=== PATIENT | female | born 1955 | race Caucasian/White ===

== ENCOUNTER 2016-04-23 08:54 | Outpatient (RCR) | payer BC ==
[~2016-04-23 08:54] MED LIST: AMOX250S5 PO; ASP81TEC PO; ATEN-155 PO; AZIT-21 PO; CLOR3.755 PO; FAMO20TA5 PO; HCT25T PO; HYDR118S PO; LIDO20SO20 PO; LSNP20T PO; RNT150T PO
--- OUTSIDE RECORDS SUMMARY | 2016-04-23 08:59 | XMS REPORT | Continuity of Care Document ---
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 If you do not see the information that you expected, contact Release of Information in the Health Information Management department at [phone] for further assistance in locating additional records.[facility] Active Allergies and Adverse Reactions Allergen Noted Date Severity Reactions Comments Albuterol 01/28/2015 Low SEE COMMENTS cause high b/p, rapid HR Amlodipine 01/28/2015 Low JOINT PAIN Swelling, burn in legs Codeine 01/28/2015 Low VOMITING Prednisone 02/20/2015 Low SEE COMMENTS All Steroids - "Rapid heart beat, high blood pressure" Current Medications Prescription Sig. Disp. Refills Start End Date Status Date zolpidem (AMBIEN) 10 mg Take 10 mg by mouth at Active tablet bedtime as needed for Sleep. atenolol (TENORMIN) 25 mg Take 12.5-25 mg by mouth Active tablet daily with lunch. hydrochlorothiazide Take 25 mg by mouth Active (HYDRODIURIL) 25 mg daily[address] tablet pantoprazole DR Take 40 mg by mouth Active (PROTONIX) 40 mg tablet daily. diazepam (VALIUM) 5 mg Take 5 mg by mouth every Active tablet 6 hours as needed for Anxiety. lisinopril (PRINIVIL; Take 20 mg by mouth twice Active ZESTRIL) 20 mg tablet daily. ranitidine(+) (ZANTAC) Take 150 mg by mouth at Active 150 mg tablet bedtime as needed for Heartburn. aspirin EC 81 mg tablet Take 81 mg by mouth Active daily. Garlic 1 mg cap Take 1 mg by mouth daily. Active oxyCODONE-acetaminophen Take 1-2 Tabs by mouth 30 Tab 0 03/14/20 Active (PERCOCET; ENDOCET; every 4 hours as needed 15 ROXICET) 5-325 mg tablet for Pain Earliest Fill Date: 03/14/15 milk of magnesia (CONC) Take 10 mL by mouth 50 mL 0 03/14/20 Active 2,400 mg/10 mL oral daily. 15 suspension senna/docusate Take 1 Tab by mouth twice 30 Tab 2 03/14/20 Active (SENOKOT-S) 8.6/50 mg daily. 15 tablet ondansetron (ZOFRAN) 4 mg Take 1 Tab by mouth every 15 Tab 0 03/14/20 Active tablet 8 hours as needed for 15 Nausea. 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 4mm L renal cyst poorly visualized, non-operative. L ast Assessment & Plan: 60 y.o. woman w/ hx of pT1a RCC s/p partial nephrectomy. No evidence of recurrence per recent CT. Continues to follow w/ an oncologist locally, but was referred back to [facility] for a L renal cyst. This was not seen in clinic today, but is referenced in the outside radiology read. At this size w/ reassuring imaging no operative management is currently indicated. - Pt to continue cancer surveillance locally. She is amendable to this plan. Bilateral renal cysts 01/28/2015 Overview: Referred by Dr. Dailey 12/19/14 CT A/P with Contrast: Complex cystic lesions in the right kidney c/w B2 or B2F 12/31/14 Labs: Hg 14, Plt 199, Cr 0.8, Ca 9.3, UCx negative 01/01/15 MRI Abdomen: Bilateral renal cysts R > L, new enhancement of a 12mm midpole exophytic right renal lesion suspicious for renal neoplasm such as oncocytoma or RCC Most Recent Encounters Date Type Specialty Providers Description 01/29/2016 Ancillary Radiology Outpatient, Radiologist Diagnosis unknown Orders (Primary Dx) 01/27/2016 Office Visit Urology Paul Parish MD Cancer of kidney parenchyma, unspecified laterality (HCC) (Primary Dx) Social History Tobacco Use Types Packs/Day Years Used Date Former Smoker Cigarettes 1 35 Quit: 02/21/2012 Smokeless Tobacco: Never Used Alcohol Use Drinks/Week oz/Week Comments Yes 4 Glasses of 2.4 wine 0 Standard drinks or equivalent Last Filed Vital Signs Vital Sign Reading Time Taken Blood Pressure 123/78 01/27/2016 9:42 AM CDT Pulse 59 01/27/2016 9:42 AM CDT Temperature 36.9 C (98.5 F) 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
[2016-04-23 09:23] LABS: BASOPHILS % (AUTO) 0 % (0-10); EOSINOPHILS # (AUTO) 0.1 10^3/uL (0.0-0.3); EOSINOPHILS % (AUTO) 2 % (0-10); LYMPHOCYTES # (AUTO) 2.4 X 10^3 (1.0-4.0); LYMPHOCYTES % (AUTO) 37 % (12-44); MEAN CORPUSCULAR HEMOGLOBIN 29 PG (25-34); MEAN CORPUSCULAR HGB CONC 33 G/DL (32-36); MEAN CORPUSCULAR VOLUME 89 FL (80-99); MEAN PLATELET VOLUME 10.5 FL (7.4-10.4); MONOCYTES # (AUTO) 0.3 X 10^3 (0.0-1.0); MONOCYTES % (AUTO) 4 % (0-12); NEUTROPHILS # (AUTO) 3.7 X 10^3 (1.8-7.8); NEUTROPHILS % (AUTO) 57 % (42-75); PLATELET COUNT 241 10^3/uL (130-400); RED BLOOD COUNT 4.84 10^6/uL (4.35-5.85); RED CELL DISTRIBUTION WIDTH 13.5 % (10.0-14.5); WHITE BLOOD COUNT 6.5 10^3/uL (4.3-11.0)
[2016-04-23 09:32] LABS: BILIRUBIN,URINE NEGATIVE (NEGATIVE); KETONES,URINE NEGATIVE (NEGATIVE); LEUKOCYTE ESTERASE ,URINE 1+ (NEGATIVE); NITRITE,URINE NEGATIVE (NEGATIVE); PH,URINE 7 (5-9); PROTEIN,URINE NEGATIVE (NEGATIVE); UROBILINOGEN,URINE NORMAL (NORMAL)
[2016-04-23 09:41] LABS: SQUAMOUS EPITHELIAL CELL,UR 0-2 /HPF; WBC,URINE 0-2 /HPF
[2016-04-23 09:56] LABS: ALANINE AMINOTRANSFERASE 29 U/L (0-55); ALBUMIN 4.2 G/DL (3.2-4.5); ANION GAP 7 MMOL/L (5-14); ASPARTATE AMINO TRANSFERASE 24 U/L (5-34); BILIRUBIN,TOTAL 0.5 MG/DL (0.1-1.0); BLOOD UREA NITROGEN 15 MG/DL (7-18); BUN/CREATININE RATIO 17; CALCIUM 9.6 MG/DL (8.5-10.1); CARBON DIOXIDE 30 MMOL/L (21-32); CHLORIDE 104 MMOL/L (98-107); CREATININE SERUM 0.87 MG/DL (0.60-1.30); GFR ESTIMATED > 60; GLUCOSE 119 MG/DL (70-105); POTASSIUM 3.8 MMOL/L (3.6-5.0); SODIUM 141 MMOL/L (135-145); TOTAL PROTEIN 6.7 G/DL (6.4-8.2)
== END 2016-07-22 | disposition home or self-care (01) ==
LOC: ONC 08:54
PROVIDERS: ATTEND Internal Medicine Hematology & Oncology
DX: C64.1 Malignant neoplasm of right kidney, except renal pelvis (principal); F41.9 Anxiety disorder, unspecified; I10 Essential (primary) hypertension; Z79.899 Other long term (current) drug therapy
CPT/HCPCS: 36415; 80053; 81000; 85025; 99213

== ENCOUNTER 2016-10-19 08:51 | Outpatient (RCR) | payer BC ==
[2016-08-06 09:52] LABS: BASOPHILS % (AUTO) 1 % (0-10); EOSINOPHILS # (AUTO) 0.1 10^3/uL (0.0-0.3); EOSINOPHILS % (AUTO) 2 % (0-10); LYMPHOCYTES # (AUTO) 2.4 X 10^3 (1.0-4.0); LYMPHOCYTES % (AUTO) 42 % (12-44); MEAN CORPUSCULAR HEMOGLOBIN 29 PG (25-34); MEAN CORPUSCULAR HGB CONC 33 G/DL (32-36); MEAN CORPUSCULAR VOLUME 88 FL (80-99); MONOCYTES # (AUTO) 0.4 X 10^3 (0.0-1.0); MONOCYTES % (AUTO) 7 % (0-12); NEUTROPHILS # (AUTO) 2.8 X 10^3 (1.8-7.8); NEUTROPHILS % (AUTO) 49 % (42-75); PLATELET COUNT 238 10^3/uL (130-400); RED CELL DISTRIBUTION WIDTH 13.6 % (10.0-14.5); WHITE BLOOD COUNT 5.8 10^3/uL (4.3-11.0)
[2016-08-06 10:04] LABS: BILIRUBIN,URINE NEGATIVE (NEGATIVE); KETONES,URINE NEGATIVE (NEGATIVE); LEUKOCYTE ESTERASE ,URINE 1+ (NEGATIVE); NITRITE,URINE NEGATIVE (NEGATIVE); PH,URINE 6 (5-9); PROTEIN,URINE NEGATIVE (NEGATIVE); UROBILINOGEN,URINE NORMAL (NORMAL)
[2016-08-06 10:18] LABS: ALBUMIN 4.1 G/DL (3.2-4.5); BILIRUBIN,TOTAL 0.3 MG/DL (0.1-1.0); CALCIUM 9.3 MG/DL (8.5-10.1); CREATININE SERUM 1.01 MG/DL (0.60-1.30)
[2016-08-06 10:18] LABS: WBC,URINE 0-2 /HPF
[2016-08-06 10:19] LABS: SQUAMOUS EPITHELIAL CELL,UR RARE /HPF
[2016-10-19 09:04] LABS: BASOPHILS % (AUTO) 1 % (0-10); EOSINOPHILS # (AUTO) 0.1 10^3/uL (0.0-0.3); EOSINOPHILS % (AUTO) 2 % (0-10); LYMPHOCYTES # (AUTO) 2.6 X 10^3 (1.0-4.0); LYMPHOCYTES % (AUTO) 41 % (12-44); MEAN CORPUSCULAR HEMOGLOBIN 30 PG (25-34); MEAN CORPUSCULAR HGB CONC 34 G/DL (32-36); MEAN CORPUSCULAR VOLUME 89 FL (80-99); MEAN PLATELET VOLUME 10.2 FL (7.4-10.4); MONOCYTES # (AUTO) 0.5 X 10^3 (0.0-1.0); MONOCYTES % (AUTO) 7 % (0-12); NEUTROPHILS % (AUTO) 49 % (42-75); PLATELET COUNT 236 10^3/uL (130-400); RED BLOOD COUNT 4.91 10^6/uL (4.35-5.85); RED CELL DISTRIBUTION WIDTH 13.4 % (10.0-14.5); WHITE BLOOD COUNT 6.2 10^3/uL (4.3-11.0)
[2016-10-19 09:50] LABS: ALANINE AMINOTRANSFERASE 37 U/L (0-55); ALBUMIN 4.2 G/DL (3.2-4.5); ANION GAP 10 MMOL/L (5-14); ASPARTATE AMINO TRANSFERASE 30 U/L (5-34); BILIRUBIN,TOTAL 0.4 MG/DL (0.1-1.0); BLOOD UREA NITROGEN 17 MG/DL (7-18); BUN/CREATININE RATIO 19; CALCIUM 9.6 MG/DL (8.5-10.1); CARBON DIOXIDE 26 MMOL/L (21-32); CHLORIDE 106 MMOL/L (98-107); CREATININE SERUM 0.91 MG/DL (0.60-1.30); GFR ESTIMATED > 60; GLUCOSE 88 MG/DL (70-105); POTASSIUM 3.9 MMOL/L (3.6-5.0); SODIUM 142 MMOL/L (135-145); TOTAL PROTEIN 7.1 G/DL (6.4-8.2)
== END 2016-11-04 | disposition home or self-care (01) ==
LOC: ONC 08:51
PROVIDERS: ATTEND Internal Medicine Hematology & Oncology
DX: C64.1 Malignant neoplasm of right kidney, except renal pelvis (principal); F41.9 Anxiety disorder, unspecified; I10 Essential (primary) hypertension; Z79.899 Other long term (current) drug therapy
CPT/HCPCS: 36415; 80053; 81000; 85025; 99213

== ENCOUNTER → 2016-10-26 | Outpatient (CLI) | payer BC ==
--- NOTE | 2016-10-26 14:44 | Diagnostic Imaging Report ---
PROCEDURE: Lung cancer screening CT chest without contrast. TECHNIQUE: Multiple contiguous axial images were obtained through the chest without the use of intravenous contrast. This is performed with a low-dose protocol. INDICATION: Currently asymptomatic patient with 40 pack years history of smoking Comparison: No similar studies are available for comparison Findings: There is a 4 mm from right upper lobe nodule at the level of the savanah, axial image 23 seen. This is the ACL to a identified on the coronal images. The larger from nodules, suspicious lesions or masses are seen. There is no significant consolidation. 5 the mediastinum demonstrate the no mass or significantly enlarged lymph nodes. The thoracic aorta is normal in caliber. The heart size is normal. No pericardial or pleural effusion is seen. The thoracic spine and the ribs appear grossly unremarkable. Impression: There is a likely benign 4 mm from right upper lobe nodule, axial image 23. Lung Rads Category 3, likely benign. Recommendations: 6 months followup low-dose CT scan. Dictated by: Dictated on workstation # [id number]
== END ==
LOC: RAD 10:05
PROVIDERS: ATTEND Internal Medicine Hematology & Oncology
DX: R91.1 Solitary pulmonary nodule (principal); Z87.891 Personal history of nicotine dependence

== ENCOUNTER → 2016-10-26 | Outpatient (CLI) | payer BC ==
[~2016-10-26] MED LIST changes: +CATHETER FLUSH 10 ML SYR IV PRN; +IOHEXOL 350 MG/ML 100 ML (OMNIPAQUE 350) VIAL IV ONE; +NS 100 ML (IVPB) BAG IV ONE
--- NOTE | 2016-10-26 12:58 | Diagnostic Imaging Report ---
PROCEDURE: CT abdomen and pelvis with and without contrast. TECHNIQUE: Precontrast acquisitions were acquired through the abdomen and pelvis. Multiple contiguous axial images were obtained through the abdomen and pelvis after the administration of intravenous contrast. INDICATION: N28.1, Z85.528, history of renal cancer. COMPARISON: 11/19/2015. FINDINGS: The lung bases appear clear. The liver, the gallbladder, the spleen, the adrenals, and the pancreas appear unremarkable. The kidneys have symmetric enhancement and contrast excretion. There is no hydronephrosis. The unenhanced phase demonstrates linear hyperdensities along the upper aspect of the right kidney probably related to prior nephrectomy or ablation procedure. No evidence of tumor recurrence. The abdominal aorta is normal in caliber. No para-aortic significantly enlarged lymph node is seen. There is surgical sutures along the distal colon. There is no bowel obstruction. No free fluid or fluid collection in the abdomen or pelvis is seen. The urinary bladder appear unremarkable. There is suggestion of prior hysterectomy. The osseous structures appear grossly unremarkable. IMPRESSION: Stable postoperative findings in the upper pole of the right kidney with no evidence of tumor recurrence or metastasis in the abdomen and pelvis. Dictated by: Dictated on workstation # [id number]
== END ==
LOC: RAD 10:10
PROVIDERS: ATTEND Internal Medicine Nephrology
DX: N28.1 Cyst of kidney, acquired (principal); Z98.890 Other specified postprocedural states; Z85.528 Personal history of other malignant neoplasm of kidney
CPT/HCPCS: 74178

== ENCOUNTER → 2017-02-16 | Outpatient (CLI) | payer BC ==
[~2017-02-16] MED LIST changes: -CATHETER FLUSH 10 ML SYR IV PRN; -IOHEXOL 350 MG/ML 100 ML (OMNIPAQUE 350) VIAL IV ONE; -NS 100 ML (IVPB) BAG IV ONE
== END ==
LOC: RAD 09:57
PROVIDERS: ATTEND Physician Assistant
DX: Z12.31 Encounter for screening mammogram for malignant neoplasm of breast (principal)
CPT/HCPCS: 77067

== ENCOUNTER → 2017-04-15 | Outpatient (CLI) | payer BC ==
[~2017-04-15] MED LIST changes: +CATHETER FLUSH 10 ML SYR IV PRN; +IOHEXOL 350 MG/ML 100 ML (OMNIPAQUE 350) VIAL IV ONE; +NS 100 ML (IVPB) BAG IV ONE
--- NOTE | 2017-04-15 11:53 | Diagnostic Imaging Report ---
PROCEDURE: CT abdomen and pelvis with and without contrast. TECHNIQUE: Precontrast acquisitions were acquired through the abdomen and pelvis. Multiple contiguous axial images were obtained through the abdomen and pelvis after the administration of intravenous contrast. INDICATION: History of renal malignancy and partial right nephrectomy, history of sigmoid resection. COMPARISON: Exam compared to 10/26/2016. FINDINGS: Postoperative scarring to the upper pole of the right kidney is a stable finding. No enhancing residual or recurrent renal mass. There is no hydronephrosis. The contralateral left kidney is unremarkable. The liver, gallbladder, spleen, adrenals, and pancreas are unremarkable. The renal veins and cava are patent. There is no periaortic or retroperitoneal lymphadenopathy. There is no ascites, abscess, hematoma, or other fluid collection. There is no pneumatosis nor free gas. No perienteric or pericolonic edema. The lung bases are nonacute. There is no suspicious osseous lesion. IMPRESSION: Stable postsurgical changes to the right kidney. No findings suggestive of neoplastic recurrence. Dictated by: Dictated on workstation # [id number]
== END ==
LOC: RAD 09:16
PROVIDERS: ATTEND Internal Medicine Hematology & Oncology
DX: Z08 Encounter for follow-up examination after completed treatment for malignant neoplasm (principal); Z87.891 Personal history of nicotine dependence; Z90.49 Acquired absence of other specified parts of digestive tract; Z90.5 Acquired absence of kidney
CPT/HCPCS: 74178

== ENCOUNTER 2017-04-21 08:33 | Outpatient (RCR) | payer BC ==
[2017-04-15 10:27] LABS: BASOPHILS % (AUTO) 1 % (0-10); EOSINOPHILS # (AUTO) 0.2 10^3/uL (0.0-0.3); EOSINOPHILS % (AUTO) 3 % (0-10); HEMATOCRIT 44 % (35-52); HEMOGLOBIN 14.5 G/DL (11.5-16.0); LYMPHOCYTES # (AUTO) 2.2 X 10^3 (1.0-4.0); LYMPHOCYTES % (AUTO) 36 % (12-44); MEAN CORPUSCULAR HEMOGLOBIN 30 PG (25-34); MEAN CORPUSCULAR HGB CONC 33 G/DL (32-36); MEAN CORPUSCULAR VOLUME 90 FL (80-99); MEAN PLATELET VOLUME 10.4 FL (7.4-10.4); MONOCYTES # (AUTO) 0.5 X 10^3 (0.0-1.0); MONOCYTES % (AUTO) 8 % (0-12); NEUTROPHILS # (AUTO) 3.1 X 10^3 (1.8-7.8); NEUTROPHILS % (AUTO) 52 % (42-75); PLATELET COUNT 225 10^3/uL (130-400); RED BLOOD COUNT 4.83 10^6/uL (4.35-5.85); RED CELL DISTRIBUTION WIDTH 13.5 % (10.0-14.5)
[2017-04-15 10:44] LABS: ALANINE AMINOTRANSFERASE 19 U/L (0-55); ALBUMIN 4.2 GM/DL (3.2-4.5); ALKALINE PHOSPHATASE 124 U/L (40-136); BILIRUBIN,TOTAL 0.5 MG/DL (0.1-1.0); BUN/CREATININE RATIO 19; CALCIUM 9.4 MG/DL (8.5-10.1); CARBON DIOXIDE 30 MMOL/L (21-32); CHLORIDE 104 MMOL/L (98-107); CREATININE SERUM 0.81 MG/DL (0.60-1.30); GFR ESTIMATED > 60; GLUCOSE 87 MG/DL (70-105); POTASSIUM 4.1 MMOL/L (3.6-5.0); SODIUM 141 MMOL/L (135-145); TOTAL PROTEIN 7.1 GM/DL (6.4-8.2)
[~2017-04-21 08:33] MED LIST changes: -CATHETER FLUSH 10 ML SYR IV PRN; -IOHEXOL 350 MG/ML 100 ML (OMNIPAQUE 350) VIAL IV ONE; -NS 100 ML (IVPB) BAG IV ONE
== END 2017-07-14 | disposition home or self-care (01) ==
LOC: ONC 08:33
PROVIDERS: ATTEND Internal Medicine Hematology & Oncology
DX: C65.1 Malignant neoplasm of right renal pelvis (principal); N28.1 Cyst of kidney, acquired; I10 Essential (primary) hypertension; F41.9 Anxiety disorder, unspecified; F32.9 Major depressive disorder, single episode, unspecified; K57.30 Diverticulosis of large intestine without perforation or abscess without bleeding; Z87.891 Personal history of nicotine dependence; Z90.49 Acquired absence of other specified parts of digestive tract; Z90.5 Acquired absence of kidney
CPT/HCPCS: 36415; 80053; 85025; 99213

== ENCOUNTER → 2017-04-26 | Outpatient (CLI) | payer BC ==
[~2017-04-26] MED LIST changes: +CATHETER FLUSH 10 ML SYR IV PRN; +IOHEXOL 350 MG/ML 100 ML (OMNIPAQUE 350) VIAL IV ONE; +NS 100 ML (IVPB) BAG IV ONE
--- NOTE | 2017-04-26 13:11 | Diagnostic Imaging Report ---
PROCEDURE: CT chest with contrast only. TECHNIQUE: Multiple contiguous axial images were obtained through the chest after administration of intravenous contrast. INDICATION: Malignant renal neoplasm. Cough. 75 mL of Omnipaque-350 is administered intravenously. FINDINGS: The lungs demonstrate no significant consolidation, mass or suspicious nodule. There is no pleural or pericardial effusion. The thoracic aorta is normal in caliber. No mediastinal mass or lymphadenopathy. No significantly enlarged hilar lymph nodes are seen. No axillary lymphadenopathy. Sections in the upper abdomen appear to demonstrate post-therapeutic changes in the upper pole of the right kidney with scarring seen. The osseous structures appear grossly unremarkable. IMPRESSION: No evidence of metastasis. Dictated by: Dictated on workstation # [id number]
== END ==
LOC: RAD 09:44
PROVIDERS: ATTEND Internal Medicine Hematology & Oncology
DX: C65.1 Malignant neoplasm of right renal pelvis (principal); R05 Cough
CPT/HCPCS: 71260

== ENCOUNTER 2017-09-15 08:30 | Outpatient (RCR) | payer BC ==
[2017-09-15 09:00] LABS: BASOPHILS # (AUTO) 0.1 10^3/uL (0.0-0.1); BASOPHILS % (AUTO) 1 % (0-10); EOSINOPHILS # (AUTO) 0.2 10^3/uL (0.0-0.3); EOSINOPHILS % (AUTO) 3 % (0-10); HEMATOCRIT 44 % (35-52); HEMOGLOBIN 14.6 G/DL (11.5-16.0); LYMPHOCYTES # (AUTO) 2.5 X 10^3 (1.0-4.0); LYMPHOCYTES % (AUTO) 42 % (12-44); MEAN CORPUSCULAR HEMOGLOBIN 30 PG (25-34); MEAN CORPUSCULAR HGB CONC 33 G/DL (32-36); MEAN CORPUSCULAR VOLUME 89 FL (80-99); MEAN PLATELET VOLUME 9.6 FL (7.4-10.4); MONOCYTES # (AUTO) 0.5 X 10^3 (0.0-1.0); MONOCYTES % (AUTO) 8 % (0-12); NEUTROPHILS # (AUTO) 2.8 X 10^3 (1.8-7.8); NEUTROPHILS % (AUTO) 46 % (42-75); PLATELET COUNT 264 10^3/uL (130-400); RED BLOOD COUNT 4.91 10^6/uL (4.35-5.85); RED CELL DISTRIBUTION WIDTH 14.1 % (10.0-14.5)
[2017-09-15 09:12] LABS: CARBON DIOXIDE 30 MMOL/L (21-32); CHLORIDE 104 MMOL/L (98-107); CREATININE SERUM 0.83 MG/DL (0.60-1.30); POTASSIUM 4.4 MMOL/L (3.6-5.0); SODIUM 141 MMOL/L (135-145)
[2017-09-15 09:13] LABS: ALANINE AMINOTRANSFERASE 30 U/L (0-55); ALKALINE PHOSPHATASE 115 U/L (40-136); BILIRUBIN,TOTAL 0.4 MG/DL (0.1-1.0); BUN/CREATININE RATIO 22; CALCIUM 9.3 MG/DL (8.5-10.1); GFR ESTIMATED > 60; GLUCOSE 88 MG/DL (70-105); TOTAL PROTEIN 6.6 GM/DL (6.4-8.2)
== END 2017-12-14 | disposition home or self-care (01) ==
LOC: ONC 08:30
PROVIDERS: ATTEND Internal Medicine Hematology & Oncology
DX: C65.1 Malignant neoplasm of right renal pelvis (principal); I10 Essential (primary) hypertension; F41.9 Anxiety disorder, unspecified; F32.9 Major depressive disorder, single episode, unspecified; Z87.891 Personal history of nicotine dependence; Z90.49 Acquired absence of other specified parts of digestive tract; Z90.5 Acquired absence of kidney
CPT/HCPCS: 80053; 99213

== ENCOUNTER → 2017-09-15 | Outpatient (CLI) | payer BC ==
[~2017-09-15] MED LIST changes: -CATHETER FLUSH 10 ML SYR IV PRN; -IOHEXOL 350 MG/ML 100 ML (OMNIPAQUE 350) VIAL IV ONE; -NS 100 ML (IVPB) BAG IV ONE
[2017-09-15 09:02] LABS: BASOPHILS % (AUTO) 1 % (0-10); EOSINOPHILS # (AUTO) 0.2 10^3/uL (0.0-0.3); EOSINOPHILS % (AUTO) 3 % (0-10); HEMATOCRIT 44 % (35-52); HEMOGLOBIN 14.8 G/DL (11.5-16.0); LYMPHOCYTES # (AUTO) 2.5 X 10^3 (1.0-4.0); LYMPHOCYTES % (AUTO) 43 % (12-44); MEAN CORPUSCULAR HEMOGLOBIN 30 PG (25-34); MEAN CORPUSCULAR HGB CONC 34 G/DL (32-36); MEAN CORPUSCULAR VOLUME 89 FL (80-99); MEAN PLATELET VOLUME 9.8 FL (7.4-10.4); MONOCYTES # (AUTO) 0.4 X 10^3 (0.0-1.0); MONOCYTES % (AUTO) 7 % (0-12); NEUTROPHILS # (AUTO) 2.7 X 10^3 (1.8-7.8); NEUTROPHILS % (AUTO) 46 % (42-75); PLATELET COUNT 269 10^3/uL (130-400); RED BLOOD COUNT 4.93 10^6/uL (4.35-5.85); RED CELL DISTRIBUTION WIDTH 13.8 % (10.0-14.5); WHITE BLOOD COUNT 5.9 10^3/uL (4.3-11.0)
[2017-09-15 09:28] LABS: ALANINE AMINOTRANSFERASE 30 U/L (0-55); ALKALINE PHOSPHATASE 115 U/L (40-136); BILIRUBIN,TOTAL 0.4 MG/DL (0.1-1.0); BUN/CREATININE RATIO 20; CALCIUM 9.3 MG/DL (8.5-10.1); CARBON DIOXIDE 30 MMOL/L (21-32); CHLORIDE 104 MMOL/L (98-107); CHOLESTEROL 225 MG/DL (< 200); CREATININE SERUM 0.83 MG/DL (0.60-1.30); GFR ESTIMATED > 60; GLUCOSE 88 MG/DL (70-105); HDL CHOLESTEROL 79 MG/DL (40-60); POTASSIUM 4.4 MMOL/L (3.6-5.0); SODIUM 141 MMOL/L (135-145); TOTAL PROTEIN 6.6 GM/DL (6.4-8.2); TRIGLYCERIDES 84 MG/DL (<150); VLDL CHOLESTEROL 17 MG/DL (5-40)
== END ==
LOC: LAB 08:41
PROVIDERS: ATTEND Physician Assistant
DX: E78.5 Hyperlipidemia, unspecified (principal); Z85.528 Personal history of other malignant neoplasm of kidney; I10 Essential (primary) hypertension; E78.2 Mixed hyperlipidemia
CPT/HCPCS: 36415; 80053; 80061; 85025

== ENCOUNTER → 2018-03-25 | Outpatient (CLI) | payer BC ==
--- NOTE | 2018-03-25 11:51 | Diagnostic Imaging Report ---
INDICATION: Routine screening. Comparison is made with prior mammograms from 02/16/2017 and 02/05/2016. 2-D and 3-D bilateral screening mammography was performed with computer-aided detection (CAD) system. FINDINGS: Scattered fibroglandular densities are identified bilaterally. There is a focal density in the upper right breast posterior depth on the MLO view. This is indeterminate. This may represent superimposed tissue, but additional views are recommended. No other suspicious abnormality is seen. The axillae are unremarkable. IMPRESSION: Right breast density. Additional views are recommended for further evaluation. ACR BI-RADS Category 0: Incomplete. (Needs additional imaging evaluation). Result letter will be mailed to the patient. Note: At least 10% of breast cancer is not imaged by mammography. Dictated by: Dictated on workstation # [id number]
== END ==
LOC: RAD 10:21
PROVIDERS: ATTEND Physician Assistant
DX: Z12.31 Encounter for screening mammogram for malignant neoplasm of breast (principal); R92.8 Other abnormal and inconclusive findings on diagnostic imaging of breast
CPT/HCPCS: 77067

== ENCOUNTER → 2018-04-20 | Outpatient (CLI) | payer BC ==
--- NOTE | 2018-04-20 13:13 | Diagnostic Imaging Report ---
EXAMINATION: Unilateral diagnostic right mammogram with CAD. INDICATION: Abnormal screening mammogram. FINDINGS: The screening mammogram performed on 03/25/2018 noted a focal density in the superior aspect of the right breast at posterior depth on the MLO view. There was no corresponding abnormality seen on the craniocaudad view. On the compression view of this area, that density is not clearly visualized. That finding cannot be identified on the true lateral view either. I suspect it is secondary to fibroglandular tissue alone. Even so, I would recommend that ultrasound be performed for further study. IMPRESSION: There is no evidence for malignancy. Ultrasound would be recommended for further evaluation. ACR BI-RADS Category 0: Incomplete. (Needs additional imaging evaluation). Result letter will be mailed to the patient. Note: At least 10% of breast cancer is not imaged by mammography. Dictated by: Dictated on workstation # [id number]
--- NOTE | 2018-04-20 13:32 | Diagnostic Imaging Report ---
EXAMINATION: Ultrasound of the right breast. INDICATION: Abnormal mammogram. FINDINGS: The screening mammogram performed on 03/25/2018 noted a focal density in the superior half of the right breast. The diagnostic mammogram performed prior to this study failed to show any evidence for malignancy. On this study, the superior half of the breast was examined. There is no discrete solid or cystic mass evident. I suspect that the area in question was related to fibroglandular tissue alone. Even so, I would recommend that a short-term (6 month) followup mammogram be obtained for continued evaluation. IMPRESSION: There is no evidence for malignancy. Recommendations as above. ACR BI-RADS Category 3: Probably benign findings. Dictated by: Dictated on workstation # [id number]
== END ==
LOC: RAD 12:34
PROVIDERS: ATTEND Physician Assistant
DX: R92.2 Inconclusive mammogram (principal)

== ENCOUNTER → 2018-04-25 | Outpatient (CLI) | payer BC | LOC: LAB 10:44 | PROVIDERS: ATTEND Physician Assistant | DX: R73.09 Other abnormal glucose (principal); R53.83 Other fatigue | CPT/HCPCS: 83036 ==

== ENCOUNTER → 2018-04-25 | Outpatient (CLI) | payer BC ==
[~2018-04-25] MED LIST changes: +BARIUM SUSPENSION 2.1% (VANILLA SILQ) 450 ML PO ONE; +IOHEXOL 350 MG/ML 100 ML (OMNIPAQUE 350) VIAL IV ONE; +NS 100 ML (IVPB) BAG IV ONE; +RECEIVED CONTRAST (Hold Metformin) IV SCH
--- NOTE | 2018-04-25 11:30 | Diagnostic Imaging Report ---
PROCEDURE: CT chest with contrast, CT abdomen and pelvis with and without contrast. TECHNIQUE: Pre and post intravenous contrast axial imaging of the abdomen and pelvis and post contrast axial imaging of the chest were performed. INDICATION: Primary neoplasm of the right renal pelvis. The study is performed for followup. COMPARISON: Comparison is made with CT chest study from 04/26/[address] abdomen and pelvis from 04/15/2017. FINDINGS: CT chest: No axillary lymphadenopathy is detected. No hilar or mediastinal lymphadenopathy is seen. There is no pericardial or pleural fluid identified. No pulmonary infiltrates, nodules, or masses are seen. IMPRESSION: Stable CT of the chest. No thoracic lymphadenopathy or evidence of pulmonary metastatic disease is identified. CT abdomen and pelvis: No discrete liver mass is identified. There is some generalized hepatic low density, consistent with hepatic steatosis. The gallbladder is unremarkable. No biliary ductal dilatation is seen. The pancreas and spleen are unremarkable. No adrenal mass is detected. Postoperative scarring in the upper pole of the right kidney is again noted and appears stable. No definite residual or recurrent mass is identified. Left kidney is stable. Aorta demonstrates atherosclerotic changes but is nonaneurysmal. No central retroperitoneal or mesenteric lymphadenopathy is identified. The small and large bowel loops are normal in caliber. There is no ascites. The bladder is unremarkable. Uterus appears to be surgically absent or atrophic. No pelvic lymphadenopathy is seen. IMPRESSION: Stable CT abdomen and pelvis when compared with exam from one year earlier. No abdominal or pelvic lymphadenopathy or evidence of metastatic disease is seen. Dictated by: Dictated on workstation # [id number]
== END ==
LOC: RAD 10:18
PROVIDERS: ATTEND Internal Medicine Hematology & Oncology
DX: C65.1 Malignant neoplasm of right renal pelvis (principal); N28.1 Cyst of kidney, acquired
CPT/HCPCS: 71260; 74178

== ENCOUNTER 2018-04-28 09:43 | Outpatient (RCR) | payer BC ==
[2018-04-25 10:24] LABS: BASOPHILS % (AUTO) 1 % (0-10); EOSINOPHILS # (AUTO) 0.1 10^3/uL (0.0-0.3); EOSINOPHILS % (AUTO) 2 % (0-10); HEMATOCRIT 44 % (35-52); HEMOGLOBIN 14.2 G/DL (11.5-16.0); LYMPHOCYTES # (AUTO) 2.2 X 10^3 (1.0-4.0); LYMPHOCYTES % (AUTO) 42 % (12-44); MEAN CORPUSCULAR HEMOGLOBIN 30 PG (25-34); MEAN CORPUSCULAR HGB CONC 33 G/DL (32-36); MEAN CORPUSCULAR VOLUME 90 FL (80-99); MEAN PLATELET VOLUME 9.9 FL (7.4-10.4); MONOCYTES # (AUTO) 0.4 X 10^3 (0.0-1.0); MONOCYTES % (AUTO) 7 % (0-12); NEUTROPHILS # (AUTO) 2.6 X 10^3 (1.8-7.8); NEUTROPHILS % (AUTO) 49 % (42-75); PLATELET COUNT 240 10^3/uL (130-400); WHITE BLOOD COUNT 5.3 10^3/uL (4.3-11.0)
[2018-04-25 10:41] LABS: ALANINE AMINOTRANSFERASE 26 U/L (0-55); ALBUMIN 4.1 GM/DL (3.2-4.5); ALKALINE PHOSPHATASE 97 U/L (40-136); BILIRUBIN,TOTAL 0.5 MG/DL (0.1-1.0); BUN/CREATININE RATIO 15; CALCIUM 9.3 MG/DL (8.5-10.1); CARBON DIOXIDE 28 MMOL/L (21-32); CHLORIDE 105 MMOL/L (98-107); CREATININE SERUM 0.84 MG/DL (0.60-1.30); GFR ESTIMATED > 60; GLUCOSE 92 MG/DL (70-105); POTASSIUM 4.2 MMOL/L (3.6-5.0); SODIUM 142 MMOL/L (135-145); TOTAL PROTEIN 6.8 GM/DL (6.4-8.2)
[~2018-04-28 09:43] MED LIST changes: -BARIUM SUSPENSION 2.1% (VANILLA SILQ) 450 ML PO ONE; -IOHEXOL 350 MG/ML 100 ML (OMNIPAQUE 350) VIAL IV ONE; -NS 100 ML (IVPB) BAG IV ONE; -RECEIVED CONTRAST (Hold Metformin) IV SCH
== END 2018-07-24 | disposition home or self-care (01) ==
LOC: ONC 09:43
PROVIDERS: ATTEND Internal Medicine Hematology & Oncology
DX: C65.1 Malignant neoplasm of right renal pelvis (principal); I10 Essential (primary) hypertension; F41.9 Anxiety disorder, unspecified; F32.9 Major depressive disorder, single episode, unspecified; Z87.891 Personal history of nicotine dependence; Z90.49 Acquired absence of other specified parts of digestive tract; Z90.5 Acquired absence of kidney
CPT/HCPCS: 36415; 80053; 85025; 99213

== ENCOUNTER → 2018-10-20 | Outpatient (CLI) | payer BC ==
--- NOTE | 2018-10-20 19:34 | Diagnostic Imaging Report ---
INDICATION: Followup mammogram. EXAMINATION: Unilateral diagnostic right mammogram. The current study was also evaluated with a Computer Aided Detection (CAD) system. FINDINGS: The screening mammogram performed on 03/25/2018 noted a focal area of density in the upper aspect of the right breast on the MLO view. The subsequent diagnostic mammogram and ultrasound exam of 04/20/2018 failed to show any sign of malignancy in this area. On this exam, the area in question seen on the initial screening mammogram is less conspicuous. I do suspect that this finding is related to fibroglandular tissue alone. There are scattered fibroglandular densities in the right breast which could obscure a lesion. Overall, there has been no significant change since the prior exam. IMPRESSION: The area of increased density in the superior aspect of the right breast seen previously is not as conspicuous on this exam. This finding is most likely due to fibroglandular tissue. I would recommend this area be reevaluated with diagnostic mammogram when the patient has her annual screening mammogram of the left breast in April of this year. ACR BI-RADS Category 3: Probably benign findings. Result letter will be mailed to the patient. Note: At least 10% of breast cancer is not imaged by mammography. Dictated by: Dictated on workstation # [id number]
== END ==
LOC: RAD 08:15
PROVIDERS: ATTEND Physician Assistant
DX: R92.8 Other abnormal and inconclusive findings on diagnostic imaging of breast (principal)

== ENCOUNTER → 2019-04-17 | Outpatient (CLI) | payer MEDICARE, OTHER ==
--- NOTE | 2019-04-17 12:57 | Diagnostic Imaging Report ---
INDICATION: Breast pain. Comparison made with prior examination 10/20/2018, 04/20/2018 and 03/25/2018. FINDINGS: There are scattered fibroglandular densities bilaterally. A few benign-type calcifications. There is no dominant mass, spiculated lesion or suspicious calcifications identified. Skin, nipples and axilla are unremarkable. IMPRESSION: Category 2 benign. ACR BI-RADS Category 2: Benign findings. Result letter will be mailed to the patient. Note: At least 10% of breast cancer is not imaged by mammography. Dictated by: Dictated on workstation # [id number]
== END ==
LOC: RAD 12:15
PROVIDERS: ATTEND Physician Assistant
DX: N64.4 Mastodynia (principal); R92.8 Other abnormal and inconclusive findings on diagnostic imaging of breast
CPT/HCPCS: 77066

== ENCOUNTER → 2019-04-21 | Outpatient (CLI) | payer BC, MEDICARE ==
[~2019-04-21] MED LIST changes: +BARIUM SUSPENSION 2.1% (VANILLA SILQ) 450 ML PO ONE; +HOLD METFORMIN - RECEIVED CONTRAST 20 ML VIAL IV SCH; +IOHEXOL 350 MG/ML 100 ML (OMNIPAQUE 350) VIAL IV ONE; +NS 100 ML (IVPB) BAG IV ONE
--- NOTE | 2019-04-21 11:39 | Diagnostic Imaging Report ---
PROCEDURE: CT chest, abdomen, and pelvis with contrast. TECHNIQUE: Multiple contiguous axial images were obtained through the chest, abdomen, and pelvis after the administration of intravenous contrast. Auto Exposure Controls were utilized during the CT exam to meet ALARA standards for radiation dose reduction. DATE: April 21, 2019. COMPARISON: CT chest, abdomen and pelvis April 25, 2018. CT chest April 26, 2017. CT abdomen and pelvis April 15, 2017. INDICATION: 63-year-old female, history of adenocarcinoma. Lung mass. FINDINGS: There is no identified pulmonary nodule or lung mass. There is no focal airspace consolidation. There is no pneumothorax. There is no pleural effusion. The central airways are patent. There are coronary artery calcifications and additional areas of atherosclerotic disease. The main pulmonary artery is normal in diameter. There is no identified central pulmonary embolus. There is no identified abnormally enlarged mediastinal, hilar, or axillary lymph node. The liver is normal in size and contour. There is no identified liver lesion. The main, right, and left portal veins are patent. The gallbladder is unremarkable. There is no intrahepatic or extrahepatic bile duct dilation. The main pancreatic duct is not abnormally dilated. Unremarkable appearance of the pancreatic parenchyma. The spleen is normal in size. The adrenal glands are unremarkable. There are areas of right renal cortical scarring. There is a 5 mm low-attenuation right renal lesion on axial image 130 which is too small to characterize. The urinary collecting systems are not distended. There is no identified renal or ureteral stone. The urinary bladder is unremarkable. The uterus is not seen and may be surgically absent. The intestinal tract is not distended. There is no evidence of acute appendicitis. There is no free intraperitoneal air. There is no drainable fluid collection. There is no free pelvic fluid. There is contrast in the distal esophagus which may relate to slow transit of swallowed contents and/or gastroesophageal reflux. There is no identified abnormally enlarged lymph node in the abdomen or pelvis which meets CT size criteria for adenopathy. There is no identified acute bony abnormality. IMPRESSION: CT chest, abdomen, and pelvis. 1. No evidence of active malignancy at the level of the chest, abdomen, or pelvis. Dictated by: Dictated on workstation # [id number]
== END ==
LOC: RAD 09:26
PROVIDERS: ATTEND Internal Medicine Hematology & Oncology
DX: Z01.89 Encounter for other specified special examinations (principal); N28.1 Cyst of kidney, acquired; R91.8 Other nonspecific abnormal finding of lung field; Z85.53 Personal history of malignant neoplasm of renal pelvis; Z85.858 Personal history of malignant neoplasm of other endocrine glands; Z87.891 Personal history of nicotine dependence
CPT/HCPCS: 71260; 74177

== ENCOUNTER 2019-04-28 09:40 | Outpatient (RCR) | payer MEDICARE, OTHER ==
[2019-04-21 09:21] LABS: BASOPHILS # (AUTO) 0.1 10^3/uL (0.0-0.1); BASOPHILS % (AUTO) 1 % (0-10); EOSINOPHILS # (AUTO) 0.1 10^3/uL (0.0-0.3); EOSINOPHILS % (AUTO) 2 % (0-10); HEMATOCRIT 42 % (35-52); LYMPHOCYTES # (AUTO) 2.4 X 10^3 (1.0-4.0); LYMPHOCYTES % (AUTO) 37 % (12-44); MEAN CORPUSCULAR HEMOGLOBIN 29 PG (25-34); MEAN CORPUSCULAR HGB CONC 33 G/DL (32-36); MEAN CORPUSCULAR VOLUME 88 FL (80-99); MONOCYTES # (AUTO) 0.4 X 10^3 (0.0-1.0); MONOCYTES % (AUTO) 6 % (0-12); NEUTROPHILS # (AUTO) 3.4 X 10^3 (1.8-7.8); NEUTROPHILS % (AUTO) 54 % (42-75); PLATELET COUNT 272 10^3/uL (130-400); RED CELL DISTRIBUTION WIDTH 13.9 % (10.0-14.5); WHITE BLOOD COUNT 6.4 10^3/uL (4.3-11.0)
[2019-04-21 09:39] LABS: ALANINE AMINOTRANSFERASE 19 U/L (0-55); ALBUMIN 4.2 GM/DL (3.2-4.5); ALKALINE PHOSPHATASE 131 U/L (40-136); BILIRUBIN,TOTAL 0.5 MG/DL (0.1-1.0); BUN/CREATININE RATIO 13; CALCIUM 9.3 MG/DL (8.5-10.1); CARBON DIOXIDE 26 MMOL/L (21-32); CHLORIDE 105 MMOL/L (98-107); CREATININE SERUM 0.92 MG/DL (0.60-1.30); GFR ESTIMATED > 60; GLUCOSE 93 MG/DL (70-105); POTASSIUM 3.7 MMOL/L (3.6-5.0); SODIUM 141 MMOL/L (135-145)
[~2019-04-28 09:40] MED LIST changes: -BARIUM SUSPENSION 2.1% (VANILLA SILQ) 450 ML PO ONE; -HOLD METFORMIN - RECEIVED CONTRAST 20 ML VIAL IV SCH; -IOHEXOL 350 MG/ML 100 ML (OMNIPAQUE 350) VIAL IV ONE; -NS 100 ML (IVPB) BAG IV ONE
[2019-04-28 11:53] LABS: BILIRUBIN,URINE NEGATIVE (NEGATIVE); CLARITY,URINE CLEAR; COLOR,URINE YELLOW; GLUCOSE, URINE (UA) NEGATIVE (NEGATIVE); KETONES,URINE NEGATIVE (NEGATIVE); LEUKOCYTE ESTERASE ,URINE NEGATIVE (NEGATIVE); NITRITE,URINE NEGATIVE (NEGATIVE); PROTEIN,URINE NEGATIVE (NEGATIVE)
[2019-04-28 11:59] LABS: BACTERIA,URINE NEGATIVE /HPF; RBC,URINE RARE /HPF; SQUAMOUS EPITHELIAL CELL,UR 0-2 /HPF; WBC,URINE RARE /HPF
== END 2019-07-20 | disposition home or self-care (01) ==
LOC: ONC 09:40
PROVIDERS: ATTEND Internal Medicine Hematology & Oncology
DX: C65.1 Malignant neoplasm of right renal pelvis (principal); I10 Essential (primary) hypertension; F41.9 Anxiety disorder, unspecified; F32.9 Major depressive disorder, single episode, unspecified; Z87.891 Personal history of nicotine dependence; Z90.49 Acquired absence of other specified parts of digestive tract; Z90.5 Acquired absence of kidney
CPT/HCPCS: 80053; 81000; 85025; 99213

== ENCOUNTER → 2020-04-09 | Outpatient (CLI) | payer MEDICARE, OTHER ==
[~2020-04-09] MED LIST changes: +CATHETER FLUSH 10 ML SYR IV PRN; +HOLD METFORMIN - RECEIVED CONTRAST 20 ML VIAL IV SCH; +IOHEXOL 350 MG/ML 100 ML (OMNIPAQUE 350) VIAL IV ONE; +NS 100 ML (IVPB) BAG IV ONE
--- NOTE | 2020-04-09 11:15 | Diagnostic Imaging Report ---
PROCEDURE: CT chest, abdomen, and pelvis with contrast. TECHNIQUE: Multiple contiguous axial images were obtained through the chest, abdomen, and pelvis after the administration of intravenous contrast. Auto Exposure Controls were utilized during the CT exam to meet ALARA standards for radiation dose reduction. INDICATION: Renal neoplasm, follow-up. COMPARISON: Correlation is made with prior CT from 04/21/2019. FINDINGS: CT CHEST: No axillary lymphadenopathy is identified. Small lymph nodes in the mediastinum are stable. No pathologically enlarged lymph nodes in the mediastinum or subhash are identified. No pericardial or pleural fluid is detected. No pulmonary infiltrates, nodules, or masses are seen. IMPRESSION: Stable CT chest since exam from 04/21/2019. CT ABDOMEN AND PELVIS: No discrete liver mass is identified. Gallbladder is unremarkable. No biliary ductal dilatation is seen. Pancreas and spleen are unremarkable. No adrenal mass is detected. Postsurgical changes in the upper pole of the right kidney are again noted. Tiny cortical low density in the lower pole of the right kidney is stable at 4 to 5 mm. Left kidney is unremarkable. Aorta is nonaneurysmal. No central retroperitoneal or mesenteric lymphadenopathy is identified. The small and large bowel loops are normal in caliber. There are postsurgical changes near the rectosigmoid junction. There is no free fluid or fluid collection. Bladder is unremarkable. Uterus appears to be surgically absent. No pelvic lymphadenopathy is detected. Bony structures are nonacute. IMPRESSION: Stable CT abdomen and pelvis since exam from 04/21/2019. There are postsurgical changes to the right kidney. No recurrent mass is identified. Subcentimeter cyst in the lower pole of the right kidney remains stable. Dictated by: Dictated on workstation # [id number]
== END ==
LOC: RAD 09:11
PROVIDERS: ATTEND Internal Medicine Hematology & Oncology
DX: Z01.89 Encounter for other specified special examinations (principal); C65.1 Malignant neoplasm of right renal pelvis; N28.1 Cyst of kidney, acquired; Z87.891 Personal history of nicotine dependence
CPT/HCPCS: 71260; 74177

== ENCOUNTER → 2020-04-09 | Outpatient (CLI) | payer MEDICARE, OTHER ==
[~2020-04-09] MED LIST changes: -CATHETER FLUSH 10 ML SYR IV PRN; -HOLD METFORMIN - RECEIVED CONTRAST 20 ML VIAL IV SCH; -IOHEXOL 350 MG/ML 100 ML (OMNIPAQUE 350) VIAL IV ONE; -NS 100 ML (IVPB) BAG IV ONE
--- NOTE | 2020-04-09 13:02 | Diagnostic Imaging Report ---
INDICATION: Routine screening. COMPARISON: 04/17/2019 and 03/25/2018. TECHNIQUE: 2D and 3D bilateral screening mammography was performed with CAD. FINDINGS: Scattered fibroglandular densities are identified bilaterally. The parenchymal pattern is stable. No mass or malignant appearing microcalcifications are seen. The axillae are unremarkable. IMPRESSION: No mammographic features suspicious for malignancy are identified. ACR BI-RADS Category 1: Negative. Result letter will be mailed to the patient. Note: At least 10% of breast cancer is not imaged by mammography. Dictated by: Dictated on workstation # [id number]
== END ==
LOC: RAD 09:12
PROVIDERS: ATTEND Physician Assistant
DX: Z12.31 Encounter for screening mammogram for malignant neoplasm of breast (principal); Z87.898 Personal history of other specified conditions
CPT/HCPCS: 77063; 77067

== ENCOUNTER 2020-04-26 09:45 | Outpatient (RCR) | payer MEDICARE, OTHER ==
[2020-04-09 09:13] LABS: BASOPHILS # (AUTO) 0.1 10^3/uL (0.0-0.1); BASOPHILS % (AUTO) 1 % (0-10); EOSINOPHILS # (AUTO) 0.2 10^3/uL (0.0-0.3); EOSINOPHILS % (AUTO) 3 % (0-10); HEMATOCRIT 44 % (35-52); HEMOGLOBIN 13.9 g/dL (11.5-16.0); LYMPHOCYTES # (AUTO) 2.7 10^3/uL (1.0-4.0); LYMPHOCYTES % (AUTO) 41 % (12-44); MEAN CORPUSCULAR HEMOGLOBIN 29 pg (25-34); MEAN CORPUSCULAR HGB CONC 32 g/dL (32-36); MEAN CORPUSCULAR VOLUME 90 fL (80-99); MEAN PLATELET VOLUME 10.3 fL (9.0-12.2); MONOCYTES # (AUTO) 0.5 10^3/uL (0.0-1.0); MONOCYTES % (AUTO) 8 % (0-12); NEUTROPHILS % (AUTO) 47 % (42-75); PLATELET COUNT 251 10^3/uL (130-400); WHITE BLOOD COUNT 6.4 10^3/uL (4.3-11.0)
[2020-04-09 09:33] LABS: ALANINE AMINOTRANSFERASE 37 U/L (0-55); ALKALINE PHOSPHATASE 122 U/L (40-136); BILIRUBIN,TOTAL 0.4 MG/DL (0.1-1.0); BUN/CREATININE RATIO 16; CARBON DIOXIDE 28 MMOL/L (21-32); CHLORIDE 106 MMOL/L (98-107); CREATININE SERUM 0.91 MG/DL (0.60-1.30); GFR ESTIMATED > 60; GLUCOSE 95 MG/DL (70-105); POTASSIUM 4.3 MMOL/L (3.6-5.0); SODIUM 141 MMOL/L (135-145); TOTAL PROTEIN 6.7 GM/DL (6.4-8.2)
[2020-05-15] MEDS ORDERED: ZOLP10TA PO (13:31)
[2020-05-15] MEDS ORDERED: DIAZ5TAB49 PO (13:31)
[2020-05-15] MEDS ORDERED: DILT240C87 PO (13:31)
[2020-05-15] MEDS ORDERED: ENAL10TA16 PO (13:31)
[2020-05-15] MEDS ORDERED: PANT40TA52 PO (13:31)
[2020-05-15] MEDS ORDERED: ASPI-999 PO (13:31)
== END 2020-07-08 | disposition home or self-care (01) ==
LOC: ONC 09:45
PROVIDERS: ATTEND Internal Medicine Hematology & Oncology
DX: C65.1 Malignant neoplasm of right renal pelvis (principal); I10 Essential (primary) hypertension; F41.9 Anxiety disorder, unspecified; F32.9 Major depressive disorder, single episode, unspecified; R31.9 Hematuria, unspecified; Z90.49 Acquired absence of other specified parts of digestive tract; Z90.5 Acquired absence of kidney; Z87.891 Personal history of nicotine dependence
CPT/HCPCS: 80053; 85025; 99213

== ENCOUNTER 2020-05-20 05:30 | Outpatient (RCR) | payer MEDICARE, OTHER ==
[~2020-05-20] VITALS: Ht 160 cm; Wt 75.0 kg
[~2020-05-20 05:30] MED LIST changes: +ASPI-999 PO; +DIAZ5TAB49 PO; +DILT240C87 PO; +ENAL10TA16 PO; +PANT40TA52 PO; +ZOLP10TA PO
== END 2020-05-20 09:49 | disposition home or self-care (01) ==
LOC: PREOP 05:30
PROVIDERS: ATTEND Surgery
DX: Z01.812 Encounter for preprocedural laboratory examination (principal); Z12.11 Encounter for screening for malignant neoplasm of colon; K21.9 Gastro-esophageal reflux disease without esophagitis; Z86.010 Personal history of colon polyps; Z20.822 Contact with and (suspected) exposure to COVID-19
CPT/HCPCS: 87635

== ENCOUNTER 2020-05-22 08:51 | Day surgery (SDC) | payer MEDICARE, OTHER ==
[2020-05-22] VITALS (10 sets, daily range): BP systolic 95–169; BP diastolic 55–75
[~2020-05-22] VITALS: Ht 160 cm; Wt 75.0 kg
[2020-05-22] MEDS ORDERED: LACTATED RINGERS 1,000 ML IV ONE (09:01)
[2020-05-22] MEDS ORDERED: LACTATED RINGERS 1,000 ML IV PRN (09:15)
[2020-05-22] MEDS ORDERED: LIDOCAINE JELLY 2% 6 ML SYRINGE MM PRN (09:15)
[2020-05-22] MEDS ORDERED: PROPOFOL INJECTION 50 ML IV ONE ×2 (10:10→10:42)
[2020-05-22] MEDS ORDERED: MIDAZOLAM 2 MG/2 ML (VERSED) VIAL ONE (10:11)
--- NOTE | 2020-05-22 10:16 | Progress Note-Pre Operative ---
Pre-Operative Progress Note H&P Reviewed The H&P was reviewed, patient examined and no changes noted. Date Seen by Provider: May 22, 2020 Time Seen by Provider: 10:00 Date H&P Reviewed: May 22, 2020 Time H&P Reviewed: 10:00 Pre-Operative Diagnosis: GERD, screening o TRESSA SCHWARZ MD May 22, 2020 10:16
--- NOTE | 2020-05-22 10:18 | Discharge Inst-Surgical ---
D/C Lap Instructions-KARISHMA Follow Up Appt in 2 weeks Activity as tolerated High Fiber Diet 25g or more per day Avoid Alcohol, Caffeine, Spicy [place] and Acid foods. Drink 64 fluid oz or more of fluids per day. Symptoms to Report: Fever over 101 degree F, Nausea/Vomiting If any problems/questions: Contact your physician or go to Emergency Room TRESSA SCHWARZ MD May 22, 2020 10:18
[2020-05-22] MEDS ORDERED: LIDOCAINE JELLY 2% 6 ML SYRINGE ONE (10:25)
[2020-05-22] MEDS ORDERED: ONDANSETRON 4 MG/2 ML (SDV) Z0FRAN IVP PRN (10:30)
[2020-05-22] MEDS ORDERED: ACETAMINOPHEN 325 MG TABLET PO PRN (10:30)
[2020-05-22] MEDS ORDERED: morphine INJ 10 MG/ML 1ML (SYR OR VIAL) IVP PRN ×2 (10:30)
[2020-05-22] MEDS ORDERED: HYDROcodone/APAP 5 MG/325 MG (LORTAB) TAB PO PRN (10:30)
[2020-05-22] MEDS ORDERED: proPOfol 200 MG/20 ML (DIPRIVAN) VIAL IV ONE (10:34)
--- NOTE | 2020-05-22 11:19 | Progress Note-Post Operative ---
Post-Operative Progess Note Surgeon (s)/Chemotherapist (s) Surgeon TRESSA SCHWARZ MD Chemotherapist: none Pre-Operative Diagnosis GERD, screening colo Post-Operative Diagnosis reflux esophagitis(stage 2), small HH(2cm), moderate gastritis. mild chronic stage 2 ext and int hemorrhoids. Procedure & Operative Findings Date of Procedure 05/22/20 Procedure Performed/Findings EGD with bx. Colonoscopy. Anesthesia Type mac Estimated Blood Loss Estimated blood loss (mL): none Specimens/Packing Specimens Removed ge jxn, antrum TRESSA SCHWARZ MD May 22, 2020 11:19
--- NOTE | 2020-05-22 17:49 | OPERATIVE REPORT ---
DATE OF SERVICE: 05/22/2020 ATTENDING PRIMARY CARE PHYSICIAN: De Amaya MD PREOPERATIVE DIAGNOSES: Gastroesophageal reflux disease, screening colonoscopy with personal history of renal cell cancer. POSTOPERATIVE DIAGNOSES: Reflux esophagitis stage II, small hiatal hernia approximately 2 cm in size, moderate gastritis and mild chronic stage II external and internal hemorrhoids. Normal colorectal anastomosis. No recurrent polyps. Remainder of the colon and rectum were normal. PROCEDURE: EGD with biopsy, colonoscopy. SURGEON: Tressa Schwarz MD ANESTHESIA: Monitored anesthesia care. ESTIMATED BLOOD LOSS: Minimal. FINDINGS: Reflux esophagitis stage II, small hiatal hernia approximately 2 cm in size, moderate gastritis and mild chronic stage II external and internal hemorrhoids. Normal colorectal anastomosis. No recurrent polyps. Remainder of the colon and rectum were normal. DISPOSITION: The patient tolerated the procedure well. INDICATIONS: The patient is a 64-year-old female who was referred over to us for an EGD and colonoscopy. She has had a history of gastroesophageal reflux disease; however, this has worsened in the past few years. She is currently on Protonix daily. She also is in need of a screening colonoscopy. She has been getting colonoscopies every 5 years. She was found to have a large sigmoid colonic polyp, which was not amenable to endoscopic resection and underwent a formal resection in 2014. She does have a personal history of renal cell cancer and is status post partial nephrectomy in 2013. DESCRIPTION OF PROCEDURE: The patient was brought to the endoscopy suite, laid in the left lateral decubitus position with head slightly elevated. After adequate IV pain and stated medications and monitored anesthesia care, the mouthpiece was applied. The endoscope was then placed into the mouth visualizing the pharynx and hypopharyngeal region. Vocal cords, epiglottis and vallecula identified and appeared to be normal. The endoscope was then intubated and esophageal opening and esophagus insufflated. The endoscope was then advanced through the first, second and third portion of esophagus at the level of the GE junction, reflux esophagitis stage II identified. There were no ulcers or strictures identified in this region. A biopsy was taken of this region with forceps with visualization of good hemostasis. The endoscope was then advanced into the stomach and endoscope retroflexed, visualizing a small hiatal hernia approximately 2 cm in size. There was a moderate severity gastritis. No formal ulcerations, polyps, or any neoplasms. A biopsy was taken of the antrum to rule out H. pylori with visualization of good hemostasis. The endoscope was then advanced to the pylorus in the first and second portion of the duodenum, which appeared normal with no duodenal ulcerations identified. The endoscope was then slowly withdrawn while taking a second look and suctioning of residual air with no additional findings. We then proceeded with colonoscopy portion of the procedure and a digital rectal examination was performed, which revealed mild chronic stage II external and internal hemorrhoids, not actively edematous nor inflamed and no bleeding. Normal sphincter tone was felt and there were no palpable masses. Endoscope was then advanced through the valves of [place] of the rectum with no polyps or any neoplasms identified. The colorectal anastomosis was identified, which appeared normal with no recurrent polyps or any neoplasms. The endoscope was then advanced through the descending colon. Descending transverse and ascending colon and the cecum, which appeared normal with no polyps or any neoplasms identified. The endoscope was then slowly withdrawn while taking a second look and suctioning of residual air with no additional findings. The patient tolerated the procedure well. We will recommend the necessary lifestyle and diet accommodation including small and more frequent meals, avoidance of eating at night as well as head elevation while lying supine. She also needs to avoid caffeinated beverages as well as spicy, greasy and acidic foods. Any form of regularly scheduled exercise and diet regimen for even a marginal amount of weight loss will also help with her reflux type of symptoms. We will also recommend a high fiber diet with at least 25 grams of fiber daily as well as significant amounts of water to promote soft stools on a daily basis. Due to her previous history of what sounds to be a larger polyp as well as a personal history of renal cell cancer. She may continue with screening colonoscopy intervals of 5 years. Job ID: [id number] DocumentID: [id number] Dictated Date: 05/22/2020 11:20:35 Otorhinolaryngologist Date: 05/22/2020 17:48:34 Dictated By: TRESSA SCHWARZ MD
== END 2020-05-22 12:00 | disposition home or self-care (01) ==
LOC: ENDO 08:51
PROVIDERS: ATTEND Surgery
DX: Z12.11 Encounter for screening for malignant neoplasm of colon (principal); K21.00 Gastro-esophageal reflux disease with esophagitis, without bleeding; K44.9 Diaphragmatic hernia without obstruction or gangrene; K64.1 Second degree hemorrhoids; K29.50 Unspecified chronic gastritis without bleeding; I20.9 Angina pectoris, unspecified; K21.9 Gastro-esophageal reflux disease without esophagitis; G62.9 Polyneuropathy, unspecified; I10 Essential (primary) hypertension; F41.9 Anxiety disorder, unspecified; G47.00 Insomnia, unspecified; Z79.82 Long term (current) use of aspirin; Z79.899 Other long term (current) drug therapy; Z88.8 Allergy status to other drugs, medicaments and biological substances; Z91.018 Allergy to other foods; Z88.4 Allergy status to anesthetic agent; Z86.010 Personal history of colon polyps; Z85.53 Personal history of malignant neoplasm of renal pelvis; Z90.710 Acquired absence of both cervix and uterus
CPT/HCPCS: 43239; G0105

== ENCOUNTER → 2020-10-21 | Outpatient (CLI) | payer MEDICARE, OTHER | LOC: LAB 12:28 | PROVIDERS: ATTEND Orthopaedic Surgery Orthopaedic Surgery of the Spine | DX: M54.41 Lumbago with sciatica, right side (principal); M54.42 Lumbago with sciatica, left side | CPT/HCPCS: 36415; 85652; 86038; 86039; 86141; 86431; 86618; 86666; 86668; 86757 ==

== ENCOUNTER 2021-01-03 18:02 | Inpatient (IN) | payer MEDICARE, OTHER ==
[~2021-01-03] VITALS: Ht 160 cm; Wt 68.8 kg
[2021-01-03] MEDS ORDERED: ADENOSINE 6 MG/2 ML (ADENOCARD) VIAL IV ONE (18:09)
[2021-01-03] MEDS ORDERED: dilTIAZem DRIP PRE-MIX 125 ML IV SCH (18:30)
[2021-01-03] MEDS ORDERED: ASPIRIN 81 MG CHEW (CHILDREN'S ASA) PO ONE (18:30)
[2021-01-03 18:31] LABS: BASOPHILS # (AUTO) 0.1 10^3/uL (0.0-0.1); BASOPHILS % (AUTO) 1 % (0-10); EOSINOPHILS # (AUTO) 0.1 10^3/uL (0.0-0.3); EOSINOPHILS % (AUTO) 0 % (0-10); HEMATOCRIT 47 % (35-52); HEMOGLOBIN 16.1 g/dL (11.5-16.0); LYMPHOCYTES # (AUTO) 3.3 10^3/uL (1.0-4.0); LYMPHOCYTES % (AUTO) 25 % (12-44); MEAN CORPUSCULAR HEMOGLOBIN 30 pg (25-34); MEAN CORPUSCULAR HGB CONC 34 g/dL (32-36); MEAN CORPUSCULAR VOLUME 87 fL (80-99); MEAN PLATELET VOLUME 10.8 fL (9.0-12.2); MONOCYTES # (AUTO) 1.2 10^3/uL (0.0-1.0); MONOCYTES % (AUTO) 9 % (0-12); NEUTROPHILS # (AUTO) 8.4 10^3/uL (1.8-7.8); NEUTROPHILS % (AUTO) 64 % (42-75); PLATELET COUNT 325 10^3/uL (130-400)
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
[2021-01-03 18:37] LABS: ALBUMIN 4.5 GM/DL (3.2-4.5); POTASSIUM 4.7 MMOL/L (3.6-5.0)
[2021-01-03 18:39] LABS: CALCIUM 9.9 MG/DL (8.5-10.1)
[2021-01-03 18:40] LABS: TOTAL PROTEIN 7.7 GM/DL (6.4-8.2)
[2021-01-03 18:42] LABS: BILIRUBIN,TOTAL 0.3 MG/DL (0.1-1.0)
[2021-01-03 18:43] LABS: CREATININE SERUM 1.63 MG/DL (0.60-1.30)
[2021-01-03 18:46] LABS: MAGNESIUM 2.4 MG/DL (1.6-2.4)
--- NOTE | 2021-01-03 19:23 | Diagnostic Imaging Report ---
INDICATION: Chest pain. TECHNIQUE: Single view chest 6:47 PM. CORRELATION STUDY: 11/19/2015 FINDINGS: The heart size, mediastinal configuration and pulmonary vascularity are within normal limits. The lungs are clear with no consolidating infiltrate. There is no significant effusion or pneumothorax. IMPRESSION: 1. Negative appearing portable chest. Dictated by: Dictated on workstation # [id number]
[2021-01-03] MEDS ORDERED: APIXABAN 5 MG (ELIQUIS) TABLET PO ONE (19:30)
[2021-01-03] MEDS ORDERED: ANTACID SUSP 30 ML UDC (MYLANTA) PO ONE (19:45)
[2021-01-03] MEDS ORDERED: LIDOCAINE 2% VISCOUS 15 ML UDC PO ONE (19:45)
[2021-01-03] MEDS ORDERED: ONDANSETRON 4 MG/2 ML (SDV) Z0FRAN IVP ONE (19:45)
[2021-01-03 20:35] VITALS: BP 137/67
[2021-01-03] MEDS ORDERED: LACTATED RINGERS 1,000 ML IV ONE (21:05)
[2021-01-03] MEDS: LACTATED RINGERS 1,000 ML IV SCH (21:30)
[2021-01-04] MEDS: ONDANSETRON 4 MG/2 ML (SDV) Z0FRAN IVP PRN ×2 (03:44→22:32)
[2021-01-04] MEDS: LACTATED RINGERS 1,000 ML IV SCH ×3 (03:45→18:06)
[2021-01-04 04:26] VITALS: BP 106/61
[2021-01-04 05:25] LABS: BASOPHILS # (AUTO) 0.1 10^3/uL (0.0-0.1); BASOPHILS % (AUTO) 1 % (0-10); EOSINOPHILS # (AUTO) 0.1 10^3/uL (0.0-0.3); EOSINOPHILS % (AUTO) 1 % (0-10); HEMATOCRIT 40 % (35-52); HEMOGLOBIN 13.2 g/dL (11.5-16.0); LYMPHOCYTES # (AUTO) 3.7 10^3/uL (1.0-4.0); LYMPHOCYTES % (AUTO) 45 % (12-44); MEAN CORPUSCULAR HEMOGLOBIN 29 pg (25-34); MEAN CORPUSCULAR HGB CONC 33 g/dL (32-36); MEAN CORPUSCULAR VOLUME 89 fL (80-99); MEAN PLATELET VOLUME 10.8 fL (9.0-12.2); MONOCYTES # (AUTO) 0.7 10^3/uL (0.0-1.0); MONOCYTES % (AUTO) 8 % (0-12); NEUTROPHILS # (AUTO) 3.8 10^3/uL (1.8-7.8); NEUTROPHILS % (AUTO) 46 % (42-75); PLATELET COUNT 219 10^3/uL (130-400); WHITE BLOOD COUNT 8.3 10^3/uL (4.3-11.0)
[2021-01-04 05:33] LABS: CHLORIDE 98 MMOL/L (98-107); SODIUM 131 MMOL/L (135-145)
[2021-01-04 05:35] LABS: CALCIUM 8.9 MG/DL (8.5-10.1); TRIGLYCERIDES 60 MG/DL (<150); VLDL CHOLESTEROL 12 MG/DL (5-40)
[2021-01-04 05:36] LABS: GLUCOSE 98 MG/DL (70-105)
[2021-01-04 05:37] LABS: CARBON DIOXIDE 26 MMOL/L (21-32)
[2021-01-04 05:39] LABS: CREATININE SERUM 1.41 MG/DL (0.60-1.30); GFR ESTIMATED 37
[2021-01-04 05:40] LABS: BUN/CREATININE RATIO 18; CHOLESTEROL 157 MG/DL (< 200)
[2021-01-04 05:42] LABS: HDL CHOLESTEROL 41 MG/DL (40-60)
[2021-01-04 08:00] VITALS: BP 129/66
[2021-01-04] MEDS ORDERED: SUCR1TAB36 PO (08:11)
[2021-01-04] MEDS ORDERED: METR500T PO (08:11)
[2021-01-04] MEDS ORDERED: MAGN200T8 PO (08:11)
[2021-01-04] MEDS ORDERED: PANT20TA2 PO (08:11)
[2021-01-04] MEDS ORDERED: SPIR1TAB3 PO (08:11)
[2021-01-04] MEDS ORDERED: APIXABAN 5 MG (ELIQUIS) TABLET PO SCH (09:00)
[2021-01-04] MEDS ORDERED: MAGNESIUM OXIDE (MAG-OX)400 MG TAB PO SCH (09:30)
--- NOTE | 2021-01-04 09:51 | History & Physical-Hospitalist ---
History of Present Illness HPI/Chief Complaint 65-year-old female with past medical history of hypertension who presented to the emergency department due to dizziness and fatigue. She reports the symptoms are longstanding but have been worse over the past week or so. She was in the emergency department in [place] last week and was diagnosed with diverticulitis. She was started on Flagyl, Carafate, Nexium. She states she was told that if she is not better in 2 days that she needed to have an EGD done. She states she was also told that she had a contracted gallbladder. She is in the middle of getting this gallbladder issue worked up but was told they could not do the test she needed at [facility]. She also complains of chest pain. She states it is in the center of her chest and rates it a 3 out of 10. She describes it as achy. It has not gotten better with treatment of her GI issues. She also complains of persistent nausea with no vomiting. She also feels very bloated. Her nausea and pain are worse with eating and so she has not been eating lately. She was found to be in new onset A. fib RVR and was admitted to cardiac stepdown on a Cardizem drip. She converted to normal sinus rhythm and the Cardizem drip was stopped overnight. She does complain of an allergy to Cardizem and that it has made her legs swell for the past. Source: patient Date Seen 01/04/21 Time Seen by a Provider: 09:30 Attending Physician Elmo Richardson MD PCP De Amaya MD Referring Physician Date of Admission Jan 03, 2021 at 19:27 Home Medications & Allergies Home Medications Reviewed patient Home Medication Reconciliation performed by pharmacy medication reconciliations psychiatric technician assistant and/or nursing. Patients Allergies have been reviewed. Allergies Allergies Coded Allergies codeine (Unverified Allergy, Unknown, N/V, 04/09/20) Uncoded Allergies STEROIDS ( Allergy, Unknown, INCREASE BP AND PULSE, 04/09/20) Past Qrjkwqr-Rakzkp-Izxlxr Hx Patient Social History Tobacco Use?: No Smoking Status: Never a Smoker Use of E-Cig and/or Vaping dev: No Use of E-Cig and/or Vaping Tyrell: Never a User Substance use?: No Alcohol Use?: Yes Alcohol Frequency: Rarely Pt feels they are or have been: No Immunizations Up To Date Second COVID19 Vaccination Brent: 06/30 Tetanus Booster (TDap): Less Than 5 Years Seasonal Allergies Seasonal Allergies: Yes Current Status Advance Directives: Yes Advance Directive Location: Unable to obtain copy Communicates: Verbally Primary Language: Persian Preferred Spoken Language: Persian Implanted or Applied Medical D: None Past Medical History Surgeries: Abdominal, Appendectomy, Hysterectomy, Nephrectomy, Orthopedic Currently Using CPAP: No Angina, Heart Attack, Hypertension, Irregular Heartbeat Spinal Cord Injury, Traumatic Brain Injury Sexually Transmitted Disease: No Kidney Did You Recieve Any Treatments: Yes What Type of Treatment Did You: Surgical Intervention Anxiety Blood Disorders: No Adverse Reaction/Blood Tranf: No Review of Systems Constitutional: No chills, No fever; malaise EENTM: no symptoms reported Respiratory: No cough, No short of breath Cardiovascular: see HPI, chest pain; No Hx of Intervention Gastrointestinal: see HPI, abdominal pain, diarrhea; No hematemesis; heartburn, loss of appetite, nausea; No vomiting Genitourinary: no symptoms reported Musculoskeletal: no symptoms reported Skin: no symptoms reported Psychiatric/Neurological: Anxiety Physical Exam Physical Exam Vital Signs Vital Signs - First Documented 01/05/21 00:00 O2 Flow Rate 2.00 Capillary Refill : Less Than 3 Seconds Height, Weight, BMI Height: '" Weight: lbs. oz. kg; 27.07 BMI Method: General Appearance: No Apparent Distress, WD/WN, Anxious, Obese HEENT: PERRL/EOMI, Moist Mucous Membranes; No Scleral Icterus (L), No Scleral Icterus (R) Neck: Normal Inspection, Supple Respiratory: Lungs Clear, No Accessory Muscle Use, No Respiratory Distress Cardiovascular: Regular Rate, Rhythm, No Murmur Gastrointestinal: Normal Bowel Sounds, Non Tender, Soft Extremity: Normal Capillary Refill, No Calf Tenderness, No Pedal Edema Neurologic/Psychiatric: Alert, Oriented x3, Normal Mood/Affect Results Results/Procedures Labs Laboratory Tests 01/03/21 18:08 01/04/21 05:03 01/05/21 02:45 Patient resulted labs reviewed. Imaging: Reviewed Imaging Report Imaging [facility] [place] NAME: FIDELIA,ELIANE M [facility] REC#: [id number] PT STATUS: ADM IN : 1955 PHYSICIAN: CANDELARIA GARCIA APRN ADMIT DATE: 01/03/21/[facility] Signed Date of Exam:01/03/21 CHEST 1 VIEW, AP/PA ONLY INDICATION: Chest pain. TECHNIQUE: Single view chest 6:47 PM. CORRELATION STUDY: 11/19/2015 FINDINGS: The heart size, mediastinal configuration and pulmonary vascularity are within normal limits. The lungs are clear with no consolidating infiltrate. There is no significant effusion or pneumothorax. IMPRESSION: 1. Negative appearing portable chest. Dictated by: Dictated on workstation # [id number] Dict: 01/03/211921 Trans: 01/03/212248 DO [id number] Interpreted by: FABIOLA DAY DO Electronically signed by: FABIOLA DAY DO 01/03/21 2249 Assessment/Plan Admission Diagnosis new onset aflutter with RVR Admission Status: Inpatient Order (span 2 midnights) Reason for Inpatient Admission: see below Assessment and Plan new onset aflutter with RVR Chest pain HTN No known history of CAD Stress test done on 12/20 Plan for cath tomorrow as already received eliquis today- hold for cath Converted to NSR overnight- off cardizem Reports allergy to cardizem but tolerated last night Also reports intolerance to coreg (made BP higher) telemetry echo ordered Abd pain Diveriticulitis Will request records from [place] last week Symptoms consistent with gallbladder issues Surgery consulted, appreciate recs Continue home meds (flagyl, ppi, carafate) MARYLOU Creatinine from last year was 0.9 Continue IVF Likely prerenal from dehydration from abd pain DVt ppx: On eliquis already Diagnosis/Problems Diagnosis/Problems (1) Essential (primary) hypertension (2) MARYLOU (acute kidney injury) (3) Diverticulitis (4) Abdominal pain (5) Anxiety (6) Dehydration (7) Atrial flutter with rapid ventricular response Status: Acute Clinical Quality Measures AMI/AHF: ASA po Prior to arrival: ELMO Ho MD Jan 04, 2021 09:51
--- NOTE | 2021-01-04 10:04 | Consultation-Cardiology ---
HPI-Cardiology Cardiology Consultation Date of Consultation 01/04/21 Date of Admission Time Seen by Provider: 09:57 Indication: Chest pain HPI 65-year-old lady with history of hypertension, anxiety, reporting episodes of palpitation. Patient came into the emergency room for increasing shortness of breath, palpitation and chest pain. She was noted to be in atrial fibrillation/flutter with rapid ventricular response, started on Cardizem drip and converted to sinus rhythm. Reporting that she had a stress test on December 20, 2020 at [place]. She has been having chest pain waxing and waning since admission. On my evaluation today she was having active chest pain described as dull in nature on the left side of her chest radiating to her neck and jaw. EKG did not show any acute ischemic changes. She has been having abdominal pain and has work-up initiated for cholecystitis. Home Medications & Allergies Allergies: Coded Allergies: codeine (Unverified Allergy, Unknown, N/V, 04/09/20) Uncoded Allergies: STEROIDS (Allergy, Unknown, INCREASE BP AND PULSE, 04/09/20) Home Medication List Reviewed: Yes [id number] Hx Patient Social History Marital Status: Employed/Student: employed Smoking Status: Never a Smoker Type Used: Cigarettes 2nd Hand Smoke Exposure: No Recent Hopitalizations: No Have you traveled recently?: No Alcohol Use?: Yes Past Medical History Discussed below Family Medical History Family Medical Hx Multiple family members with history of coronary artery disease Review of Systems-General Review of Systems Constitutional: see HPI, malaise EENTM: see HPI, no symptoms reported Respiratory: no symptoms reported, see HPI, dyspnea on exertion Cardiovascular: see HPI, chest pain; No edema, No Hx of Intervention; palpitations; No syncope, No vascular heart diseas, No other Gastrointestinal: see HPI, abdominal pain (RUQ) Genitourinary: no symptoms reported, see HPI Musculoskeletal: no symptoms reported, see HPI Skin: no symptoms reported, see HPI Psychiatric/Neurological: No Symptoms Reported, See HPI Reviewed Test Results Reviewed Test Results Lab Laboratory Tests Test 01/03/21 18:08 01/04/21 00:14 01/04/21 05:03 Range/Units White Blood Count 13.0 H 8.3 4.3-11.0 10^3/uL Red Blood Count 5.39 H 4.50 3.80-5.11 10^6/uL Hemoglobin 16.1 H 13.2 11.5-16.0 g/dL Hematocrit 47 40 35-52 % Mean Corpuscular Volume 87 89 80-99 fL Mean Corpuscular Hemoglobin 30 29 25-34 pg Mean Corpuscular Hemoglobin Concent 34 33 32-36 g/dL Red Cell Distribution Width 13.1 13.3 10.0-14.5 % Platelet Count 325 219 130-400 10^3/uL Mean Platelet Volume 10.8 10.8 9.0-12.2 fL Immature Granulocyte % (Auto) 0 0 % Neutrophils (%) (Auto) 64 46 42-75 % Lymphocytes (%) (Auto) 25 45 H 12-44 % Monocytes (%) (Auto) 9 8 0-12 % Eosinophils (%) (Auto) 0 1 0-10 % Basophils (%) (Auto) 1 1 0-10 % Neutrophils # (Auto) 8.4 H 3.8 1.8-7.8 10^3/uL Lymphocytes # (Auto) 3.3 3.7 1.0-4.0 10^3/uL Monocytes # (Auto) 1.2 H 0.7 0.0-1.0 10^3/uL Eosinophils # (Auto) 0.1 0.1 0.0-0.3 10^3/uL Basophils # (Auto) 0.1 0.1 0.0-0.1 10^3/uL Immature Granulocyte # (Auto) 0.0 0.0 0.0-0.1 10^3/uL Prothrombin Time 14.0 12.2-14.7 SEC INR Comment 1.0 0.8-1.4 Activated Partial Thromboplast Time 28 24-35 SEC D-Dimer 0.41 0.00-0.49 UG/ML Sodium Level 129 L 131 L 135-145 MMOL/L Potassium Level 4.7 4.0 3.6-5.0 MMOL/L Chloride Level 95 L 98 98-107 MMOL/L Carbon Dioxide Level 22 26 21-32 MMOL/L Anion Gap 12 7 5-14 MMOL/L Blood Urea Nitrogen 29 H 26 H 7-18 MG/DL Creatinine 1.63 H 1.41 H 0.60-1.30 MG/DL Estimat Glomerular Filtration Rate 31 37 BUN/Creatinine Ratio 18 18 Glucose Level 105 98 70-105 MG/DL Calcium Level 9.9 8.9 8.5-10.1 MG/DL Corrected Calcium 9.5 8.5-10.1 MG/DL Magnesium Level 2.4 1.6-2.4 MG/DL Total Bilirubin 0.3 0.1-1.0 MG/DL Aspartate Amino Transf (AST/SGOT) 35 H 5-34 U/L Alanine Aminotransferase (ALT/SGPT) 35 0-55 U/L Alkaline Phosphatase 116 40-136 U/L Myoglobin 66.0 10.0-92.0 NG/ML Troponin I < 0.028 < 0.028 <0.028 NG/ML B-Type Natriuretic Peptide < 10.0 <100.0 PG/ML Total Protein 7.7 6.4-8.2 GM/DL Albumin 4.5 3.2-4.5 GM/DL Glucometer 73 70-110 MG/DL Triglycerides Level 60 <150 MG/DL Cholesterol Level 157 < 200 MG/DL LDL Cholesterol Direct 102 1-129 MG/DL VLDL Cholesterol 12 5-40 MG/DL HDL Cholesterol 41 40-60 MG/DL Physical Exam Physical Exam Vital Signs Vital Signs - First Documented Capillary Refill : Less Than 3 Seconds Height, Weight, BMI Height: '" Weight: lbs. oz. kg; 27.07 BMI Method: General Appearance: No Apparent Distress, WD/WN, Other (Alert, ambulatory to room 6 without assistance. Heart rate narrow complex irregular rate of 160-180. Blood pressure 134/90.) Eyes: Bilateral Eye Normal Inspection, Bilateral Eye PERRL, Bilateral Eye EOMI HEENT: PERRL/EOMI, TMs Normal Neck: Full Range of Motion, Normal Inspection Respiratory: No Accessory Muscle Use, No Respiratory Distress Cardiovascular: Irregularly Irregular, Tachycardia Gastrointestinal: Normal Bowel Sounds, Non Tender, Soft Back: Normal Inspection, No CVA Tenderness, No Vertebral Tenderness Extremity: Normal Capillary Refill, Normal Inspection Neurologic/Psychiatric: Alert, Oriented x3 Skin: Normal Color, Warm/Dry Lymphatic: No Adenopathy A/P-Cardiology Admission Diagnosis Chest pain Abdominal pain Hypertension Paroxysmal atrial fibrillation/flutter Assessment/Plan Chest pain resembling angina, having active chest pain. Reporting that she had a stress test on December 20, 2020, she still having active chest pain resembling angina. I discussed with her the management plan recommended cardiac catheterization, procedure will be held until tomorrow due to the fact that she received Eliquis at 9 AM today. I will hold Eliquis and evaluate cath tomorrow. Abdominal pain, right upper quadrant pain, probably cholecystitis. Dr. Romero was consulted. Hypertension, difficult to control, reporting intolerance to Coreg due to poor blood pressure control, intolerance to calcium channel blockers due to pedal edema, has been on enalapril. I will switch her to metoprolol for heart rate control and blood pressure control. Paroxysmal atrial fibrillation/flutter, has been having recurrent palpitation. Currently converted to sinus rhythm and received Eliquis yesterday, currently holding Eliquis for cardiac catheterization possible PTCA and possible cholecystectomy [id number] score of 3, yearly risk of stroke without oral anticoagulation is 3.2%. 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 Acute renal insufficiency probably secondary to dehydration, receiving IV fluid and renal function improving slowly. History of hysterectomy in the remote past Strong family history of heart disease Clinical Quality Measures AMI/AHF: ASA po Prior to arrival: TI Trujillo MD Jan 04, 2021 10:03
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
[2021-01-04 12:00] VITALS: BP 119/77
[2021-01-04] MEDS: SUCRALFATE 1 GM (CARAFATE) TAB PO SCH ×3 (12:43→20:03)
[2021-01-04 16:06] VITALS: BP 112/59
[2021-01-04] MEDS: PANTOPRAZOLE 20 MG TABLET (PROTONIX) PO SCH (20:04)
[2021-01-05] VITALS (9 sets, daily range): BP systolic 110–129; BP diastolic 49–78
[2021-01-05] MEDS: LACTATED RINGERS 1,000 ML IV SCH (02:16)
[2021-01-05 03:30] LABS: HEMATOCRIT 37 % (35-52); HEMOGLOBIN 12.3 g/dL (11.5-16.0); MEAN CORPUSCULAR HEMOGLOBIN 30 pg (25-34); MEAN CORPUSCULAR HGB CONC 33 g/dL (32-36); MEAN CORPUSCULAR VOLUME 89 fL (80-99); MEAN PLATELET VOLUME 10.8 fL (9.0-12.2); PLATELET COUNT 218 10^3/uL (130-400); WHITE BLOOD COUNT 7.6 10^3/uL (4.3-11.0)
[2021-01-05 03:45] LABS: ALBUMIN 3.4 GM/DL (3.2-4.5); POTASSIUM 4.3 MMOL/L (3.6-5.0)
[2021-01-05 03:46] LABS: CALCIUM 8.5 MG/DL (8.5-10.1)
[2021-01-05 03:48] LABS: TOTAL PROTEIN 5.6 GM/DL (6.4-8.2)
[2021-01-05 03:50] LABS: BILIRUBIN,TOTAL 0.4 MG/DL (0.1-1.0)
[2021-01-05 03:51] LABS: CREATININE SERUM 1.07 MG/DL (0.60-1.30)
[2021-01-05 03:54] LABS: MAGNESIUM 1.9 MG/DL (1.6-2.4)
[2021-01-05] MEDS: PANTOPRAZOLE 20 MG TABLET (PROTONIX) PO SCH ×2 (08:22→20:13)
[2021-01-05] MEDS: MAGNESIUM OXIDE (MAG-OX)400 MG TAB PO SCH ×2 (08:22→20:15)
[2021-01-05] MEDS: SUCRALFATE 1 GM (CARAFATE) TAB PO SCH ×4 (08:22→20:13)
[2021-01-05] MEDS ORDERED: LIDOCAINE 1% INJ 20 ML 20 ML VIAL ONE (08:59)
[2021-01-05] MEDS ORDERED: HEParin (CATH LAB) 2,000 ML IV ONE (08:59)
[2021-01-05] MEDS ORDERED: NS IV 1000 ML 1,000 ML ONE (08:59)
[2021-01-05] MEDS ORDERED: MAGNESIUM OXIDE 400 MG PO SCH (09:00)
[2021-01-05] MEDS ORDERED: VERAPAMIL 5 MG/2 ML (CALAN) VIAL IV ONE (09:01)
[2021-01-05] MEDS ORDERED: fentaNYL INJ 100 MCG/2 ML AMP ONE (09:01)
[2021-01-05] MEDS ORDERED: NITRO DRIP 25000 MCG/D5W 0 ML IV ONE (09:02)
[2021-01-05] MEDS ORDERED: MIDAZOLAM 5 MG/5 ML (VERSED) VIAL ONE (09:02)
[2021-01-05] MEDS ORDERED: HEParin 1000 UNIT/ML (10ML VIAL) FOR BOLUS ONE (09:02)
--- NOTE | 2021-01-05 09:07 | Progress Note - Hospitalist ---
Subjective HPI/CC On Admission Date Seen by Provider: Jan 05, 2021 Time Seen by Provider: 09:03 65-year-old female with past medical history of hypertension who presented to the emergency department due to dizziness and fatigue. She reports the symptoms are longstanding but have been worse over the past week or so. She was in the emergency department in [place] last week and was diagnosed with diverticulitis. She was started on Flagyl, Carafate, Nexium. She states she was told that if she is not better in 2 days that she needed to have an EGD done. She states she was also told that she had a contracted gallbladder. She is in the middle of getting this gallbladder issue worked up but was told they could not do the test she needed [facility]. She also complains of chest pain. She states it is in the center of her chest and rates it a 3 out of 10. She describes it as achy. It has not gotten better with treatment of her GI issues. She also complains of persistent nausea with no vomiting. She also feels very bloated. Her nausea and pain are worse with eating and so she has not been eating lately. She was found to be in new onset A. fib RVR and was admitted to cardiac stepdown on a Cardizem drip. She converted to normal sinus rhythm and the Cardizem drip was stopped overnight. She does complain of an allergy to Cardizem and that it has made her legs swell for the past. Subjective/Events-last exam Pt reports feeling better today but not well yet. Describes it as "yucky." Was able to eat yesterday though. Told her the plan today is for cath and that will determine what happens next. Objective Exam Vital Signs Vital Signs Date Time Temp Pulse Resp B/P (MAP) Pulse Ox O2 Delivery O2 Flow Rate FiO2 01/05/21 08:26 Room Air 01/05/21 08:05 36.9 62 20 129/66 (87) 94 01/05/21 04:00 2.00 Capillary Refill : Less Than 3 Seconds General Appearance: No Apparent Distress, Anxious, Obese Respiratory: Lungs Clear, No Respiratory Distress Cardiovascular: Regular Rate, Rhythm, No Murmur Gastrointestinal: Normal Bowel Sounds, Non Tender (no objective sign of pain with palpation with hand or stethoscope until asked about pain), Soft Neurologic/Psychiatric: Alert, Oriented x3 Results/Procedures Lab Laboratory Tests 01/05/21 02:45 Patient resulted labs reviewed. Imaging: Reviewed Imaging Report Assessment/Plan Assessment and Plan Assess & Plan/Chief Complaint new onset aflutter with RVR- resolved Chest pain HTN No known history of CAD Stress test done on 12/20 Plan for cath today Converted to NSR night of admission- off cardizem Reports allergy to cardizem but tolerated last night Also reports intolerance to coreg (made BP higher) telemetry echo with preserved EF and no valvular abnormalties Abd pain Diveriticulitis Will request records from [place] last week- still waiting Symptoms consistent with gallbladder issues Surgery consulted, appreciate recs Continue home meds (flagyl, ppi, carafate) MARYLOU-resolved Creatinine from last year was 0.9, back to 1.07 today Continue IVF DVt ppx: On eliquis already Diagnosis/Problems Diagnosis/Problems (1) Essential (primary) hypertension (2) MARYLOU (acute kidney injury) (3) Diverticulitis (4) Abdominal pain (5) Anxiety (6) Dehydration (7) Atrial flutter with rapid ventricular response Status: Acute Clinical Quality Measures AMI/AHF: ASA po Prior to arrival: ELMO Ho MD Jan 05, 2021 09:07
--- NOTE | 2021-01-05 09:28 | Cardiology Progress Note ---
Subjective Date Seen by Provider: Jan 05, 2021 Time Seen by Provider: 09:26 Subjective/Events-last exam Patient was seen at bedside. Reporting chest pain on and off, still complaining of abdominal pain Review of Systems General: No Chills, No Night Sweats, No Fatigue, No Malaise, No Appetite, No Other HEENT: No Head Aches, No Visual Changes, No Eye Pain, No Ear Pain, No Dysphasia, No Sinus Congestion, No Post Nasal Drip, No Sore Throat, No Other Pulmonary: No Dyspnea, No Cough, No Pleuritic Chest Pain, No Other Cardiovascular: No: Chest Pain, Palpitations, Orthopnea, Paroxysmal Noc. Dyspnea, Edema, Lt Headedness, Other Objective-Cardiology Exam Last Set of Vital Signs Vital Signs 01/05/21 01/05/21 01/05/21 04:00 08:05 08:26 Temp 36.9 Pulse 62 Resp 20 B/P (MAP) 129/66 (87) Pulse Ox 94 O2 Delivery Room Air O2 Flow Rate 2.00 I&O Intake and Output 01/05/21 00:00 Intake Total 3800 ml Output Total 3750 ml Balance 50 ml Intake Oral 800 ml IV Total 3000 ml Output Urine Total 3750 ml General: Alert, Oriented X3, Cooperative HEENT: Atraumatic, PERRLA Neck: Supple, No JVD, No Thyromegaly Lungs: Clear to Auscultation, Normal Air Movement Heart: Regular Rate, Normal S1, Normal S2, No Murmurs Abdomen: Normal Bowel Sounds, Soft, No Hepatosplenomegaly, No Masses, Other (Right upper quadrant tenderness) Extremities: No Clubbing, No Cyanosis, No Edema, Normal Pulses, No Tenderness/Swelling Skin: No Rashes, No Breakdown, No Significant Lesion Neuro: Normal Gait, Normal Speech, Strength at 5/5 X4 Ext, Normal Tone, Sensation Intact Psych/Mental Status: Mental Status NL, Mood NL Results Lab Laboratory Tests 01/05/21 02:45 A/P-Cardiology Admission Diagnosis Chest pain Abdominal pain Hypertension Paroxysmal atrial fibrillation/flutter Assessment/Plan Chest pain resembling angina, having active chest pain. Reporting that she had a stress test on December 20, 2020, she still having active chest pain resembling angina. I will proceed with cardiac catheterization possible PTCA, Eliquis has been held for the past 24 hours Abdominal pain, right upper quadrant pain, probably cholecystitis. Dr. Romero was consulted. Hypertension, difficult to control, reporting intolerance to Coreg due to poor blood pressure control, intolerance to calcium channel blockers due to pedal edema, has been on enalapril. I will switch her to metoprolol for heart rate control and blood pressure control. Paroxysmal atrial fibrillation/flutter, has been having recurrent palpitation. Currently converted to sinus rhythm and received Eliquis yesterday, currently holding Eliquis for cardiac catheterization possible PTCA and possible cholecystectomy [id number] score of 3, yearly risk of stroke without oral anticoagulation is 3.2%. 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 Acute renal insufficiency probably secondary to dehydration, receiving IV fluid and renal function improving slowly. History of hysterectomy in the remote past Strong family history of heart disease TI CRAIG MD Jan 05, 2021 09:28
--- NOTE | 2021-01-05 09:28 | Conscious Sedation/ASA ---
Conscious Sedation Pre-Proced Time 09:28 ASA Score 3 For ASA 3 and 4: Consider anesthesia and medical clearance. Also, for patients with a history of failed moderate sedation consider anesthesia. Airway Lungs Heart ASA score ASA 1: a normal healthy patient ASA 2: a patient with a mild systemic disease (mid diabetes, controlled hypertension, obesity x ASA 3: a patient with a severe systemic disease that limits activity (angina, COPD, prior Myocardial infarction) ASA 4: a patient with an incapacitating disease that is a constant threat to life (CHF, renal failure) ASA 5: a moribund patient not expected to survive 24 hrs. (ruptured aneurysm) ASA 6: a declared brain- patient whose organs are being harvested. For emergent operations, add the letter E after the classification Mallampati Classification Grade 3 Sedation Plan Analgesia, Amnesia, Plan communicated to team members, Discussed options with patient/fam, Discussed risks with patient/fam The patient is an appropriate candidate to undergo the planned procedure, sedation, and anesthesia. The patient immediately re-assessed prior to indication. TI CRAIG MD Jan 05, 2021 09:28
--- NOTE | 2021-01-05 09:52 | Progress Note - Surgery ---
THONG CHOWDARY 01/05/21 0952: Subjective Date Seen by a Provider: Jan 05, 2021 Time Seen by a Provider: 08:02 Subjective/Events-last exam Pt was resting comfortably in bed with in the room. Pt still complains of RUQ pain and nausea unchanged, she has not had a BM since before her arival on the . No sign of blood per rectum or oral, WBC is normal (7.6) and she is afebrile. She describes the pain as constant and "yuky" and states that nothing seems to make the pain better and movement makes it worse. She states that she ate a small amount of mashed potatoes and drank some tea, but still has lack of appetite and difficultly eating secondary to nausea. 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 Review of Systems General: No Chills, No Night Sweats; Fatigue; No Malaise, No Appetite HEENT: No Head Aches, No Visual Changes, No Eye Pain, No Ear Pain, No Dysp hasia, No Sore Throat Pulmonary: No Dyspnea, No Cough, No Pleuritic Chest Pain Cardiovascular: No: Chest Pain, Palpitations, Orthopnea, Paroxysmal Noc. Dyspnea, Edema, Lt Headedness Gastrointestinal: Nausea, Abdominal Pain, Melena; No: Vomiting, Diarrhea, Constipation, Hematochezia Genitourinary: No Dysuria, No Frequency, No Incontinence, No Hematuria, No Retention Musculoskeletal: No: neck pain, shoulder pain, arm pain, leg pain, foot pain Neurological: Weakness; No: Numbness, Incoordination, Change in speech, Confusion RUQ, dark tary stool since 01/03 before arriving at ED Objective Exam Vital Signs Date Time Temp Pulse Resp B/P (MAP) Pulse Ox O2 Delivery O2 Flow Rate FiO2 01/05/21 08:26 Room Air 01/05/21 08:05 36.9 62 20 129/66 (87) 94 Room Air 01/05/21 07:00 63 01/05/21 04:51 Room Air 01/05/21 04:00 36.6 62 20 110/49 (69) 20 2.00 01/05/21 01:00 60 01/05/21 00:51 Room Air 01/05/21 00:00 36.6 62 13 119/73 (88) 94 2.00 01/04/21 20:51 Room Air 01/04/21 20:00 36.4 01/04/21 19:00 62 01/04/21 16:16 Room Air 01/04/21 16:06 36.8 56 18 112/59 (76) 98 Room Air 01/04/21 12:58 Room Air 01/04/21 12:43 62 01/04/21 12:00 36.5 58 17 119/77 (91) 98 Room Air I & O 01/05/21 07:00 Intake Total 3900 ml Output Total 4050 ml Balance -150 ml Capillary Refill : Less Than 3 Seconds General Appearance: No Apparent Distress, Anxious, Obese HEENT: PERRL/EOMI, Pharynx Normal, Moist Mucous Membranes; No Scleral Icterus (L), No Scleral Icterus (R) Neck: Full Range of Motion, Normal Inspection, Non Tender, Supple Respiratory: Lungs Clear, Normal Breath Sounds, No Accessory Muscle Use, No Respiratory Distress Cardiovascular: Regular Rate, Rhythm, No Edema, No Gallop, No Murmur, Normal Peripheral Pulses Peripheral Pulses: 2+ Radial Pulses (R), 2+ Radial Pulses (L) Gastrointestinal: normal bowel sounds, soft, no organomegaly, distended (mild and confirmed by pt), tenderness (RUQ) Extremity: Normal Capillary Refill, Normal Range of Motion, Non Tender, No Calf Tenderness, No Pedal Edema Neurologic/Psychiatric: Alert, Oriented x3, No Motor/Sensory Deficits, Normal 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, 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 Skin: Normal Color, Warm/Dry Lymphatic: No Adenopathy (axillary or cervical) Results Lab Laboratory Tests 01/04/21 16:10: Influenza Type A (RT-PCR) Not Detected, Influenza Type B (RT-PCR) Not Detected, SARS-CoV-2 RNA (RT-PCR) Not Detected 01/05/21 02:45: White Blood Count 7.6, Red Blood Count 4.14, Hemoglobin 12.3, Hematocrit 37, Mean Corpuscular Volume 89, Mean Corpuscular Hemoglobin 30, Mean Corpuscular Hemoglobin Concent 33, Red Cell Distribution Width 13.4, Platelet Count 218, Mean Platelet Volume 10.8, Sodium Level 136, Potassium Level 4.3, Chloride Level 104, Carbon Dioxide Level 24, Anion Gap 8, Blood Urea Nitrogen 14, Creatinine 1.07, Estimat Glomerular Filtration Rate 51, BUN/Creatinine Ratio 13, Glucose Level 90, Calcium Level 8.5, Corrected Calcium 9.0, Magnesium Level 1.9, Total Bilirubin 0.4, Aspartate Amino Transf (AST/SGOT) 22, Alanine Aminotransferase (ALT/SGPT) 21, Alkaline Phosphatase 76, Total Protein 5.6L, Albumin 3.4 Microbiology 01/04/21 MRSA Screen - Final, Complete MRSA not isolated Assessment/Plan Assessment/Plan Assessment/Plan RUQ pain Afib with RVR - back in sinus rhythm HTN MARYLOU Plan - still waiting on CT from [place], she may need an US of GB but may be able to just do HIDA scan. She had an US in 2014 and no stones seen, recent CT here did not demonstrate gallstones. She may also need repeat EGD to make sure there is no ulcer. Ok to eat today and see if she tolerates it. Cardiology performed a heart cath. this am. Will follow along and monitor labs and abdominal pain. Will increase anti-nausea medication to facilitate intake of nutrition. Clinical Quality Measures AMI/AHF: ASA po Prior to arrival: Mary WHEELERSHAJIOWEN B DO 01/05/21 1338: Subjective Time Seen by a Provider: 11:01 Subjective/Events-last exam Pt seen and examined, complains of some RUQ pain and nausea. She also is complaining of ROSADO from Cath. She is asking about getting her GB removed. Review of Systems General: No Chills, No Night Sweats; Fatigue HEENT: Head Aches Pulmonary: No Dyspnea, No Cough Cardiovascular: No: Chest Pain, Palpitations Gastrointestinal: Nausea, Abdominal Pain Neurological: Weakness Objective Exam General Appearance: No Apparent Distress, Anxious HEENT: PERRL/EOMI, Moist Mucous Membranes Respiratory: Lungs Clear, Normal Breath Sounds, No Accessory Muscle Use, No Respiratory Distress Cardiovascular: Regular Rate, Rhythm, No Murmur Gastrointestinal: soft, no organomegaly, distended (mild and confirmed by pt), tenderness (RUQ) Extremity: No Calf Tenderness, No Pedal Edema Assessment/Plan Assessment/Plan Assessment/Plan RUQ pain Afib with RVR - back in sinus rhythm HTN MARYLOU Plan - still waiting on CT from [place], she may need an US of GB but may be able to just do HIDA scan. She had an US in 2014 and no stones seen, recent CT here did not demonstrate gallstones. She may also need repeat EGD to make sure there is no ulcer. I tried to explain to pt that if Lux saw the same CT and recommended HIDA, then I don't think there is anyway we can take out her GB now. We have to have a reason to perform the surgery and unfortunately nausea and some RUQ pain are not enough. Ok to eat today and see if she tolerates it. Will try adding Phenergan to help with nausea. Supervisory-Addendum Brief Verification & Attestation Participated in pt care: history, MDM, physical Personally performed: exam, history, MDM, supervision of care Care discussed with: Medical Student Procedures: n/a Verification and Attestation of Medical Student E/M Service A medical student performed and documented this service. I then reviewed and verified all information documented by the medical student and made modifications to such information, when appropriate. I personally performed a physical exam, medical decision making and then discussed any differences between the notes and made revisions as necessary to create one note. Owen Minor , 01/05/21 , 13:38 THONG CHOWDARY Jan 05, 2021 09:52 OWEN MINOR DO Jan 05, 2021 13:38
--- NOTE | 2021-01-05 09:54 | Cardiac Cath Report ---
Cardiac Cath Report Physician (s)/Contract Accountant (s) Physician TI CRAIG MD Pre-Procedure Diagnosis Pre-Procedure Diagnosis: Chest pain Post-Procedure Note Procedure Start Date: Jan 05, 2021 Name of Procedure: Left heart catheterization Left ventriculogram Aortic arch angiogram Findings/Procedure Note PROCEDURE NOTE: 65-year-old lady with history of hypertension, hyperlipidemia, admitted with chest pain and abdominal pain, continue to have recurrent chest pain, she was scheduled for cardiac catheterization possible PTCA. After explaining the procedure to the patient, all pros and cons were explained, all questions were answered. The patient signed the consent and then she was placed on the cardiac catheterization laboratory. Groin was prepped SL fashion local anesthesia was used. Sheath placed in the right femoral artery. Ronnie right and left catheter were used to access the coronary system. Pigtail was used to access the left ventricular cavity. Left ventriculogram was done Aortic arch angiogram was done due to her recurrent chest pain and normal coronaries At the end of the procedure the sheath was removed. Closure device was deployed FINDINGS: Hemodynamics LV 133/14, end-diastolic pressure of 14 Aorta 134/58 mean of 60 ANATOMY: Left Main is free of obstructive disease Left Anterior Descending has mild disease nonobstructive disease Left Circumflex has mild disease nonobstructive disease Right Coronary Artery has mild disease nonobstructive disease LV Gram was done showing normal left ventricular size, normal contractility, estimated ejection fraction 60% Aorta evaluation done with aortic arch angiogram showing normal aortic arch, no dissection or aneurysm, normal origin of the brachiocephalic artery, left carotid and left subclavian arteries CONCLUSION: 1. Mild coronary artery disease nonobstructive disease 2. Normal left ventricular size and systolic function estimate ejection fraction 60% 3. Normal aortic arch and great vessels of the neck DISCUSSION AND RECOMMENDATION: Medical therapy is recommended, her pain is noncardiac, defer management rega rding her abdominal pain to general surgery Anesthesia Type: Conscious Sedation Estimated blood loss (mL): 15 ml Contrast Amount: 50 ml Total Radiation Dose: 222 mGy Post-Procedure Diagnosis Post-operative diagnosis: Chest pain Hypertension Anxiety Abdominal pain TI CRAIG MD Jan 05, 2021 09:54
[2021-01-05] MEDS ORDERED: PATIENT MAY USE OWN MEDS, ALL PO SCH (10:00)
[2021-01-05] MEDS: NS IV 1000 ML 1,000 ML IV SCH ×2 (10:35→21:26)
[2021-01-05] MEDS ORDERED: PROMETHAZINE INJ 25 MG/ML (PHENERGAN) AMP IVP PRN (11:30)
[2021-01-05] MEDS: ONDANSETRON 4 MG/2 ML (SDV) Z0FRAN IVP PRN (11:33)
[2021-01-05] MEDS ORDERED: PROMETHAZINE INJ 25 MG/ML (PHENERGAN) AMP ONE (12:05)
[2021-01-05] MEDS ORDERED: RIVAROXABAN 20 MG TABLET (XARELTO) PO SCH (17:00)
[2021-01-06] VITALS: BP 114/60
[2021-01-06 03:30] VITALS: BP 125/66
[2021-01-06 03:57] LABS: HEMATOCRIT 38 % (35-52); HEMOGLOBIN 12.2 g/dL (11.5-16.0); MEAN CORPUSCULAR HEMOGLOBIN 29 pg (25-34); MEAN CORPUSCULAR HGB CONC 32 g/dL (32-36); MEAN CORPUSCULAR VOLUME 91 fL (80-99); MEAN PLATELET VOLUME 10.8 fL (9.0-12.2); PLATELET COUNT 224 10^3/uL (130-400); WHITE BLOOD COUNT 7.7 10^3/uL (4.3-11.0)
[2021-01-06 04:16] LABS: ALBUMIN 3.3 GM/DL (3.2-4.5); POTASSIUM 4.1 MMOL/L (3.6-5.0)
[2021-01-06 04:17] LABS: CALCIUM 8.6 MG/DL (8.5-10.1)
[2021-01-06 04:18] LABS: TOTAL PROTEIN 5.6 GM/DL (6.4-8.2)
[2021-01-06 04:20] LABS: BILIRUBIN,TOTAL 0.3 MG/DL (0.1-1.0)
[2021-01-06 04:22] LABS: CREATININE SERUM 1.13 MG/DL (0.60-1.30)
[2021-01-06] MEDS: NS IV 1000 ML 1,000 ML IV SCH (06:01)
[2021-01-06 07:25] VITALS: BP 117/65
--- NOTE | 2021-01-06 07:37 | Progress Note - Surgery ---
THONG CHOWDARY 01/06/21 0736: Subjective Date Seen by a Provider: Jan 06, 2021 Time Seen by a Provider: 07:02 Subjective/Events-last exam Pt was sleeping in bed and woke when I entered the room. Pt notes some relief of RUQ pain and nausea, she still has not had a BM since before her arival on the . No sign of blood per rectum or oral, WBC is normal (7.7) and she is afebrile. She describes the pain as constant and "yuky" and states that nothing seems to make the pain better and movement makes it worse. She states that she ate several bites from her meal last night and was able to keep it down. She also drank some milk, and is doing better now with increased anti-nausea medication. CT from [place] will be reviewed today. Pt advised that HIDA scan may also be needed to confirm or R/O GB problems. Review of Systems General: No Chills, No Night Sweats, No Fatigue, No Malaise; Appetite HEENT: No Head Aches, No Visual Changes, No Eye Pain, No Ear Pain, No Dysphasia, No Post Nasal Drip, No Sore Throat Pulmonary: No Dyspnea, No Cough, No Pleuritic Chest Pain Cardiovascular: No: Chest Pain, Palpitations, Orthopnea, Paroxysmal Noc. Dyspnea, Edema, Lt Headedness Gastrointestinal: Nausea, Abdominal Pain; No: Vomiting, Diarrhea, Constipation, Melena, Hematochezia Genitourinary: No Dysuria, No Frequency, No Incontinence, No Hematuria, No Retention Musculoskeletal: No: neck pain, shoulder pain, arm pain, back pain, hand pain, leg pain, foot pain Neurological: Weakness, Numbness; No: Incoordination, Change in speech, Confusion RUQ, dark tary stool since 01/03 before arriving at ED Objective Exam Vital Signs Date Time Temp Pulse Resp B/P (MAP) Pulse Ox O2 Delivery O2 Flow Rate FiO2 01/06/21 07:25 36.7 65 20 117/65 (82) 93 Room Air 01/06/21 04:00 Room Air 01/06/21 03:30 36.6 64 15 125/66 (85) 95 Room Air 01/06/21 01:00 69 01/06/21 00:51 Room Air 01/06/21 00:00 36.8 76 14 114/60 (78) 94 Room Air 01/05/21 20:51 Room Air 01/05/21 20:50 80 13 126/62 (83) 93 Room Air 01/05/21 19:15 37.3 76 12 123/78 (93) 93 Room Air 01/05/21 19:00 81 01/05/21 16:29 Room Air 01/05/21 15:53 36.6 80 24 120/65 (83) 95 Room Air 01/05/21 12:49 65 01/05/21 12:22 36.7 75 16 128/68 (88) 97 Room Air 01/05/21 12:00 Room Air 01/05/21 11:05 36.7 60 18 119/69 (86) 93 Room Air 01/05/21 10:15 36.4 55 18 121/62 (81) 94 Room Air 01/05/21 08:26 Room Air 01/05/21 08:05 36.9 62 20 129/66 (87) 94 Room Air I & O 01/06/21 07:00 Intake Total 1750 ml Output Total 2050 ml Balance -300 ml Capillary Refill : Less Than 3 Seconds General Appearance: No Apparent Distress, WD/WN, Anxious HEENT: PERRL/EOMI, Pharynx Normal, Moist Mucous Membranes Neck: Full Range of Motion, Normal Inspection, Non Tender, Supple Respiratory: Lungs Clear, Normal Breath Sounds, No Accessory Muscle Use, No Respiratory Distress Cardiovascular: Regular Rate, Rhythm, No Edema, No Gallop, No Murmur, Normal Peripheral Pulses Peripheral Pulses: 2+ Radial Pulses (R), 2+ Radial Pulses (L) Gastrointestinal: soft, no organomegaly, distended (remains mild and confirmed by pt), tenderness (RUQ - improved from yesterday) Extremity: Normal Capillary Refill, Normal Range of Motion, Non Tender, No Calf Tenderness, No Pedal Edema Neurologic/Psychiatric: Alert, Oriented x3, No Motor/Sensory Deficits, Normal 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, 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 Skin: Normal Color, Warm/Dry Lymphatic: No Adenopathy (axillary or cervical) Results Lab Laboratory Tests 01/06/21 02:46: White Blood Count 7.7, Red Blood Count 4.15, Hemoglobin 12.2, Hematocrit 38, Mean Corpuscular Volume 91, Mean Corpuscular Hemoglobin 29, Mean Corpuscular Hemoglobin Concent 32, Red Cell Distribution Width 13.4, Platelet Count 224, Mean Platelet Volume 10.8, Sodium Level 136, Potassium Level 4.1, Chloride Level 104, Carbon Dioxide Level 25, Anion Gap 7, Blood Urea Nitrogen 14, Creatinine 1.13, Estimat Glomerular Filtration Rate 48, BUN/Creatinine Ratio 12, Glucose Level 78, Calcium Level 8.6, Corrected Calcium 9.2, Total Bilirubin 0.3, Aspa rtate Amino Transf (AST/SGOT) 21, Alanine Aminotransferase (ALT/SGPT) 20, Alkaline Phosphatase 73, Total Protein 5.6L, Albumin 3.3 Microbiology 01/04/21 MRSA Screen - Final, Complete MRSA not isolated Assessment/Plan Assessment/Plan Assessment/Plan RUQ pain Afib with RVR - back in sinus rhythm HTN MARYLOU Plan - Will view CT from [place] today, she may need an US of GB but may be able to just do HIDA scan, pt is aware that there is a national shortage of fluid used for HIDA, and that this may result in delay. Pt advised to continue anti- emetics PRN and before eating. Clinical Quality Measures AMI/AHF: ASA po Prior to arrival: No OWEN MINOR DO 01/06/21 1418: Assessment/Plan Assessment/Plan Assessment/Plan Pt needs HIDA as an outpt. Supervisory-Addendum Brief Verification & Attestation Participated in pt care: other Personally performed: other Care discussed with: Medical Student Procedures: n/a Pt had already left before I could see her. THONG CHOWDARY Jan 06, 2021 07:36 OWEN MINOR DO Jan 06, 2021 14:18
[2021-01-06] MEDS: SUCRALFATE 1 GM (CARAFATE) TAB PO SCH (08:44)
[2021-01-06] MEDS: MAGNESIUM OXIDE (MAG-OX)400 MG TAB PO SCH (08:44)
[2021-01-06] MEDS: PANTOPRAZOLE 20 MG TABLET (PROTONIX) PO SCH (08:44)
[2021-01-06] MEDS: ONDANSETRON 4 MG/2 ML (SDV) Z0FRAN IVP PRN (08:44)
--- NOTE | 2021-01-06 08:55 | Cardiology Progress Note ---
Subjective Date Seen by Provider: Jan 06, 2021 Time Seen by Provider: 08:53 Subjective/Events-last exam Patient was seen at bedside, laying down comfortably, reporting improvement in her chest pain Review of Systems General: No Chills, No Night Sweats, No Fatigue, No Malaise, No Appetite, No Other HEENT: No Head Aches, No Visual Changes, No Eye Pain, No Ear Pain, No Dysphasia, No Sinus Congestion, No Post Nasal Drip, No Sore Throat, No Other Pulmonary: No Dyspnea, No Cough, No Pleuritic Chest Pain, No Other Cardiovascular: No: Chest Pain, Palpitations, Orthopnea, Paroxysmal Noc. Dyspnea, Edema, Lt Headedness, Other Objective-Cardiology Exam Last Set of Vital Signs Vital Signs 01/05/21 01/06/21 04:00 07:25 Temp 36.7 Pulse 65 Resp 20 B/P (MAP) 117/65 (82) Pulse Ox 93 O2 Delivery Room Air O2 Flow Rate 2.00 I&O Intake and Output 01/06/21 00:00 Intake Total 2850 ml Output Total 2400 ml Balance 450 ml Intake Oral 950 ml IV Total 1900 ml Output Urine Total 2400 ml General: Alert, Oriented X3, Cooperative HEENT: Atraumatic, PERRLA Neck: Supple, No JVD, No Thyromegaly Lungs: Clear to Auscultation, Normal Air Movement Heart: Regular Rate, Normal S1, Normal S2, No Murmurs Abdomen: Normal Bowel Sounds, Soft, No Hepatosplenomegaly, No Masses, Other (Right upper quadrant tenderness) Extremities: No Clubbing, No Cyanosis, No Edema, Normal Pulses, No Tenderness/Swelling Skin: No Rashes, No Breakdown, No Significant Lesion Neuro: Normal Gait, Normal Speech, Strength at 5/5 X4 Ext, Normal Tone, Sensation Intact Psych/Mental Status: Mental Status NL, Mood NL Results Lab Laboratory Tests 01/06/21 02:46 A/P-Cardiology Admission Diagnosis Chest pain Abdominal pain Hypertension Paroxysmal atrial fibrillation/flutter Assessment/Plan Chest pain resembling angina, having active chest pain. Cardiac catheterization carried out on January 05, 2021 showing mild coronary artery disease nonobstructive disease. Patient was reassured, groin is healing well. Abdominal pain, right upper quadrant pain, probably cholecystitis. Dr. Romero was consulted. Hypertension, difficult to control, reporting intolerance to Coreg due to poor blood pressure control, intolerance to calcium channel blockers due to pedal edema, has been on enalapril. I will switch her to metoprolol for heart rate control and blood pressure control. Paroxysmal atrial fibrillation/flutter, has been having recurrent palpitation. Currently converted to sinus rhythm, continue to monitor [id number] score of 3, yearly risk of stroke without oral anticoagulation is 3.2%. 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 Acute renal insufficiency probably secondary to dehydration, receiving IV fluid and renal function improving slowly. History of hysterectomy in the remote past Strong family history of heart disease TI CRAIG MD Jan 06, 2021 08:55
[2021-01-06] MEDS ORDERED: MTP25TSR PO (09:49)
[2021-01-06] MEDS ORDERED: ONDA8TAB13 PO (09:49)
[2021-01-06] MEDS ORDERED: RIVA20TA2 PO (09:49)
--- NOTE | 2021-01-06 09:49 | Discharge Summary ---
Diagnosis/Chief Complaint Date of Admission Jan 03, 2021 at 19:27 Date of Discharge Discharge Date: Jan 06, 2021 Discharge Diagnosis Chest pain Episode of atrial fibrillation aborted with adenosine in ER Placed on oral anticoagulation Gallbladder dysfunction needs cholecystectomy after HIDA scan performed to confirm Discharge Summary Discharge Physical Examination Allergies: Coded Allergies: codeine (Unverified Allergy, Unknown, N/V, 04/09/20) Uncoded Allergies: STEROIDS (Allergy, Unknown, INCREASE BP AND PULSE, 04/09/20) Vitals & I&Os Vital Signs Date Time Temp Pulse Resp B/P (MAP) Pulse Ox O2 Delivery O2 Flow Rate FiO2 01/06/21 11:30 37.2 77 12 120/66 (84) 95 Room Air 01/05/21 04:00 2.00 General Appearance: Alert, Oriented X3, Cooperative Respiratory: Clear to Auscultation Cardiovascular: Regular Rate Neuro: Normal Gait, Normal Speech, Strength at 5/5 X4 Ext Psych/Mental Status: Mental Status NL Hospital Course Was the Problem List Reviewed?: Yes Hospital Course: Pt had an uneventful hospital course. She was admitted for chest pain new onset atrial flutter. She had Adenosine in the ER due to tachycardia and that converted her back to normal sinus rhythm. She was placed on anticoagulation of Xarelto. Dr. Romero was consulted due to suspicion for chronic cholecystitis. He will order HIDA scan and see her in follow up and she was deemed stable for DC from cardiology standpoint. Labs (last 24 hrs) Laboratory Tests 01/03/21 18:08: White Blood Count 13.0H, Red Blood Count 5.39H, Hemoglobin 16.1H, Hematocrit 47, Mean Corpuscular Volume 87, Mean Corpuscular Hemoglobin 30, Mean Corpuscular He moglobin Concent 34, Red Cell Distribution Width 13.1, Platelet Count 325, Mean Platelet Volume 10.8, Immature Granulocyte % (Auto) 0, Neutrophils (%) (Auto) 64, Lymphocytes (%) (Auto) 25, Monocytes (%) (Auto) 9, Eosinophils (%) (Auto) 0, Basophils (%) (Auto) 1, Neutrophils # (Auto) 8.4H, Lymphocytes # (Auto) 3.3, Monocytes # (Auto) 1.2H, Eosinophils # (Auto) 0.1, Basophils # (Auto) 0.1, Immature Granulocyte # (Auto) 0.0, Prothrombin Time 14.0, INR Comment 1.0, Acti vated Partial Thromboplast Time 28, D-Dimer 0.41, Sodium Level 129L, Potassium Level 4.7, Chloride Level 95L, Carbon Dioxide Level 22, Anion Gap 12, Blood Urea Nitrogen 29H, Creatinine 1.63H, Estimat Glomerular Filtration Rate 31, BUN/Creatinine Ratio 18, Glucose Level 105, Calcium Level 9.9, Corrected Calcium 9.5, Magnesium Level 2.4, Total Bilirubin 0.3, Aspartate Amino Transf (AST/SGOT) 35H, Alanine Aminotransferase (ALT/SGPT) 35, Alkaline Phosphatase 116, Myoglobin 66.0, Troponin I < 0.028, B-Type Natriuretic Peptide < 10.0, Total Protein 7.7, Albumin 4.5 01/04/21 00:14: Glucometer 73 01/04/21 05:03: White Blood Count 8.3, Red Blood Count 4.50, Hemoglobin 13.2, Hematocrit 40, Mean Corpuscular Volume 89, Mean Corpuscular Hemoglobin 29, Mean Corpuscular Hemoglobin Concent 33, Red Cell Distribution Width 13.3, Platelet Count 219, Mean Platelet Volume 10.8, Immature Granulocyte % (Auto) 0, Neutrophils (%) (Auto) 46, Lymphocytes (%) (Auto) 45H, Monocytes (%) (Auto) 8, Eosinophils (%) (Auto) 1, Basophils (%) (Auto) 1, Neutrophils # (Auto) 3.8, Lymphocytes # (Auto) 3.7, Monocytes # (Auto) 0.7, Eosinophils # (Auto) 0.1, Basophils # (Auto) 0.1, Immature Granulocyte # (Auto) 0.0, Sodium Level 131L, Potassium Level 4.0, Chloride Level 98, Carbon Dioxide Level 26, Anion Gap 7, Blood Urea Nitrogen 26H , Creatinine 1.41H, Estimat Glomerular Filtration Rate 37, BUN/Creatinine Ratio 18, Glucose Level 98, Calcium Level 8.9, Troponin I < 0.028, Triglycerides Level 60, Cholesterol Level 157, LDL Cholesterol Direct 102, VLDL Cholesterol 12, HDL Cholesterol 41 01/04/21 16:10: Influenza Type A (RT-PCR) Not Detected, Influenza Type B (RT-PCR) Not Detected, SARS-CoV-2 RNA (RT-PCR) Not Detected 01/05/21 02:45: White Blood Count 7.6, Red Blood Count 4.14, Hemoglobin 12.3, Hematocrit 37, Mean Corpuscular Volume 89, Mean Corpuscular Hemoglobin 30, Mean Corpuscular Hemoglobin Concent 33, Red Cell Distribution Width 13.4, Platelet Count 218, Mean Platelet Volume 10.8, Sodium Level 136, Potassium Level 4.3, Chloride Level 104, Carbon Dioxide Level 24, Anion Gap 8, Blood Urea Nitrogen 14, Creatinine 1.07, Estimat Glomerular Filtration Rate 51, BUN/Creatinine Ratio 13, Glucose Level 90, Calcium Level 8.5, Corrected Calcium 9.0, Magnesium Level 1.9, Total Bilirubin 0.4, Aspartate Amino Transf (AST/SGOT) 22, Alanine Aminotransferase (ALT/SGPT) 21, Alkaline Phosphatase 76, Total Protein 5.6L, Albumin 3.4 01/06/21 02:46: White Blood Count 7.7, Red Blood Count 4.15, Hemoglobin 12.2, Hematocrit 38, Mean Corpuscular Volume 91, Mean Corpuscular Hemoglobin 29, Mean Corpuscular Hemoglobin Concent 32, Red Cell Distribution Width 13.4, Platelet Count 224, Mean Platelet Volume 10.8, Sodium Level 136, Potassium Level 4.1, Chloride Level 104, Carbon Dioxide Level 25, Anion Gap 7, Blood Urea Nitrogen 14, Creatinine 1.13, Estimat Glomerular Filtration Rate 48, BUN/Creatinine Ratio 12, Glucose Level 78, Calcium Level 8.6, Corrected Calcium 9.2, Total Bilirubin 0.3, Aspartate Amino Transf (AST/SGOT) 21, Alanine Aminotransferase (ALT/SGPT) 20, Alkaline Phosphatase 73, Total Protein 5.6L, Albumin 3.3 Microbiology 01/04/21 MRSA Screen - Final, Complete MRSA not isolated Pending Labs Microbiology Date/Time Source Procedure Growth Status 01/04/21 09:50 Nasal MRSA Screen - Final MRSA not isolated Complete Laboratory Tests 01/03/21 18:08: White Blood Count 13.0, Red Blood Count 5.39, Hemoglobin 16.1, Hematocrit 47, Mean Corpuscular Volume 87, Mean Corpuscular Hemoglobin 30, Mean Corpuscular Hemoglobin Concent 34, Red Cell Distribution Width 13.1, Platelet Count 325, Mean Platelet Volume 10.8, Immature Granulocyte % (Auto) 0, Neutrophils (%) (Auto) 64, Lymphocytes (%) (Auto) 25, Monocytes (%) (Auto) 9, Eosinophils (%) (Auto) 0, Basophils (%) (Auto) 1, Neutrophils # (Auto) 8.4, Lymphocytes # (Auto) 3.3, Monocytes # (Auto) 1.2, Eosinophils # (Auto) 0.1, Basophils # (Auto) 0.1, Immature Granulocyte # (Auto) 0.0, Prothrombin Time 14.0, INR Comment 1.0, Activated Partial Thromboplast Time 28, D-Dimer 0.41, Sodium Level 129, Pota ssium Level 4.7, Chloride Level 95, Carbon Dioxide Level 22, Anion Gap 12, Blood Urea Nitrogen 29, Creatinine 1.63, Estimat Glomerular Filtration Rate 31, BUN/Creatinine Ratio 18, Glucose Level 105, Calcium Level 9.9, Corrected Calcium 9.5, Magnesium Level 2.4, Total Bilirubin 0.3, Aspartate Amino Transf (AST/SGOT) 35, Alanine Aminotransferase (ALT/SGPT) 35, Alkaline Phosphatase 116, Myoglobin 66.0, Troponin I < 0.028, B-Type Natriuretic Peptide < 10.0, Total Protein 7.7, Albumin 4.5 01/04/21 00:14: Glucometer 73 01/04/21 05:03: White Blood Count 8.3, Red Blood Count 4.50, Hemoglobin 13.2, Hematocrit 40, Mean Corpuscular Volume 89, Mean Corpuscular Hemoglobin 29, Mean Corpuscular Hemoglobin Concent 33, Red Cell Distribution Width 13.3, Platelet Count 219, Mean Platelet Volume 10.8, Immature Granulocyte % (Auto) 0, Neutrophils (%) (Auto) 46, Lymphocytes (%) (Auto) 45, Monocytes (%) (Auto) 8, Eosinophils (%) (Auto) 1, Basophils (%) (Auto) 1, Neutrophils # (Auto) 3.8, Lymphocytes # (Auto) 3.7, Monocytes # (Auto) 0.7, Eosinophils # (Auto) 0.1, Basophils # (Auto) 0.1, Immature Granulocyte # (Auto) 0.0, Sodium Level 131, Potassium Level 4.0, Chloride Level 98, Carbon Dioxide Level 26, Anion Gap 7, Blood Urea Nitrogen 26, Creatinine 1.41, Estimat Glomerular Filtration Rate 37, BUN/Creatinine Ratio 18, Glucose Level 98, Calcium Level 8.9, Troponin I < 0.028, Triglycerides Level 60, Cholesterol Level 157, LDL Cholesterol Direct 102, VLDL Cholesterol 12, HDL Cholesterol 41 01/04/21 16:10: Influenza Type A (RT-PCR) Not Detected, Influenza Type B (RT-PCR) Not Detected, SARS-CoV-2 RNA (RT-PCR) Not Detected 01/05/21 02:45: White Blood Count 7.6, Red Blood Count 4.14, Hemoglobin 12.3, Hematocrit 37, Mean Corpuscular Volume 89, Mean Corpuscular Hemoglobin 30, Mean Corpuscular Hemoglobin Concent 33, Red Cell Distribution Width 13.4, Platelet Count 218, Mean Platelet Volume 10.8, Sodium Level 136, Potassium Level 4.3, Chloride Level 104, Carbon Dioxide Level 24, Anion Gap 8, Blood Urea Nitrogen 14, Creatinine 1.07, Estimat Glomerular Filtration Rate 51, BUN/Creatinine Ratio 13, Glucose Level 90, Calcium Level 8.5, Corrected Calcium 9.0, Magnesium Level 1.9, Total Bilirubin 0.4, Aspartate Amino Transf (AST/SGOT) 22, Alanine Aminotransferase (ALT/SGPT) 21, Alkaline Phosphatase 76, Total Protein 5.6, Albumin 3.4 01/06/21 02:46: White Blood Count 7.7, Red Blood Count 4.15, Hemoglobin 12.2, Hematocrit 38, Mean Corpuscular Volume 91, Mean Corpuscular Hemoglobin 29, Mean Corpuscular Hemoglobin Concent 32, Red Cell Distribution Width 13.4, Platelet Count 224, Mean Platelet Volume 10.8, Sodium Level 136, Potassium Level 4.1, Chloride Level 104, Carbon Dioxide Level 25, Anion Gap 7, Blood Urea Nitrogen 14, Creatinine 1.13, Estimat Glomerular Filtration Rate 48, BUN/Creatinine Ratio 12, Glucose Level 78, Calcium Level 8.6, Corrected Calcium 9.2, Total Bilirubin 0.3, Aspartate Amino Transf (AST/SGOT) 21, Alanine Aminotransferase (ALT/SGPT) 20, Alkaline Phosphatase 73, Total Protein 5.6, Albumin 3.3 Discharge Home Medications: Active Scripts Active Ondansetron Odt (Ondansetron) 8 Mg Tab.rapdis 8 Mg PO Q6H PRN Metoprolol Succinate 25 Mg Tab.er.24h 25 Mg PO DAILY Xarelto Tablet (Rivaroxaban) 20 Mg Tablet 20 Mg PO DAILY@1700 Reported Carafate (Sucralfate) 1 Gm Tablet 1 Gm PO QID Mag-Oxide (Magnesium Oxide) 200 Mg Tablet 400 Mg PO DAILY Spironolactone-Hctz 25-25 Tab (Spironolact/Hydrochlorothiazid) 1 Each Tablet 1 Each PO DAILY Protonix (Pantoprazole Sodium) 20 Mg Tablet.dr 20 Mg PO BID Ambien (Zolpidem Tartrate) 10 Mg Tablet 10 Mg PO HS Diazepam 5 Mg Tablet 5 Mg PO TID PRN Enalapril Maleate 10 Mg Tablet 10 Mg PO TID Aspirin 81 Mg Tab.chew 81 Mg PO DAILY Instructions to patient/family Please see electronic discharge instructions given to patient. Clinical Quality Measures AMI/AHF: ASA po Prior to arrival: GLENDY Jensen DO Jan 06, 2021 09:49
--- NOTE | 2021-01-06 10:11 | Progress Note ---
CORY HOLLEY 01/06/21 1011: Progress Note 65yo F with PMH of HTN went to ED for dizziness and fatigue. At [facility] on 01/04, she also complained of achy chest pain and found new onset AFib RVR and was admitted to cardiac stepdown on Cardizem drip and converted overnight along with stopping the drip. Cardiology consult with Dr. Benjamin with cath only showing mild CAD. Per old records, pt stated she was diagnosed with diverticulitis and contracted gall bladder a week ago in ED on [address] and started on Flagyl. Carafate, Nexium. EGD if symptoms don't improve in 2 days. Today 01/06, pt complains of right shoulder pain with nausea and fatigue and otherwise in stable condition. Surgery with Dr. Romero was consulted. Pt to be discharged today with instructions for appointment for HIDA scan for possible cholecystectomy. NICHELLE MCCONNELL DO 01/07/21 0515: Supervisory-Addendum Brief Verification & Attestation Participated in pt care: history, MDM, physical Personally performed: exam, history, MDM, supervision of care Care discussed with: Medical Student Procedures: n/a Results interpretation: Verified all documentation Verification and Attestation of Medical Student E/M Service A medical student performed and documented this service in my presence. I reviewed and verified all information documented by the medical student and made modifications to such information, when appropriate. I personally performed the physical exam and medical decision making. Nichelle Mcconnell Jan 07, 2021,05:14 CORY HOLLEY Jan 06, 2021 10:11 NICHELLE MCCONNELL DO Jan 07, 2021 05:15
[2021-01-06 11:30] VITALS: BP 120/66
== END 2021-01-06 12:00 | disposition home or self-care (01) | DRG 287 ==
LOC: EDUNIT# 18:02 → ER 18:06 → CSD 19:27
PROVIDERS: ADMIT Family Medicine; ATTEND Internal Medicine
PROC: 4A023N7 Measurement of Cardiac Sampling and Pressure, Left Heart, Percutaneous Approach (ICD-10-PCS; principal; 2021-01-05)
PROC: B2111ZZ Fluoroscopy of Multiple Coronary Arteries using Low Osmolar Contrast (ICD-10-PCS; 2021-01-05)
PROC: B2151ZZ Fluoroscopy of Left Heart using Low Osmolar Contrast (ICD-10-PCS; 2021-01-05)
PROC: B3101ZZ Fluoroscopy of Thoracic Aorta using Low Osmolar Contrast (ICD-10-PCS; 2021-01-05)
DX: I48.92 Unspecified atrial flutter (principal); N17.9 Acute kidney failure, unspecified; K57.92 Diverticulitis of intestine, part unspecified, without perforation or abscess without bleeding; I48.0 Paroxysmal atrial fibrillation; R07.89 Other chest pain; K82.8 Other specified diseases of gallbladder; E86.0 Dehydration; I10 Essential (primary) hypertension; E78.5 Hyperlipidemia, unspecified; I25.2 Old myocardial infarction; Z85.528 Personal history of other malignant neoplasm of kidney; F41.9 Anxiety disorder, unspecified; Z87.820 Personal history of traumatic brain injury; Z82.49 Family history of ischemic heart disease and other diseases of the circulatory system; Z88.6 Allergy status to analgesic agent; Z79.82 Long term (current) use of aspirin
CPT/HCPCS: 36221; 36415; 71045; 80048; 80053; 80061; 82947; 83735; 83874; 83880; 84484; 85025; 85027; 85379; 85610; 85730; 87081; 87636; 93005; 93041; 93306; 93458; 96374; 96375

== ENCOUNTER 2021-02-07 01:51 | Observation (INO) | payer MEDICARE, OTHER ==
[~2021-02-07] VITALS: Ht 160 cm; Wt 75.9 kg
[~2021-02-07 01:51] MED LIST changes: +MAGN200T8 PO; +METR500T PO; +MTP25TSR PO; +ONDA8TAB13 PO; +PANT20TA2 PO; +RIVA20TA2 PO; +SPIR1TAB3 PO; +SUCR1TAB36 PO
[2021-02-07] MEDS ORDERED: ADENOSINE 6 MG/2 ML (ADENOCARD) VIAL IV ONE ×2 (02:13→02:15)
[2021-02-07] MEDS ORDERED: NS IV 500 ML 500 ML IV SCH (02:15)
--- NOTE | 2021-02-07 02:18 | ED Cardiac General ---
History of Present Illness General Chief Complaint: Cardiac/General Problems Stated Complaint: POSS A-FIB,CP Nursing Triage Note: C/O CHEST/NECK PAIN, SOA, NEAR SYNCOPE X90 MIN. Source: patient Exam Limitations: no limitations History of Present Illness Date Seen by Provider: Feb 07, 2021 Time Seen by Provider: 02:05 Initial Comments Chhaya is a 65-year-old who presents to the emergency department today with a chief complaint of diffuse substernal chest pain radiating up into her neck and palpitations. Patient states she got up about an hour and a half ago to go to the bathroom and had sudden onset of symptoms. She complains of feeling a little short of breath and a little nauseous. She tells me she has a history of atrial fibrillation. She takes Xarelto. She recently saw her academic affairs assistant, Dr. Carmencita Krause, last week on Wednesday. Patient states that he made some changes to her medications and subsequently added another 1 on Wednesday of this week. She tells me she did take 4 baby aspirin prior to coming to the emergency room. Nothing makes her pain any better or any worse. Patient states that she had a near syncopal event at the onset of her symptoms and fell to her knees but did not fully lose consciousness. Everything "went black" for a brief second. She denies any recent illnesses such as fevers, chills, cough or congestion. No urinary difficulties no GI symptoms. She is Covid vaccinated. She did take her Xarelto today. At presentation the patient appears fatigued and her heart rate is 180. All other review of systems reviewed and negative except as stated. Timing/Duration: 1-3 hours Severity: moderate Location: central Activities at Onset: activity Prior CP/Workup: cardiac cath NTG SL REINSPECTOR: No ASA po REINSPECTOR: Yes Associated Systoms: Chest Pain, Malaise, Nausea/Vomiting, Shortness of Air, Syncope, Weakness Allergies and Home Medications Allergies Coded Allergies: codeine (Unverified Allergy, Unknown, N/V, 04/09/20) Uncoded Allergies: STEROIDS (Allergy, Unknown, INCREASE BP AND PULSE, 04/09/20) Patient Home Medication List Home Medication List Reviewed: Yes Aspirin (Aspirin) 81 Mg Tab.chew, 81 MG PO DAILY, (Reported) Entered as Reported by: DOUG SANTILLAN on 05/15/20 1331 Diazepam (Diazepam) 5 Mg Tablet, 5 MG PO TID PRN for ANXIETY, (Reported) Entered as Reported by: DOUG SANTILLAN on 05/15/20 1331 Enalapril Maleate (Enalapril Maleate) 10 Mg Tablet, 10 MG PO TID, (Reported) Entered as Reported by: DOUG SANTILLAN on 05/15/20 1331 Magnesium Oxide (Mag-Oxide) 200 Mg Tablet, 400 MG PO DAILY, (Reported) Entered as Reported by: AMBER VAZQUEZ on 01/04/21 0811 Metoprolol Succinate (Metoprolol Succinate) 25 Mg Tab.er.24h, 25 MG PO DAILY Prescribed by: GLENDY MCCONNELL on 01/06/21 0949 Ondansetron (Ondansetron Odt) 8 Mg Tab.rapdis, 8 MG PO Q6H PRN for NAUSEA/VOMITING Prescribed by: GLENDY MCCONNELL on 01/06/21 0949 Pantoprazole Sodium (Protonix) 20 Mg Tablet.dr, 20 MG PO BID, (Reported) Entered as Reported by: AMBER VAZQUEZ on 01/04/21 0811 Rivaroxaban (Xarelto Tablet) 20 Mg Tablet, 20 MG PO DAILY@1700 Prescribed by: GLENDY MCCONNELL on 01/06/21 0949 Spironolact/Hydrochlorothiazid (Spironolactone-Hctz 25-25 Tab) 1 Each Tablet, 1 EACH PO DAILY, (Reported) Entered as Reported by: AMBER VAZQUEZ on 01/04/21 0811 Sucralfate (Carafate) 1 Gm Tablet, 1 GM PO QID, (Reported) Entered as Reported by: AMBER VAZQUEZ on 01/04/21 0811 Zolpidem Tartrate (Ambien) 10 Mg Tablet, 10 MG PO HS, (Reported) Entered as Reported by: DOUG SANTILLAN on 05/15/20 133 Review of Systems Review of Systems Constitutional: see HPI EENTM: No Symptoms Reported Respiratory: SOA at Rest Cardiovascular: Chest Pain, Palpitations Gastrointestinal: No Symptoms Reported Genitourinary: No Symptoms Reported Musculoskeletal: no symptoms reported Skin: no symptoms reported Psychiatric/Neurological: No Symptoms Reported Endocrine: No Symptoms Reported All Other Systems Reviewed Negative Unless Noted: Yes Past Yrqihly-Ewyucr-Ltjivf Hx Immunizations Up To Date First/Initial COVID19 Vaccinat: 06/30 Second COVID19 Vaccination Brent: 06/30 Seasonal Allergies Seasonal Allergies: Yes Past Medical History Surgery/Hospitalization HX: AFIB,HTN,MO, TBI, ANXIETY, APPY, HYSTERECTOMY, PARTIAL NEPHRECTOMY, ORTHOPEDIC Surgeries: Yes Abdominal, Appendectomy, Hysterectomy, Nephrectomy, Oophorectomy, Orthopedic Respiratory: No Currently Using CPAP: No Cardiac: Yes Angina, Atrial Fibrillation, Hypertension Neurological: No 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 Disorders: No Female 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 Disorders: Ovarian Cyst 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 Sexually Transmitted Disease: No Genitourinary: Yes (Rt Eitan-nephrectomy 2014 in ) Polycystic Kidney Disease Gastrointestinal: Yes Gastroesophageal Reflux, Obstructive Bowel Musculoskeletal: Yes (ACL repair (LT), carpal tunnel surg, torn bicep (LT)) Endocrine: No HEENT: Yes Tinnitis Cancer: No Kidney Did You Recieve Any Treatments: Yes What Type of Treatment Did You: Surgical Intervention Psychosocial: No Anxiety Integumentary: No Blood Disorders: No Adverse Reaction/Blood Tranf: No Family Medical History Stroke, Vascular Disease, Other Conditions/Hx Physical Exam Vital Signs Vital Signs - First Documented 02/07/21 02:01 Temp 36.0 Pulse 184 Resp 12 B/P (MAP) 144/98 (113) Pulse Ox 97 O2 Delivery Room Air Capillary Refill : Less Than 3 Seconds Height, Weight, BMI Height: '" Weight: lbs. oz. 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 Norm as Tested Skin: Normal Color, Warm/Dry Progress/Results/Core Measures Results/Orders Lab Results Laboratory Tests Test 02/07/21 02:18 Range/Units White Blood Count 10.7 4.3-11.0 10^3/uL Red Blood Count 4.79 3.80-5.11 10^6/uL Hemoglobin 13.6 11.5-16.0 g/dL Hematocrit 42 35-52 % Mean Corpuscular Volume 87 80-99 fL Mean Corpuscular Hemoglobin 28 25-34 pg Mean Corpuscular Hemoglobin Concent 33 32-36 g/dL Red Cell Distribution Width 13.0 10.0-14.5 % Platelet Count 341 130-400 10^3/uL Mean Platelet Volume 11.1 9.0-12.2 fL Immature Granulocyte % (Auto) 0 % Neutrophils (%) (Auto) 55 42-75 % Lymphocytes (%) (Auto) 35 12-44 % Monocytes (%) (Auto) 8 0-12 % Eosinophils (%) (Auto) 2 0-10 % Basophils (%) (Auto) 1 0-10 % Neutrophils # (Auto) 5.8 1.8-7.8 10^3/uL Lymphocytes # (Auto) 3.7 1.0-4.0 10^3/uL Monocytes # (Auto) 0.9 0.0-1.0 10^3/uL Eosinophils # (Auto) 0.2 0.0-0.3 10^3/uL Basophils # (Auto) 0.1 0.0-0.1 10^3/uL Immature Granulocyte # (Auto) 0.0 0.0-0.1 10^3/uL Sodium Level 138 135-145 MMOL/L Potassium Level 3.9 3.6-5.0 MMOL/L Chloride Level 98 98-107 MMOL/L Carbon Dioxide Level 24 21-32 MMOL/L Anion Gap 16 H 5-14 MMOL/L Blood Urea Nitrogen 17 7-18 MG/DL Creatinine 1.29 0.60-1.30 MG/DL Estimat Glomerular Filtration Rate 41 BUN/Creatinine Ratio 13 Glucose Level 137 H 70-105 MG/DL Calcium Level 11.0 H 8.5-10.1 MG/DL Magnesium Level 2.1 1.6-2.4 MG/DL Total Creatine Kinase 55 29-168 U/L Troponin I < 0.028 <0.028 NG/ML My Orders Orders - LUANA CAROLINA MD Ed Iv/Invasive Line Start (02/07/21 02:13) Basic Metabolic Panel (02/07/21 02:13) Creatine Kinase (02/07/21 02:13) Troponin I (02/07/21 02:13) Chest 1 View, Ap/Pa Only (02/07/21 02:13) Magnesium (02/07/21 02:13) Ekg Tracing (02/07/21 02:13) Ns Iv 500 Ml (Sodium Chloride 0.9%) (02/07/21 02:15) Adenosine Injection (Adenocard Injection (02/07/21 02:15) Adenosine Injection (Adenocard Injection (02/07/21 02:13) Diltiazem Drip Pre-Mix (Cardizem Drip Pr (02/07/21 02:30) Diltiazem Injection (Cardizem Injection) (02/07/21 02:30) Diltiazem Drip Pre-Mix (Cardizem Drip Pr (02/07/21 02:25) Diltiazem Injection (Cardizem Injection) (02/07/21 02:25) Ekg Tracing (02/07/21 02:43) Ekg Tracing (02/07/21 02:43) Cbc With Automated Diff (02/07/21 02:49) Medications Given in ED Current Medications Medications Dose Ordered Sig/Angelica Route Start Time Stop Time Status Last Admin Dose Admin Adenosine 6 mg ONCE ONCE IV 02/07/21 02:15 02/07/21 02:16 DC 02/07/21 02:23 6 MG Diltiazem HCl 20 mg ONCE ONCE IVP 02/07/21 02:30 02/07/21 02:31 DC 02/07/21 02:30 20 MG Vital Signs/I&O 02/07/21 02:01 Temp 36.0 Pulse 184 Resp 12 B/P (MAP) 144/98 (113) Pulse Ox 97 O2 Delivery Room Air Blood Pressure Mean: 113 Progress Progress Note #1: Time: 02:20 Progress Note patient had cardiac cath 12/[address] Benjamin, showed clean coronaries, EF 60% 0226 after 6mg of adenosine, she slowed briefly enough to recognize Afib wide QRS and Qtc. suggestion of RV infarction - although difficult to read on this AFIB EKG. will cardizem bolus and drip to better control rate of now 180 again 0247 Cardizem bolus started, patient converted from A. fib RVR to a extreme wide- complex tachycardia. Before the bolus was completed patient converted into a rate controlled A. fib in the 80s. Blood pressure stayed good with systolic 110- 115. Patient states that she has some relief of her chest pressure/discomfort. I was able to get medications from her , per review it looks like she was started on losartan 100 mg a day and flecainide twice daily last week. Dr. Krause added triamterene/hydrochlorothiazide on Wednesday. She states she has felt "fuzzy headed" ever since she started it. Patient states she has an "allergy" to "calcium channel blockers" they make her rash and legs ache. She tells me this as we are pushing the bolus. Per review of the medical record, she was placed on a drip 1 mo ago when here for Afib with RVR and tolerated the drip well. Will continue at this time (as the medication is currently not causing any concerning symptoms and controlling her rate) and monitor for symptoms. Progress Note #2: Time: 03:36 Progress Note patient requesting a "gi cocktail" for her abdominal "bloating" and slight nausea. Rate is the 80's on cardizem at 5mg. Still afib. labs reviewed and reassuring. WIll discuss with Dr Gonzalez and Dr Mcconnell for admission Initial ECG Impression Date: Feb 07, 2021 Initial ECG Impression Time: 02:06 Initial ECG Rate: 184 Initial ECG Rhythm: SVT Initial ECG Impression: SVT Comment widespread ischemic change EKG #1: EKG Time: 02:19 Rate: 35 Rhythm: A Fib/Flutter (Ventricular rate 35) ECG Impression: Atrial Fibrillation EKG #2: EKG Time: 02:27 Rate: 171 Rhythm: ECG Comparisson: Changed Comment wide complex Tachycardia (cardizem bolus running) EKG #3: EKG Time: 02:32 Rate: 92 Rhythm: A Fib/Flutter Intervals QRS 102 QTc 479 ECG Comparisson: Changed ECG Impression: Atrial Fibrillation Diagnostic Imaging Diagonstic Imaging: Xray Plain Films/CT/US/NM/MRI: chest Comments clear lungs; no effusions or infiltrates. bony structures appear unremarkable CP/AMI: Aspirin, ECG Critical Care Note Critical Care Start Time: 02:05 Stop Time: 02:46 Total Time (minutes) 35 minutes critical care time in the evaluation management of this 65-year-old with a longstanding history of intermittent atrial fibrillation with rapid ventricular response. Time includes initial evaluation and management of the patient with adenosine bolus, IV fluid bolus, multiple EKGs. Cardizem bolus and drip. Review of the medical record. Departure Communication (Admissions) Time/Spoke to Admitting Phy: 03:[address] mcconnell; advised her we will have to hold patient in the ER until a Cardiac Stepdown bed becomes available in the morning Time/Spoke to Consulting Phy: 03:[address] Gonzalez; continue drip at 5mg. continue xarelto. Admit to Medicine Impression Primary Impression: Atrial fibrillation with rapid ventricular response Disposition: ADMITTED INPATIENT Condition: Improved Admissions Decision to Admit Reason: Admit from ER (General) Decision to Admit/Date: Feb 07, 2021 Time/Decision to Admit Time: 03:39 Departure-Patient Inst. Referrals: CARMENCITA GRAYSON MD (PCP) Primary Care Physician MURRAY LOZADA (Family) Primary Care Physician LUANA CAROLINA MD Feb 07, 2021 02:18
[2021-02-07] MEDS ORDERED: dilTIAZem DRIP PRE-MIX 125 ML IV ONE (02:25)
[2021-02-07] MEDS ORDERED: dilTIAZem DRIP PRE-MIX 125 ML IV SCH (02:30)
[2021-02-07 02:34] LABS: CHLORIDE 98 MMOL/L (98-107); POTASSIUM 3.9 MMOL/L (3.6-5.0); SODIUM 138 MMOL/L (135-145)
[2021-02-07 02:36] LABS: GLUCOSE 137 MG/DL (70-105)
[2021-02-07 02:37] LABS: CARBON DIOXIDE 24 MMOL/L (21-32)
[2021-02-07 02:40] LABS: CREATININE SERUM 1.29 MG/DL (0.60-1.30); GFR ESTIMATED 41
[2021-02-07 02:41] LABS: BUN/CREATININE RATIO 13
[2021-02-07 02:42] LABS: MAGNESIUM 2.1 MG/DL (1.6-2.4)
[2021-02-07 02:43] LABS: CREATINE KINASE 55 U/L (29-168)
[2021-02-07 02:54] LABS: BASOPHILS # (AUTO) 0.1 10^3/uL (0.0-0.1); BASOPHILS % (AUTO) 1 % (0-10); EOSINOPHILS # (AUTO) 0.2 10^3/uL (0.0-0.3); EOSINOPHILS % (AUTO) 2 % (0-10); HEMATOCRIT 42 % (35-52); HEMOGLOBIN 13.6 g/dL (11.5-16.0); LYMPHOCYTES # (AUTO) 3.7 10^3/uL (1.0-4.0); LYMPHOCYTES % (AUTO) 35 % (12-44); MEAN CORPUSCULAR HEMOGLOBIN 28 pg (25-34); MEAN CORPUSCULAR HGB CONC 33 g/dL (32-36); MEAN CORPUSCULAR VOLUME 87 fL (80-99); MEAN PLATELET VOLUME 11.1 fL (9.0-12.2); MONOCYTES # (AUTO) 0.9 10^3/uL (0.0-1.0); MONOCYTES % (AUTO) 8 % (0-12); NEUTROPHILS # (AUTO) 5.8 10^3/uL (1.8-7.8); NEUTROPHILS % (AUTO) 55 % (42-75); PLATELET COUNT 341 10^3/uL (130-400); WHITE BLOOD COUNT 10.7 10^3/uL (4.3-11.0)
[2021-02-07] MEDS ORDERED: ANTACID SUSP 30 ML UDC (MYLANTA) PO ONE (04:00)
--- NOTE | 2021-02-07 06:08 | Diagnostic Imaging Report ---
INDICATION: Chest pain COMPARISON: 01/03/2021. FINDINGS: Frontal view of the chest demonstrates clear lungs bilaterally. The heart size is normal. There is no pneumothorax. Osseous structures are normal. IMPRESSION: No acute findings. Normal chest. Dictated by: Dictated on workstation # [id number]
[2021-02-07 08:45] VITALS: BP 117/76
[2021-02-07] MEDS ORDERED: CATHETER FLUSH 10 ML SYR IV PRN (09:00)
[2021-02-07] MEDS ORDERED: dilTIAZem120 MG (CARDIZEM CD) CAP PO SCH (09:00)
[2021-02-07] MEDS ORDERED: ASPIRIN 81 MG CHEW (CHILDREN'S ASA) PO SCH (09:00)
[2021-02-07] MEDS ORDERED: TRIA1TAB3 (09:17)
[2021-02-07] MEDS ORDERED: LOSA100T57 (09:17)
[2021-02-07] MEDS ORDERED: FLEC100T (09:17)
--- NOTE | 2021-02-07 09:51 | Consultation-Cardiology ---
HPI-Cardiology Cardiology Consultation: Date of Consultation 02/07/21 Time Seen by a Provider: 09:00 Date of Admission Attending Physician Nichelle Fitzgerald DO Admitting Physician De Amaya MD Consulting Physician LETITIA BARNETT MD, ,AA, FACP, FACC, FSCAI, CCDS HPI: Chief Complaint: CC: Palpitations HPI 65 yo woman with frequently recurrent palp, known PAF, who was admitted with similar symptoms and similar presentation as in Dec 2020. Better now, but still with chest discomfort and vague body discomfort and malaise and dyspepsia. Chronic epigastric pain. No swelling. 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 Dr Krause Review of Systems-Cardiology Review of Systems Constitutional: malaise; No weight loss, No weight gain Eyes: No vision change Ears/Nose/Throat: No ear discharge, No nasal drainage, No recent hearing loss Respiratory: As described under HPI Cardiovascular: As described under HPI Gastrointestinal: As described under HPI Genitourinary: No dysuria, No hematuria, No urine frequency changes Musculoskeletal: No back pain Skin: rash (chronic, intermittent rash that she feels is due to diltiazem); No ulcerations Psychiatric/Neurological: No seizure, No focal weakness, No syncope Hematologic: No bleeding abnormalities All Other Systems Reviewed Negative Unless Noted: Yes AIF-Maqrpk-Jukten Hx Patient Social History Smoking Status: Never a Smoker 2nd Hand Smoke Exposure: No Have you traveled recently?: No Alcohol Use?: Yes Pt feels they are or have been: No Past Medical History PMH As described under Assessment. Family Medical History Family Medical History: No fam h/o early CAD Allergies and Home Medications Allergies Coded Allergies: codeine (Unverified Allergy, Unknown, N/V, 04/09/20) Uncoded Allergies: STEROIDS (Allergy, Unknown, INCREASE BP AND PULSE, 04/09/20) Patient Home Medication List Home Medication List Reviewed: Yes Aspirin (Aspirin) 81 Mg Tab.chew, 81 MG PO DAILY, (Reported) Entered as Reported by: DOUG SANTILLAN on 05/15/20 133 Last Action: Last Taken Edited Diazepam (Diazepam) 5 Mg Tablet, 5 MG PO TID PRN for ANXIETY, (Reported) Entered as Reported by: DOUG SANTILLAN on 05/15/20 1331 Last Action: Last Taken Edited Magnesium Oxide (Mag-Oxide) 200 Mg Tablet, 400 MG PO DAILY, (Reported) Entered as Reported by: AMBER VAZQUEZ on 01/04/21810 Last Action: Last Taken Edited Ondansetron (Ondansetron Odt) 8 Mg Tab.rapdis, 8 MG PO Q6H PRN for NAUSEA/VOMITING Prescribed by: NICHELLE FITZGERALD on 01/06/21948 Last Action: Last Taken Edited Pantoprazole Sodium (Protonix) 20 Mg Tablet.dr, 20 MG PO BID, (Reported) Entered as Reported by: AMBER VAZQUEZ on 01/04/21810 Last Action: Last Taken Edited Rivaroxaban (Xarelto Tablet) 20 Mg Tablet, 20 MG PO DAILY@1700 Prescribed by: NICHELLE FITZGERALD on 01/06/21948 Last Action: Last Taken Edited Zolpidem Tartrate (Ambien) 10 Mg Tablet, 10 MG PO HS, (Reported) Entered as Reported by: DOUG SANTILLAN on 05/15/201330 Last Action: Last Taken Edited Discontinued Medications Enalapril Maleate (Enalapril Maleate) 10 Mg Tablet, 10 MG PO TID, (Reported) Discontinued Reason: No Longer Taking Entered as Reported by: DOUG SANTILLAN on 05/15/201330 Last Action: Discontinued Flecainide Acetate (Flecainide Acetate) 100 Mg Tablet, (Reported) Discontinued Reason: No Longer Taking Entered as Reported by: DEXTER JOHNSON on 02/07/21916 Last Action: Discontinued Losartan Potassium (Losartan Potassium) 100 Mg Tablet, (Reported) Discontinued Reason: No Longer Taking Entered as Reported by: DEXTER JOHNSON on 02/07/21916 Last Action: Discontinued Metoprolol Succinate (Metoprolol Succinate) 25 Mg Tab.er.24h, 25 MG PO DAILY Discontinued Reason: No Longer Taking Prescribed by: NICHELLE FITZGERALD on 01/06/21948 Last Action: Discontinued Spironolact/Hydrochlorothiazid (Spironolactone-Hctz 25-25 Tab) 1 Each Tablet, 1 EACH PO DAILY, (Reported) Discontinued Reason: No Longer Taking Entered as Reported by: AMBER VAZQUEZ on 01/04/21810 Last Action: Discontinued Sucralfate (Carafate) 1 Gm Tablet, 1 GM PO QID, (Reported) Discontinued Reason: No Longer Taking Entered as Reported by: AMBER VAZQUEZ on 01/04/21 0811 Last Action: Discontinued Triamterene/Hydrochlorothiazid (Triamterene-Hctz 37.5-25 mg Tb) 1 Each Tablet, (Reported) Discontinued Reason: No Longer Taking Entered as Reported by: DEXTER JOHNSON on 02/07/21 0917 Last Action: Discontinued Physical Exam-Cardiology Physical Exam Vital Signs/I&O 02/07/21 02/07/21 02/07/21 02/07/21 02:01 08:45 08:51 08:52 Temp 36.0 36.4 Pulse 184 62 63 Resp 12 12 B/P (MAP) 144/98 (113) 117/76 (90) Pulse Ox 97 97 O2 Delivery Room Air Room Air Room Air Capillary Refill : Less Than 3 Seconds Constitutional: AAO x 3, well-developed, well-nourished HEENT: EOMI, hearing is well preserved, xanthelasmas are seen Neck: carotid pulses are 2 + bilaterally Respiratory: No accessory muscle use; other (good, bilat air entry) Cardiovascular: regular rate-rhythm, S1 and S2 Gastrointestinal: No tender; soft; No guarding, No rebound; audible bowel sounds Extremities: No clubbing, No cyanosis, No significant edema Neurologic/Psychiatric: oriented x 3, other (moves all limbs equally) Skin: No rash on exposed areas, No ulcerations on exposed areas Data Review Labs Laboratory Tests 02/07/21 02:18: White Blood Count 10.7, Red Blood Count 4.79, Hemoglobin 13.6, Hematocrit 42, Mean Corpuscular Volume 87, Mean Corpuscular Hemoglobin 28, Mean Corpuscular Hemoglobin Concent 33, Red Cell Distribution Width 13.0, Platelet Count 341, Mean Platelet Volume 11.1, Immature Granulocyte % (Auto) 0, Neutrophils (%) (Auto) 55, Lymphocytes (%) (Auto) 35, Monocytes (%) (Auto) 8, Eosinophils (%) (Auto) 2, Basophils (%) (Auto) 1, Neutrophils # (Auto) 5.8, Lymphocytes # (Auto) 3.7, Monocytes # (Auto) 0.9, Eosinophils # (Auto) 0.2, Basophils # (Auto) 0.1, Immature Granulocyte # (Auto) 0.0, Sodium Level 138, Potassium Level 3.9, Chloride Level 98, Carbon Dioxide Level 24, Anion Gap 16H, Blood Urea Nitrogen 17, Creatinine 1.29, Estimat Glomerular Filtration Rate 41, BUN/Creatinine Ratio 13, Glucose Level 137H, Calcium Level 11.0H, Magnesium Level 2.1, Total Creatine Kinase 55, Troponin I < 0.028 Laboratory Tests 02/07/21 02:18 A/P-Cardiology Assessment/Admission Diagnosis PAF - wide-complex during A Fib, probably related to flecainide - card cath of Jan 05, 2021 (Dr Benjamin): no significant obstructive CAD, LVEF 60%, LVEDP 14 mmHg - on no rate-controlling agents at the time of this presentation H/o hypertension Discussion and Recomendations * Stop diuretics, losartan, and flecainide * Start Toprol XL 100 mg daily. Responded well to iv dilt, but refuses oral dilt * Monitor labs * Repeat echo * Increase ambulation * I answered her questions in detail Clinical Quality Measures AMI/AHF: ASA po Prior to arrival: Yes LETITIA BARNETT MD FACP FAC CCDS Feb 07, 2021 09:51
[2021-02-07] MEDS ORDERED: PANTOPRAZOLE 40 MG (PROTONIX) TAB PO ONE ×2 (10:00→16:02)
[2021-02-07] MEDS ORDERED: FAMOTIDINE 20 MG (PEPCID) TABLET PO PRN (10:00)
[2021-02-07] MEDS ORDERED: meTOprolol SUCCINATE 100 MG (TOPROL XL) TAB PO ONE (10:30)
--- NOTE | 2021-02-07 11:29 | History & Physical-Hospitalist ---
History of Present Illness HPI/Chief Complaint Chhaya Jovel is a 65-year-old female with past medical history of hypertension, paroxysmal atrial fibrillation, who presented with lightheadedness and dizziness. She reports that she was at home and nearly blacked out. She denies loss of consciousness. She also reported chest pain with radiation to her neck. She was feeling a bit short of breath and nauseous. She denies fevers and chills. She denies cough. She has had chronic abdominal pain. She is supposed to follow-up with Dr. Vega. She follows with Dr. Krause for cardiology. Source: patient Exam Limitations: no limitations Date Seen 02/07/21 Time Seen by a Provider: 09:50 Attending Physician Nichelle Fitzgerald John E MD Referring Physician Date of Admission Feb 07, 2021 at 03:48 Home Medications & Allergies Home Medications Reviewed patient Home Medication Reconciliation performed by pharmacy medication reconciliations aerospace physiological technician and/or nursing. Patients Allergies have been reviewed. Allergies Allergies Coded Allergies clonidine (Verified Allergy, Severe, Angioedema, 02/07/21) diltiazem (Verified Allergy, Intermediate, 02/07/21) Leg rash amlodipine (Verified Allergy, Unknown, 02/07/21) Redness on legs albuterol (Verified Adverse Reaction, Intermediate, 02/07/21) elevated hr, palpitations codeine (Unverified Adverse Reaction, Unknown, N/V, 02/07/21) Uncoded Allergies STEROIDS ( Adverse Reaction, Unknown, INCREASE BP AND PULSE, 02/07/21) Past Gmhbknm-Khnzyo-Jmusvr Hx Patient Social History Tobacco Use?: No Smoking Status: Never a Smoker Use of E-Cig and/or Vaping dev: No Substance use?: No Alcohol Use?: Yes Alcohol type: Beer, Wine Alcohol Frequency: Rarely Pt feels they are or have been: No Immunizations Up To Date First/Initial COVID19 Vaccinat: june Second COVID19 Vaccination Brent: July Tetanus Booster (TDap): Less Than 5 Years Seasonal Allergies Seasonal Allergies: Yes Current Status status: No status: No Advance Directives: Yes Advance Directive Location: Home Communicates: Verbally Primary Language: Latvian Preferred Spoken Language: Latvian Is interpretation needed?: No Implanted or Applied Medical D: Orthopedic hardware Past Medical History Surgeries: Abdominal, Appendectomy, Hysterectomy, Nephrectomy, Oophorectomy, Orthopedic Currently Using CPAP: No Angina, Atrial Fibrillation, Hypertension 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 Sexually Transmitted Disease: No Polycystic Kidney Disease Gastroesophageal Reflux, Obstructive Bowel Tinnitis Kidney Did You Recieve Any Treatments: Yes What Type of Treatment Did You: Surgical Intervention Anxiety Blood Disorders: No Adverse Reaction/Blood Tranf: No Family Medical History Stroke, Vascular Disease, Other Conditions/Hx Review of Systems Constitutional: dizziness EENTM: no symptoms reported Respiratory: short of breath Cardiovascular: chest pain, palpitations Gastrointestinal: abdominal pain, nausea Genitourinary: no symptoms reported Musculoskeletal: no symptoms reported Skin: no symptoms reported Psychiatric/Neurological: No Symptoms Reported Physical Exam Physical Exam Vital Signs Vital Signs - First Documented 02/07/21 02:01 Temp 36.0 Pulse 184 Resp 12 B/P (MAP) 144/98 (113) Pulse Ox 97 O2 Delivery Room Air Capillary Refill : Less Than 3 Seconds Height, Weight, BMI Height: '" Weight: lbs. oz. kg; 26.00 BMI Method: General Appearance: No Apparent Distress, WD/WN HEENT: PERRL/EOMI, Pharynx Normal Neck: Normal Inspection, Supple Respiratory: Lungs Clear, Normal Breath Sounds, No Respiratory Distress Cardiovascular: Regular Rate, Rhythm, No Edema, No Murmur Gastrointestinal: Normal Bowel Sounds, Non Tender, Soft Extremity: Normal Inspection, Non Tender, No Pedal Edema Neurologic/Psychiatric: Alert, Oriented x3, No Motor/Sensory Deficits, Normal Mood/Affect Skin: Normal Color, Warm/Dry Results Results/Procedures Labs Laboratory Tests 02/07/21 02:18 Patient resulted labs reviewed. Imaging: Reviewed Imaging Report Assessment/Plan Admission Diagnosis Paroxysmal atrial fibrillation with rapid ventricular response Admission Status: Observation Assessment and Plan Paroxysmal atrial fibrillation with rapid ventricular response Cardiology consulted, appreciate assistance Started on IV diltiazem Converted to normal sinus rhythm Patient refuses oral diltiazem Transition to oral Toprol Continue Xarelto Hypertension Toprol GERD Protonix Diagnosis/Problems Diagnosis/Problems (1) Atrial fibrillation with rapid ventricular response Status: Acute Clinical Quality Measures AMI/AHF: ASA po Prior to arrival: Yes KATIE GRIFFIN MD Feb 07, 2021 11:29
[2021-02-07] MEDS ORDERED: DIAZEPAM 5 MG (VALIUM) TABLET PO PRN ×2 (11:30→15:30)
[2021-02-07] MEDS ORDERED: ANTACID SUSP 30 ML UDC (MYLANTA) PO PRN (11:45)
[2021-02-07] MEDS ORDERED: ONDANSETRON 4 MG (ZOFRAN) ORAL DISSOLVE TAB PO PRN (11:45)
[2021-02-07] MEDS ORDERED: ONDANSETRON 4 MG/2 ML (SDV) Z0FRAN IV PRN (11:45)
[2021-02-07] MEDS ORDERED: polyethylene glycoL POWDER 17 GM (MIRALAX) PACK PO PRN (11:45)
[2021-02-07] MEDS ORDERED: diphenhydrAMINE 25 MG TAB (BENADRYL) PO PRN (11:45)
[2021-02-07] MEDS ORDERED: MELATONIN 3 MG TABLET PO PRN (11:45)
[2021-02-07 12:00] VITALS: BP 144/70
[2021-02-07] MEDS: NS IV 1000 ML 1,000 ML IV SCH (12:14)
[2021-02-07] MEDS ORDERED: PATIENT MAY USE OWN MEDS, ALL MC SCH (13:45)
[2021-02-07] MEDS ORDERED: ONDA8TAB13 PO (15:33)
[2021-02-07] MEDS ORDERED: TRIA1TAB3 PO (15:33)
[2021-02-07] MEDS ORDERED: RIVA20TA PO (15:33)
[2021-02-07] MEDS ORDERED: CALC-64 PO (15:33)
[2021-02-07] MEDS ORDERED: MAGN400T39 PO (15:33)
[2021-02-07] MEDS ORDERED: MULT-1136 PO (15:33)
[2021-02-07] MEDS ORDERED: LOSA100T57 PO (15:33)
[2021-02-07] MEDS ORDERED: FLEC100T PO (15:33)
[2021-02-07 16:00] VITALS: BP 129/76
[2021-02-07] MEDS ORDERED: RIVAROXABAN 20 MG TABLET (XARELTO) PO SCH (17:00)
[2021-02-07 20:00] VITALS: BP 127/72
[2021-02-07] MEDS: SENNOSIDES 8.6 MG (SENOKOT) TAB PO SCH (20:01)
[2021-02-07] MEDS: PANTOPRAZOLE 40 MG (PROTONIX) TAB PO SCH (20:01)
[2021-02-07] MEDS: DOCUSATE SODIUM 100 MG (COLACE) CAP PO SCH (20:01)
[2021-02-07] MEDS ORDERED: ZOLPIDEM 5 MG (AMBIEN) TAB PO SCH (21:00)
[2021-02-08] VITALS: BP 135/61
[2021-02-08 04:00] VITALS: BP 124/61
[2021-02-08] MEDS: NS IV 1000 ML 1,000 ML IV SCH (04:59)
[2021-02-08 06:25] LABS: POTASSIUM 4.2 MMOL/L (3.6-5.0)
[2021-02-08 06:31] LABS: CREATININE SERUM 1.08 MG/DL (0.60-1.30)
[2021-02-08 06:33] LABS: MAGNESIUM 1.9 MG/DL (1.6-2.4)
[2021-02-08 07:40] VITALS: BP 131/58
[2021-02-08] MEDS ORDERED: PANTOPRAZOLE 40 MG (PROTONIX) TAB PO SCH (09:00)
[2021-02-08] MEDS ORDERED: LOSARTAN 100 MG (COZAAR) TABLET PO SCH (09:00)
[2021-02-08] MEDS ORDERED: ASPIRIN E.C. 81 MG (ECOTRIN) TAB PO SCH (09:00)
[2021-02-08] MEDS ORDERED: meTOprolol SUCCINATE 100 MG (TOPROL XL) TAB PO SCH (09:00)
[2021-02-08] MEDS: DOCUSATE SODIUM 100 MG (COLACE) CAP PO SCH (09:17)
[2021-02-08] MEDS: SENNOSIDES 8.6 MG (SENOKOT) TAB PO SCH (09:17)
[2021-02-08] MEDS: PANTOPRAZOLE 40 MG (PROTONIX) TAB PO SCH (09:18)
[2021-02-08] MEDS ORDERED: MTP100TCR PO ×2 (10:52→12:37)
[2021-02-08] MEDS ORDERED: RIVA20TA PO (10:52)
[2021-02-08 11:30] VITALS: BP 141/80
--- NOTE | 2021-02-08 11:55 | Progress Note - Cardiology ---
Cardiology SOAP Progress Note Subjective: No cp or palp or syncope or shortness of breath No n/v/d No focal weakness Wishes to go home Objective: I&O/Vital Signs 02/08/21 02/08/21 02/08/21 02/08/21 00:00 01:00 04:00 07:00 Pulse 65 70 75 53 Resp 20 20 B/P (MAP) 135/61 (85) 124/61 (82) Pulse Ox 95 95 O2 Delivery Room Air Room Air 02/08/21 02/08/21 02/08/21 07:40 08:30 11:30 Temp 36.3 36.6 Pulse 61 73 Resp 18 22 B/P (MAP) 131/58 (82) 141/80 (100) Pulse Ox 95 98 O2 Delivery Room Air Room Air Room Air 02/08/21 00:00 Intake Total 850 ml Balance 850 ml Constitutional: AAO x 3, well-developed, well-nourished Respiratory: No accessory muscle use; other (good, bilat air entry) Cardiovascular: regular rate-rhythm, S1 and S2 Gastrointestional: No tender; soft; No guarding, No rebound; audible bowel sounds Extremities: No clubbing, No cyanosis, No significant edema Neurologic/Psychiatric: oriented x 3, other (moves all limbs equally) Skin: No rash on exposed areas, No ulcerations on exposed areas Results/Procedures: Labs Laboratory Tests 02/08/21 06:00: Sodium Level 139, Potassium Level 4.2, Chloride Level 106, Carbon Dioxide Level 24, Anion Gap 9, Blood Urea Nitrogen 17, Creatinine 1.08, Estimat Glomerular Filtration Rate 51, BUN/Creatinine Ratio 16, Glucose Level 90, Calcium Level 9.0, Magnesium Level 1.9 Laboratory Tests 02/07/21 02:18 02/08/21 06:00 A/P: Assessment: PAF - wide-complex during A Fib, probably related to flecainide use - card cath of Jan 05, 2021 (Dr Benjamin): no significant obstructive CAD, LVEF 60%, LVEDP 14 mmHg - on no rate-controlling agents at the time of this presentation - placed on Toprol XL 100 mg daily (losartan and triam/HCTZ and flecained d/c'd) during this admission - Echo on 02/07/21: LVEF 60-65%, grade 2 diastolic dysfunction, PASP 15-20 mmHg H/o hypertension, controlled Plan: * Continue Toprol XL 100 mg daily and Xarelto 20 mg daily * Advised f/u with her cotton stripper Dr Krause next week * Other meds as directed by the Hospitalist service Clinical Quality Measures AMI/AHF: ASA po Prior to arrival: Yes LETITIA BARNETT MD [facility] Feb 08, 2021 11:55
--- NOTE | 2021-02-08 12:49 | Discharge Summary ---
Discharge Summary Hospital Course Was the Problem List Reviewed?: Yes Problems/Dx: (1) Atrial fibrillation with rapid ventricular response Status: Acute Hospital Course Date of Admission: Feb 07, 2021 at 03:48 Admission Diagnosis : Paroxysmal atrial fibrillation with rapid ventricular response Family Physician/Provider: Thad Prado Date of Discharge: 02/08/21 Discharge Diagnosis: Paroxysmal atrial fibrillation with rapid ventricular response Hospital Course: Chhaya Jovel is a 65-year-old female who was admitted with paroxysmal atrial fibrillation with rapid ventricular response. She was started on IV diltiazem and converted to normal sinus rhythm. She was continued on Xarelto. She was transitioned to metoprolol because she refused to diltiazem due to reported side effects. Her other blood pressure medications were stopped. She should follow-up with her primary care physician and personal companion. She was discharged home in stable condition. Labs and Pending Lab Test: Laboratory Tests 02/08/21 06:00: Sodium Level 139, Potassium Level 4.2, Chloride Level 106, Carbon Dioxide Level 24, Anion Gap 9, Blood Urea Nitrogen 17, Creatinine 1.08, Estimat Glomerular Filtration Rate 51, BUN/Creatinine Ratio 16, Glucose Level 90, Calcium Level 9.0, Magnesium Level 1.9 Home Meds Active Metoprolol Succinate 100 Mg Tab.er.24h 100 Mg PO DAILY 90 Days Xarelto (Rivaroxaban) 20 Mg Tablet 20 Mg PO 1800 90 Days Reported Multivitamin 1 Each Tablet 1 Each PO DAILY Xpycpqk-Bpknjoyrh-Cjvy Tablet (Calcium/Magnesium/Zinc) 1 Each Tablet 1 Each PO DAILY Ondansetron Odt (Ondansetron) 8 Mg Tab.rapdis 8 Mg PO Q6H PRN Magnesium (Magnesium Oxide) 400 Mg Tablet 400 Mg PO HS Protonix (Pantoprazole Sodium) 20 Mg Tablet.dr 20 Mg PO BID Ambien (Zolpidem Tartrate) 10 Mg Tablet 10 Mg PO HS PRN Diazepam 5 Mg Tablet 5 Mg PO TID PRN Aspirin 81 Mg Tab.chew 81 Mg PO DAILY Assessment/Pt Instructions Take medications as prescribed. We are stopping your previous blood pressure medications. Begin taking metoprolol. Continue Xarelto. Follow-up with your primary care physician and personal companion. Return with worsening chest pain, shortness of breath, palpitations, or if you feel like you are getting worse. Discharge Planning: <30 minutes discharge planning Discharge Instructions Discharge Diet: Low Sodium Diet Activity as Tolerated: Yes Consultations Cardiology Discharge Physical Examination Vital Signs Vital Signs Date Time Temp Pulse Resp B/P (MAP) Pulse Ox O2 Delivery O2 Flow Rate FiO2 02/08/21 11:30 36.6 73 22 141/80 (100) 98 Room Air General Appearance: No Apparent Distress, WD/WN Respiratory: Lungs Clear, Normal Breath Sounds, No Respiratory Distress Cardiovascular: Regular Rate, Rhythm, No Edema, No Murmur Gastrointestinal: Normal Bowel Sounds, Non Tender, Soft Extremity: Normal Inspection, Non Tender, No Pedal Edema Skin: Normal Color, Warm/Dry Neurologic/Psychiatric: Alert, Oriented x3, No Motor/Sensory Deficits, Normal Mood/Affect Allergies: Coded Allergies: clonidine (Verified Allergy, Severe, Angioedema, 02/07/21) diltiazem (Verified Allergy, Intermediate, 02/07/21) Leg rash amlodipine (Verified Allergy, Unknown, 02/07/21) Redness on legs albuterol (Verified Adverse Reaction, Intermediate, 02/07/21) elevated hr, palpitations codeine (Unverified Adverse Reaction, Unknown, N/V, 02/07/21) Uncoded Allergies: STEROIDS (Adverse Reaction, Unknown, INCREASE BP AND PULSE, 02/07/21) Discharge Summary Date of Admission Feb 07, 2021 at 03:48 Date of Discharge Discharge Date: Feb 08, 2021 Discharge Time: 12:48 Admission Diagnosis Paroxysmal atrial fibrillation with rapid ventricular response Consults/Procedures Consulations Cardiology Discharge Diagnosis Paroxysmal atrial fibrillation with rapid ventricular response (1) Atrial fibrillation with rapid ventricular response Status: Acute Clinical Quality Measures AMI/AHF: ASA po Prior to arrival: Yes KATIE GRIFFIN MD Feb 08, 2021 12:47
== END 2021-02-08 13:25 | disposition home or self-care (01) ==
LOC: EDUNIT# 01:51 → ER 01:58 → CSD 03:48
PROVIDERS: ADMIT Internal Medicine; ATTEND Internal Medicine
DX: I48.20 Chronic atrial fibrillation, unspecified (principal); I48.0 Paroxysmal atrial fibrillation; I48.92 Unspecified atrial flutter; I21.9 Acute myocardial infarction, unspecified; I45.2 Bifascicular block; I47.1 Supraventricular tachycardia; I49.3 Ventricular premature depolarization; I11.9 Hypertensive heart disease without heart failure; I25.2 Old myocardial infarction; I45.81 Long QT syndrome; K21.9 Gastro-esophageal reflux disease without esophagitis; J30.2 Other seasonal allergic rhinitis; Z79.01 Long term (current) use of anticoagulants; Z79.82 Long term (current) use of aspirin; Z79.899 Other long term (current) drug therapy
CPT/HCPCS: 36415; 71045; 80048; 82550; 83735; 84484; 85025; 93005; 93306

== ENCOUNTER → 2021-02-28 | Outpatient (CLI) | payer MEDICARE, OTHER ==
[~2021-02-28] MED LIST changes: +CALC-64 PO; +FLEC100T; +FLEC100T PO; +LOSA100T57; +LOSA100T57 PO; +MAGN400T39 PO; +MTP100TCR PO; +MULT-1136 PO; +RIVA20TA PO; +TRIA1TAB3; +TRIA1TAB3 PO
--- NOTE | 2021-02-28 12:55 | Diagnostic Imaging Report ---
PROCEDURE: CT chest, abdomen, and pelvis without contrast. TECHNIQUE: Multiple contiguous axial images were obtained through the chest, abdomen, and pelvis without the use of intravenous contrast. Auto Exposure Controls were utilized during the CT exam to meet ALARA standards for radiation dose reduction. INDICATION: Right renal cancer status post partial nephrectomy. COMPARISON: 12/26/2020 and 04/09/2020. FINDINGS: CHEST: No tracheal nodule. No suspicious pulmonary nodules have developed. No pneumonia or edema. No pleural effusion or pneumothorax. Thyroid is normal. No supraclavicular or axillary lymphadenopathy. No mediastinal or hilar lymphadenopathy. Heart is normal in size without pericardial effusion. Moderate coronary artery calcifications. No lytic or blastic skeletal lesions. ABDOMEN AND PELVIS: Assessment of the abdominal viscera is suboptimal without IV contrast. Allowing for this, the unenhanced liver, spleen, and pancreas are grossly normal. No radiopaque gallstones or biliary duct dilatation. No adrenal mass. Stable postoperative changes of partial nephrectomy in the upper pole of the right kidney. No renal mass has developed on either side. The previously noted 5 mm hypodense cystic structure in the lower pole of the right kidney cannot be seen without contrast. Nonobstructing 2 mm right renal stone is present. No obstructive uropathy. Urinary bladder is decompressed. No bowel obstruction or pericolonic inflammatory change. Normal-caliber abdominal aorta. No abdominal or pelvic lymphadenopathy. No lytic or blastic skeletal lesions have developed. IMPRESSION: 1. By noncontrast imaging, no adverse development is noted in the chest, abdomen, or pelvis. 2. The previously described 5 mm hypodensity in the lower pole of the right kidney cannot be seen on noncontrast imaging. Dictated by: Dictated on workstation # [id number]
== END ==
LOC: RAD 12:08
PROVIDERS: ATTEND Urology
DX: C64.1 Malignant neoplasm of right kidney, except renal pelvis (principal); N28.1 Cyst of kidney, acquired; Z90.5 Acquired absence of kidney
CPT/HCPCS: 71250; 74176

== ENCOUNTER → 2021-04-17 | Outpatient (CLI) | payer MEDICARE, OTHER ==
[2021-04-17 09:38] LABS: BASOPHILS % (AUTO) 1 % (0-10); EOSINOPHILS # (AUTO) 0.1 10^3/uL (0.0-0.3); EOSINOPHILS % (AUTO) 2 % (0-10); HEMATOCRIT 36 % (35-52); HEMOGLOBIN 10.8 g/dL (11.5-16.0); LYMPHOCYTES # (AUTO) 1.7 10^3/uL (1.0-4.0); LYMPHOCYTES % (AUTO) 33 % (12-44); MEAN CORPUSCULAR HEMOGLOBIN 27 pg (25-34); MEAN CORPUSCULAR HGB CONC 30 g/dL (32-36); MEAN CORPUSCULAR VOLUME 90 fL (80-99); MEAN PLATELET VOLUME 10.9 fL (9.0-12.2); MONOCYTES # (AUTO) 0.3 10^3/uL (0.0-1.0); MONOCYTES % (AUTO) 6 % (0-12); NEUTROPHILS # (AUTO) 3.1 10^3/uL (1.8-7.8); NEUTROPHILS % (AUTO) 58 % (42-75); PLATELET COUNT 230 10^3/uL (130-400); WHITE BLOOD COUNT 5.2 10^3/uL (4.3-11.0)
[2021-04-17 09:57] LABS: ALBUMIN 3.7 GM/DL (3.2-4.5); BILIRUBIN,TOTAL 0.4 MG/DL (0.1-1.0); CREATININE SERUM 1.07 MG/DL (0.60-1.30); POTASSIUM 4.2 MMOL/L (3.6-5.0); TOTAL PROTEIN 6.1 GM/DL (6.4-8.2)
== END ==
LOC: EDSTATUS 07-09 15:11 → ONC 09:27
PROVIDERS: ATTEND Internal Medicine Hematology & Oncology
DX: C65.1 Malignant neoplasm of right renal pelvis (principal); F41.8 Other specified anxiety disorders; I10 Essential (primary) hypertension; R91.1 Solitary pulmonary nodule; Z87.19 Personal history of other diseases of the digestive system; Z90.5 Acquired absence of kidney
CPT/HCPCS: 80053; 85025; G0463; 99213

== ENCOUNTER → 2021-04-17 | Outpatient (CLI) | payer MEDICARE, OTHER ==
--- NOTE | 2021-04-17 11:56 | Diagnostic Imaging Report ---
Indication: Routine screening. Comparison is made with prior mammogram 04/09/2020 and 04/17/2019. 2-D and 3-D bilateral screening mammography was performed with CAD. Scattered fibroglandular densities are identified bilaterally. The parenchymal pattern is stable. No mass or malignant-appearing microcalcifications are seen. Axillae are unremarkable. IMPRESSION: BI-RADS Category 1 No mammographic features suspicious for malignancy are identified. ACR BI-RADS Category 1: Negative. Result letter will be mailed to the patient. Note: At least 10% of breast cancer is not imaged by mammography. Dictated by: Dictated on workstation # [id number]
== END ==
LOC: RAD 11:30
PROVIDERS: ATTEND Physician Assistant
DX: Z12.31 Encounter for screening mammogram for malignant neoplasm of breast (principal)
CPT/HCPCS: 77063; 77067

== ENCOUNTER 2021-05-08 10:40 | Outpatient (RCR) | payer MEDICARE, OTHER ==
[2021-05-08 10:54] LABS: BASOPHILS # (AUTO) 0.1 10^3/uL (0.0-0.1); BASOPHILS % (AUTO) 1 % (0-10); EOSINOPHILS # (AUTO) 0.2 10^3/uL (0.0-0.3); EOSINOPHILS % (AUTO) 2 % (0-10); HEMATOCRIT 28 % (35-52); HEMOGLOBIN 8.7 g/dL (11.5-16.0); LYMPHOCYTES # (AUTO) 2.2 10^3/uL (1.0-4.0); LYMPHOCYTES % (AUTO) 29 % (12-44); MEAN CORPUSCULAR HEMOGLOBIN 29 pg (25-34); MEAN CORPUSCULAR HGB CONC 31 g/dL (32-36); MEAN CORPUSCULAR VOLUME 94 fL (80-99); MEAN PLATELET VOLUME 10.9 fL (9.0-12.2); MONOCYTES # (AUTO) 0.5 10^3/uL (0.0-1.0); MONOCYTES % (AUTO) 6 % (0-12); NEUTROPHILS # (AUTO) 4.7 10^3/uL (1.8-7.8); NEUTROPHILS % (AUTO) 62 % (42-75); PLATELET COUNT 249 10^3/uL (130-400); WHITE BLOOD COUNT 7.6 10^3/uL (4.3-11.0)
[2021-05-08 11:17] LABS: ALBUMIN 3.7 GM/DL (3.2-4.5); BILIRUBIN,TOTAL 0.2 MG/DL (0.1-1.0); CREATININE SERUM 0.96 MG/DL (0.60-1.30); POTASSIUM 3.7 MMOL/L (3.6-5.0)
== END 2021-05-09 ==
LOC: ONC 10:40
PROVIDERS: ATTEND Internal Medicine Hematology & Oncology
DX: C64.9 Malignant neoplasm of unspecified kidney, except renal pelvis (principal); D50.0 Iron deficiency anemia secondary to blood loss (chronic); I10 Essential (primary) hypertension
CPT/HCPCS: 80053; 82728; 83540; 83550; 85025; G0463; 99213

== ENCOUNTER 2021-05-23 08:53 | Outpatient (RCR) | payer MEDICARE, OTHER ==
[2021-05-23 09:04] LABS: BASOPHILS # (AUTO) 0.1 10^3/uL (0.0-0.1); BASOPHILS % (AUTO) 1 % (0-10); EOSINOPHILS # (AUTO) 0.1 10^3/uL (0.0-0.3); EOSINOPHILS % (AUTO) 2 % (0-10); HEMATOCRIT 37 % (35-52); HEMOGLOBIN 11.4 g/dL (11.5-16.0); LYMPHOCYTES # (AUTO) 2.1 10^3/uL (1.0-4.0); LYMPHOCYTES % (AUTO) 33 % (12-44); MEAN CORPUSCULAR HEMOGLOBIN 30 pg (25-34); MEAN CORPUSCULAR HGB CONC 31 g/dL (32-36); MEAN CORPUSCULAR VOLUME 97 fL (80-99); MEAN PLATELET VOLUME 10.5 fL (9.0-12.2); MONOCYTES # (AUTO) 0.4 10^3/uL (0.0-1.0); MONOCYTES % (AUTO) 6 % (0-12); NEUTROPHILS # (AUTO) 3.7 10^3/uL (1.8-7.8); NEUTROPHILS % (AUTO) 58 % (42-75); PLATELET COUNT 245 10^3/uL (130-400); WHITE BLOOD COUNT 6.4 10^3/uL (4.3-11.0)
[2021-05-23 09:31] LABS: ALBUMIN 3.9 GM/DL (3.2-4.5); BILIRUBIN,TOTAL 0.3 MG/DL (0.1-1.0); CALCIUM 9.1 MG/DL (8.5-10.1); CREATININE SERUM 1.1 MG/DL (0.60-1.30); POTASSIUM 3.9 MMOL/L (3.6-5.0); TOTAL PROTEIN 6.3 GM/DL (6.4-8.2)
== END 2021-06-09 | disposition home or self-care (01) ==
LOC: ONC 08:53
PROVIDERS: ATTEND Internal Medicine Hematology & Oncology
DX: C65.1 Malignant neoplasm of right renal pelvis (principal); D50.0 Iron deficiency anemia secondary to blood loss (chronic); I10 Essential (primary) hypertension
CPT/HCPCS: 80053; 82728; 83540; 83550; 85025; G0463; 99213

== ENCOUNTER 2021-06-17 09:45 | Outpatient (RCR) | payer MEDICARE, OTHER ==
[2021-06-17 14:09] LABS: BASOPHILS # (AUTO) 0.1 10^3/uL (0.0-0.1); BASOPHILS % (AUTO) 1 % (0-10); EOSINOPHILS # (AUTO) 0.1 10^3/uL (0.0-0.3); EOSINOPHILS % (AUTO) 1 % (0-10); HEMATOCRIT 43 % (35-52); HEMOGLOBIN 13.5 g/dL (11.5-16.0); LYMPHOCYTES # (AUTO) 2.2 10^3/uL (1.0-4.0); LYMPHOCYTES % (AUTO) 31 % (12-44); MEAN CORPUSCULAR HEMOGLOBIN 30 pg (25-34); MEAN CORPUSCULAR HGB CONC 31 g/dL (32-36); MEAN CORPUSCULAR VOLUME 95 fL (80-99); MEAN PLATELET VOLUME 10.4 fL (9.0-12.2); MONOCYTES # (AUTO) 0.5 10^3/uL (0.0-1.0); MONOCYTES % (AUTO) 7 % (0-12); NEUTROPHILS # (AUTO) 4.3 10^3/uL (1.8-7.8); NEUTROPHILS % (AUTO) 60 % (42-75); PLATELET COUNT 235 10^3/uL (130-400); WHITE BLOOD COUNT 7.2 10^3/uL (4.3-11.0)
[2021-07-03] MEDS ORDERED: RIVA10TA PO (09:04)
[2021-07-03] MEDS ORDERED: ATEN25TA PO (09:04)
[2021-07-03] MEDS ORDERED: VIT1TAB.13 PO (09:08)
[2021-07-03] MEDS ORDERED: CHOL200059 PO (09:08)
[2021-07-03] MEDS ORDERED: AMIO200T65 PO (09:08)
[2021-07-03] MEDS ORDERED: DOXA4TAB2 PO (09:08)
[2021-07-03] MEDS ORDERED: ENAL20TA16 PO (09:08)
== END 2021-07-07 | disposition home or self-care (01) ==
LOC: ONC 09:45
PROVIDERS: ATTEND Internal Medicine Hematology & Oncology
DX: C65.1 Malignant neoplasm of right renal pelvis (principal); D50.0 Iron deficiency anemia secondary to blood loss (chronic); I10 Essential (primary) hypertension; F41.9 Anxiety disorder, unspecified; Z87.19 Personal history of other diseases of the digestive system; Z86.59 Personal history of other mental and behavioral disorders
CPT/HCPCS: 85025; G0463; 36415; 99213

== ENCOUNTER 2021-06-29 19:07 | Emergency (ER) | payer MEDICARE, OTHER ==
[~2021-06-29] VITALS: Ht 161 cm; Wt 79.0 kg
[2021-06-29 19:29] LABS: BASOPHILS # (AUTO) 0.1 10^3/uL (0.0-0.1); BASOPHILS % (AUTO) 1 % (0-10); EOSINOPHILS # (AUTO) 0.1 10^3/uL (0.0-0.3); EOSINOPHILS % (AUTO) 1 % (0-10); HEMATOCRIT 44 % (35-52); HEMOGLOBIN 14.3 g/dL (11.5-16.0); LYMPHOCYTES # (AUTO) 2.2 10^3/uL (1.0-4.0); LYMPHOCYTES % (AUTO) 28 % (12-44); MEAN CORPUSCULAR HEMOGLOBIN 30 pg (25-34); MEAN CORPUSCULAR HGB CONC 33 g/dL (32-36); MEAN CORPUSCULAR VOLUME 91 fL (80-99); MEAN PLATELET VOLUME 10.7 fL (9.0-12.2); MONOCYTES # (AUTO) 0.5 10^3/uL (0.0-1.0); MONOCYTES % (AUTO) 6 % (0-12); NEUTROPHILS % (AUTO) 63 % (42-75); PLATELET COUNT 216 10^3/uL (130-400); WHITE BLOOD COUNT 7.9 10^3/uL (4.3-11.0)
[2021-06-29 19:42] LABS: INR 1.9 (0.8-1.4); PROTHROMBIN TIME PATIENT 22.7 SEC (12.2-14.7)
[2021-06-29 19:47] LABS: ALANINE AMINOTRANSFERASE 60 U/L (0-55); ALBUMIN 4.1 GM/DL (3.2-4.5); ALKALINE PHOSPHATASE 96 U/L (40-136); BILIRUBIN,TOTAL 0.2 MG/DL (0.1-1.0); BUN/CREATININE RATIO 22; CALCIUM 9.7 MG/DL (8.5-10.1); CARBON DIOXIDE 23 MMOL/L (21-32); CHLORIDE 106 MMOL/L (98-107); CREATININE SERUM 1.05 MG/DL (0.60-1.30); GFR ESTIMATED 58; GLUCOSE 107 MG/DL (70-105); MAGNESIUM 2.3 MG/DL (1.6-2.4); SODIUM 141 MMOL/L (135-145); TOTAL PROTEIN 6.9 GM/DL (6.4-8.2)
--- NOTE | 2021-06-29 19:55 | ED Cardiac General ---
History of Present Illness General Chief Complaint: Cardiac/General Problems Stated Complaint: HTN 224/85 P 59,DIZZINESS,BLURRED VISION Nursing Triage Note: PT AMB TO ED BY POV WITH C/O HTN, CHEST "BURNING," BLOATING, AND NAUSEA. PT REPORTS SHE HAS FELT INCREASINGLY NAUSEOUS OVER THE LAST SEVERAL WEEKS, BLOATED, AND BEGAN HAVING DIFFUSE BURNING SENSATION OVER ENTIRE CHEST TODAY. PT REPORTS SHE TOOK HER BP AT 1750 AND IT WAS 224/85, HR 57. PT TOOK 2 324MG ASA 1.5 HR COMPLAINT INVESTIGATIONS OFFICER. DENIES SOB, COUGH, FEVER. Source: patient Exam Limitations: no limitations (CANDELARIA GARCIA APRN) History of Present Illness Date Seen by Provider: Jun 29, 2021 Time Seen by Provider: 19:52 Initial Comments To ER by private vehicle with reports of hypertension, burning hot sensation in her chest, pressure in her chest, bloating for the past week, loose stools, nausea, warm feet but "cold rest of my body" since earlier this evening. She took Valium at 4 but it did not seem to be any better. No shortness of breath no cough no fever. She took an aspirin 1-1/2 hours before getting here. She found her blood pressure to be pretty high at about 220/100. Timing/Duration: 4-6 hours Severity: moderate Location: epigastric Activities at Onset: rest NTG SL COMPLAINT INVESTIGATIONS OFFICER: No ASA po COMPLAINT INVESTIGATIONS OFFICER: Yes Associated Systoms: Nausea/Vomiting (CANDELARIA GARCIA APRN) Allergies and Home Medications Allergies Coded Allergies: clonidine (Verified Allergy, Severe, Angioedema, 02/07/21) diltiazem (Verified Allergy, Intermediate, 02/07/21) Leg rash Calcium Channel Blocking Agent Dilt (Unverified Allergy, Unknown, Hives, 07/03/21) amlodipine (Verified Allergy, Unknown, 02/07/21) Redness on legs albuterol (Verified Adverse Reaction, Intermediate, 02/07/21) elevated hr, palpitations codeine (Unverified Adverse Reaction, Unknown, N/V, 02/07/21) Uncoded Allergies: STEROIDS (Adverse Reaction, Unknown, INCREASE BP AND PULSE, 02/07/21) Patient Home Medication List Home Medication List Reviewed: Yes (CANDELARIA GARCIA APRN) Amiodarone HCl (Amiodarone HCl) 200 Mg Tablet, 200 MG PO DAILY, (Reported) Entered as Reported by: DESIRAE YANG on 07/03/21 0908 Aspirin (Aspirin) 81 Mg Tab.chew, 81 MG PO DAILY, (Reported) Entered as Reported by: DOUG SANTILLAN on 05/15/20 1331 Atenolol (Atenolol) 25 Mg Tablet, 25 MG PO DAILY, (Reported) Entered as Reported by: DESIRAE YANG on 07/03/21 0904 Calcium/Magnesium/Zinc (Pfaimgv-Tlhevovss-Cfcc Tablet) 1 Each Tablet, 1 EACH PO DAILY, (Reported) Entered as Reported by: ABHAY HUNTER on 02/07/21 1533 Cholecalciferol (Vitamin D3) (Vitamin D3) 50 Mcg Tablet, 50 MCG PO HS, (Reported) Entered as Reported by: DESIRAE YANG on 07/03/21 0908 Diazepam (Diazepam) 5 Mg Tablet, 5 MG PO TID PRN for ANXIETY, (Reported) Entered as Reported by: DOUG SANTILLAN on 05/15/20 1331 Doxazosin Mesylate (Doxazosin Mesylate) 4 Mg Tablet, 4 MG PO BID, (Reported) Entered as Reported by: DESIRAE YANG on 07/03/21 0908 Enalapril Maleate (Enalapril Maleate) 20 Mg Tablet, 20 MG PO BID, (Reported) Entered as Reported by: DESIRAE YANG on 07/03/21 0908 Magnesium Oxide (Magnesium) 400 Mg Tablet, 400 MG PO HS, (Reported) Entered as Reported by: ABHAY HUNTER on 02/07/21 153 Multivitamin (Multivitamin) 1 Each Tablet, 1 EACH PO DAILY, (Reported) Entered as Reported by: ABHAY HUNTER on 02/07/21 153 Ondansetron (Ondansetron Odt) 8 Mg Tab.rapdis, 8 MG PO Q6H PRN for NAUSEA/VOMITING-1ST LINE, (Reported) Entered as Reported by: ABHAY HUNTER on 02/07/21 153 Pantoprazole Sodium (Protonix) 20 Mg Tablet.dr, 20 MG PO BID, (Reported) Entered as Reported by: AMBER VAZQUEZ on 01/04/21 0811 Rivaroxaban (Xarelto) 10 Mg Tablet, 10 MG PO, (Reported) Entered as Reported by: DESIRAE YANG on 07/03/21 0904 Vit C/E/Zn/Coppr/Lutein/Zeaxan (Preservision Areds 2 Chew Tab) 1 Each Tab.chew, 1 EACH PO, (Reported) Entered as Reported by: DESIRAE YAGN on 07/03/21 0908 Zolpidem Tartrate (Ambien) 10 Mg Tablet, 10 MG PO HS PRN for SLEEP, (Reported) Entered as Reported by: DOUG SANTILLAN on 05/15/20 1331 Discontinued Medications Metoprolol Succinate (Metoprolol Succinate) 100 Mg Tab.er.24h, 100 MG PO DAILY Discontinued Reason: No Longer Taking Prescribed by: KATIE GRIFFIN on 02/08/21 1237 Rivaroxaban (Xarelto) 20 Mg Tablet, 20 MG PO 1800 Discontinued Reason: Duplicate Order Prescribed by: KATIE GRIFFIN on 02/08/21 1052 Review of Systems Review of Systems Constitutional: see HPI, chills EENTM: No Symptoms Reported Respiratory: No Symptoms Reported Cardiovascular: See HPI, Chest Pain Gastrointestinal: See HPI Genitourinary: No Symptoms Reported Musculoskeletal: no symptoms reported Skin: no symptoms reported Psychiatric/Neurological: No Symptoms Reported Endocrine: No Symptoms Reported Hematologic/Lymphatic: No Symptoms Reported (CANDELARIA GARCIA APRN) Past Frskfvt-Bdsdme-Xqqfor Hx Immunizations Up To Date First/Initial COVID19 Vaccinat: june COVID19 Vaccination Brent: July (CANDELARIA GARCIA APRN) Seasonal Allergies Seasonal Allergies: Yes (CANDELARIA GARCIA APRN) Past Medical History Surgery/Hospitalization HX: AFIB,HTN,CT, TBI, ANXIETY, APPY, HYSTERECTOMY, PARTIAL NEPHRECTOMY, ORTHOPEDIC Surgeries: Yes Abdominal, Appendectomy, Hysterectomy, Nephrectomy, Oophorectomy, Orthopedic Respiratory: No Currently Using CPAP: No Cardiac: Yes Angina, Atrial Fibrillation, Hypertension Neurological: No 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 Disorders: No Female 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 Disorders: Ovarian Cyst 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 Sexually Transmitted Disease: No Genitourinary: Yes (Rt Eitan-nephrectomy 2014 in [place]) Polycystic Kidney Disease Gastrointestinal: Yes Gastroesophageal Reflux, Obstructive Bowel Musculoskeletal: Yes (ACL repair (LT), carpal tunnel surg, torn bicep (LT)) Endocrine: No HEENT: Yes Tinnitis Cancer: No Kidney Did You Recieve Any Treatments: Yes What Type of Treatment Did You: Surgical Intervention Psychosocial: No Anxiety Integumentary: No Blood Disorders: No Adverse Reaction/Blood Tranf: No (CANDELARIA GARCIA APRN) Family Medical History Stroke, Vascular Disease, Other Conditions/Hx (CANDELARIA GARCIA APRN) Physical Exam Vital Signs Capillary Refill : Less Than 3 Seconds (CANDELARIA GARCIA APRN) Height, Weight, BMI Height: '" Weight: lbs. oz. kg; 30.00 BMI Method: General Appearance: No Apparent Distress, WD/WN, Anxious, Other (She states that she feels very bloated and she thinks she needs a GI cocktail because that usually helps when she feels bloated so that she can take some pressure off of her stomach and expand her lungs.) Neck: Full Range of Motion, Normal Inspection Respiratory: No Accessory Muscle Use, No Respiratory Distress Cardiovascular: Regular Rate, Rhythm, Normal Peripheral Pulses, Other (Sinus bradycardia rate in the 50s) Gastrointestinal: Normal Bowel Sounds, Non Tender, Soft Neurologic/Psychiatric: Alert, Oriented x3 Skin: Normal Color, Warm/Dry Other comments Her blood pressure here is 170s over 90s. (CANDELARIA GARCIA APRN) Progress/Results/Core Measures Results/Orders Lab Results Laboratory Tests Test 06/29/21 19:20 06/29/21 21:30 Range/Units White Blood Count 7.9 4.3-11.0 10^3/uL Red Blood Count 4.85 3.80-5.11 10^6/uL Hemoglobin 14.3 11.5-16.0 g/dL Hematocrit 44 35-52 % Mean Corpuscular Volume 91 80-99 fL Mean Corpuscular Hemoglobin 30 25-34 pg Mean Corpuscular Hemoglobin Concent 33 32-36 g/dL Red Cell Distribution Width 13.4 10.0-14.5 % Platelet Count 216 130-400 10^3/uL Mean Platelet Volume 10.7 9.0-12.2 fL Immature Granulocyte % (Auto) 0 % Neutrophils (%) (Auto) 63 42-75 % Lymphocytes (%) (Auto) 28 12-44 % Monocytes (%) (Auto) 6 0-12 % Eosinophils (%) (Auto) 1 0-10 % Basophils (%) (Auto) 1 0-10 % Neutrophils # (Auto) 5.0 1.8-7.8 10^3/uL Lymphocytes # (Auto) 2.2 1.0-4.0 10^3/uL Monocytes # (Auto) 0.5 0.0-1.0 10^3/uL Eosinophils # (Auto) 0.1 0.0-0.3 10^3/uL Basophils # (Auto) 0.1 0.0-0.1 10^3/uL Immature Granulocyte # (Auto) 0.0 0.0-0.1 10^3/uL Prothrombin Time 22.7 H 12.2-14.7 SEC INR Comment 1.9 H 0.8-1.4 Activated Partial Thromboplast Time 40 H 24-35 SEC D-Dimer 0.24 0.00-0.49 UG/ML Sodium Level 141 135-145 MMOL/L Potassium Level 4.0 3.6-5.0 MMOL/L Chloride Level 106 98-107 MMOL/L Carbon Dioxide Level 23 21-32 MMOL/L Anion Gap 12 5-14 MMOL/L Blood Urea Nitrogen 23 H 7-18 MG/DL Creatinine 1.05 0.60-1.30 MG/DL Estimat Glomerular Filtration Rate 58 BUN/Creatinine Ratio 22 Glucose Level 107 H 70-105 MG/DL Calcium Level 9.7 8.5-10.1 MG/DL Corrected Calcium 9.6 8.5-10.1 MG/DL Magnesium Level 2.3 1.6-2.4 MG/DL Total Bilirubin 0.2 0.1-1.0 MG/DL Aspartate Amino Transf (AST/SGOT) 39 H 5-34 U/L Alanine Aminotransferase (ALT/SGPT) 60 H 0-55 U/L Alkaline Phosphatase 96 40-136 U/L Myoglobin 31.6 10.0-92.0 NG/ML Troponin I < 0.028 < 0.028 <0.028 NG/ML B-Type Natriuretic Peptide 55.1 <100.0 PG/ML Total Protein 6.9 6.4-8.2 GM/DL Albumin 4.1 3.2-4.5 GM/DL (MICHAEL AGUILAR K DO) Blood Pressure Mean: 130 Diagnostic Imaging Diagonstic Imaging: Xray Plain Films/CT/US/NM/MRI: chest Comments NAME: ELIANE MISTRY [facility] REC#: [id number] PT STATUS: REG ER : 1955 PHYSICIAN: CANDELARIA GARCIA APRN ADMIT DATE: 06/29/21/ER Signed Date of Exam:06/29/21 CHEST 1 VIEW, AP/PA ONLY INDICATION: Hypertension and chest pain. COMPARISON: 02/07/2021. FINDINGS: The lungs appear clear without focal infiltrate or consolidation. There are no findings of an effusion. There is no evidence of a pneumothorax. Heart size and mediastinal contours appear appropriate. Pulmonary vascularity appears within normal limits. There is no acute or suspicious osseous abnormality demonstrated. IMPRESSION: No radiographic evidence of an acute cardiopulmonary process. Dictated by: Dictated on workstation # [id number] Dict: 06/29/211954 Trans: 06/29/211954 [facility] [id number] Interpreted by: MARIA FERNANDA MYERS MD Electronically signed by: MARIA FERNANDA MYERS MD 06/29/211954 NAME: ELIANE MISTRY [facility] REC#: [id number] PT STATUS: REG ER : 1955 PHYSICIAN: CANDELARIA AGRCIA APRN ADMIT DATE: 06/29/21/ER Signed Date of Exam:06/29/21 CT HEAD WO PROCEDURE: CT head without contrast. TECHNIQUE: Multiple contiguous axial images were obtained through the brain without the use of intravenous contrast. Auto Exposure Controls were utilized during the CT exam to meet ALARA standards for radiation dose reduction. INDICATION: Headache and hypertension. COMPARISON: None available. FINDINGS: CT of the head demonstrates no evidence of an acute intracranial abnormality. There is no evidence of intracranial hemorrhage. There is no extra-axial fluid collection, mass effect or shift. Harp and white matter differentiation appear preserved. There is no abnormal hypodensity within the basal ganglia. The ventricles are appropriate in size and configuration. There is no evidence of hydrocephalus. The basilar cisterns are patent. The posterior fossa is unremarkable. Mastoids and visualized paranasal sinuses appear clear. Orbital contents are unremarkable. There is no calvarial abnormality. IMPRESSION: 1. No CT evidence of an acute intracranial abnormality. Dictated by: Dictated on workstation # [id number] Dict: 06/29/212137 Trans: 06/29/212138 [facility] [id number] Interpreted by: MARIA FERNANDA MYERS MD Electronically signed by: MARIA FERNANDA MYERS MD 06/29/212138 (CANDELARIA GARCIA APRN) Departure Communication (Admissions) EKG shows sinus rhythm at 56. There are no ST segment changes. There is no ectopy. [id number] is unrevealing so far. She feels bloated and she thinks she needs another GI cocktail to help reduce the bloating and abdominal distention (which is not distended). She complains of some nausea, dizziness and vision changes off and on though none currently in regards to the vision but she does have some nausea. She is still 170s over 80s. Discussed with her some additional blood pressure medication. She reports an allergy to calcium channel blockers, clonidine, she is already on 40 mg of enalapril, her heart rate is 50-55 so a beta-bradley would be ill advised. We will give a dose of hydralazine. I discussed initiating a diuretic with her at home such as HCTZ but she states kaushal t these dehydrate her and make her feel too bad. (CANDELARIA GARCIA APRN) Impression Primary Impression: Essential (primary) hypertension Disposition: 01 HOME, SELF-CARE Condition: Stable Departure-Patient Inst. Decision time for Depature: 22:07 (CANDELARIA GARCIA APRN) Referrals: NO,LOCAL PHYSICIAN (PCP) Primary Care Physician MURRAY LOZADA (Family) Primary Care Physician Patient Instructions: High Blood Pressure ED Add. Discharge Instructions: 1. Call your primary care provider tomorrow to make an appointment to be seen for follow-up and further evaluation. All discharge instructions reviewed with patient and/or family. Voiced understanding. ATTENDING PHYSICIAN NOTE: I WAS PHYSICALLY PRESENT ER PHYSICIAN, BUT I WAS NOT INVOLVED IN ANY DECISION MAKING OR ANY CARE OF THIS PATIENT. (MICHAEL AGUILAR DO) CANDELARIA GARCIA APRN Jun 29, 2021 19:55 MICHAEL AGUILAR DO Jul 06, 2021 02:18
[2021-06-29] MEDS ORDERED: LORazepam INJ 2 MG/ML (ATIVAN) VIAL IVP ONE (20:00)
[2021-06-29] MEDS ORDERED: LIDOCAINE 2% VISCOUS 15 ML UDC PO ONE (20:00)
[2021-06-29] MEDS ORDERED: ANTACID SUSP 30 ML UDC (MYLANTA) PO ONE (20:00)
[2021-06-29] MEDS ORDERED: hydrALAZINE (APESOLINE) 20 MG/ML VIAL IV ONE (21:30)
[2021-06-29] MEDS ORDERED: ONDANSETRON 4 MG/2 ML (SDV) Z0FRAN IVP ONE (21:30)
--- NOTE | 2021-06-29 21:40 | Diagnostic Imaging Report ---
PROCEDURE: CT head without contrast. TECHNIQUE: Multiple contiguous axial images were obtained through the brain without the use of intravenous contrast. Auto Exposure Controls were utilized during the CT exam to meet ALARA standards for radiation dose reduction. INDICATION: Headache and hypertension. COMPARISON: None available. FINDINGS: CT of the head demonstrates no evidence of an acute intracranial abnormality. There is no evidence of intracranial hemorrhage. There is no extra-axial fluid collection, mass effect or shift. Harp and white matter differentiation appear preserved. There is no abnormal hypodensity within the basal ganglia. The ventricles are appropriate in size and configuration. There is no evidence of hydrocephalus. The basilar cisterns are patent. The posterior fossa is unremarkable. Mastoids and visualized paranasal sinuses appear clear. Orbital contents are unremarkable. There is no calvarial abnormality. IMPRESSION: 1. No CT evidence of an acute intracranial abnormality. Dictated by: Dictated on workstation # [id number]
[2021-06-29 22:46] VITALS: BP 158/72
== END 2021-06-29 22:46 | disposition home or self-care (01) ==
LOC: EDUNIT# 19:07 → ER 19:08
DX: I10 Essential (primary) hypertension (principal); I48.91 Unspecified atrial fibrillation; K21.9 Gastro-esophageal reflux disease without esophagitis; F41.9 Anxiety disorder, unspecified; Z79.899 Other long term (current) drug therapy; Z79.01 Long term (current) use of anticoagulants; Z79.82 Long term (current) use of aspirin
CPT/HCPCS: 36415; 70450; 71045; 80053; 83735; 83874; 83880; 84484; 85025; 85379; 85610; 85730; 93005; 93041; 96374; 96375

== ENCOUNTER 2021-07-03 05:38 | Outpatient (CLI) | payer MEDICARE, OTHER ==
[~2021-07-03] VITALS: Ht 162.4 cm; Wt 79.6 kg
[2021-07-03] MEDS ORDERED: ATEN25TA PO (09:04)
[2021-07-03] MEDS ORDERED: RIVA10TA PO (09:04)
[2021-07-03] MEDS ORDERED: VIT1TAB.13 PO (09:08)
[2021-07-03] MEDS ORDERED: DOXA4TAB2 PO (09:08)
[2021-07-03] MEDS ORDERED: ENAL20TA16 PO (09:08)
[2021-07-03] MEDS ORDERED: CHOL200059 PO (09:08)
[2021-07-03] MEDS ORDERED: AMIO200T65 PO (09:08)
== END 2021-07-03 09:33 ==
LOC: PREOP 05:38
PROVIDERS: ATTEND Surgery
DX: Z01.818 Encounter for other preprocedural examination (principal)

== ENCOUNTER 2021-07-10 09:32 | Day surgery (SDC) | payer MEDICARE, OTHER ==
[~2021-07-10] VITALS: Ht 162.4 cm; Wt 79.6 kg
[2021-07-10] VITALS (12 sets, daily range): BP systolic 129–167; BP diastolic 68–83
[~2021-07-10 09:32] MED LIST changes: +AMIO200T65 PO; +ATEN25TA PO; +CHOL200059 PO; +DOXA4TAB2 PO; +ENAL20TA16 PO; +RIVA10TA PO; +VIT1TAB.13 PO
--- NOTE | 2021-07-10 09:47 | Progress Note-Pre Operative ---
Pre-Operative Progress Note H&P Reviewed The H&P was reviewed, patient examined and no changes noted. Date Seen by Provider: Jul 10, 2021 Time Seen by Provider: 09:45 Date H&P Reviewed: Jul 10, 2021 Time H&P Reviewed: 09:40 Pre-Operative Diagnosis: Ventral abdominal incisional hernia, symptomatic hemorrhoids LIVIER CORTEZ APRN Jul 10, 2021 09:47
[2021-07-10] MEDS ORDERED: HYDR-3817 PO (09:49)
--- NOTE | 2021-07-10 09:49 | Discharge Inst-Surgical ---
D/C Lap Instructions-KIDO Reconcile Patient Problems Problems Reviewed?: Yes New, Converted, or Re-Newed RX: RX on Chart Follow Up Appt in 2 weeks Activity as tolerated No driving for 24 hours No driving while on pain medications Incentive Spirometry use every 2 hours while awake Regular Diet Symptoms to Report: Fever over 101 degree F, Nausea/Vomiting Infection Signs and Symptoms to report: Increased redness, Foul odor of wound, Increased drainage Bathing instructions: May shower Operative Area Clean/Dry; Keep incision clean/dry If any problems/questions: Contact your physician or go to Emergency Room LIVIER CORTEZ APRN Jul 10, 2021 09:49
[2021-07-10] MEDS ORDERED: HYDROcodone/APAP 5 MG/325 MG (LORTAB) TAB PO ONE (10:00)
[2021-07-10] MEDS ORDERED: ONDANSETRON 4 MG/2 ML (SDV) Z0FRAN IVP PRN ×2 (10:00→14:45)
[2021-07-10] MEDS ORDERED: morphine INJ 10 MG/ML 1ML (SYR OR VIAL) IVP PRN (10:00)
[2021-07-10] MEDS ORDERED: ACETAMINOPHEN 325 MG TABLET PO PRN (10:00)
[2021-07-10] MEDS: LACTATED RINGERS 1,000 ML IV PRN ×2 (10:21→14:57)
[2021-07-10] MEDS ORDERED: ceFAZolin 2 GM IV Premixed 50 ML IV ONE (10:30)
[2021-07-10] MEDS ORDERED: proPOfol 200 MG/20 ML (DIPRIVAN) VIAL IV ONE (12:12)
[2021-07-10] MEDS ORDERED: NEOSTIGMINE 3 MG/3 ML VIAL ONE (12:12)
[2021-07-10] MEDS ORDERED: ROCURONIUM 10 MG/ML 5 ML SYRINGE IV ONE (12:12)
[2021-07-10] MEDS ORDERED: fentaNYL INJ 100 MCG/2 ML AMP ONE ×2 (12:12→15:13)
[2021-07-10] MEDS ORDERED: GLYCOPYRROLATE 0.2 MG/ML (ROBINUL) 2 ML VIAL ONE (12:12)
[2021-07-10] MEDS ORDERED: ONDANSETRON 4 MG/2 ML (SDV) Z0FRAN ONE (12:12)
[2021-07-10] MEDS ORDERED: LIDOCAINE PF 2% 5 ML (XYLOCAINE) VIAL ONE (12:12)
[2021-07-10] MEDS ORDERED: MIDAZOLAM 2 MG/2 ML (VERSED) VIAL ONE (12:12)
[2021-07-10] MEDS ORDERED: FAMOTIDINE 20MG/2ML IV (PEPCID) ONE (13:23)
[2021-07-10] MEDS ORDERED: SCOPOLAMINE 1.5 MG (TRANSDERM-SCOP) PATCH ONE (13:28)
[2021-07-10] MEDS ORDERED: FAMOTIDINE 20MG/2ML IV (PEPCID) IVP ONE (13:30)
[2021-07-10] MEDS ORDERED: BUPIVACAINE 0.25% 30 ML (SENSORCAINE) VIAL ONE (13:45)
[2021-07-10] MEDS ORDERED: LIDOCAINE/EPI 1%-1:200,000 (XYLOCAINE) 30 ML VIAL ONE (13:45)
[2021-07-10] MEDS ORDERED: SEVOFLURANE (ULTANE) 15 ML INHAL SOLN ONE (14:28)
--- NOTE | 2021-07-10 14:38 | Anesthesia-General Post-Op ---
General Patient Condition Mental Status/LOC: Same as Preop Cardiovascular: Satisfactory Nausea/Vomiting: Absent Respiratory: Satisfactory Pain: Controlled Complications: Absent Post Op Complications Complications None Follow Up Care/Instructions Patient Instructions None needed. Anesthesia/Patient Condition Patient Condition Patient is doing well, no complaints, stable vital signs, no apparent adverse anesthesia problems. No complications reported per nursing. MARICRUZ VEGA CRNA Jul 10, 2021 14:38
[2021-07-10] MEDS ORDERED: fentaNYL INJ 100 MCG/2 ML AMP IVP ONE (14:45)
[2021-07-10] MEDS ORDERED: MEPERIDINE (DEMEROL) INJ 50 MG/ML IVP ONE (14:45)
[2021-07-10] MEDS ORDERED: HYDROmorphone 2 MG/ML VIAL (DILAUDID) IV ONE (14:45)
[2021-07-10] MEDS ORDERED: morphine INJ 10 MG/ML 1ML (SYR OR VIAL) IVP ONE (14:45)
[2021-07-10] MEDS ORDERED: PROMETHAZINE INJ 25 MG/ML (PHENERGAN) AMP IVP ONE (14:45)
[2021-07-10] MEDS ORDERED: morphine INJ 10 MG/ML 1ML (SYR OR VIAL) ONE (14:53)
--- NOTE | 2021-07-10 15:34 | Progress Note-Post Operative ---
Post-Operative Progess Note Surgeon (s)/Chemistry Technical Officer (s) Surgeon TRESSA SCHWARZ MD Chemistry Technical Officer: thania smith DIRECTOR CLIENT Pre-Operative Diagnosis Ventral abdominal incisional hernia, symptomatic hemorrhoids Post-Operative Diagnosis ventral abd inc hernia(1.5cm), anal incusion cyst and skin tag Procedure & Operative Findings Date of Procedure 07/10/21 Procedure Performed/Findings ventral abd incisional hernia, anal exam under anesthesia, pudendal nerve block, excision anal inclusion cyst and anal skin tag. Anesthesia Type get Estimated Blood Loss Estimated blood loss (mL): minimal Specimens/Packing Specimens Removed hernia sac, anal inclusion cyst and skin tag TRESSA SCHWARZ MD Jul 10, 2021 15:34
[2021-07-10] MEDS ORDERED: HYDROcodone/APAP 5 MG/325 MG (LORTAB) TAB ONE (15:44)
--- NOTE | 2021-07-10 18:59 | OPERATIVE REPORT ---
DATE OF SERVICE: 07/10/2021 ATTENDING FORMULA MAKER: DAMEON Tavarez PREOPERATIVE DIAGNOSES: Symptomatic reducible ventral abdominal incisional hernia, anal pain and intermittent bleeding. POSTOPERATIVE DIAGNOSES: Small ventral abdominal incisional hernia with a defect approximately 1.5 cm in size with omentum within the hernia sac, chronic stage II external and internal hemorrhoids, external anal inclusion cyst along the right lateral anus and anal skin tag at approximately the posterior position of the anus. PROCEDURE: Ventral abdominal incisional hernia repair with mesh, anal exam under anesthesia, pudendal nerve block, excision anal inclusion cyst and skin tag. SURGEON: Tressa Schwarz MD COTTON EXPERT: José Hansen APRN ANESTHESIA: General endotracheal. ESTIMATED BLOOD LOSS: Minimal. FINDINGS: Same as postoperative diagnoses. DISPOSITION: The patient tolerated the procedure well. INDICATIONS: The patient is a 65-year-old female who we had seen May 2020 where she underwent an EGD and colonoscopy. She has a history of large sessile polyp identified of the sigmoid colon, which was not amenable to endoscopic resection. She underwent a formal resection in 2014. She is also status post right partial nephrectomy in 2013. We had done the EGD and colonoscopy on her and she was found to have a reflux esophagitis grade II, small hiatal hernia 2 cm in size, moderate gastritis as well as chronic stage II external and internal hemorrhoids and no polyps identified. She states that she has had pain and swelling in the periumbilical region and was found to have reducible; however, symptomatic ventral abdominal incisional hernia. She also reported intermittent episodes of bleeding as well as irritation and itching in the anal region. DESCRIPTION OF PROCEDURE: The patient was brought to the operating room, laid supine on the table. After adequate IV pain and sedative medications and general endotracheal intubation, the abdomen was prepped and draped in standard surgical fashion. A 0.5% Marcaine with epinephrine was used to anesthetize overlying skin in the supraumbilical region and a vertical skin incision made using a 15 blade. The subcutaneous tissue was then dissected down using electrocautery. The hernia sac was identified and completely dissected out using electrocautery as well as blunt dissection. The hernia sac was then opened using Metzenbaum scissors and only omentum was in the hernia sac and the hernia sac was then completely dissected out using electrocautery under direct visualization. The fascial defect was only approximately 1.5 cm in size. There were no other hernias identified as well. A 6.4 coated polypropylene mesh was then placed into the defect and transfascial sutures placed in a concentric manner to the mesh using 0 Prolene sutures. The subcutaneous tissue was then reapproximated using 3-0 Vicryl interrupted sutures. Skin was closed using 4-0 Monocryl running subcuticular suture. Wound was then cleaned and covered with Dermabond, followed by tonsil sponges followed by 4 x 4 gauze and large Op-Site and abdominal binder. The patient was then placed in lithotomy position and the perineum prepped and draped in standard surgical fashion. We then proceeded with a pudendal nerve block using 0.5% Marcaine with epinephrine and the external anal sphincters were relaxed. A speculum was then placed and there was no significant internal hemorrhoids that were identified that were bleeding. What was identified was an inclusion cyst along the right lateral anus as well as what appeared to be a skin tag or a chronic external hemorrhoidal cushion at approximately the posterior position. There were no fissures or any significant symptomatic hemorrhoids identified. We then proceeded with excision of both the inclusion cyst as well as the skin tag using a 15 blade. Good hemostasis was achieved using electrocautery and the anoderm was then reapproximated using 3-0 nylon interrupted sutures. Good hemostasis was observed. The anus was then covered with gauze followed by tape. The patient tolerated the procedure well. We will start her on IV normal pain medication as well as a clear liquid diet. When she is tolerating clears, has good pain control with oral pain medications, ambulating well. We will discharge her home where she will be instructed to do no heavy lifting or exertion for the next two weeks. She also needs to start and maintain a high-fiber diet with a fiber supplement, which should equal or exceed 30 grams daily as well as significant amounts of water to promote soft stools on a daily basis. Job ID: [id number] DocumentID: [id number] Dictated Date: 07/10/2021 14:34:22 Area Director Date: 07/10/2021 18:58:13 Dictated By: TRESSA SCHWARZ MD
== END 2021-07-10 17:30 ==
LOC: SDC 09:32
PROVIDERS: ATTEND Surgery
DX: K64.4 Residual hemorrhoidal skin tags (principal); K64.1 Second degree hemorrhoids; K62.89 Other specified diseases of anus and rectum; Z85.528 Personal history of other malignant neoplasm of kidney; Z79.82 Long term (current) use of aspirin; Z79.899 Other long term (current) drug therapy
CPT/HCPCS: 11421; 46220; 49560; 49568; 87081; 94664; C1781; 88302; 88304

== ENCOUNTER 2021-12-15 09:48 | Outpatient (RCR) | payer MEDICARE, OTHER ==
[~2021-12-15 09:48] MED LIST changes: +HYDR-3817 PO
[2021-12-15 10:23] LABS: BASOPHILS % (AUTO) 1 % (0-10); EOSINOPHILS # (AUTO) 0.1 10^3/uL (0.0-0.3); EOSINOPHILS % (AUTO) 2 % (0-10); HEMATOCRIT 42 % (35-52); HEMOGLOBIN 13.6 g/dL (11.5-16.0); LYMPHOCYTES # (AUTO) 1.5 10^3/uL (1.0-4.0); LYMPHOCYTES % (AUTO) 30 % (12-44); MEAN CORPUSCULAR HEMOGLOBIN 30 pg (25-34); MEAN CORPUSCULAR HGB CONC 33 g/dL (32-36); MEAN CORPUSCULAR VOLUME 93 fL (80-99); MEAN PLATELET VOLUME 11.1 fL (9.0-12.2); MONOCYTES # (AUTO) 0.2 10^3/uL (0.0-1.0); MONOCYTES % (AUTO) 3 % (0-12); NEUTROPHILS # (AUTO) 3.3 10^3/uL (1.8-7.8); NEUTROPHILS % (AUTO) 64 % (42-75); PLATELET COUNT 199 10^3/uL (130-400); WHITE BLOOD COUNT 5.1 10^3/uL (4.3-11.0)
[2021-12-15 10:52] LABS: ALBUMIN 3.8 GM/DL (3.2-4.5); BILIRUBIN,TOTAL 0.3 MG/DL (0.1-1.0); CREATININE SERUM 1.19 MG/DL (0.60-1.30); TOTAL PROTEIN 6.2 GM/DL (6.4-8.2)
[2021-12-18] MEDS ORDERED: CLOR7.5T3 PO (13:14)
[2021-12-18] MEDS ORDERED: CLN.1T PO (13:14)
[2021-12-18] MEDS ORDERED: MAG-141 PO (13:16)
[2021-12-19] MEDS ORDERED: ISOS30TA82 PO (11:58)
== END 2022-01-07 | disposition home or self-care (01) ==
LOC: ONC 09:48
PROVIDERS: ATTEND Internal Medicine Hematology & Oncology
DX: C65.1 Malignant neoplasm of right renal pelvis (principal); D50.0 Iron deficiency anemia secondary to blood loss (chronic); I10 Essential (primary) hypertension; F41.9 Anxiety disorder, unspecified; Z87.19 Personal history of other diseases of the digestive system; Z86.59 Personal history of other mental and behavioral disorders
CPT/HCPCS: 80053; 82728; 83540; 83550; 85025; G0463; 36415; 99213

== ENCOUNTER 2021-12-17 17:22 | Observation (INO) | payer MEDICARE, OTHER ==
[~2021-12-17] VITALS: Ht 160 cm; Wt 79.1 kg
[2021-12-17] MEDS ORDERED: hydrALAZINE (APESOLINE) 20 MG/ML VIAL ONE (17:35)
[2021-12-17] MEDS ORDERED: ONDANSETRON 4 MG/2 ML (SDV) Z0FRAN IVP ONE ×2 (17:45→19:45)
[2021-12-17] MEDS ORDERED: ASPIRIN 81 MG CHEW (CHILDREN'S ASA) PO ONE (17:45)
[2021-12-17 17:52] LABS: BASOPHILS # (AUTO) 0.1 10^3/uL (0.0-0.1); BASOPHILS % (AUTO) 1 % (0-10); EOSINOPHILS # (AUTO) 0.1 10^3/uL (0.0-0.3); EOSINOPHILS % (AUTO) 1 % (0-10); HEMATOCRIT 44 % (35-52); HEMOGLOBIN 14.1 g/dL (11.5-16.0); LYMPHOCYTES # (AUTO) 2.3 10^3/uL (1.0-4.0); LYMPHOCYTES % (AUTO) 34 % (12-44); MEAN CORPUSCULAR HEMOGLOBIN 30 pg (25-34); MEAN CORPUSCULAR HGB CONC 32 g/dL (32-36); MEAN CORPUSCULAR VOLUME 92 fL (80-99); MONOCYTES # (AUTO) 0.5 10^3/uL (0.0-1.0); MONOCYTES % (AUTO) 7 % (0-12); NEUTROPHILS # (AUTO) 3.9 10^3/uL (1.8-7.8); NEUTROPHILS % (AUTO) 57 % (42-75); PLATELET COUNT 213 10^3/uL (130-400); WHITE BLOOD COUNT 6.9 10^3/uL (4.3-11.0)
[2021-12-17 18:04] LABS: PROTHROMBIN TIME PATIENT 13.6 SEC (12.2-14.7)
--- NOTE | 2021-12-17 18:05 | Diagnostic Imaging Report ---
INDICATION: Chest pain. COMPARISON: 06/29/2021. TECHNIQUE: Single radiograph of the chest dated December 17, 2021. FINDINGS: The cardiac silhouette is mildly enlarged. No significant pulmonary vascular congestion. The lungs are clear. No pleural effusion. No pneumothorax. No acute osseous abnormality. IMPRESSION: Similar-appearing examination demonstrating mild cardiomegaly without superimposed acute cardiopulmonary abnormality. Dictated by: Dictated on workstation # [id number]
--- NOTE | 2021-12-17 18:08 | Diagnostic Imaging Report ---
INDICATION: Head pain. TECHNIQUE: Routine non contrast-enhanced axial images were obtained from the skull base to the vertex. Auto Exposure Controls were utilized during the CT exam to meet ALARA standards for radiation dose reduction. COMPARISON: 06/29/2021. FINDINGS: The ventricles and cortical sulci are normal in size and contour. There is no midline shift or mass-effect. No acute intra-axial hemorrhage is seen. There is no abnormal area of increased or decreased density to suggest acute hemorrhage or edema. No extra-axial mass or collection is present. The bony calvarium is intact. The visualized paranasal sinuses are unremarkable. The mastoid air cells are clear. IMPRESSION: No acute intracranial abnormality. No CT evidence of mass, acute infarct or intracranial hemorrhage. Dictated by: Dictated on workstation # [id number]
[2021-12-17 18:21] LABS: BILIRUBIN,URINE NEGATIVE (NEGATIVE); CLARITY,URINE CLEAR; COLOR,URINE YELLOW; GLUCOSE, URINE (UA) NEGATIVE (NEGATIVE); KETONES,URINE NEGATIVE (NEGATIVE); LEUKOCYTE ESTERASE ,URINE NEGATIVE (NEGATIVE); NITRITE,URINE NEGATIVE (NEGATIVE); PH,URINE 6.5 (5-9); PROTEIN,URINE NEGATIVE (NEGATIVE)
[2021-12-17] MEDS: NITROGLYCERIN 0.4 MG SL TABS BTL 25'S SL ONE ×2 (18:26→19:12)
[2021-12-17 18:28] LABS: ALBUMIN 4.3 GM/DL (3.2-4.5); BILIRUBIN,TOTAL 0.2 MG/DL (0.1-1.0); CALCIUM 9.5 MG/DL (8.5-10.1); CREATININE SERUM 1.29 MG/DL (0.60-1.30); MAGNESIUM 2.2 MG/DL (1.6-2.4); POTASSIUM 3.9 MMOL/L (3.6-5.0); TOTAL PROTEIN 7.1 GM/DL (6.4-8.2)
--- NOTE | 2021-12-17 18:41 | ED Cardiac General ---
History of Present Illness General Chief Complaint: Chest Pain Stated Complaint: CHEST PAIN Nursing Triage Note: PT TO RM 4 BY WC WITH CO CHEST PAIN SINCE 1700, CHILLS, SOA, HTN. PT REPORTS HX OF A-FIB. PT A&O X4. PT STATES CHEST FEELS "SQUEEZING AND HEAVY" Source: patient Exam Limitations: no limitations History of Present Illness Date Seen by Provider: Dec 17, 2021 Time Seen by Provider: 18:39 Initial Comments Patient is a 66-year-old female with a history of coronary artery disease, A. fib who presents to ED with multiple complaints. She states this morning she woke up she was hypotensive and had a blood pressure 101/57 around 1030 this morning. She states her blood pressure continued to increase throughout the day. Started having feelings of floor moving with spinning with her head movements. Started feeling a pressure behind her head that was described as throbbing. She felt nauseous without vomiting. She started having sweating and developing chest pain about 30 minutes upon arrival. [place] like somebody was sent on her chest with radiation from her upper abdomen to her chest. She also reports fluttering of her chest. She reports bilateral ear ringing this afternoon . Denies of any diarrhea. Denies history of coronary stents. Denies fever, cough, wheezing, visual loss, unilateral muscle weakness or sensory changes. Allergies and Home Medications Allergies Coded Allergies: clonidine (Verified Allergy, Severe, Angioedema, 02/07/21) diltiazem (Verified Allergy, Intermediate, 02/07/21) Leg rash Calcium Channel Blocking Agent Dilt (Unverified Allergy, Unknown, Hives, 07/03/21) amlodipine (Verified Allergy, Unknown, 02/07/21) Redness on legs albuterol (Verified Adverse Reaction, Intermediate, 02/07/21) elevated hr, palpitations codeine (Unverified Adverse Reaction, Unknown, N/V, 02/07/21) Uncoded Allergies: STEROIDS (Adverse Reaction, Unknown, INCREASE BP AND PULSE, 02/07/21) Patient Home Medication List Home Medication List Reviewed: Yes Amiodarone HCl (Amiodarone HCl) 200 Mg Tablet, 200 MG PO DAILY, (Reported) Entered as Reported by: DESIRAE YANG on 07/03/21 0908 Aspirin (Aspirin) 81 Mg Tab.chew, 81 MG PO DAILY, (Reported) Entered as Reported by: DOUG SANTILLAN on 05/15/20 1331 Atenolol (Atenolol) 25 Mg Tablet, 25 MG PO DAILY, (Reported) Entered as Reported by: DESIRAE YANG on 07/03/21 0904 Calcium/Magnesium/Zinc (Xhjjaay-Ojtkirigh-Clfz Tablet) 1 Each Tablet, 1 EACH PO DAILY, (Reported) Entered as Reported by: ABHAY HUNTER on 02/07/21 1533 Cholecalciferol (Vitamin D3) (Vitamin D3) 50 Mcg Tablet, 50 MCG PO HS, (Reported) Entered as Reported by: DESIRAE YANG on 07/03/21 0908 Diazepam (Diazepam) 5 Mg Tablet, 5 MG PO TID PRN for ANXIETY, (Reported) Entered as Reported by: DOUG SANTILLAN on 05/15/20 1331 Doxazosin Mesylate (Doxazosin Mesylate) 4 Mg Tablet, 4 MG PO BID, (Reported) Entered as Reported by: DESIRAE YANG on 07/03/21 0908 Enalapril Maleate (Enalapril Maleate) 20 Mg Tablet, 20 MG PO BID, (Reported) Entered as Reported by: DESIRAE YANG on 07/03/21 0908 Hydrocodone/Acetaminophen (Hydrocodone-Acetamin 7.5-325) 1 Each Tablet, 1 EACH PO Q4H PRN for PAIN-BREAKTHROUGH Prescribed by: LIVIER CORTEZ on 07/10/21 0949 Magnesium Oxide (Magnesium) 400 Mg Tablet, 400 MG PO HS, (Reported) Entered as Reported by: ABHAY HUNTER on 02/07/21 1533 Multivitamin (Multivitamin) 1 Each Tablet, 1 EACH PO DAILY, (Reported) Entered as Reported by: ABHAY HUNTER on 02/07/21 1533 Ondansetron (Ondansetron Odt) 8 Mg Tab.rapdis, 8 MG PO Q6H PRN for NAUSEA/VOMITING-1ST LINE, (Reported) Entered as Reported by: ABHAY HUNTER on 02/07/21 153 Pantoprazole Sodium (Protonix) 20 Mg Tablet.dr, 20 MG PO BID, (Reported) Entered as Reported by: AMBER VAZQUEZ on 01/04/21 0811 Rivaroxaban (Xarelto) 10 Mg Tablet, 10 MG PO, (Reported) Entered as Reported by: DESIRAE YANG on 07/03/21 0904 Vit C/E/Zn/Coppr/Lutein/Zeaxan (Preservision Areds 2 Chew Tab) 1 Each Tab.chew, 1 EACH PO, (Reported) Entered as Reported by: DESIRAE YANG on 07/03/21 0908 Zolpidem Tartrate (Ambien) 10 Mg Tablet, 10 MG PO HS PRN for SLEEP, (Reported) Entered as Reported by: DOUG SANTILLAN on 05/15/20 1331 Review of Systems Review of Systems Constitutional: chills, malaise Respiratory: Denies Cough; Shortness of Air Cardiovascular: Chest Pain Gastrointestinal: Abdominal Pain; Denies Diarrhea; Nausea; Denies Vomiting Genitourinary: Denies Burning, Denies Discharge Musculoskeletal: No back pain, No joint pain Skin: No change in color, No change in hair/nails All Other Systems Reviewed Negative Unless Noted: Yes Past Ukwpaap-Wmaugl-Iwvhch Hx Patient Social History Tobacco Use?: No Substance use?: No Alcohol Use?: No Pt feels they are or have been: No Immunizations Up To Date First/Initial COVID19 Vaccinat: JUN 2020 Second COVID19 Vaccination Brent: JUL 2020 Third COVID19 Vaccination Date: APR 2021 Seasonal Allergies Seasonal Allergies: Yes Past Medical History Surgery/Hospitalization HX: AFIB, HTN, [place], TBI, ANXIETY, APPY, HYSTERECTOMY, PARTIAL NEPHRECTOMY R KIDNEY, ORTHOPEDIC, TONSILECTOMY Surgeries: Yes Abdominal, Appendectomy, Hysterectomy, Nephrectomy, Oophorectomy, Orthopedic, Tonsillectomy Respiratory: No Currently Using CPAP: No Currently Using BIPAP: No Cardiac: Yes ("A-FIB STARTED AFTER COVID SHOT") Angina, Atrial Fibrillation, Hypertension Neurological: No Spinal Cord Injury, Traumatic Brain Injury 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 Disorders: No Female 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 Disorders: Ovarian Cyst 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 Sexually Transmitted Disease: No Genitourinary: Yes (Rt Eitan-nephrectomy 2014 in [place]) Polycystic Kidney Disease Gastrointestinal: Yes Gastroesophageal Reflux, Obstructive Bowel Musculoskeletal: Yes (ACL repair (LT), carpal tunnel surg, torn bicep (LT)) Endocrine: No HEENT: Yes Tinnitis Cancer: Yes Kidney Did You Recieve Any Treatments: Yes What Type of Treatment Did You: Surgical Intervention Psychosocial: Yes Anxiety Integumentary: No Blood Disorders: No Adverse Reaction/Blood Tranf: No Family Medical History Stroke, Vascular Disease, Other Conditions/Hx Physical Exam Vital Signs Vital Signs - First Documented 12/17/21 17:27 Pulse 80 Resp 22 B/P (MAP) 249/162 (191) Pulse Ox 99 O2 Delivery Room Air Capillary Refill : Less Than 3 Seconds Height, Weight, BMI Height: '" Weight: lbs. oz. 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 II-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 Norm as Tested Skin: Normal Color, Warm/Dry Progress/Results/Core Measures Results/Orders Lab Results Laboratory Tests Test 12/17/21 17:40 12/17/21 18:05 12/17/21 18:17 Range/Units White Blood Count 6.9 4.3-11.0 10^3/uL Red Blood Count 4.76 3.80-5.11 10^6/uL Hemoglobin 14.1 11.5-16.0 g/dL Hematocrit 44 35-52 % Mean Corpuscular Volume 92 80-99 fL Mean Corpuscular Hemoglobin 30 25-34 pg Mean Corpuscular Hemoglobin Concent 32 32-36 g/dL Red Cell Distribution Width 13.2 10.0-14.5 % Platelet Count 213 130-400 10^3/uL Mean Platelet Volume 11.0 9.0-12.2 fL Immature Granulocyte % (Auto) 0 % Neutrophils (%) (Auto) 57 42-75 % Lymphocytes (%) (Auto) 34 12-44 % Monocytes (%) (Auto) 7 0-12 % Eosinophils (%) (Auto) 1 0-10 % Basophils (%) (Auto) 1 0-10 % Neutrophils # (Auto) 3.9 1.8-7.8 10^3/uL Lymphocytes # (Auto) 2.3 1.0-4.0 10^3/uL Monocytes # (Auto) 0.5 0.0-1.0 10^3/uL Eosinophils # (Auto) 0.1 0.0-0.3 10^3/uL Basophils # (Auto) 0.1 0.0-0.1 10^3/uL Immature Granulocyte # (Auto) 0.0 0.0-0.1 10^3/uL Prothrombin Time 13.6 12.2-14.7 SEC INR Comment 1.0 0.8-1.4 Activated Partial Thromboplast Time 29 24-35 SEC Sodium Level 143 135-145 MMOL/L Potassium Level 3.9 3.6-5.0 MMOL/L Chloride Level 103 98-107 MMOL/L Carbon Dioxide Level 24 21-32 MMOL/L Anion Gap 16 H 5-14 MMOL/L Blood Urea Nitrogen 19 H 7-18 MG/DL Creatinine 1.29 0.60-1.30 MG/DL Estimat Glomerular Filtration Rate 45 BUN/Creatinine Ratio 15 Glucose Level 107 H 70-105 MG/DL Calcium Level 9.5 8.5-10.1 MG/DL Corrected Calcium 9.3 8.5-10.1 MG/DL Magnesium Level 2.2 1.6-2.4 MG/DL Total Bilirubin 0.2 0.1-1.0 MG/DL Aspartate Amino Transf (AST/SGOT) 36 H 5-34 U/L Alanine Aminotransferase (ALT/SGPT) 43 0-55 U/L Alkaline Phosphatase 111 40-136 U/L Myoglobin 36.5 10.0-92.0 NG/ML Troponin I < 0.028 <0.028 NG/ML B-Type Natriuretic Peptide 72.4 <100.0 PG/ML Total Protein 7.1 6.4-8.2 GM/DL Albumin 4.3 3.2-4.5 GM/DL Lipase 36 8-78 U/L Urine Color YELLOW Urine Clarity CLEAR Urine pH 6.5 5-9 Urine Specific [place] 1.010 L 1.016-1.022 Urine Protein NEGATIVE NEGATIVE Urine Glucose (UA) NEGATIVE NEGATIVE Urine Ketones NEGATIVE NEGATIVE Urine Nitrite NEGATIVE NEGATIVE Urine Bilirubin NEGATIVE NEGATIVE Urine Urobilinogen 0.2 < = 1.0 MG/DL Urine Leukocyte Esterase NEGATIVE NEGATIVE Urine RBC (Auto) NEGATIVE NEGATIVE Urine RBC NONE /HPF Urine WBC NONE /HPF Urine Crystals NONE /LPF Urine Bacteria NEGATIVE /HPF Urine Casts NONE /LPF Urine Mucus NEGATIVE /LPF Urine Culture Indicated NO Influenza Type A (RT-PCR) Not Detected Not Detecte Influenza Type B (RT-PCR) Not Detected Not Detecte SARS-CoV-2 RNA (RT-PCR) Not Detected Not Detecte My Orders Orders - JENY MART PA Ondansetron Injection (Zofran Injectio (12/17/21 17:45) Cbc With Automated Diff (12/17/21 17:38) Magnesium (12/17/21 17:38) Chest 1 View, Ap/Pa Only (12/17/21 17:38) Comprehensive Metabolic Panel (12/17/21 17:38) Myoglobin Serum (12/17/21 17:38) Protime With Inr (12/17/21 17:38) Partial Thromboplastin Time (12/17/21 17:38) Monitor-Rhythm Ecg Trace Only (12/17/21 17:38) Ed Iv/Invasive Line Start (12/17/21 17:38) Lipase (12/17/21 17:38) Bnp [place] (12/17/21 17:38) Troponin I [place] (12/17/21 17:38) Aspirin Chewable Tablet (Baby Aspirin Ch (12/17/21 17:45) O2 (12/17/21 17:38) Ed Iv/Invasive Line Start (12/17/21 17:38) Ct Head Wo (12/17/21 17:47) Covid 19 Inhouse Test (12/17/21 17:49) Influenza A And B By Pcr (12/17/21 17:49) Urinalysis (12/17/21 18:02) Morphine Injection (Morphine Injection (12/17/21 18:45) Ct Angio Chest/Abd W (12/17/21 18:49) Iohexol Injection (Omnipaque 350 Mg/Ml 1 (12/17/21 19:15) Ns (Ivpb) (Sodium Chloride 0.9% Ivpb Bag (12/17/21 19:15) Nitroglycerin 0.4 Mg Btl 25's (Nitrostat (12/17/21 19:15) Lorazepam Tablet (Ativan Tablet) (12/17/21 19:14) Lidocaine 2% Viscous 15 Ml (Xylocaine Vi (12/17/21 19:45) Antacid Suspension (Mylanta Suspension (12/17/21 19:45) Ondansetron Injection (Zofran Injectio (12/17/21 19:45) Medications Given in ED Vital Signs/I&O 12/17/21 17:27 Pulse 80 Resp 22 B/P (MAP) 249/162 (191) Pulse Ox 99 O2 Delivery Room Air Blood Pressure Mean: 191 Departure Communication (Admissions) Time/Spoke to Admitting Phy: 20:17 Dr. Angulo accepts Communication (PCP) Patient on arrival blood pressure over 250 systolic. She was given 10 mg IV hydralazine and sublingual nitro with improvement of blood pressure to 150 systolic. History of hypertension currently on with atenolol, doxazosin, enalapril. She does take Xarelto for her A. fib. She was given an aspirin. Chest pain that radiates to the left side neck. She had some chest improvement after the sublingual nitro. She also reports a burning sensation in her chest was given GI cocktail with very minimal improvement. Does have a history of GERD takes Protonix daily. She reports throbbing headache dizziness feels like she is floating. CT scan of the head was negative for acute abnormality. Initial EKG showed normal sinus rhythm with minimal ST depression. No evidence of ST elevation. Cardiac work-up unremarkable. Due to her presentation CT angio of the chest and abdomen was ordered to rule out dissection or obvious aneurysm. CT scan was unremarkable. Lab work otherwise unremarkable. Patient was discussed with Dr. Benjamin. Consult in the morning agreed for serial tropon ins. Had a cardiac cath in 2020 ejection fraction 60% with mild coronary artery disease. Patient was discussed by Dr. Angulo who agrees to accept patient for further evaluation of the troponin and blood pressure. Impression Primary Impression: Chest pain Additional Impression: Hypertensive emergency Disposition: ADMITTED INPATIENT Condition: Stable Admissions Decision to Admit Reason: Admit from ER (General) Decision to Admit/Date: Dec 17, 2021 Time/Decision to Admit Time: 20:17 Departure-Patient Inst. Referrals: NO,LOCAL PHYSICIAN (PCP) Primary Care Physician MURRAY LOZADA (Family) Primary Care Physician JENY MART Dec 17, 2021 18:41
[2021-12-17] MEDS ORDERED: morphine INJ 10 MG/ML 1ML (SYR OR VIAL) IVP ONE (18:45)
[2021-12-17 19:10] LABS: BACTERIA,URINE NEGATIVE /HPF
[2021-12-17] MEDS ORDERED: LORazepam 0.5 MG (ATIVAN) TABLET PO STA (19:14)
[2021-12-17] MEDS ORDERED: NS 100 ML (IVPB) BAG IV ONE (19:15)
[2021-12-17] MEDS ORDERED: IOHEXOL 350 MG/ML 100 ML (OMNIPAQUE 350) VIAL IV ONE (19:15)
[2021-12-17] MEDS ORDERED: NITROGLYCERIN 0.4 MG SL TABS BTL 25'S SL ONE (19:15)
[2021-12-17] MEDS ORDERED: LIDOCAINE 2% VISCOUS 15 ML UDC PO ONE (19:45)
[2021-12-17] MEDS ORDERED: ANTACID SUSP 30 ML UDC (MYLANTA) PO ONE (19:45)
--- NOTE | 2021-12-17 19:49 | Diagnostic Imaging Report ---
PROCEDURE: CT angiography of the abdomen and chest with and without contrast. TECHNIQUE: After intravenous administration of contrast, thin section axial CT angiography of the abdomen and chest were obtained. 3D MIP reformats were provided. Auto Exposure Controls were utilized during the CT exam to meet ALARA standards for radiation dose reduction. INDICATION: Pain, dissection. COMPARISON: 02/28/2021 and 04/26/2017. FINDINGS: No significant adenopathy within chest. No intramural hematoma, aneurysm or dissection involving the thoracic aorta. The heart is within normal limits in size. No pericardial effusion. Trace right pleural fluid versus pleural thickening. No significant left pleural effusion. The trachea is patent. No pneumothorax. Small sub 4 mm bilateral pulmonary nodules are present, including within the right upper lobe on series 4, image 38. No saddle pulmonary embolus. No acute osseous abnormality within the chest. Tiny hiatal hernia. The liver and spleen are unremarkable. The adrenal glands are unremarkable. The pancreas is unremarkable. The gallbladder is unremarkable. Scarring within the right kidney. Nonobstructing calculus within the superior pole of the right kidney. Tiny hyperdensity within the superior pole of the right kidney is again noted and not significantly changed. Tiny hypodensity within the inferior pole of the left kidney is present which is too small to completely characterize. The left kidney is otherwise unremarkable. Moderate vascular calcifications within the abdominal aorta and its branch vessels without intramural hematoma, aneurysm or dissection of the abdominal aorta. Mild stenosis involving the proximal right renal artery. The left renal artery is unremarkable. The celiac artery and superior mesenteric artery are unremarkable. The inferior mesenteric artery is patent. No evidence of bowel obstruction within the [id number]. Evidence of a prior anterior abdominal wall hernia repair with mesh in place. Mural thickening is noted within a few loops of small bowel within the left abdomen. No bowel obstruction or pneumatosis. No significant adenopathy, free air or free fluid. No acute osseous abnormality. IMPRESSION: 1. No intramural hematoma, aneurysm or dissection involving the aorta. 2. Tiny nonobstructing right renal calculus. 3. Small bilateral sub 4 mm pulmonary nodules. These have not significantly changed since 2017 and are felt to be benign. 4. Tiny hiatal hernia. 5. Mural thickening within loops of small bowel related to poor distention versus enteritis. No bowel obstruction. Dictated by: Dictated on workstation # [id number]
[2021-12-17] MEDS ORDERED: doxAzosin 4 MG (CARDURA) TAB PO STA (20:09)
[2021-12-17 21:15] VITALS: BP 181/77
[2021-12-17 21:30] VITALS: BP 186/85
[2021-12-17 21:45] VITALS: BP 164/76
[2021-12-17 22:00] VITALS: BP 148/66
[2021-12-17 22:30] VITALS: BP 162/68
[2021-12-17] MEDS ORDERED: hydrALAZINE (APESOLINE) 20 MG/ML VIAL IV PRN (22:30)
[2021-12-17] MEDS: ENALAPRIL 10 MG (VASOTEC) TAB PO SCH (22:33)
[2021-12-17] MEDS: doxAzosin 4 MG (CARDURA) TAB PO SCH (22:33)
[2021-12-17 23:00] VITALS: BP 159/67
[2021-12-18] VITALS: BP_SYST 124; BP_SYST 131; BP_DIAS 61; BP_DIAS 78
[2021-12-18 04:00] VITALS: BP 148/62
[2021-12-18 04:37] LABS: BASOPHILS % (AUTO) 0 % (0-10); EOSINOPHILS # (AUTO) 0.1 10^3/uL (0.0-0.3); EOSINOPHILS % (AUTO) 1 % (0-10); HEMATOCRIT 40 % (35-52); HEMOGLOBIN 12.8 g/dL (11.5-16.0); LYMPHOCYTES # (AUTO) 2.5 10^3/uL (1.0-4.0); LYMPHOCYTES % (AUTO) 37 % (12-44); MEAN CORPUSCULAR HEMOGLOBIN 30 pg (25-34); MEAN CORPUSCULAR HGB CONC 32 g/dL (32-36); MEAN CORPUSCULAR VOLUME 92 fL (80-99); MEAN PLATELET VOLUME 11.3 fL (9.0-12.2); MONOCYTES # (AUTO) 0.5 10^3/uL (0.0-1.0); MONOCYTES % (AUTO) 7 % (0-12); NEUTROPHILS # (AUTO) 3.7 10^3/uL (1.8-7.8); NEUTROPHILS % (AUTO) 55 % (42-75); PLATELET COUNT 186 10^3/uL (130-400); WHITE BLOOD COUNT 6.7 10^3/uL (4.3-11.0)
[2021-12-18 04:54] LABS: BUN/CREATININE RATIO 14; CALCIUM 9.1 MG/DL (8.5-10.1); CARBON DIOXIDE 24 MMOL/L (21-32); CHLORIDE 106 MMOL/L (98-107); CHOLESTEROL 225 MG/DL (< 200); CREATININE SERUM 1.13 MG/DL (0.60-1.30); GFR ESTIMATED 53; GLUCOSE 77 MG/DL (70-105); HDL CHOLESTEROL 65 MG/DL (40-60); POTASSIUM 3.5 MMOL/L (3.6-5.0); SODIUM 144 MMOL/L (135-145); TRIGLYCERIDES 81 MG/DL (<150); VLDL CHOLESTEROL 16 MG/DL (5-40)
[2021-12-18] MEDS: CATHETER FLUSH 10 ML SYR IVP SCH ×3 (06:43→20:36)
[2021-12-18 07:41] VITALS: BP 141/61
--- NOTE | 2021-12-18 08:44 | Consultation-Cardiology ---
HPI-Cardiology Cardiology Consultation Date of Consultation 12/18/21 Date of Admission Time Seen by Provider: 08:38 Indication: Hypertensive emergency HPI 66-year-old lady with history of coronary artery disease, hypertension. Was not feeling very well and reported that her blood pressure has been fluctuating significantly. On arrival to the emergency room her blood pressure was over 200. Currently blood pressure is controlled. Patient's concern about the fluctuation in her blood pressure and difficulty achieving adequate control. She has been maintained on atenolol and doxazosin. Using clonidine as needed. Enalapril 20 mg twice daily and intolerant to calcium channel blockers. Home Medications & Allergies Allergies: Coded Allergies: clonidine (Verified Allergy, Severe, Angioedema, 02/07/21) diltiazem (Verified Allergy, Intermediate, 02/07/21) Leg rash Calcium Channel Blocking Agent Dilt (Unverified Allergy, Unknown, Hives, 07/03/21) amlodipine (Verified Allergy, Unknown, 02/07/21) Redness on legs albuterol (Verified Adverse Reaction, Intermediate, 02/07/21) elevated hr, palpitations codeine (Unverified Adverse Reaction, Unknown, N/V, 02/07/21) Uncoded Allergies: STEROIDS (Adverse Reaction, Unknown, INCREASE BP AND PULSE, 02/07/21) Home Medication List Reviewed: Yes EVM-Phaxkf-Anlezl Hx Patient Social History Marital Status: Smoking Status: Former Smoker Type Used: Cigarettes 2nd Hand Smoke Exposure: No Recent Hopitalizations: No Have you traveled recently?: No Alcohol Use?: No Past Medical History Discussed below Family Medical History Significant Family History: Stroke, Vascular Disease, Other Conditions/Hx Family Medical Hx Noncontributory Review of Systems-General Review of Systems Constitutional: see HPI, chills, malaise, weakness EENTM: see HPI, no symptoms reported Respiratory: see HPI; No cough; dyspnea on exertion; No hemoptysis, No orthopnea, No phlegm, No short of breath, No stridor, No wheezing, No other Cardiovascular: see HPI; No chest pain, No edema, No Hx of Intervention, No palpitations, No syncope, No vascular heart diseas, No other Gastrointestinal: no symptoms reported, see HPI Genitourinary: no symptoms reported, see HPI Musculoskeletal: No back pain, No joint pain Skin: No change in color, No change in hair/nails Psychiatric/Neurological: No Symptoms Reported, See HPI All Other Systems Reviewed Negative Unless Noted: Yes Reviewed Test Results Reviewed Test Results Lab Laboratory Tests Test 12/17/21 17:40 12/17/21 18:05 12/17/21 18:17 12/18/21 04:29 Range/Units White Blood Count 6.9 6.7 4.3-11.0 10^3/uL Red Blood Count 4.76 4.32 3.80-5.11 10^6/uL Hemoglobin 14.1 12.8 11.5-16.0 g/dL Hematocrit 44 40 35-52 % Mean Corpuscular Volume 92 92 80-99 fL Mean Corpuscular Hemoglobin 30 30 25-34 pg Mean Corpuscular Hemoglobin Concent 32 32 32-36 g/dL Red Cell Distribution Width 13.2 13.5 10.0-14.5 % Platelet Count 213 186 130-400 10^3/uL Mean Platelet Volume 11.0 11.3 9.0-12.2 fL Immature Granulocyte % (Auto) 0 0 % Neutrophils (%) (Auto) 57 55 42-75 % Lymphocytes (%) (Auto) 34 37 12-44 % Monocytes (%) (Auto) 7 7 0-12 % Eosinophils (%) (Auto) 1 1 0-10 % Basophils (%) (Auto) 1 0 0-10 % Neutrophils # (Auto) 3.9 3.7 1.8-7.8 10^3/uL Lymphocytes # (Auto) 2.3 2.5 1.0-4.0 10^3/uL Monocytes # (Auto) 0.5 0.5 0.0-1.0 10^3/uL Eosinophils # (Auto) 0.1 0.1 0.0-0.3 10^3/uL Basophils # (Auto) 0.1 0.0 0.0-0.1 10^3/uL Immature Granulocyte # (Auto) 0.0 0.0 0.0-0.1 10^3/uL Prothrombin Time 13.6 12.2-14.7 SEC INR Comment 1.0 0.8-1.4 Activated Partial Thromboplast Time 29 24-35 SEC Sodium Level 143 144 135-145 MMOL/L Potassium Level 3.9 3.5 L 3.6-5.0 MMOL/L Chloride Level 103 106 98-107 MMOL/L Carbon Dioxide Level 24 24 21-32 MMOL/L Anion Gap 16 H 14 5-14 MMOL/L Blood Urea Nitrogen 19 H 16 7-18 MG/DL Creatinine 1.29 1.13 0.60-1.30 MG/DL Estimat Glomerular Filtration Rate 45 53 BUN/Creatinine Ratio 15 14 Glucose Level 107 H 77 70-105 MG/DL Calcium Level 9.5 9.1 8.5-10.1 MG/DL Corrected Calcium 9.3 8.5-10.1 MG/DL Magnesium Level 2.2 1.6-2.4 MG/DL Total Bilirubin 0.2 0.1-1.0 MG/DL Aspartate Amino Transf (AST/SGOT) 36 H 5-34 U/L Alanine Aminotransferase (ALT/SGPT) 43 0-55 U/L Alkaline Phosphatase 111 40-136 U/L Myoglobin 36.5 10.0-92.0 NG/ML Troponin I < 0.028 < 0.028 <0.028 NG/ML B-Type Natriuretic Peptide 72.4 <100.0 PG/ML Total Protein 7.1 6.4-8.2 GM/DL Albumin 4.3 3.2-4.5 GM/DL Lipase 36 8-78 U/L Urine Color YELLOW Urine Clarity CLEAR Urine pH 6.5 5-9 Urine Specific [place] 1.010 L 1.016-1.022 Urine Protein NEGATIVE NEGATIVE Urine Glucose (UA) NEGATIVE NEGATIVE Urine Ketones NEGATIVE NEGATIVE Urine Nitrite NEGATIVE NEGATIVE Urine Bilirubin NEGATIVE NEGATIVE Urine Urobilinogen 0.2 < = 1.0 MG/DL Urine Leukocyte Esterase NEGATIVE NEGATIVE Urine RBC (Auto) NEGATIVE NEGATIVE Urine RBC NONE /HPF Urine WBC NONE /HPF Urine Crystals NONE /LPF Urine Bacteria NEGATIVE /HPF Urine Casts NONE /LPF Urine Mucus NEGATIVE /LPF Urine Culture Indicated NO Influenza Type A (RT-PCR) Not Detected Not Detecte Influenza Type B (RT-PCR) Not Detected Not Detecte SARS-CoV-2 RNA (RT-PCR) Not Detected Not Detecte Triglycerides Level 81 <150 MG/DL Cholesterol Level 225 H < 200 MG/DL LDL Cholesterol Direct 150 H 1-129 MG/DL VLDL Cholesterol 16 5-40 MG/DL HDL Cholesterol 65 H 40-60 MG/DL Physical Exam Physical Exam Vital Signs Vital Signs - First Documented 12/17/21 17:27 Pulse 80 Resp 22 B/P (MAP) 249/162 (191) Pulse Ox 99 O2 Delivery Room Air Capillary Refill : Less Than 3 Seconds Height, Weight, BMI Height: '" Weight: lbs. oz. kg; 31.09 BMI Method: General Appearance: No Apparent Distress, WD/WN Eyes: Bilateral Eye Normal Inspection, Bilateral Eye PERRL, Bilateral Eye EOMI HEENT: PERRL/EOMI, TMs Normal, Normal ENT Inspection, Pharynx Normal Neck: Full Range of Motion, Normal Inspection, Non Tender, Supple Respiratory: Chest Non Tender, Lungs Clear, Normal Breath Sounds Cardiovascular: Regular Rate, Rhythm, No Edema, No Gallop, No JVD Gastrointestinal: Normal Bowel Sounds, No Organomegaly, No Pulsatile Mass, Non Tender Back: Normal Inspection, No CVA Tenderness, No Vertebral Tenderness Extremity: Normal Capillary Refill, Normal Inspection, Normal Range of Motion Neurologic/Psychiatric: Alert, Oriented x3, No Motor/Sensory Deficits, Normal Mood/Affect, 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 Intolerant to calcium channel blockers, intolerant to Coreg. Maintained on atenolol 25 mg daily, enalapril 20 mg daily, doxazosin, using clonidine as needed. I will evaluate 2D echo Generalized weakness and lightheadedness, improved after achieving adequate blood pressure control Coronary artery disease, cardiac catheterization carried out in 2020 showing mild to moderate nonobstructive disease. Continue to monitor Paroxysmal atrial fibrillation/flutter, has been having recurrent palpitation. Currently converted to sinus rhythm, Patient is reporting feeling tired and loss of energy after using amiodarone. I will hold for now and evaluate tolerance and response, will consider using Mul taq versus sotalol [id number] score of 3, yearly risk of stroke without oral anticoagulation is 3.2%. Maintained on Xarelto. Continue to monitor Anxiety, palpitation, managed by primary care team History of partial right nephrectomy secondary to renal cyst. History of hysterectomy in the remote past Strong family history of heart disease TI CRAIG MD Dec 18, 2021 08:44
--- NOTE | 2021-12-18 09:03 | History & Physical-Hospitalist ---
History of Present Illness HPI/Chief Complaint Patient is a 66-year-old female with a past medical history of hypertension, TBI, spinal cord injury, atrial fibrillation who presented to the emergency department due to elevated blood pressure. She states she has a long history of hypertension and follows with Dr. Krause and Lawrence but that he has not adjusted her medications. She states that she checked her blood pressure yesterday morning and it was 101/58 so she did not take her normal medications until later that day. She came to the hospital to visit her who is admitted to the inpatient rehab unit around 2 PM and developed a headache. She states she was dizzy and felt off balance and then her ear started ringing. One of the nurses line rehab checked her blood pressure for her and the systolic was over 200 so they wheeled her to the emergency department. Her blood pressure in the emergency room on arrival was 249/162. She states she has had similar instances but her blood pressure has never been that high before. This morning she reports feeling better but that her head still hurts some. She mostly complains of occipital pain whereas yesterday it was wrapping around her whole head. Source: patient Date Seen 12/18/21 Time Seen by a Provider: 09:03 Attending Physician No,Local Physician PCP Admitting Physician: Can Angulo MD Attending Physician: Can Angulo MD Referring Physician Date of Admission Dec 17, 2021 at 20:05 Home Medications & Allergies Home Medications Reviewed patient Home Medication Reconciliation performed by pharmacy medication reconciliations security installation technician and/or nursing. Patients Allergies have been reviewed. Allergies Allergies Coded Allergies clonidine (Verified Allergy, Severe, Angioedema, 02/07/21) diltiazem (Verified Allergy, Intermediate, 02/07/21) Leg rash Calcium Channel Blocking Agent Dilt (Unverified Allergy, Unknown, Hives, 07/03/21) amlodipine (Verified Allergy, Unknown, 02/07/21) Redness on legs albuterol (Verified Adverse Reaction, Intermediate, 02/07/21) elevated hr, palpitations codeine (Unverified Adverse Reaction, Unknown, N/V, 02/07/21) Uncoded Allergies STEROIDS ( Adverse Reaction, Unknown, INCREASE BP AND PULSE, 02/07/21) Past Ajfhubb-Wiuxku-Eqomvy Hx Patient Social History Marrital Status: Tobacco Use?: No Smoking Status: Former Smoker Use of E-Cig and/or Vaping dev: No Substance use?: No Alcohol Use?: No Pt feels they are or have been: No Immunizations Up To Date First/Initial COVID19 Vaccinat: JUN 2020 Second COVID19 Vaccination Brent: JUL 2020 Tetanus Booster (TDap): Less Than 5 Years Seasonal Allergies Seasonal Allergies: Yes Current Status status: No status: No Advance Directives: No Advance Directive Location: Home Communicates: Verbally Primary Language: Namibian Preferred Spoken Language: Namibian Is interpretation needed?: No Implanted or Applied Medical D: Orthopedic hardware Past Medical History Surgeries: Abdominal, Appendectomy, Hysterectomy, Nephrectomy (partial), Oophorectomy, Orthopedic, Tonsillectomy Currently Using CPAP: No Currently Using BIPAP: No Angina, Atrial Fibrillation, Hypertension Spinal Cord Injury, Traumatic Brain Injury 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 Sexually Transmitted Disease: No Polycystic Kidney Disease Gastroesophageal Reflux, Obstructive Bowel Tinnitis Kidney Did You Recieve Any Treatments: Yes What Type of Treatment Did You: Surgical Intervention Anxiety Blood Disorders: No Adverse Reaction/Blood Tranf: No Family Medical History Heart Disease, Stroke, Vascular Disease, Other Conditions/Hx Review of Systems Constitutional: No chills, No fever EENTM: ear pain (ringing) Respiratory: No cough Cardiovascular: chest pain; No edema, No syncope Gastrointestinal: No abdominal pain; nausea Genitourinary: no symptoms reported Musculoskeletal: no symptoms reported Skin: no symptoms reported Psychiatric/Neurological: No Symptoms Reported Physical Exam Physical Exam Vital Signs Vital Signs - First Documented 12/17/21 17:27 Pulse 80 Resp 22 B/P (MAP) 249/162 (191) Pulse Ox 99 O2 Delivery Room Air Capillary Refill : Less Than 3 Seconds Height, Weight, BMI Height: '" Weight: lbs. oz. kg; 31.09 BMI Method: General Appearance: No Apparent Distress, WD/WN, Anxious, Obese HEENT: PERRL/EOMI, Moist Mucous Membranes; No Scleral Icterus (L), No Scleral Icterus (R) Neck: Normal Inspection, Supple Respiratory: Lungs Clear, No Accessory Muscle Use, No Respiratory Distress Cardiovascular: Regular Rate, Rhythm, No JVD, No Murmur Gastrointestinal: Normal Bowel Sounds, Non Tender, Soft Extremity: Normal Capillary Refill, No Pedal Edema Neurologic/Psychiatric: Alert, Oriented x3, Normal Mood/Affect; No Aphasia, No Facial Droop Skin: Normal Color, Warm/Dry Results Results/Procedures Labs Laboratory Tests 12/17/21 17:40 12/18/21 04:29 Patient resulted labs reviewed. Imaging: Reviewed Imaging Report [facility] [place] [place] NAME: ELIANE MISTRY [facility] REC#: [id number] PT STATUS: REG ER : 1955 PHYSICIAN: JENY MART ADMIT DATE: 12/17/21/ER Signed Date of Exam:12/17/21 CHEST 1 VIEW, AP/PA ONLY INDICATION: Chest pain. COMPARISON: 06/29/2021. TECHNIQUE: Single radiograph of the chest dated December 17, 2021. FINDINGS: The cardiac silhouette is mildly enlarged. No significant pulmonary vascular congestion. The lungs are clear. No pleural effusion. No pneumothorax. No acute osseous abnormality. IMPRESSION: Similar-appearing examination demonstrating mild cardiomegaly without superimposed acute cardiopulmonary abnormality. Dictated by: Dictated on workstation # [id number] Dict: 12/17/211801 Trans: 12/17/211824 [facility] [id number] Interpreted by: GARRY GALLARDO MD Electronically signed by: GARRY GALLARDO MD 12/17/211824 [facility] [place] [place] NAME: ELIANE MISTRY [facility] REC#: [id number] PT STATUS: ADM Daphney : 1955 PHYSICIAN: JENY MART ADMIT DATE: 12/17/21/[facility] Draft Date of Exam:12/17/21 CT HEAD WO INDICATION: Head pain. TECHNIQUE: Routine non contrast-enhanced axial images were obtained from the skull base to the vertex. Auto Exposure Controls were utilized during the CT exam to meet ALARA standards for radiation dose reduction. COMPARISON: 06/29/2021. FINDINGS: The ventricles and cortical sulci are normal in size and contour. There is no midline shift or mass-effect. No acute intra-axial hemorrhage is seen. There is no abnormal area of increased or decreased density to suggest acute hemorrhage or edema. No extra-axial mass or collection is present. The bony calvarium is intact. The visualized paranasal sinuses are unremarkable. The mastoid air cells are clear. IMPRESSION: No acute intracranial abnormality. No CT evidence of mass, acute infarct or intracranial hemorrhage. Dictated on workstation # [id number] Dict: 12/17/211801 Trans: 12/17/212153 PJE [id number] Interpreted by: CHENG PEARCE MD Electronically signed by: [facility] [place] NAME: ELIANE MISTRY [facility] REC#: [id number] PT STATUS: REG ER : 1955 PHYSICIAN: JENY MART ADMIT DATE: 12/17/21/ER Signed Date of Exam:12/17/21 CT ANGIO CHEST/ABD W PROCEDURE: CT angiography of the abdomen and chest with and without contrast. TECHNIQUE: After intravenous administration of contrast, thin section axial CT angiography of the abdomen and chest were obtained. 3D MIP reformats were provided. Auto Exposure Controls were utilized during the CT exam to meet ALARA standards for radiation dose reduction. INDICATION: Pain, dissection. COMPARISON: 02/28/2021 and 04/26/2017. FINDINGS: No significant adenopathy within chest. No intramural hematoma, aneurysm or dissection involving the thoracic aorta. The heart is within normal limits in size. No pericardial effusion. Trace right pleural fluid versus pleural thickening. No significant left pleural effusion. The trachea is patent. No pneumothorax. Small sub 4 mm bilateral pulmonary nodules are present, including within the right upper lobe on series 4, image 38. No saddle pulmonary embolus. No acute osseous abnormality within the chest. Tiny hiatal hernia. The liver and spleen are unremarkable. The adrenal glands are unremarkable. The pancreas is unremarkable. The gallbladder is unremarkable. Scarring within the right kidney. Nonobstructing calculus within the superior pole of the right kidney. Tiny hyperdensity within the superior pole of the right kidney is again noted and not significantly changed. Tiny hypodensity within the inferior pole of the left kidney is present which is too small to completely characterize. The left kidney is otherwise unremarkable. Moderate vascular calcifications within the abdominal aorta and its branch vessels without intramural hematoma, aneurysm or dissection of the abdominal aorta. Mild stenosis involving the proximal right renal artery. The left renal artery is unremarkable. The celiac artery and superior mesenteric artery are unremarkable. The inferior mesenteric artery is patent. No evidence of bowel obstruction within the [id number]-tp-[id number]. Evidence of a prior anterior abdominal wall hernia repair with mesh in place. Mural thickening is noted within a few loops of small bowel within the left abdomen. No bowel obstruction or pneumatosis. No significant adenopathy, free air or free fluid. No acute osseous abnormality. IMPRESSION: 1. No intramural hematoma, aneurysm or dissection involving the aorta. 2. Tiny nonobstructing right renal calculus. 3. Small bilateral sub 4 mm pulmonary nodules. These have not significantly changed since 2017 and are felt to be benign. 4. Tiny hiatal hernia. 5. Mural thickening within loops of small bowel related to poor distention versus enteritis. No bowel obstruction. Dictated by: Dictated on workstation # [id number] Dict: 12/17/211913 Trans: 12/17/211948 [id number] Interpreted by: GARRY GALLARDO MD Electronically signed by: GARRY GALLARDO MD 12/17/211948 Assessment/Plan Admission Diagnosis HTN urgency Admission Status: Observation Assessment and Plan HTN urgency BP improved this morning Cardiology consulted, appreciate recs telemetry Troponin negative x3 Resume home atenolol Echo ordered pAF In sinus Continue home meds when med rec done Follows with Dr Krause DVT ppx: Continue home anticooagulation Diagnosis/Problems Diagnosis/Problems (1) Atrial fibrillation (2) Obesity (3) Hypertensive urgency Status: Acute (4) Essential (primary) hypertension ELMO TOUSSAINT MD Dec 18, 2021 09:03
[2021-12-18] MEDS: ATENOLOL 25 MG (TENORMIN) TAB PO SCH (09:26)
[2021-12-18] MEDS: ONDANSETRON 4 MG/2 ML (SDV) Z0FRAN IVP PRN ×3 (09:26→18:50)
[2021-12-18] MEDS ORDERED: ISOSORBIDE MONONITRATE 30 MG (IMDUR) TAB PO ONE (09:30)
[2021-12-18] MEDS: ASPIRIN E.C. 81 MG (ECOTRIN) TAB PO SCH (10:08)
[2021-12-18] MEDS: ENALAPRIL 10 MG (VASOTEC) TAB PO SCH ×2 (10:08→20:35)
[2021-12-18] MEDS ORDERED: NITROGLYCERIN 0.4 MG SL TABS BTL 25'S SL ONE (10:15)
[2021-12-18] MEDS ORDERED: hydrOXYzine (ATARAX) 10 MG TAB PO PRN (10:45)
[2021-12-18] MEDS: ACETAMINOPHEN 500 MG TAB (TYLENOL) PO PRN (10:55)
[2021-12-18 12:08] VITALS: BP 117/65
[2021-12-18] MEDS ORDERED: CLOR7.5T3 PO (13:14)
[2021-12-18] MEDS ORDERED: CLN.1T PO (13:14)
[2021-12-18] MEDS ORDERED: MAG-141 PO (13:16)
[2021-12-18 16:16] VITALS: BP 143/72
[2021-12-18 20:00] VITALS: BP 130/67
[2021-12-18] MEDS: doxAzosin 4 MG (CARDURA) TAB PO SCH (20:35)
[2021-12-19] VITALS: BP 120/62
[2021-12-19 04:00] VITALS: BP 154/68
[2021-12-19] MEDS: CATHETER FLUSH 10 ML SYR IVP SCH (06:15)
[2021-12-19 08:00] VITALS: BP 141/68
[2021-12-19] MEDS: ENALAPRIL 10 MG (VASOTEC) TAB PO SCH (08:06)
[2021-12-19] MEDS: ASPIRIN E.C. 81 MG (ECOTRIN) TAB PO SCH (08:06)
[2021-12-19] MEDS: ACETAMINOPHEN 500 MG TAB (TYLENOL) PO PRN (08:07)
[2021-12-19] MEDS: ATENOLOL 25 MG (TENORMIN) TAB PO SCH ×2 (08:08→08:20)
[2021-12-19] MEDS: ONDANSETRON 4 MG/2 ML (SDV) Z0FRAN IVP PRN (08:29)
[2021-12-19] MEDS ORDERED: PANTOPRAZOLE 40 MG (PROTONIX) TAB PO SCH (09:00)
[2021-12-19] MEDS ORDERED: ISOSORBIDE MONONITRATE 30 MG (IMDUR) TAB PO SCH (09:00)
[2021-12-19] MEDS ORDERED: IBUPROFEN 600 MG (MOTRIN) TAB PO PRN (09:30)
--- NOTE | 2021-12-19 11:02 | Cardiology Progress Note ---
Subjective Date Seen by Provider: Dec 19, 2021 Time Seen by Provider: 11:00 Subjective/Events-last exam Patient is laying down in bed, complaining of headache. Reporting improvement in the chest pain, blood pressure is better controlled. Review of Systems General: No Chills, No Night Sweats, No Fatigue, No Malaise, No Appetite, No Other HEENT: No Head Aches, No Visual Changes, No Eye Pain, No Ear Pain, No Dysphasia, No Sinus Congestion, No Post Nasal Drip, No Sore Throat, No Other Pulmonary: No Dyspnea, No Cough, No Pleuritic Chest Pain, No Other Cardiovascular: Chest Pain; No: Palpitations, Orthopnea, Paroxysmal Noc. Dyspnea, Edema, Lt Headedness, Other Objective-Cardiology Exam Last Set of Vital Signs Vital Signs 12/19/21 12/19/21 12/19/21 04:00 08:00 08:11 Temp 36.1 Pulse 58 Resp 16 B/P (MAP) 141/68 (92) Pulse Ox 96 O2 Delivery Room Air O2 Flow Rate 1.00 I&O Intake and Output 12/18/21 23:59 Intake Total 1800 ml Balance 1800 ml Intake Oral 1800 ml # Voids 11 # Bowel Movements 1 General: Alert, Oriented X3, Cooperative HEENT: Atraumatic, PERRLA Neck: Supple, No JVD, No Thyromegaly Lungs: Clear to Auscultation, Normal Air Movement Heart: Regular Rate, Normal S1, Normal S2, No Murmurs Abdomen: Normal Bowel Sounds, Soft, No Tenderness, No Hepatosplenomegaly, No Masses Extremities: No Clubbing, No Cyanosis, No Edema, Normal Pulses, No Tenderness/Swelling Skin: No Rashes, No Breakdown, No Significant Lesion Neuro: Normal Gait, Normal Speech, Strength at 5/5 X4 Ext, Normal Tone, Sensa tion Intact Psych/Mental Status: Mental Status NL, Mood NL A/P-Cardiology Admission Diagnosis Hypertensive urgency Coronary artery disease Paroxysmal atrial fibrillation Anxiety Assessment/Plan Hypertensive urgency labile hypertension, difficult to control. Intolerant to calcium channel blockers, intolerant to Coreg. Maintained on atenolol 25 mg daily, enalapril 20 mg daily, doxazosin, using clonidine as needed. Having mild headache with isosorbide but overall blood pressure is better Recurrent chest pain, questionable Prinzmetal angina. Responded well to Imdur but having some headache. I asked her to continue taking Imdur and monitor her symptoms. Generalized weakness and lightheadedness, improved after achieving adequate blood pressure control Coronary artery disease, cardiac catheterization carried out in 2020 showing mild to moderate nonobstructive disease. Continue to monitor Paroxysmal atrial fibrillation/flutter, has been having recurrent palpitation. Currently converted to sinus rhythm, Patient is reporting feeling tired and loss of energy after using amiodarone. Using Multaq at this point. Continue to monitor [id number] score of 3, yearly risk of stroke without oral anticoagulation is 3.2%. Maintained on Xarelto. Continue to monitor Anxiety, palpitation, managed by primary care team History of partial right nephrectomy secondary to renal cyst. History of hysterectomy in the remote past Strong family history of heart disease TI CRAIG MD Dec 19, 2021 11:02
[2021-12-19] MEDS ORDERED: DRONEDARONE 400 MG TABLET PO SCH (11:15)
[2021-12-19] MEDS ORDERED: ISOS30TA82 PO (11:58)
[2021-12-19 12:00] VITALS: BP 140/69
--- NOTE | 2021-12-19 12:00 | Discharge Inst-Simple/Standard ---
Discharge Inst-Standard Discharge Medications New, Converted or Re-Newed RX: Transmitted to Pharmacy Patient Instructions/Follow Up Plan of Care/Instructions/FU: Please continue take your medications as written. Please follow-up with your primary care provider, Brian Prado, with Dr. SCHWARZ, and with Dr. Benjamin to follow-up this hospital stay. Activity as Tolerated: Yes Discharge Diet: No Restrictions Return to The Hospital For: Chest pain, worsening headache, shortness of breath, fever, weakness, if you feel you are getting worse. ELMO TOUSSAINT MD Dec 19, 2021 12:00
--- NOTE | 2021-12-19 12:02 | Discharge Summary ---
Diagnosis/Chief Complaint Date of Admission Dec 17, 2021 at 20:05 Date of Discharge Discharge Date: Dec 19, 2021 Admission Diagnosis HTN urgency Primary Care Thad Prado Discharge Diagnosis (1) Atrial fibrillation (2) Obesity (3) Hypertensive urgency Status: Acute (4) Essential (primary) hypertension Discharge Summary Discharge Physical Exam Allergies: Coded Allergies: clonidine (Verified Allergy, Severe, Angioedema, 02/07/21) diltiazem (Verified Allergy, Intermediate, 02/07/21) Leg rash Calcium Channel Blocking Agent Dilt (Unverified Allergy, Unknown, Hives, 07/03/21) amlodipine (Verified Allergy, Unknown, 02/07/21) Redness on legs albuterol (Verified Adverse Reaction, Intermediate, 02/07/21) elevated hr, palpitations codeine (Unverified Adverse Reaction, Unknown, N/V, 02/07/21) Uncoded Allergies: STEROIDS (Adverse Reaction, Unknown, INCREASE BP AND PULSE, 02/07/21) Vitals & I&Os Vital Signs Date Time Temp Pulse Resp B/P (MAP) Pulse Ox O2 Delivery O2 Flow Rate FiO2 12/19/21 08:11 58 12/19/21 08:00 36.1 16 141/68 (92) 96 Room Air 12/19/21 04:00 1.00 Hospital Course Labs (last 24 hrs) Patient resulted labs reviewed. Imaging: Reviewed Imaging Report Discharge Home Medications: Active Scripts Active Isosorbide Mononitrate ER (Isosorbide Mononitrate) 30 Mg Tab.er.24h 30 Mg PO DAILY Reported Mylanta Maximum Strength Liq (Mag Hydrox/Aluminum Hyd/Simeth) 400 Mg-400 Mg-40 Mg/5 Ml Oral.susp 5 Ml PO DAILY PRN Clorazepate Dipotassium 7.5 Mg Tablet 7.5 Mg PO BID PRN Clonidine HCl 0.1 Mg Tablet 0.1 Mg PO DAILY Vitamin D3 (Cholecalciferol (Vitamin D3)) 50 Mcg Tablet 50 Mcg PO HS Enalapril Maleate 20 Mg Tablet 20 Mg PO BID Amiodarone HCl 200 Mg Tablet 100 Mg PO 1800 TAKES 1/2 OF (200MG) TAB Doxazosin Mesylate 4 Mg Tablet 4 Mg PO BID Preservision Areds 2 Chew Tab (Vit C/E/Zn/Coppr/Lutein/Zeaxan) 250MG-90MG Tab.chew 1 Each PO DAILY Xarelto (Rivaroxaban) 10 Mg Tablet 10 Mg PO 1800 Atenolol 25 Mg Tablet 12.5 Mg PO BID TAKES 1/2 OF (25MG) TAB Multivitamin 1 Each Tablet 1 Each PO DAILY Wyyfxld-Fbcfynzpn-Bsjt Tablet (Calcium/Magnesium/Zinc) 1 Each Tablet 1 Each PO DAILY Magnesium (Magnesium Oxide) 400 Mg Tablet 400 Mg PO HS Protonix (Pantoprazole Sodium) 20 Mg Tablet.dr 40 Mg PO 1900 TAKES 2 (20MG) TAB Ambien (Zolpidem Tartrate) 10 Mg Tablet 10 Mg PO HS PRN Aspirin 81 Mg Tab.chew 81 Mg PO DAILY Instructions to patient/family Please see electronic discharge instructions given to patient. ELMO TOUSSAINT MD Dec 19, 2021 12:02
[2021-12-19] MEDS ORDERED: ATENOLOL 25 MG (TENORMIN) TAB PO SCH (21:00)
[2021-12-20] MEDS ORDERED: ASPIRIN 81 MG CHEW (CHILDREN'S ASA) PO SCH (09:00)
== END 2021-12-19 12:00 | disposition home or self-care (01) ==
LOC: EDUNIT# 17:22 → ER 17:24 → UNDOADMOB 20:05 → CSD 20:05 → UNDODISOB 12-19 14:10
PROVIDERS: ADMIT Internal Medicine; ATTEND Internal Medicine
DX: I48.91 Unspecified atrial fibrillation (principal); E66.9 Obesity, unspecified; I16.0 Hypertensive urgency; I10 Essential (primary) hypertension; Z87.891 Personal history of nicotine dependence
CPT/HCPCS: 70450; 71045; 71275; 74175; 80048; 80053; 80061; 81000; 83690; 83735; 83874; 83880; 84484 ×2; 85025 ×2; 85610; 85730; 87636; 93005; 93041; 93306; 96374; 96375; 96376 ×3; 99284; G0378; 36415

== ENCOUNTER → 2022-02-27 | Outpatient (CLI) | payer MEDICARE, OTHER ==
[~2022-02-27] MED LIST changes: +CLN.1T PO; +CLOR7.5T3 PO; +ISOS30TA82 PO; +MAG-141 PO
--- NOTE | 2022-02-27 14:53 | Diagnostic Imaging Report ---
INDICATION: Renal cell carcinoma COMPARISON: 12/17/2021 FINDINGS: The cardiac silhouette is within normal limits in size. No significant pulmonary vascular congestion. The lungs are clear of focal pulmonary opacity. No pleural effusion. No pneumothorax. No acute osseous abnormality. IMPRESSION: Unremarkable examination without acute cardiopulmonary abnormality. Dictated by: Dictated on workstation # [id number]
== END ==
LOC: RAD 11:27
PROVIDERS: ATTEND Urology
DX: C64.9 Malignant neoplasm of unspecified kidney, except renal pelvis (principal)
CPT/HCPCS: 71046

== ENCOUNTER → 2022-03-06 | Outpatient (CLI) | payer MEDICARE, OTHER ==
--- NOTE | 2022-03-06 16:13 | Diagnostic Imaging Report ---
PROCEDURE: US Renal Bilateral. TECHNIQUE: Multiple real-time grayscale images were obtained over the kidneys in various projections bilaterally. INDICATION: History of right renal cell carcinoma. COMPARISON: CT from 12/17/2021. FINDINGS: Right kidney: Length (cm): 6.6 Hydronephrosis: None. Cortex: Cortical scarring superiorly, otherwise normal thickness and echogenicity Other: No shadowing stones or solid masses. Left kidney: Length (cm): 11 Hydronephrosis: None. Cortex: Normal thickness and echogenicity. There is mild prominence at the mid portion with echogenicity isoechoic to the cortex, most consistent with a dromedary hump. Other: No shadowing stones or solid masses. Bladder: Not seen, unable to evaluate. IMPRESSION: 1. Partial right nephrectomy. No hydronephrosis or acute abnormality bilaterally. 2. Mild cortical thickening of the left mid kidney, consistent with a dromedary hump. Dictated by: Dictated on workstation # [id number]
== END ==
LOC: RAD 10:30
PROVIDERS: ATTEND Urology
DX: N28.81 Hypertrophy of kidney (principal); Z85.528 Personal history of other malignant neoplasm of kidney; Z90.5 Acquired absence of kidney
CPT/HCPCS: 76770

== ENCOUNTER 2022-04-04 11:02 | Emergency (ER) | payer MEDICARE, OTHER ==
[~2022-04-04] VITALS: Ht 160 cm; Wt 83.0 kg
--- NOTE | 2022-04-04 12:20 | Diagnostic Imaging Report ---
HISTORY: Shortness of breath COMPARISON: 12/17/2021, 02/27/2022 TECHNIQUE: Frontal view the chest FINDINGS: The lung volumes are normal. No consolidation is seen. There is no pleural effusion or pneumothorax. Haziness in the lung bases is due to overlying soft tissue. The cardiac silhouette is normal in size. IMPRESSION: 1. No acute pulmonary abnormality. Dictated by: Dictated on workstation # [id number]
--- NOTE | 2022-04-04 12:31 | ED General ---
General Chief Complaint: COVID19 Suspect/Confirmed Stated Complaint: COUGH/FEVER/BODYACHES/CONGESTION/SOA Nursing Triage Note: PT AMBULATE TO TRIAGE WITH C/O COUGH, SOB, BODY ACHES SINCE WEDNESDAY. PT REPORTS TAKE COLD MEDS AND GOT AN ABX SHOT AT [facility] ON WEDNESDAY. Source of Information: Patient Exam Limitations: No Limitations (JANENE WOLF APRN) History of Present Illness Date Seen by Provider: Apr 04, 2022 Time Seen by Provider: 11:50 Initial Comments Patient is a 66-year-old female who presents to the emergency department for evaluation of approximately 4 to 5 days of cough, shortness of breath, and body aches. Patient was seen in the clinic on Wednesday where she reportedly got some type of antibiotic shot but she is unable to tell me the name of the medicine. She states this did not improve her symptoms. Denies any chest pain but feels like she may have "bronchial pneumonia". She has been taking Coricidin for her symptoms. (JANENE WOLF APRN) Allergies and Home Medications Allergies Coded Allergies: clonidine (Verified Allergy, Severe, Angioedema, 02/07/21) diltiazem (Verified Allergy, Intermediate, 02/07/21) Leg rash Calcium Channel Blocking Agent Dilt (Unverified Allergy, Unknown, Hives, 07/03/21) amlodipine (Verified Allergy, Unknown, 02/07/21) Redness on legs albuterol (Verified Adverse Reaction, Intermediate, 02/07/21) elevated hr, palpitations codeine (Unverified Adverse Reaction, Unknown, N/V, 02/07/21) Uncoded Allergies: STEROIDS (Adverse Reaction, Unknown, INCREASE BP AND PULSE, 02/07/21) Patient Home Medication List Home Medication List Reviewed: Yes (JANENE WOLF APRN) Amiodarone HCl (Amiodarone HCl) 200 Mg Tablet, 100 MG PO 1800, (Reported) Entered as Reported by: DESIRAE YANG on 07/03/21 0908 Aspirin (Aspirin) 81 Mg Tab.chew, 81 MG PO DAILY, (Reported) Entered as Reported by: DOUG SANTILLAN on 05/15/20 1331 Atenolol (Atenolol) 25 Mg Tablet, 12.5 MG PO BID, (Reported) Entered as Reported by: DESIRAE YANG on 07/03/21 0904 Calcium/Magnesium/Zinc (Luvqbiy-Zycfzdspr-Hivw Tablet) 1 Each Tablet, 1 EACH PO DAILY, (Reported) Entered as Reported by: ABHAY HUNTER on 02/07/21 153 Cholecalciferol (Vitamin D3) (Vitamin D3) 50 Mcg Tablet, 50 MCG PO HS, (Reported) Entered as Reported by: DESIRAE YANG on 07/03/21 0908 Clonidine HCl (Clonidine HCl) 0.1 Mg Tablet, 0.1 MG PO DAILY, (Reported) Entered as Reported by: SHAINA ANTHONY on 12/18/21 1314 Clorazepate Dipotassium (Clorazepate Dipotassium) 7.5 Mg Tablet, 7.5 MG PO BID PRN for ANXIETY, (Reported) Entered as Reported by: SHAINA ANTHONY on 12/18/21 1314 Doxazosin Mesylate (Doxazosin Mesylate) 4 Mg Tablet, 4 MG PO BID, (Reported) Entered as Reported by: DESIRAE YANG on 07/03/21 0908 Enalapril Maleate (Enalapril Maleate) 20 Mg Tablet, 20 MG PO BID, (Reported) Entered as Reported by: DESIRAE YANG on 07/03/21 0908 Isosorbide Mononitrate (Isosorbide Mononitrate ER) 30 Mg Tab.er.24h, 30 MG PO DAILY Prescribed by: ELMO TOUSSAINT on 12/19/21 1158 Mag Hydrox/Aluminum Hyd/Simeth (Mylanta Maximum Strength Liq) 400 Mg-400 Mg-40 Mg/5 Ml Oral.susp, 5 ML PO DAILY PRN for GI UPSET, (Reported) Entered as Reported by: SHAINA ANTHONY on 12/18/21 1316 Magnesium Oxide (Magnesium) 400 Mg Tablet, 400 MG PO HS, (Reported) Entered as Reported by: ABHAY HUNTRE on 02/07/21 1533 Multivitamin (Multivitamin) 1 Each Tablet, 1 EACH PO DAILY, (Reported) Entered as Reported by: ABHAY HUNTER on 02/07/21 1533 Pantoprazole Sodium (Protonix) 20 Mg Tablet.dr, 40 MG PO 1900, (Reported) Entered as Reported by: AMBER VAZQUEZ on 01/04/21 0811 Rivaroxaban (Xarelto) 10 Mg Tablet, 10 MG PO 1800, (Reported) Entered as Reported by: DESIRAE YANG on 07/03/21 0904 Vit C/E/Zn/Coppr/Lutein/Zeaxan (Preservision Areds 2 Chew Tab) 250MG-90MG Tab.chew, 1 EACH PO DAILY, (Reported) Entered as Reported by: DESIRAE YANG on 07/03/21 0908 Zolpidem Tartrate (Ambien) 10 Mg Tablet, 10 MG PO HS PRN for SLEEP, (Reported) Entered as Reported by: DOUG SANTILLAN on 05/15/20 1331 Review of Systems Review of Systems Constitutional: see HPI, chills, fever, malaise EENTM: no symptoms reported Respiratory: see HPI, cough, short of breath Cardiovascular: no symptoms reported Gastrointestinal: no symptoms reported Musculoskeletal: see HPI, muscle pain (body aches) Skin: no symptoms reported Psychiatric/Neurological: See HPI, Headache (JANENE WOLF APRN) Past Qtyrznu-Ttwfby-Dmwmie Hx Patient Social History Tobacco Use?: No Smoking Status: Former Smoker Smokeless Tobacco Frequency: Never a User Use of E-Cig and/or Vaping dev: No Substance use?: No Alcohol Use?: No Pt feels they are or have been: No (JANENE WOLF APRN) Immunizations Up To Date First/Initial COVID19 Vaccinat: JUN 2020 Second COVID19 Vaccination Brent: JUL 2020 Third COVID19 Vaccination Date: APR 2021 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 (JANENE WOLF APRN) Seasonal Allergies Seasonal Allergies: Yes (JANENE WOLF APRN) Past Medical History Surgery/Hospitalization HX: AFIB, HTN, [place], TBI, ANXIETY, APPY, HYSTERECTOMY, PARTIAL NEPHRECTOMY R KIDNEY, ORTHOPEDIC, TONSILECTOMY Surgeries: Yes Abdominal, Appendectomy, Hysterectomy, Nephrectomy, Oophorectomy, Orthopedic, Tonsillectomy Respiratory: No Currently Using CPAP: No Currently Using BIPAP: No Cardiac: Yes ("A-FIB STARTED AFTER COVID SHOT") Angina, Atrial Fibrillation, Hypertension Neurological: No Spinal Cord Injury, Traumatic Brain Injury 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 Disorders: No 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 Sexually Transmitted Disease: No Genitourinary: Yes (Rt Eitan-nephrectomy 2014 in [place]) Polycystic Kidney Disease Gastrointestinal: Yes Gastroesophageal Reflux, Obstructive Bowel Musculoskeletal: Yes (ACL repair (LT), carpal tunnel surg, torn bicep (LT)) Endocrine: No HEENT: Yes Tinnitis Cancer: Yes Kidney Did You Recieve Any Treatments: Yes What Type of Treatment Did You: Surgical Intervention Psychosocial: Yes Anxiety Integumentary: No Blood Disorders: No Adverse Reaction/Blood Tranf: No (JANENE WOLF APRN) Family Medical History Heart Disease, Stroke, Vascular Disease, Other Conditions/Hx (JANENE WOLF APRN) Physical Exam Vital Signs Vital Signs - First Documented 04/04/22 04/04/22 11:21 13:12 Temp 37.7 Pulse 71 Resp 16 B/P (MAP) 155/76 (102) Pulse Ox 98 O2 Delivery Room Air (KYE RIZZO MD) Vital Signs Capillary Refill : Less Than 3 Seconds (JANENE WOLF APRN) Height, Weight, BMI Height: '" Weight: lbs. oz. kg; 32.00 BMI Method: General Appearance: No Apparent Distress, WD/WN HEENT: PERRL/EOMI, TMs Normal, Normal ENT Inspection, Pharynx Normal Neck: Normal Inspection, Non Tender, Supple Respiratory: Chest Non Tender, Lungs Clear, Normal Breath Sounds, No Accessory Muscle Use, No Respiratory Distress Cardiovascular: Regular Rate, Rhythm Gastrointestinal: Non Tender, Soft Neurologic/Psychiatric: Alert, Oriented x3, No Motor/Sensory Deficits, Normal M ood/Affect Skin: Normal Color, Warm/Dry (JANENE WOLF APRN) Progress/Results/Core Measures Suspected Sepsis SIRS Temperature: Pulse: 71 Respiratory Rate: 16 Blood Pressure 155 /76 Mean: 102 (JANENE WOLF APRN) Results/Orders Lab Results Laboratory Tests Test 04/04/22 11:36 Range/Units Influenza Type A (RT-PCR) Detected H Not Detecte Influenza Type B (RT-PCR) Not Detected Not Detecte SARS-CoV-2 RNA (RT-PCR) Detected H Not Detecte (KYE RIZZO MD) My Orders Orders - KYE RIZZO MD Covid 19 Inhouse Test (04/04/22 11:32) Influenza A And B By Pcr (04/04/22 11:32) Isolation Central Supply Req (04/04/22 11:32) (KYE RIZZO MD) Vital Signs/I&O 04/04/22 04/04/22 04/04/22 11:21 11:25 13:12 Temp 37.7 37.2 Pulse 71 74 Resp 16 18 B/P (MAP) 155/76 (102) 148/86 Pulse Ox 98 O2 Delivery Room Air Room Air Room Air (KYE RIZZO MD) Vital Signs/I&O Capillary Refill : Less Than 3 Seconds (JANENE WOLF APRN) Blood Pressure Mean: 102 Progress Note : Progress Note Patient is nontoxic and well-hydrated on exam. No adventitious lung sounds or increased work of breathing noted. Vital signs are reassuring. No nuchal rigidity noted. Patient ambulatory to the room without issue. Patient is not hypoxic. Chest x-ray acutely negative. Patient had a positive flu a and COVID test. Patient states she had COVID in February. I am not confident the COVID test is truly positive given her relatively recent infection. Patient symptoms are consistent with flu A. Either way supportive care is indicated and was discussed with the patient. Anticipatory guidance discussed. Follow-up with PCP. Return precautions for urgent symptomology discussed. Patient verbalized understanding. (JANENE WOLF APRN) Departure Impression Primary Impression: Influenza A Disposition: HOME, SELF-CARE Condition: Stable Departure-Patient Inst. Decision time for Depature: 12:30 (JANENE WOLF APRN) Referrals: MURRAY LOZADA (PCP/Family) Primary Care Physician Patient Instructions: Flu, Adult ED ATTENDING PHYSICIAN NOTE: I was physically present as attending physician in the emergency department during the care of this patient, but I was not directly involved in the decision making or delivery of care for this patient. (KYE RIZZO MD) JANENE WOLF APRN Apr 04, 2022 12:31 KYE RIZZO MD Apr 04, 2022 20:35
[2022-04-04 13:12] VITALS: BP 148/86
== END 2022-04-04 13:12 | disposition home or self-care (01) ==
LOC: EDUNIT# 11:02 → ER 11:05
DX: U07.1 COVID-19 (principal); J10.1 Influenza due to other identified influenza virus with other respiratory manifestations; Z87.891 Personal history of nicotine dependence
CPT/HCPCS: 71045; 87636

== ENCOUNTER → 2022-04-22 | Outpatient (CLI) | payer MEDICARE, OTHER ==
--- NOTE | 2022-04-22 12:14 | Diagnostic Imaging Report ---
Indication: Routine screening. Comparison is made with prior mammogram 04/17/2021 and 04/09/2020. 2-D and 3-D bilateral screening mammography was performed with CAD. CAD is utilized. The current study was also evaluated with a Computer Aided Detection (CAD) system. Scattered fibroglandular densities are identified bilaterally. The parenchymal pattern is stable. No mass or malignant-appearing microcalcifications are seen. Axillae are unremarkable. IMPRESSION: BI-RADS Category 1 No mammographic features suspicious for malignancy are identified. ACR BI-RADS Category 1: Negative. Result letter will be mailed to the patient. Note: At least 10% of breast cancer is not imaged by mammography. Dictated by: Dictated on workstation # [id number]
== END ==
LOC: RAD 10:15
PROVIDERS: ATTEND Physician Assistant
DX: Z12.31 Encounter for screening mammogram for malignant neoplasm of breast (principal)
CPT/HCPCS: 77063; 77067

== ENCOUNTER 2022-04-27 13:26 | Outpatient (RCR) | payer MEDICARE, OTHER ==
[2022-04-22 10:37] LABS: BASOPHILS % (AUTO) 1 % (0-10); EOSINOPHILS # (AUTO) 0.1 10^3/uL (0.0-0.3); EOSINOPHILS % (AUTO) 2 % (0-10); HEMATOCRIT 33 % (35-52); HEMOGLOBIN 9.9 g/dL (11.5-16.0); LYMPHOCYTES # (AUTO) 1.8 10^3/uL (1.0-4.0); LYMPHOCYTES % (AUTO) 34 % (12-44); MEAN CORPUSCULAR HEMOGLOBIN 24 pg (25-34); MEAN CORPUSCULAR HGB CONC 30 g/dL (32-36); MEAN CORPUSCULAR VOLUME 80 fL (80-99); MEAN PLATELET VOLUME 10.5 fL (9.0-12.2); MONOCYTES # (AUTO) 0.4 10^3/uL (0.0-1.0); MONOCYTES % (AUTO) 8 % (0-12); NEUTROPHILS # (AUTO) 3.1 10^3/uL (1.8-7.8); NEUTROPHILS % (AUTO) 56 % (42-75); PLATELET COUNT 278 10^3/uL (130-400); WHITE BLOOD COUNT 5.5 10^3/uL (4.3-11.0)
[2022-04-22 11:05] LABS: ALBUMIN 3.7 GM/DL (3.2-4.5); BILIRUBIN,TOTAL 0.4 MG/DL (0.1-1.0); CALCIUM 8.6 MG/DL (8.5-10.1); CREATININE SERUM 1.07 MG/DL (0.60-1.30); TOTAL PROTEIN 6.4 GM/DL (6.4-8.2)
[2022-04-27 13:51] LABS: BASOPHILS % (AUTO) 1 % (0-10); EOSINOPHILS # (AUTO) 0.2 10^3/uL (0.0-0.3); EOSINOPHILS % (AUTO) 3 % (0-10); HEMATOCRIT 35 % (35-52); HEMOGLOBIN 10.8 g/dL (11.5-16.0); LYMPHOCYTES # (AUTO) 2.2 10^3/uL (1.0-4.0); LYMPHOCYTES % (AUTO) 39 % (12-44); MEAN CORPUSCULAR HEMOGLOBIN 25 pg (25-34); MEAN CORPUSCULAR HGB CONC 31 g/dL (32-36); MEAN CORPUSCULAR VOLUME 81 fL (80-99); MEAN PLATELET VOLUME 10.7 fL (9.0-12.2); MONOCYTES # (AUTO) 0.6 10^3/uL (0.0-1.0); MONOCYTES % (AUTO) 10 % (0-12); NEUTROPHILS # (AUTO) 2.7 10^3/uL (1.8-7.8); NEUTROPHILS % (AUTO) 48 % (42-75); PLATELET COUNT 253 10^3/uL (130-400); WHITE BLOOD COUNT 5.6 10^3/uL (4.3-11.0)
[2022-04-27 14:17] LABS: ALBUMIN 3.9 GM/DL (3.2-4.5); BILIRUBIN,TOTAL 0.3 MG/DL (0.1-1.0); CALCIUM 9.2 MG/DL (8.5-10.1); CREATININE SERUM 1.24 MG/DL (0.60-1.30); POTASSIUM 4.6 MMOL/L (3.6-5.0); TOTAL PROTEIN 6.7 GM/DL (6.4-8.2)
== END 2022-05-09 | disposition home or self-care (01) ==
LOC: ONC 13:26
PROVIDERS: ATTEND Internal Medicine Hematology & Oncology
DX: C65.1 Malignant neoplasm of right renal pelvis (principal); D50.0 Iron deficiency anemia secondary to blood loss (chronic); I10 Essential (primary) hypertension; F41.9 Anxiety disorder, unspecified; Z87.19 Personal history of other diseases of the digestive system; Z86.59 Personal history of other mental and behavioral disorders; Z87.891 Personal history of nicotine dependence
CPT/HCPCS: 80053; 85025; G0463; 36415; 82728; 83540; 83550; 99213

== ENCOUNTER 2022-05-22 10:21 | Outpatient (RCR) | payer MEDICARE, OTHER ==
[2022-05-22 10:46] LABS: BASOPHILS # (AUTO) 0.1 10^3/uL (0.0-0.1); BASOPHILS % (AUTO) 1 % (0-10); EOSINOPHILS # (AUTO) 0.1 10^3/uL (0.0-0.3); EOSINOPHILS % (AUTO) 2 % (0-10); HEMATOCRIT 40 % (35-52); HEMOGLOBIN 12.3 g/dL (11.5-16.0); LYMPHOCYTES # (AUTO) 1.7 10^3/uL (1.0-4.0); LYMPHOCYTES % (AUTO) 29 % (12-44); MEAN CORPUSCULAR HEMOGLOBIN 26 pg (25-34); MEAN CORPUSCULAR HGB CONC 31 g/dL (32-36); MEAN CORPUSCULAR VOLUME 85 fL (80-99); MEAN PLATELET VOLUME 10.6 fL (9.0-12.2); MONOCYTES # (AUTO) 0.4 10^3/uL (0.0-1.0); MONOCYTES % (AUTO) 6 % (0-12); NEUTROPHILS # (AUTO) 3.6 10^3/uL (1.8-7.8); NEUTROPHILS % (AUTO) 62 % (42-75); PLATELET COUNT 226 10^3/uL (130-400); WHITE BLOOD COUNT 5.7 10^3/uL (4.3-11.0)
[2022-05-22 10:59] LABS: BILIRUBIN,TOTAL 0.4 MG/DL (0.1-1.0); CALCIUM 9.2 MG/DL (8.5-10.1); CREATININE SERUM 1.3 MG/DL (0.60-1.30); POTASSIUM 3.9 MMOL/L (3.6-5.0); TOTAL PROTEIN 6.5 GM/DL (6.4-8.2)
== END 2022-06-09 | disposition home or self-care (01) ==
LOC: ONC 10:21
PROVIDERS: ATTEND Internal Medicine Hematology & Oncology
DX: C65.1 Malignant neoplasm of right renal pelvis (principal); D50.0 Iron deficiency anemia secondary to blood loss (chronic); I10 Essential (primary) hypertension; F41.9 Anxiety disorder, unspecified; Z87.19 Personal history of other diseases of the digestive system; Z86.59 Personal history of other mental and behavioral disorders; Z87.891 Personal history of nicotine dependence
CPT/HCPCS: 80053; 82728; 83540; 83550; 85025; G0463; 36415; 99213

== ENCOUNTER 2022-06-06 23:41 | Emergency (ER) | payer MEDICARE, OTHER ==
[~2022-06-06] VITALS: Ht 160 cm; Wt 83.0 kg
--- NOTE | 2022-06-07 00:17 | ED Cardiac General ---
History of Present Illness General Chief Complaint: Cardiac/General Problems Stated Complaint: IRR HEART RATE Nursing Triage Note: c/o irregular hr, increased soa x2-3 days Source: patient Exam Limitations: no limitations History of Present Illness Date Seen by Provider: Jun 07, 2022 Time Seen by Provider: 00:02 Initial Comments Patient is a 66-year-old female with a history of hypertension and A. fib chronically anticoagulated on Xarelto who presents to the emergency room with a chief complaint of feeling short of breath over the last couple of days. She developed some midsternal chest discomfort about 3 hours prior to arrival. The pain does not radiate. She is not nauseous. She is very concerned about her blood pressure and pulse and the medications that she is currently on. She states that she feels like when she takes her blood pressure medications at night her heart rate and blood pressure actually go up. She did take clonidine and Valium prior to arrival. She is concerned that her heart is "wearing out" and that she might need a pacemaker. She has seen both Dr. Benjamin and Dr. Krause with [place]. No history of cardiac stenting. She did have cardiac catheterization in 2020 which showed clean coronary arteries/mild obstructive disease. She denies fevers, chills, productive cough. She has intermittent leg swelling that goes down when she puts her feet up. No calf cramping. All other review of systems reviewed and negative except as stated. 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 ASA po TOWEL SORTER: No Associated Systoms: Chest Pain ("my heart hurts"), Malaise Allergies and Home Medications Allergies Coded Allergies: clonidine (Verified Allergy, Severe, Angioedema, 02/07/21) diltiazem (Verified Allergy, Intermediate, 02/07/21) Leg rash Calcium Channel Blocking Agent Dilt (Unverified Allergy, Unknown, Hives, 07/03/21) amlodipine (Verified Allergy, Unknown, 02/07/21) Redness on legs albuterol (Verified Adverse Reaction, Intermediate, 02/07/21) elevated hr, palpitations codeine (Unverified Adverse Reaction, Unknown, N/V, 02/07/21) Uncoded Allergies: STEROIDS (Adverse Reaction, Unknown, INCREASE BP AND PULSE, 02/07/21) Patient Home Medication List Home Medication List Reviewed: Yes Amiodarone HCl (Amiodarone HCl) 200 Mg Tablet, 100 MG PO 1800, (Reported) Entered as Reported by: DESIRAE YANG on 07/03/21 0908 Aspirin (Aspirin) 81 Mg Tab.chew, 81 MG PO DAILY, (Reported) Entered as Reported by: DOUG SANTILLAN on 05/15/20 1331 Atenolol (Atenolol) 25 Mg Tablet, 12.5 MG PO BID, (Reported) Entered as Reported by: DESIRAE YANG on 07/03/21 0904 Calcium/Magnesium/Zinc (Tatmtbn-Upqsueheo-Sqvh Tablet) 1 Each Tablet, 1 EACH PO DAILY, (Reported) Entered as Reported by: ABHAY HUNTER on 02/07/21 1533 Cholecalciferol (Vitamin D3) (Vitamin D3) 50 Mcg Tablet, 50 MCG PO HS, (Reported) Entered as Reported by: DESIRAE YANG on 07/03/21 0908 Clonidine HCl (Clonidine HCl) 0.1 Mg Tablet, 0.1 MG PO DAILY, (Reported) Entered as Reported by: SHAINA ANTHONY on 12/18/21 1314 Clorazepate Dipotassium (Clorazepate Dipotassium) 7.5 Mg Tablet, 7.5 MG PO BID PRN for ANXIETY, (Reported) Entered as Reported by: SHAINA ANTHONY on 12/18/21 1314 Doxazosin Mesylate (Doxazosin Mesylate) 4 Mg Tablet, 4 MG PO BID, (Reported) Entered as Reported by: DESIRAE YANG on 07/03/21 0908 Enalapril Maleate (Enalapril Maleate) 20 Mg Tablet, 20 MG PO BID, (Reported) Entered as Reported by: DESIRAE YANG on 07/03/21 0908 Isosorbide Mononitrate (Isosorbide Mononitrate ER) 30 Mg Tab.er.24h, 30 MG PO DAILY Prescribed by: ELMO TOUSSAINT on 12/19/21 1158 Mag Hydrox/Aluminum Hyd/Simeth (Mylanta Maximum Strength Liq) 400 Mg-400 Mg-40 Mg/5 Ml Oral.susp, 5 ML PO DAILY PRN for GI UPSET, (Reported) Entered as Reported by: SHAINA ANTHONY on 12/18/21 1316 Magnesium Oxide (Magnesium) 400 Mg Tablet, 400 MG PO HS, (Reported) Entered as Reported by: ABHAY HUNTER on 02/07/21 1533 Multivitamin (Multivitamin) 1 Each Tablet, 1 EACH PO DAILY, (Reported) Entered as Reported by: ABHAY HUNTER on 02/07/21 1533 Pantoprazole Sodium (Protonix) 20 Mg Tablet.dr, 40 MG PO 1900, (Reported) Entered as Reported by: AMBER VAZQUEZ on 01/04/21 0811 Rivaroxaban (Xarelto) 10 Mg Tablet, 10 MG PO 1800, (Reported) Entered as Reported by: DESIRAE YANG on 07/03/21 0904 Vit C/E/Zn/Coppr/Lutein/Zeaxan (Preservision Areds 2 Chew Tab) 250MG-90MG Tab.chew, 1 EACH PO DAILY, (Reported) Entered as Reported by: DESIRAE YANG on 07/03/21 0908 Zolpidem Tartrate (Ambien) 10 Mg Tablet, 10 MG PO HS PRN for SLEEP, (Reported) Entered as Reported by: DOUG SANTILLAN on 05/15/20 1331 Review of Systems Review of Systems Constitutional: see HPI, malaise EENTM: No Symptoms Reported Respiratory: SOA at Rest Cardiovascular: Chest Pain, Edema, Irregular Heart Rate, Palpitations Gastrointestinal: No Symptoms Reported Genitourinary: No Symptoms Reported Musculoskeletal: no symptoms reported Skin: no symptoms reported Psychiatric/Neurological: No Symptoms Reported All Other Systems Reviewed Negative Unless Noted: Yes Past Vqrhiaa-Agexuj-Xivjys Hx Patient Social History Tobacco Use?: No Substance use?: No Alcohol Use?: No Pt feels they are or have been: No Immunizations Up To Date First/Initial COVID19 Vaccinat: JUN 2020 Second COVID19 Vaccination Brent: JUL 2020 Third COVID19 Vaccination Date: APR 2021 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: [employer] Seasonal Allergies Seasonal Allergies: Yes Past Medical History Surgery/Hospitalization HX: AFIB, HTN, [place], TBI, ANXIETY, APPY, HYSTERECTOMY, PARTIAL NEPHRECTOMY R KIDNEY, ORTHOPEDIC, TONSILECTOMY Surgeries: Yes Abdominal, Appendectomy, Hysterectomy, Nephrectomy, Oophorectomy, Orthopedic, Tonsillectomy Respiratory: No Currently Using CPAP: No Currently Using BIPAP: No Cardiac: Yes ("A-FIB STARTED AFTER COVID SHOT") Angina, Atrial Fibrillation, Hypertension Neurological: No Spinal Cord Injury, Traumatic Brain Injury 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 Disorders: No 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 Sexually Transmitted Disease: No Genitourinary: Yes (Rt Eitan-nephrectomy 2014 in ) Polycystic Kidney Disease Gastrointestinal: Yes Gastroesophageal Reflux, Obstructive Bowel Musculoskeletal: Yes (ACL repair (LT), carpal tunnel surg, torn bicep (LT)) Endocrine: No HEENT: Yes Tinnitis Cancer: Yes Kidney Did You Recieve Any Treatments: Yes What Type of Treatment Did You: Surgical Intervention Psychosocial: Yes Anxiety Integumentary: No Blood Disorders: No Adverse Reaction/Blood Tranf: No Family Medical History Heart Disease, Stroke, Vascular Disease, Other Conditions/Hx Physical Exam Vital Signs Vital Signs - First Documented 06/06/22 23:46 Temp 36.4 Pulse 123 Resp 16 B/P (MAP) 164/96 (118) Pulse Ox 97 O2 Delivery Room Air Capillary Refill : Less Than 3 Seconds Height, Weight, BMI Height: '" Weight: lbs. oz. kg; 32.00 BMI Method: General Appearance: No Apparent Distress, WD/WN HEENT: PERRL/EOMI Neck: Normal Inspection Respiratory: Lungs Clear, Normal Breath Sounds, No Accessory Muscle Use, No Respiratory Distress Cardiovascular: Normal Peripheral Pulses, Irregularly Irregular, Other (Patient noted to be bleeding from a normal sinus rhythm in the 60s and 70s, to a bigemi nal pattern, A. fib in the 120s, then normal sinus in the 120s.) Gastrointestinal: Non Tender, Soft Extremity: Normal Capillary Refill, Normal Inspection, Normal Range of Motion, Non Tender, No Calf Tenderness, No Pedal Edema Neurologic/Psychiatric: Alert, Oriented x3, No Motor/Sensory Deficits, Normal Mood/Affect, manager equipment II-XII Norm as Tested Skin: Normal Color, Warm/Dry Progress/Results/Core Measures Results/Orders Lab Results Laboratory Tests Test 06/07/22 00:12 Range/Units White Blood Count 6.0 4.3-11.0 10^3/uL Red Blood Count 4.50 3.80-5.11 10^6/uL Hemoglobin 12.0 11.5-16.0 g/dL Hematocrit 38 35-52 % Mean Corpuscular Volume 83 80-99 fL Mean Corpuscular Hemoglobin 27 25-34 pg Mean Corpuscular Hemoglobin Concent 32 32-36 g/dL Red Cell Distribution Width 22.1 H 10.0-14.5 % Platelet Count 216 130-400 10^3/uL Mean Platelet Volume 11.1 9.0-12.2 fL Immature Granulocyte % (Auto) 0 % Neutrophils (%) (Auto) 49 42-75 % Lymphocytes (%) (Auto) 39 12-44 % Monocytes (%) (Auto) 10 0-12 % Eosinophils (%) (Auto) 2 0-10 % Basophils (%) (Auto) 1 0-10 % Neutrophils # (Auto) 2.9 1.8-7.8 10^3/uL Lymphocytes # (Auto) 2.3 1.0-4.0 10^3/uL Monocytes # (Auto) 0.6 0.0-1.0 10^3/uL Eosinophils # (Auto) 0.1 0.0-0.3 10^3/uL Basophils # (Auto) 0.1 0.0-0.1 10^3/uL Immature Granulocyte # (Auto) 0.0 0.0-0.1 10^3/uL Prothrombin Time 25.5 H 12.2-14.7 SEC INR Comment 2.3 H 0.8-1.4 Activated Partial Thromboplast Time 44 H 24-35 SEC Sodium Level 143 135-145 MMOL/L Potassium Level 3.8 3.6-5.0 MMOL/L Chloride Level 108 H 98-107 MMOL/L Carbon Dioxide Level 24 21-32 MMOL/L Anion Gap 11 5-14 MMOL/L Blood Urea Nitrogen 18 7-18 MG/DL Creatinine 1.06 0.60-1.30 MG/DL Estimat Glomerular Filtration Rate 57 BUN/Creatinine Ratio 17 Glucose Level 103 70-105 MG/DL Calcium Level 9.1 8.5-10.1 MG/DL Corrected Calcium 9.2 8.5-10.1 MG/DL Magnesium Level 2.3 1.6-2.4 MG/DL Total Bilirubin 0.2 0.1-1.0 MG/DL Aspartate Amino Transf (AST/SGOT) 25 5-34 U/L Alanine Aminotransferase (ALT/SGPT) 25 0-55 U/L Alkaline Phosphatase 98 40-136 U/L Troponin I < 0.028 <0.028 NG/ML Total Protein 6.4 6.4-8.2 GM/DL Albumin 3.9 3.2-4.5 GM/DL My Orders Orders - LUANA CAROLINA MD Cbc With Automated Diff (06/07/22 00:18) Magnesium (06/07/22 00:18) Chest 1 View, Ap/Pa Only (06/07/22 00:18) Comprehensive Metabolic Panel (06/07/22 00:18) Protime With Inr (06/07/22 00:18) Partial Thromboplastin Time (06/07/22 00:18) O2 (06/07/22 00:18) Monitor-Rhythm Ecg Trace Only (06/07/22 00:18) Lipid Panel (06/08/22 06:00) Ed Iv/Invasive Line Start (06/07/22 00:18) Troponin I [place] (06/07/22 00:18) Ekg Tracing (06/07/22 00:23) Lidocaine 2% Viscous 15 Ml (Xylocaine Vi (06/07/22 00:45) Antacid Suspension (Mylanta Suspension (06/07/22 00:45) Sucralfate Tablet (Carafate Tablet) (06/07/22 00:45) Acetaminophen Tablet (Tylenol Tablet) (06/07/22 01:45) Medications Given in ED Current Medications Medications Dose Ordered Sig/Angelica Route Start Time Stop Time Status Last Admin Dose Admin Al Hydrox/Mg Hydrox/Simethicone 30 ml ONCE ONCE PO 06/07/22 00:45 06/07/22 00:47 DC 06/07/22 00:55 30 ML Lidocaine HCl 5 ml ONCE ONCE PO 06/07/22 00:45 06/07/22 00:47 DC 06/07/22 00:55 5 ML Sucralfate 1 gm ONCE ONCE PO 06/07/22 00:45 06/07/22 00:47 DC 06/07/22 00:55 1 GM Vital Signs/I&O 06/06/22 23:46 Temp 36.4 Pulse 123 Resp 16 B/P (MAP) 164/96 (118) Pulse Ox 97 O2 Delivery Room Air Blood Pressure Mean: 118 Progress Progress Note : Time: 01:39 Progress Note Patient seen and evaluated by me, 66-year-old with palpitations, chest discomfort. Evaluation today includes a physical exam, EKG, single view chest x-ray, CBC, Chem-12, troponin, coags. Based on history and physical exam differential diagnosis includes ACS, dissection, PE, A. fib RVR, pulmonary edema. Based on her EKG which shows rate controlled A. fib without ST segment change, clear chest x-ray, normal labs ACS is ruled out as her symptoms have been ongoing for 3 to 4 hours. Pain is not radiating into the back, chest x-ray is normal, low concern for dissection. She did intermittently bump up her heart rate into the 120s.. Coags are elevated consistent with her Xarelto. Low clinical suspicion for any pulmonary embolism. No concerns for pneumonia. On reevaluation prior to discharge she has converted into a normal sinus rhythm in the mid 50s to low 60s. Room air oxygen 99%. Blood pressure down to 130s over 50s. She is quite concerned with side effects to her medications. I encouraged her to follow-up with her primary physician/nurse practitioner as well as Dr. Benjamin. I have encouraged compliance with her medications as written. All questions are sought and answered. Patient is stable for discharge Initial ECG Impression Date: Jun 07, 2022 Initial ECG Impression Time: 23:55 Initial ECG Rate: 81 Initial ECG Rhythm: A Fib/Flutter Initial ECG Intervals QRS 85 QTc 475 Initial ECG Impression: Atrial Fibrillation Diagnostic Imaging Diagonstic Imaging: Xray Plain Films/CT/US/NM/MRI: chest Comments Chest xray - interpreted by me, no effusion, infiltrate, ptx; normal mediastinal structures Departure Impression Primary Impression: Atrial fibrillation with rapid ventricular response Additional Impression: Anxiety about health Disposition: 01 HOME, SELF-CARE Condition: Improved Departure-Patient Inst. Decision time for Depature: 01:44 Referrals: MURRAY LOZADA (PCP) Primary Care Physician TI BENJAMIN MD Patient Instructions: Atrial Fibrillation and Atrial Flutter ED Add. Discharge Instructions: Continue to take your daily medications as prescribed. Please call Dr. Benjamin's office on Wednesday for a follow-up appointment next week. Return to the emergency department if you had a return of fast heart rate with chest pain, shortness of breath or any other emergent, concerning symptoms. Copy Copies To 1: TI BENJAMIN MD, KATHRYN M MD Jun 07, 2022 00:17
[2022-06-07 00:29] LABS: BASOPHILS # (AUTO) 0.1 10^3/uL (0.0-0.1); BASOPHILS % (AUTO) 1 % (0-10); EOSINOPHILS # (AUTO) 0.1 10^3/uL (0.0-0.3); EOSINOPHILS % (AUTO) 2 % (0-10); HEMATOCRIT 38 % (35-52); LYMPHOCYTES # (AUTO) 2.3 10^3/uL (1.0-4.0); LYMPHOCYTES % (AUTO) 39 % (12-44); MEAN CORPUSCULAR HEMOGLOBIN 27 pg (25-34); MEAN CORPUSCULAR HGB CONC 32 g/dL (32-36); MEAN CORPUSCULAR VOLUME 83 fL (80-99); MEAN PLATELET VOLUME 11.1 fL (9.0-12.2); MONOCYTES # (AUTO) 0.6 10^3/uL (0.0-1.0); MONOCYTES % (AUTO) 10 % (0-12); NEUTROPHILS # (AUTO) 2.9 10^3/uL (1.8-7.8); NEUTROPHILS % (AUTO) 49 % (42-75); PLATELET COUNT 216 10^3/uL (130-400)
[2022-06-07 00:33] LABS: ALBUMIN 3.9 GM/DL (3.2-4.5); POTASSIUM 3.8 MMOL/L (3.6-5.0)
[2022-06-07 00:34] LABS: CALCIUM 9.1 MG/DL (8.5-10.1)
[2022-06-07 00:35] LABS: TOTAL PROTEIN 6.4 GM/DL (6.4-8.2)
[2022-06-07 00:37] LABS: BILIRUBIN,TOTAL 0.2 MG/DL (0.1-1.0); INR 2.3 (0.8-1.4); PROTHROMBIN TIME PATIENT 25.5 SEC (12.2-14.7)
[2022-06-07 00:39] LABS: CREATININE SERUM 1.06 MG/DL (0.60-1.30)
[2022-06-07 00:41] LABS: MAGNESIUM 2.3 MG/DL (1.6-2.4)
[2022-06-07] MEDS ORDERED: SUCRALFATE 1 GM (CARAFATE) TAB PO ONE (00:45)
[2022-06-07] MEDS ORDERED: ANTACID SUSP 30 ML UDC (MYLANTA) PO ONE (00:45)
[2022-06-07] MEDS ORDERED: LIDOCAINE 2% VISCOUS 15 ML UDC PO ONE (00:45)
[2022-06-07] MEDS ORDERED: ACETAMINOPHEN 500 MG TAB (TYLENOL) PO ONE (01:45)
[2022-06-07 01:53] VITALS: BP 109/62
--- NOTE | 2022-06-07 06:52 | Diagnostic Imaging Report ---
CHEST 1 VIEW, AP/PA ONLY Indication: Chest pain. Comparison: 04/04/2022 Findings: No focal airspace disease in the visualized lungs. No pleural effusion or pneumothorax. Normal cardiomediastinal silhouette. Impression: 1. No acute cardiopulmonary process by portable radiography. Dictated by: Dictated on workstation # [id number]
== END 2022-06-07 01:56 | disposition home or self-care (01) ==
LOC: EDUNIT# 23:41 → ER 23:42
DX: I48.91 Unspecified atrial fibrillation (principal); F41.9 Anxiety disorder, unspecified; I10 Essential (primary) hypertension; Z79.01 Long term (current) use of anticoagulants
CPT/HCPCS: 36415; 71045; 80053; 83735; 84484; 85025; 85610; 85730; 93005; 93041

== ENCOUNTER 2022-08-10 20:13 | Emergency (ER) | payer MEDICARE, OTHER ==
[~2022-08-10] VITALS: Ht 160 cm; Wt 86.1 kg
[~2022-08-10 20:13] MED LIST changes: -ENAL10TA16 PO; +ENLP10T PO
[2022-08-10] MEDS ORDERED: NITROGLYCERIN 0.4 MG SL TABS BTL 25'S SL PRN (20:30)
[2022-08-10] MEDS ORDERED: ASPIRIN 81 MG CHEW (CHILDREN'S ASA) PO ONE (20:30)
[2022-08-10 20:35] LABS: BASOPHILS % (AUTO) 1 % (0-10); EOSINOPHILS # (AUTO) 0.2 10^3/uL (0.0-0.3); EOSINOPHILS % (AUTO) 2 % (0-10); HEMATOCRIT 34 % (35-52); HEMOGLOBIN 11.3 g/dL (11.5-16.0); LYMPHOCYTES # (AUTO) 1.9 10^3/uL (1.0-4.0); LYMPHOCYTES % (AUTO) 25 % (12-44); MEAN CORPUSCULAR HEMOGLOBIN 30 pg (25-34); MEAN CORPUSCULAR HGB CONC 34 g/dL (32-36); MEAN CORPUSCULAR VOLUME 90 fL (80-99); MEAN PLATELET VOLUME 10.8 fL (9.0-12.2); MONOCYTES # (AUTO) 0.6 10^3/uL (0.0-1.0); MONOCYTES % (AUTO) 8 % (0-12); NEUTROPHILS % (AUTO) 65 % (42-75); PLATELET COUNT 222 10^3/uL (130-400); WHITE BLOOD COUNT 7.7 10^3/uL (4.3-11.0)
[2022-08-10 21:00] LABS: FIBRIN DEGRADATION PRODUCTS <= 0.27 UG/ML (0.00-0.49); INR 2.9 (0.8-1.4); PARTIAL THROMBOPLASTIN TIME 42 SEC (24-35)
[2022-08-10 21:02] LABS: ALANINE AMINOTRANSFERASE 30 U/L (0-55); ALKALINE PHOSPHATASE 87 U/L (40-136); AMYLASE 74 U/L (25-125); BILIRUBIN,TOTAL 0.2 MG/DL (0.1-1.0); BUN/CREATININE RATIO 15; CALCIUM 9.2 MG/DL (8.5-10.1); CARBON DIOXIDE 25 MMOL/L (21-32); CHLORIDE 107 MMOL/L (98-107); CREATINE KINASE 129 U/L (29-168); CREATININE SERUM 1.17 MG/DL (0.60-1.30); GFR ESTIMATED 51; GLUCOSE 113 MG/DL (70-105); LIPASE 61 U/L (8-78); MAGNESIUM 2.3 MG/DL (1.6-2.4); POTASSIUM 3.6 MMOL/L (3.6-5.0); SODIUM 143 MMOL/L (135-145); TOTAL PROTEIN 6.4 GM/DL (6.4-8.2)
--- NOTE | 2022-08-10 21:02 | ED Cardiac General ---
History of Present Illness General Chief Complaint: Chest Pain Stated Complaint: CHEST PAIN Nursing Triage Note: PT AMB TO RM 2 WITH CC OF CHEST PAIN X3 DAYS THAT INCREASED IN SEVERITY TODAY. PT TOOK NITRO AT 1804 WITH NO IMPROVEMENT AND TOOK 5MG OF VALIUM AT 1816. PT HAS HX OF AFIB. Source: patient (DIFFICULT, LIMITED HISTORIAN) History of Present Illness Date Seen by Provider: Aug 10, 2022 Time Seen by Provider: 20:15 Initial Comments PT ARRIVES VIA POV FROM HOME C/O CHEST PAIN "ALL OVER" "MY WHOLE UPPER BODY" RATES PAIN / NOW, WAS 8/10 EARLIER STATES SHE HAS HAD "A FIB PROBLEMS ALL DAY" ALL SYMPTOMS HAVE BEEN ONGOING ALL DAY, AND PROGRESSIVELY GOTTEN WORSE THE DAY HAS GONE ON. THEN STATES "BEEN HAVING IT OFF AND ON ALL DAY" "FOR A FEW WEEKS--A MONTH--2 OR 3 MONTHS" STATES "IT WAS FIBBIN' REAL BAD" "LIKE A [place] BAND BARRY' ON IN THERE" STATES SHE HAS HAD A POUNDING IN THE CENTER OF HER CHEST, ALL THE WAY UP TO THE BACK OF HER THROAT Allergies and Home Medications Allergies Coded Allergies: clonidine (Verified Allergy, Severe, Angioedema, 02/07/21) diltiazem (Verified Allergy, Intermediate, 02/07/21) Leg rash Calcium Channel Blocking Agent Dilt (Unverified Allergy, Unknown, Hives, 07/03/21) amlodipine (Verified Allergy, Unknown, 02/07/21) Redness on legs albuterol (Verified Adverse Reaction, Intermediate, 02/07/21) elevated hr, palpitations codeine (Unverified Adverse Reaction, Unknown, N/V, 02/07/21) Uncoded Allergies: STEROIDS (Adverse Reaction, Unknown, INCREASE BP AND PULSE, 02/07/21) Patient Home Medication List Amiodarone HCl (Amiodarone HCl) 200 Mg Tablet, 100 MG PO 1800, (Reported) Entered as Reported by: DESIRAE YANG on 07/03/21 0908 Aspirin (Aspirin) 81 Mg Tab.chew, 81 MG PO DAILY, (Reported) Entered as Reported by: DOUG SANTILLAN on 05/15/20 1331 Atenolol (Atenolol) 25 Mg Tablet, 12.5 MG PO BID, (Reported) Entered as Reported by: DESIRAE YANG on 07/03/21 0904 Calcium/Magnesium/Zinc (Mxxtpbv-Mvkvmwyxm-Dxvr Tablet) 1 Each Tablet, 1 EACH PO DAILY, (Reported) Entered as Reported by: ABHAY HUNTER on 02/07/21 153 Cholecalciferol (Vitamin D3) (Vitamin D3) 50 Mcg Tablet, 50 MCG PO HS, (Reported) Entered as Reported by: DESIRAE YANG on 07/03/21 0908 Clonidine HCl (Clonidine HCl) 0.1 Mg Tablet, 0.1 MG PO DAILY, (Reported) Entered as Reported by: SHAINA ANTHONY on 12/18/21 1314 Clorazepate Dipotassium (Clorazepate Dipotassium) 7.5 Mg Tablet, 7.5 MG PO BID PRN for ANXIETY, (Reported) Entered as Reported by: SHAINA ANTHONY on 12/18/21 1314 Doxazosin Mesylate (Doxazosin Mesylate) 4 Mg Tablet, 4 MG PO BID, (Reported) Entered as Reported by: DESIRAE YANG on 07/03/21 0908 Enalapril Maleate (Enalapril Maleate) 20 Mg Tablet, 20 MG PO BID, (Reported) Entered as Reported by: DESIRAE YANG on 07/03/21 0908 Isosorbide Mononitrate (Isosorbide Mononitrate ER) 30 Mg Tab.er.24h, 30 MG PO DAILY Prescribed by: ELMO TOUSSAINT on 12/19/21 1158 Mag Hydrox/Aluminum Hyd/Simeth (Mylanta Maximum Strength Liq) 400 Mg-400 Mg-40 Mg/5 Ml Oral.susp, 5 ML PO DAILY PRN for GI UPSET, (Reported) Entered as Reported by: SHAINA ANTHONY on 12/18/21 1316 Magnesium Oxide (Magnesium) 400 Mg Tablet, 400 MG PO HS, (Reported) Entered as Reported by: ABHAY HUNTER on 02/07/21 1533 Multivitamin (Multivitamin) 1 Each Tablet, 1 EACH PO DAILY, (Reported) Entered as Reported by: ABHAY HUNTER on 02/07/21 153 Pantoprazole Sodium (Protonix) 20 Mg Tablet.dr, 40 MG PO 1900, (Reported) Entered as Reported by: AMBER VAZQUEZ on 01/04/21 0811 Rivaroxaban (Xarelto) 10 Mg Tablet, 10 MG PO 1800, (Reported) Entered as Reported by: DESIRAE YANG on 07/03/21 0904 Vit C/E/Zn/Coppr/Lutein/Zeaxan (Preservision Areds 2 Chew Tab) 250MG-90MG Tab.chew, 1 EACH PO DAILY, (Reported) Entered as Reported by: DESIRAE YANG on 07/03/21 0908 Zolpidem Tartrate (Ambien) 10 Mg Tablet, 10 MG PO HS PRN for SLEEP, (Reported) Entered as Reported by: DOUG SANTILLAN on 05/15/20 1331 Past Rcughwy-Zkslvf-Efndjt Hx Patient Social History Tobacco Use?: No Substance use?: No Alcohol Use?: No Immunizations Up To Date First/Initial COVID19 Vaccinat: JUN 2020 Second COVID19 Vaccination Brent: JUL 2020 Third COVID19 Vaccination Date: APR 2021 Seasonal Allergies Seasonal Allergies: Yes Past Medical History Surgery/Hospitalization HX: AFIB, HTN, TX, TBI, ANXIETY, APPY, HYSTERECTOMY, PARTIAL NEPHRECTOMY R KIDNEY, ORTHOPEDIC, TONSILECTOMY Surgeries: Yes Abdominal, Appendectomy, Hysterectomy, Nephrectomy, Oophorectomy, Orthopedic, Tonsillectomy Respiratory: No Currently Using CPAP: No Currently Using BIPAP: No Cardiac: Yes ("A-FIB STARTED AFTER COVID SHOT") Angina, Atrial Fibrillation, Hypertension Neurological: No Spinal Cord Injury, Traumatic Brain Injury 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 Disorders: No Female 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 Disorders: Ovarian Cyst [employer] History: Hysterectomy Sexually Transmitted Disease: No Genitourinary: Yes (Rt Eitan-nephrectomy 2014 in ) Polycystic Kidney Disease Gastrointestinal: Yes Gastroesophageal Reflux, Obstructive Bowel Musculoskeletal: Yes (ACL repair (LT), carpal tunnel surg, torn bicep (LT)) Endocrine: No HEENT: Yes Tinnitis Cancer: Yes Kidney Did You Recieve Any Treatments: Yes What Type of Treatment Did You: Surgical Intervention Psychosocial: Yes Anxiety Integumentary: No Blood Disorders: No Adverse Reaction/Blood Tranf: No Family Medical History Heart Disease, Stroke, Vascular Disease, Other Conditions/Hx Physical Exam Vital Signs Vital Signs - First Documented 08/10/22 20:14 Temp 36.6 Pulse 84 B/P (MAP) 145/83 (103) Pulse Ox 97 O2 Delivery Nasal Cannula O2 Flow Rate 1.00 Capillary Refill : Height, Weight, BMI Height: '" Weight: lbs. oz. kg; 33.00 BMI Method: Progress/Results/Core Measures Results/Orders Lab Results Laboratory Tests Test 08/10/22 20:24 08/10/22 23:20 Range/Units White Blood Count 7.7 4.3-11.0 10^3/uL Red Blood Count 3.73 L 3.80-5.11 10^6/uL Hemoglobin 11.3 L 11.5-16.0 g/dL Hematocrit 34 L 35-52 % Mean Corpuscular Volume 90 80-99 fL Mean Corpuscular Hemoglobin 30 25-34 pg Mean Corpuscular Hemoglobin Concent 34 32-36 g/dL Red Cell Distribution Width 15.4 H 10.0-14.5 % Platelet Count 222 130-400 10^3/uL Mean Platelet Volume 10.8 9.0-12.2 fL Immature Granulocyte % (Auto) 0 % Neutrophils (%) (Auto) 65 42-75 % Lymphocytes (%) (Auto) 25 12-44 % Monocytes (%) (Auto) 8 0-12 % Eosinophils (%) (Auto) 2 0-10 % Basophils (%) (Auto) 1 0-10 % Neutrophils # (Auto) 5.0 1.8-7.8 10^3/uL Lymphocytes # (Auto) 1.9 1.0-4.0 10^3/uL Monocytes # (Auto) 0.6 0.0-1.0 10^3/uL Eosinophils # (Auto) 0.2 0.0-0.3 10^3/uL Basophils # (Auto) 0.0 0.0-0.1 10^3/uL Immature Granulocyte # (Auto) 0.0 0.0-0.1 10^3/uL Prothrombin Time 31.0 H 12.2-14.7 SEC INR Comment 2.9 H 0.8-1.4 Activated Partial Thromboplast Time 42 H 24-35 SEC D-Dimer <= 0.27 0.00-0.49 UG/ML Sodium Level 143 135-145 MMOL/L Potassium Level 3.6 3.6-5.0 MMOL/L Chloride Level 107 98-107 MMOL/L Carbon Dioxide Level 25 21-32 MMOL/L Anion Gap 11 5-14 MMOL/L Blood Urea Nitrogen 18 7-18 MG/DL Creatinine 1.17 0.60-1.30 MG/DL Estimat Glomerular Filtration Rate 51 BUN/Creatinine Ratio 15 Glucose Level 113 H 70-105 MG/DL Calcium Level 9.2 8.5-10.1 MG/DL Corrected Calcium 9.2 8.5-10.1 MG/DL Magnesium Level 2.3 1.6-2.4 MG/DL Total Bilirubin 0.2 0.1-1.0 MG/DL Aspartate Amino Transf (AST/SGOT) 28 5-34 U/L Alanine Aminotransferase (ALT/SGPT) 30 0-55 U/L Alkaline Phosphatase 87 40-136 U/L Total Creatine Kinase 129 29-168 U/L Creatine Kinase MB 1.6 <6.6 NG/ML Myoglobin 44.5 10.0-92.0 NG/ML Troponin I < 0.028 < 0.028 <0.028 NG/ML B-Type Natriuretic Peptide 38.7 <100.0 PG/ML Total Protein 6.4 6.4-8.2 GM/DL Albumin 4.0 3.2-4.5 GM/DL Amylase Level 74 25-125 U/L Lipase 61 8-78 U/L My Orders Orders - MICHAEL AGUILAR DO Cbc With Automated Diff (08/10/22 20:15) Magnesium (08/10/22 20:15) Chest 1 View, Ap/Pa Only (08/10/22 20:15) Ekg Tracing (08/10/22 20:15) Comprehensive Metabolic Panel (08/10/22 20:15) Myoglobin Serum (08/10/22 20:15) Protime With Inr (08/10/22 20:15) Partial Thromboplastin Time (08/10/22 20:15) O2 (08/10/22 20:15) Monitor-Rhythm Ecg Trace Only (08/10/22 20:15) Ed Iv/Invasive Line Start (08/10/22 20:15) Creatine Kinase (08/10/22 20:15) Creatine Kinase Mb (08/10/22 20:15) Lipase (08/10/22 20:15) Amylase (08/10/22 20:15) Bnp Neema (08/10/22 20:15) Aspirin Chewable Tablet (Baby Aspirin Ch (08/10/22 20:30) Nitroglycerin 0.4 Mg Btl 25's (Nitrostat (08/10/22 20:30) Fibrin Degradation Products (08/10/22 20:24) Troponin I Neema (08/10/22 20:24) Fentanyl Inj (Sublimaze Injection) (08/10/22 22:06) Pantoprazole Injection (Protonix Injecti (08/10/22 22:15) Ekg Tracing (08/10/22 23:09) Troponin I Neema (08/10/22 23:09) Lidocaine 2% Viscous 15 Ml (Xylocaine Vi (08/11/22 00:00) Ns Iv 1000 Ml (Sodium Chloride 0.9%) (08/10/22 23:55) Antacid Suspension (Mylanta Suspension (08/11/22 00:00) Ed Iv/Invasive Line Start (08/10/22 23:55) Medications Given in ED Current Medications Medications Dose Ordered Sig/Angelica Route Start Time Stop Time Status Last Admin Dose Admin Al Hydrox/Mg Hydrox/Simethicone 30 ml ONCE ONCE PO 08/11/22 00:00 08/11/22 00:01 DC 08/11/22 00:16 30 ML Aspirin 324 mg ONCE ONCE PO 08/10/22 20:30 08/10/22 20:31 DC 08/10/22 20:46 324 MG Lidocaine HCl 15 ml ONCE ONCE PO 08/11/22 00:00 08/11/22 00:01 DC 08/11/22 00:16 15 ML Pantoprazole 40 mg ONCE ONCE IV 08/10/22 22:15 08/10/22 22:16 DC 08/10/22 22:18 40 MG Vital Signs/I&O 08/10/22 08/10/22 20:14 20:14 Temp 36.6 Pulse 84 B/P (MAP) 145/83 (103) Pulse Ox 97 O2 Delivery Nasal Cannula Room Air O2 Flow Rate 1.00 Blood Pressure Mean: 103 Progress Progress Note : Progress Note PT REFUSED NTG 0--PT STILL C/O PAIN AND BURNING IN HER CHEST, SHE STILL REFUSES NTG, WILL GIVE FENTANYL AND PROTONIX REVIEWED PRIOR RECORDS, CTA OF CHEST DONE 12/2021, DID NOT SHOW ANY ABNORMALITIES SUCH ANEURYSM OR DISSECTION, AND D-DIMER IS NEGATIVE TODAY, ANOTHER EMERGENT CTA OF CHEST IS NOT NECESSARY AT THIS TIME 0100--REFUSING MORE IV FLUIDS, PT WANTS TO GO HOME Diagnostic Imaging Comments CXR--PER RADIOLOGIST REPORT AT 2110 COMPARISON: 06/07/2022 FINDINGS: The lungs are clear without edema or pneumonia. No pleural effusion or pneumothorax. Heart size is normal. IMPRESSION: 1. Clear lungs. Reviewed: Reviewed by Me Departure Impression Primary Impression: Chest pain Additional Impression: History of atrial fibrillation Disposition: HOME, SELF-CARE Condition: Improved Departure-Patient Inst. Decision time for Depature: 01:06 Referrals: MURRAY LOZDAA (PCP/Family) Primary Care Physician Patient Instructions: Chest Pain, Adult ED, Atrial Fibrillation (DC) Add. 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 Voiced understanding. MICHAEL AGUILAR DO Aug 10, 2022 21:02
--- NOTE | 2022-08-10 21:04 | Diagnostic Imaging Report ---
EXAMINATION: Chest 1 view HISTORY: Chest pain COMPARISON: 06/07/2022 FINDINGS: The lungs are clear without edema or pneumonia. No pleural effusion or pneumothorax. Heart size is normal. IMPRESSION: 1. Clear lungs. Dictated by: Dictated on workstation # [id number]
[2022-08-10 21:14] LABS: CREATINE KINASE MB 1.6 NG/ML (<6.6)
[2022-08-10] MEDS ORDERED: fentaNYL INJ 100 MCG/2 ML AMP IVP STA (22:06)
[2022-08-10] MEDS ORDERED: PANTOPRAZOLE 40 MG (PROTONIX) VIAL IV ONE (22:15)
[2022-08-10] MEDS ORDERED: NS IV 1000 ML 1,000 ML IV STA (23:55)
[2022-08-11] MEDS ORDERED: LIDOCAINE 2% VISCOUS 15 ML UDC PO ONE
[2022-08-11] MEDS ORDERED: ANTACID SUSP 30 ML UDC (MYLANTA) PO ONE
[2022-08-11 01:18] VITALS: BP 132/57
== END 2022-08-11 01:14 | disposition home or self-care (01) ==
LOC: EDUNIT# 20:13 → ER 20:18
DX: R07.9 Chest pain, unspecified (principal); I48.91 Unspecified atrial fibrillation
CPT/HCPCS: 36415; 71045; 80053; 82150; 82550; 82553; 83690; 83735; 83874; 83880; 84484; 85025; 85379; 85610; 85730; 93005; 93041

== ENCOUNTER → 2022-08-11 | Outpatient (CLI) | payer MEDICARE, OTHER ==
--- NOTE | 2022-08-11 11:06 | Diagnostic Imaging Report ---
EXAMINATION: Right lower extremity MRI from 08/11/2022. TECHNIQUE: Multiplanar, multisequence non contrast-enhanced MRI of the right lower extremity was accomplished. INDICATION: Peroneal tendinitis. Ankle pain, mainly laterally. FINDINGS: The Achilles tendon appears intact. Plantar fascia is unremarkable. There is fluid along the course of the peroneal tendons. Overlying subcutaneous edema is noted. There is diffuse fusiform enlargement of the peroneus longus tendon, consistent with tendinosis. There is a longitudinal split tear of the peroneus brevis tendon at and below the level of the malleolus. No discontinuity is appreciated with normal insertion at the base of the fifth metatarsal. The extensor tendons appear unremarkable. There is fluid surrounding the course of the of flexor hallucis longus tendon, findings consistent with tenosynovitis. The posterior tibial tendon and the flexor digitorum longus tendon are unremarkable. The anterior and posterior inferior tibiofibular ligaments are intact. The anterior talofibular and posterior talofibular ligament are intact. Deltoid ligament and calcaneofibular ligament are intact. IMPRESSION: 1. Findings of tenosynovitis along the course of the peroneal tendons with a longitudinal split tear of the peroneus brevis tendon, as detailed above. 2. Findings of tenosynovitis along the flexor hallucis longus tendon. 3. Ligaments are intact. Dictated by: Dictated on workstation # [id number]
== END ==
LOC: RAD 08:31
PROVIDERS: ATTEND Podiatrist Foot & Ankle Surgery
DX: M76.71 Peroneal tendinitis, right leg (principal); H01.8 Other specified inflammations of eyelid
CPT/HCPCS: 73721

== ENCOUNTER 2022-08-28 10:30 | Outpatient (RCR) | payer MEDICARE, OTHER ==
[2022-08-28 10:45] LABS: HEMATOCRIT 30 % (35-52); HEMOGLOBIN 9.6 g/dL (11.5-16.0); MEAN CORPUSCULAR HEMOGLOBIN 31 pg (25-34); MEAN CORPUSCULAR HGB CONC 32 g/dL (32-36); MEAN CORPUSCULAR VOLUME 97 fL (80-99); MEAN PLATELET VOLUME 10.7 fL (9.0-12.2); PLATELET COUNT 195 10^3/uL (130-400); WHITE BLOOD COUNT 5.2 10^3/uL (4.3-11.0)
[2022-08-28 10:57] LABS: ALBUMIN 3.7 GM/DL (3.2-4.5)
[2022-08-28 10:58] LABS: POTASSIUM 4.2 MMOL/L (3.6-5.0)
[2022-08-28 10:59] LABS: CALCIUM 8.9 MG/DL (8.5-10.1)
[2022-08-28 11:02] LABS: BILIRUBIN,TOTAL 0.3 MG/DL (0.1-1.0)
[2022-08-28 11:04] LABS: CREATININE SERUM 1.2 MG/DL (0.60-1.30)
== END 2022-08-31 08:48 | disposition home or self-care (01) ==
LOC: ONC 10:30
PROVIDERS: ATTEND Internal Medicine Hematology & Oncology
DX: C65.1 Malignant neoplasm of right renal pelvis (principal); D50.0 Iron deficiency anemia secondary to blood loss (chronic); I10 Essential (primary) hypertension; F41.9 Anxiety disorder, unspecified; Z87.19 Personal history of other diseases of the digestive system; Z86.59 Personal history of other mental and behavioral disorders; Z87.891 Personal history of nicotine dependence
CPT/HCPCS: 80053; 82728; 83540; 83550; 85027

== ENCOUNTER 2022-08-31 09:51 | Outpatient (RCR) | payer MEDICARE, OTHER ==
[~2022-08-31 09:51] MED LIST changes: +ENAL-70 PO; -ENAL20TA16 PO
[2022-08-31] MEDS ORDERED: FERRIC CARBOXYMALTOSE INJ 750 MG in NS (IVPB) 250 ML IV SCH (11:45)
== END 2022-09-06 | disposition home or self-care (01) ==
LOC: ONC 09:51
PROVIDERS: ATTEND Internal Medicine Hematology & Oncology
DX: Z51.11 Encounter for antineoplastic chemotherapy (principal); D50.9 Iron deficiency anemia, unspecified; K92.2 Gastrointestinal hemorrhage, unspecified; I10 Essential (primary) hypertension; F41.9 Anxiety disorder, unspecified; Z87.891 Personal history of nicotine dependence
CPT/HCPCS: 36415; 96365

== ENCOUNTER 2022-09-07 10:17 | Outpatient (RCR) | payer MEDICARE, OTHER ==
[~2022-09-07 10:17] MED LIST changes: +DILT240C74 PO; -DILT240C87 PO; +FERRIC CARBOXYMALTOSE INJ 750 MG in NS (IVPB) 250 ML IV SCH; -LOSA100T57; -LOSA100T57 PO; +LOSA100T58; +LOSA100T58 PO
[2022-09-07 10:49] LABS: BASOPHILS % (AUTO) 1 % (0-10); EOSINOPHILS # (AUTO) 0.1 10^3/uL (0.0-0.3); EOSINOPHILS % (AUTO) 2 % (0-10); HEMATOCRIT 33 % (35-52); HEMOGLOBIN 10.5 g/dL (11.5-16.0); LYMPHOCYTES # (AUTO) 1.3 10^3/uL (1.0-4.0); LYMPHOCYTES % (AUTO) 28 % (12-44); MEAN CORPUSCULAR HEMOGLOBIN 33 pg (25-34); MEAN CORPUSCULAR HGB CONC 32 g/dL (32-36); MEAN CORPUSCULAR VOLUME 101 fL (80-99); MEAN PLATELET VOLUME 10.3 fL (9.0-12.2); MONOCYTES # (AUTO) 0.3 10^3/uL (0.0-1.0); MONOCYTES % (AUTO) 6 % (0-12); NEUTROPHILS # (AUTO) 3.1 10^3/uL (1.8-7.8); NEUTROPHILS % (AUTO) 64 % (42-75); PLATELET COUNT 223 10^3/uL (130-400); WHITE BLOOD COUNT 4.9 10^3/uL (4.3-11.0)
== END 2022-10-07 | disposition home or self-care (01) ==
LOC: ONC 10:17
PROVIDERS: ATTEND Internal Medicine Hematology & Oncology
DX: D50.9 Iron deficiency anemia, unspecified (principal); K92.2 Gastrointestinal hemorrhage, unspecified; I10 Essential (primary) hypertension; F41.1 Generalized anxiety disorder; Z87.891 Personal history of nicotine dependence
CPT/HCPCS: 36415; 85025; 96365

== ENCOUNTER 2022-10-12 09:15 | Outpatient (RCR) | payer MEDICARE, OTHER ==
[~2022-10-12 09:15] MED LIST changes: -FERRIC CARBOXYMALTOSE INJ 750 MG in NS (IVPB) 250 ML IV SCH
[2022-10-12 09:35] LABS: BASOPHILS # (AUTO) 0.1 10^3/uL (0.0-0.1); BASOPHILS % (AUTO) 1 % (0-10); EOSINOPHILS # (AUTO) 0.1 10^3/uL (0.0-0.3); EOSINOPHILS % (AUTO) 2 % (0-10); HEMATOCRIT 43 % (35-52); HEMOGLOBIN 14.2 g/dL (11.5-16.0); LYMPHOCYTES # (AUTO) 1.4 10^3/uL (1.0-4.0); LYMPHOCYTES % (AUTO) 28 % (12-44); MEAN CORPUSCULAR HEMOGLOBIN 32 pg (25-34); MEAN CORPUSCULAR HGB CONC 33 g/dL (32-36); MEAN CORPUSCULAR VOLUME 97 fL (80-99); MEAN PLATELET VOLUME 11.3 fL (9.0-12.2); MONOCYTES # (AUTO) 0.3 10^3/uL (0.0-1.0); MONOCYTES % (AUTO) 6 % (0-12); NEUTROPHILS # (AUTO) 3.2 10^3/uL (1.8-7.8); NEUTROPHILS % (AUTO) 63 % (42-75); PLATELET COUNT 177 10^3/uL (130-400)
[2022-10-12 09:55] LABS: BILIRUBIN,TOTAL 0.3 MG/DL (0.1-1.0); CALCIUM 8.7 MG/DL (8.5-10.1); CREATININE SERUM 1.12 MG/DL (0.60-1.30); POTASSIUM 3.7 MMOL/L (3.6-5.0); TOTAL PROTEIN 6.3 GM/DL (6.4-8.2)
== END 2022-11-06 | disposition home or self-care (01) ==
LOC: ONC 09:15
PROVIDERS: ATTEND Internal Medicine Hematology & Oncology
DX: C64.9 Malignant neoplasm of unspecified kidney, except renal pelvis (principal); D50.9 Iron deficiency anemia, unspecified; K92.2 Gastrointestinal hemorrhage, unspecified; I10 Essential (primary) hypertension; F41.1 Generalized anxiety disorder; Z87.891 Personal history of nicotine dependence; Z90.710 Acquired absence of both cervix and uterus
CPT/HCPCS: 36415; 80053; 82728; 83540; 83550; 85025

== ENCOUNTER → 2023-01-07 | Outpatient (CLI) | payer MEDICARE, OTHER ==
[2023-01-07 12:17] LABS: HEMATOCRIT 39 % (35-52); HEMOGLOBIN 12.8 g/dL (11.5-16.0); MEAN CORPUSCULAR HEMOGLOBIN 30 pg (25-34); MEAN CORPUSCULAR HGB CONC 33 g/dL (32-36); MEAN CORPUSCULAR VOLUME 90 fL (80-99); MEAN PLATELET VOLUME 10.8 fL (9.0-12.2); PLATELET COUNT 229 10^3/uL (130-400); WHITE BLOOD COUNT 6.1 10^3/uL (4.3-11.0)
[2023-01-07 12:36] LABS: CALCIUM 9.5 MG/DL (8.5-10.1); CREATININE SERUM 1.14 MG/DL (0.60-1.30); POTASSIUM 4.5 MMOL/L (3.6-5.0)
[2023-01-08 10:02] LABS: ALBUMIN 4.1 GM/DL (3.2-4.5); BILIRUBIN,DIRECT 0.1 MG/DL (0.0-0.3); BILIRUBIN,INDIRECT 0.3 MG/DL; BILIRUBIN,TOTAL 0.4 MG/DL (0.1-1.0); TOTAL PROTEIN 6.8 GM/DL (6.4-8.2)
== END ==
LOC: LAB 11:54
PROVIDERS: ATTEND Physician Assistant
DX: C64.9 Malignant neoplasm of unspecified kidney, except renal pelvis (principal); D50.0 Iron deficiency anemia secondary to blood loss (chronic); I11.9 Hypertensive heart disease without heart failure; I48.0 Paroxysmal atrial fibrillation
CPT/HCPCS: 36415; 80048; 80076; 85027

== ENCOUNTER 2023-03-01 14:00 | Outpatient (RCR) | payer MEDICARE, OTHER ==
[2023-03-01 14:32] LABS: BASOPHILS # (AUTO) 0.1 10^3/uL (0.0-0.1); BASOPHILS % (AUTO) 1 % (0-10); EOSINOPHILS # (AUTO) 0.1 10^3/uL (0.0-0.3); EOSINOPHILS % (AUTO) 2 % (0-10); HEMATOCRIT 35 % (35-52); HEMOGLOBIN 10.9 g/dL (11.5-16.0); LYMPHOCYTES # (AUTO) 1.5 X 10^3 (1.0-4.0); LYMPHOCYTES % (AUTO) 30 % (12-44); MEAN CORPUSCULAR HEMOGLOBIN 31 pg (25-34); MEAN CORPUSCULAR HGB CONC 31 g/dL (32-36); MEAN CORPUSCULAR VOLUME 98 fL (80-99); MEAN PLATELET VOLUME 10.6 fL (9.0-12.2); MONOCYTES # (AUTO) 0.3 X 10^3 (0.0-1.0); MONOCYTES % (AUTO) 6 % (0-12); NEUTROPHILS % (AUTO) 61 % (42-75); PLATELET COUNT 241 10^3/uL (130-400)
[2023-03-09] MEDS ORDERED: DOXA8TAB73 PO ×2 (17:15)
[2023-03-09] MEDS ORDERED: PANT20TA18 PO (17:15)
[2023-03-09] MEDS ORDERED: FERR29CA PO (17:15)
[2023-03-09] MEDS ORDERED: VIT1CAPS44 PO (17:15)
[2023-03-09] MEDS ORDERED: FURO20TA4 PO (17:15)
[2023-03-09] MEDS ORDERED: MAGN250T31 PO (17:15)
[2023-03-09] MEDS ORDERED: NITR0.4T42 PO (17:15)
== END 2023-03-09 | disposition home or self-care (01) ==
LOC: ONC 14:00
PROVIDERS: ATTEND Internal Medicine Hematology & Oncology
DX: C64.9 Malignant neoplasm of unspecified kidney, except renal pelvis (principal); D50.9 Iron deficiency anemia, unspecified; K92.2 Gastrointestinal hemorrhage, unspecified; I10 Essential (primary) hypertension; F41.1 Generalized anxiety disorder; Z87.891 Personal history of nicotine dependence; Z90.710 Acquired absence of both cervix and uterus
CPT/HCPCS: 36415; 85025

== ENCOUNTER 2023-03-08 10:43 | Inpatient (IN) | payer MEDICARE, OTHER ==
[~2023-03-08] VITALS: Ht 163 cm; Wt 83.4 kg
[2023-03-08] VITALS (8 sets, daily range): BP systolic 131–191; BP diastolic 59–96
[2023-03-08 12:00] LABS: BASOPHILS % (AUTO) 1 % (0-10); EOSINOPHILS % (AUTO) 0 % (0-10); HEMATOCRIT 24 % (35-52); HEMOGLOBIN 7.2 g/dL (11.5-16.0); LYMPHOCYTES # (AUTO) 1.2 10^3/uL (1.0-4.0); LYMPHOCYTES % (AUTO) 22 % (12-44); MEAN CORPUSCULAR HEMOGLOBIN 31 pg (25-34); MEAN CORPUSCULAR HGB CONC 30 g/dL (32-36); MEAN CORPUSCULAR VOLUME 104 fL (80-99); MEAN PLATELET VOLUME 11.4 fL (9.0-12.2); MONOCYTES # (AUTO) 0.3 10^3/uL (0.0-1.0); MONOCYTES % (AUTO) 6 % (0-12); NEUTROPHILS # (AUTO) 3.9 10^3/uL (1.8-7.8); NEUTROPHILS % (AUTO) 71 % (42-75); PLATELET COUNT 185 10^3/uL (130-400); WHITE BLOOD COUNT 5.5 10^3/uL (4.3-11.0)
--- NOTE | 2023-03-08 12:00 | ED General ---
General Chief Complaint: Cardiac/General Problems Stated Complaint: LETHARGIC | DARK STOOLS | LOW BLOOD PRESSURE Nursing Triage Note: PT STATES SHE "FEELS LIKE SOMEBODY JUST STUCK SOMETHING IN ME AND SUCKED THE POWER OUT." THIS HAS BEEN FOR 3 DAYS, BLACK STOOLS, DENIES DIARRHEA OR VOMITING. WEAKNESS, HX OF ANEMIA THAT SHE THINKS IS FROM TAKING BLOOD THINNERS, A FIB. SHE DOES TAKE IRON. WEIGHT/PRESSURE ON CHEST Source of Information: Patient Exam Limitations: No Limitations History of Present Illness Date Seen by Provider: Mar 08, 2023 Time Seen by Provider: 11:39 Initial Comments 67-year-old female presents to the ER with complaint of having no energy for the last 3 days. States that when she walks, she gets very fatigued, and her pulse rises and she becomes short of breath and has chest pressure. She reports intermittent chest pressure for the last several days. Thinks that it started again approximately 3 hours ago. She reports that she has been checking her blood pressure over the last week. Patient provided a list of blood pressure readings, the lowest reading was 81/50. She reports nausea, no vomiting. Also complains of mid upper abdominal pain that has been present for "a while." She denies diarrhea. Does report black tarry stools for the last week. She takes aspirin and Xarelto for atrial fibrillation. Her last hemoglobin was 10.9 on 03/01. She also reports intermittent swelling in her lower extremities, she takes Lasix as needed for this. Denies current edema. She is scheduled to have an EGD done this Wednesday with Dr. Zamora. Allergies and Home Medications Allergies Coded Allergies: clonidine (Verified Allergy, Severe, Angioedema, 02/07/21) diltiazem (Verified Allergy, Intermediate, 02/07/21) Leg rash Calcium Channel Blocking Agent Dilt (Unverified Allergy, Unknown, Hives, 07/03/21) amlodipine (Verified Allergy, Unknown, 02/07/21) Redness on legs albuterol (Verified Adverse Reaction, Intermediate, 02/07/21) elevated hr, palpitations codeine (Unverified Adverse Reaction, Unknown, N/V, 02/07/21) Uncoded Allergies: STEROIDS (Adverse Reaction, Unknown, INCREASE BP AND PULSE, 02/07/21) Patient Home Medication List Home Medication List Reviewed: Yes Amiodarone HCl (Amiodarone HCl) 200 Mg Tablet, 100 MG PO 1800, (Reported) Entered as Reported by: DESIRAE YANG on 07/03/21 0908 Aspirin (Aspirin) 81 Mg Tab.chew, 81 MG PO DAILY, (Reported) Entered as Reported by: DOUG SANTILLAN on 05/15/20 1331 Atenolol (Atenolol) 25 Mg Tablet, 12.5 MG PO BID, (Reported) Entered as Reported by: DESIRAE YANG on 07/03/21 0904 Calcium/Magnesium/Zinc (Kgidtvv-Jvtrgcdmb-Vker Tablet) 1 Each Tablet, 1 EACH PO DAILY, (Reported) Entered as Reported by: ABHAY HUNTER on 02/07/21 1533 Cholecalciferol (Vitamin D3) (Vitamin D3) 50 Mcg Tablet, 50 MCG PO HS, (Reported) Entered as Reported by: DESIRAE YANG on 07/03/21 09 Clonidine HCl (Clonidine HCl) 0.1 Mg Tablet, 0.1 MG PO DAILY, (Reported) Entered as Reported by: SHAINA ANTOHNY on 12/18/21 1314 Clorazepate Dipotassium (Clorazepate Dipotassium) 7.5 Mg Tablet, 7.5 MG PO BID PRN for ANXIETY, (Reported) Entered as Reported by: SHAINA ANTHONY on 12/18/21 1314 Doxazosin Mesylate (Doxazosin Mesylate) 4 Mg Tablet, 4 MG PO BID, (Reported) Entered as Reported by: DESIRAE YANG on 07/03/21 0908 Enalapril Maleate (Enalapril Maleate) 20 Mg Tablet, 20 MG PO BID, (Reported) Entered as Reported by: DESIRAE YANG on 07/03/21 0908 Isosorbide Mononitrate (Isosorbide Mononitrate ER) 30 Mg Tab.er.24h, 30 MG PO DAILY Prescribed by: ELMO RICHARDSON on 12/19/21 1158 Mag Hydrox/Aluminum Hyd/Simeth (Mylanta Maximum Strength Liq) 400 Mg-400 Mg-40 Mg/5 Ml Oral.susp, 5 ML PO DAILY PRN for GI UPSET, (Reported) Entered as Reported by: SHAINA ANTHONY on 12/18/21 1316 Magnesium Oxide (Magnesium) 400 Mg Tablet, 400 MG PO HS, (Reported) Entered as Reported by: ABHAY HUNTER on 02/07/21 1533 Multivitamin (Multivitamin) 1 Each Tablet, 1 EACH PO DAILY, (Reported) Entered as Reported by: ABHAY HUNTER on 02/07/21 1533 Pantoprazole Sodium (Protonix) 20 Mg Tablet.dr, 40 MG PO 1900, (Reported) Entered as Reported by: AMBER VAZQUEZ on 01/04/21 0811 Rivaroxaban (Xarelto) 10 Mg Tablet, 10 MG PO 1800, (Reported) Entered as Reported by: DESIRAE YANG on 07/03/21 0904 Vit C/E/Zn/Coppr/Lutein/Zeaxan (Preservision Areds 2 Chew Tab) 250MG-90MG Tab.chew, 1 EACH PO DAILY, (Reported) Entered as Reported by: DESIRAE YANG on 07/03/21 0908 Zolpidem Tartrate (Ambien) 10 Mg Tablet, 10 MG PO HS PRN for SLEEP, (Reported) Entered as Reported by: DOUG SANTILLAN on 05/15/20 1331 Review of Systems Review of Systems Constitutional: see HPI Past Fpvzsnu-Ynypgc-Txusva Hx Patient Social History Tobacco Use?: No Substance use?: No Alcohol Use?: No Immunizations Up To Date First/Initial COVID19 Vaccinat: JUN 2020 Second COVID19 Vaccination Brent: JUL 2020 Third COVID19 Vaccination Date: APR 2021 Seasonal Allergies Seasonal Allergies: Yes Past Medical History Surgery/Hospitalization HX: AFIB, HTN, [place], TBI, ANXIETY, APPY, HYSTERECTOMY, PARTIAL NEPHRECTOMY RKIDNEY,ORTHOPEDIC, TONSILLECTOMY Surgeries: Yes Abdominal, Appendectomy, Hysterectomy, Nephrectomy, Oophorectomy, Orthopedic, Tonsillectomy Respiratory: No Currently Using CPAP: No Currently Using BIPAP: No Cardiac: Yes ("A-FIB STARTED AFTER COVID SHOT") Angina, Atrial Fibrillation, Hypertension Neurological: No Spinal Cord Injury, Traumatic Brain Injury 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 Disorders: No Female 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 Disorders: 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 Sexually Transmitted Disease: No Genitourinary: Yes (Rt E[place]-nephrectomy 2014 in ) Polycystic Kidney Disease Gastrointestinal: Yes Gastroesophageal Reflux, Obstructive Bowel Musculoskeletal: Yes (ACL repair (LT), carpal tunnel surg, torn bicep (LT)) Endocrine: No HEENT: Yes Tinnitis Cancer: Yes Kidney Did You Recieve Any Treatments: Yes What Type of Treatment Did You: Surgical Intervention Psychosocial: Yes Anxiety Integumentary: No Blood Disorders: No Adverse Reaction/Blood Tranf: No Family Medical History Heart Disease, Stroke, Vascular Disease, Other Conditions/Hx Physical Exam Vital Signs Vital Signs - First Documented 03/08/23 11:01 Temp 36.0 Pulse 71 Resp 20 B/P (MAP) 150/60 (90) Pulse Ox 100 Capillary Refill : Less Than 3 Seconds Height, Weight, BMI Height: '" Weight: lbs. oz. kg; 33.00 BMI Method: General Appearance: No Apparent Distress (Appears fatigued) Neck: Normal Inspection, Supple Respiratory: Lungs Clear, Normal Breath Sounds, No Accessory Muscle Use, No Respiratory Distress Cardiovascular: Regular Rate, Rhythm Gastrointestinal: Normal Bowel Sounds, Soft; No Guarding; Tenderness (Generalized) Rectal: Heme Positive Stool Extremity: Normal Inspection, Normal Range of Motion, No Pedal Edema, Other (Equal bilateral pulses in upper and lower extremities) Neurologic/Psychiatric: Alert, Normal Mood/Affect Skin: Normal Color, Warm/Dry Progress/Results/Core Measures Suspected Sepsis SIRS Temperature: Pulse: 71 Respiratory Rate: 20 Laboratory Tests 03/08/23 11:15: White Blood Count 5.5 Blood Pressure 150 /60 Mean: 90 Laboratory Tests 03/08/23 11:15: Creatinine 1.09, INR Comment 1.2, Platelet Count 185, Total Bilirubin 0.4 Results/Orders Lab Results Laboratory Tests Test 03/08/23 11:00 03/08/23 11:15 03/08/23 12:07 Range/Units Urine Color YELLOW Urine Clarity CLEAR Urine pH 6.5 5-9 Urine Specific Butler 1.025 H 1.016-1.022 Urine Protein NEGATIVE NEGATIVE Urine Glucose (UA) NEGATIVE NEGATIVE Urine Ketones NEGATIVE NEGATIVE Urine Nitrite NEGATIVE NEGATIVE Urine Bilirubin NEGATIVE NEGATIVE Urine Urobilinogen 0.2 < = 1.0 MG/DL Urine Leukocyte Esterase 1+ H NEGATIVE Urine RBC (Auto) NEGATIVE NEGATIVE Urine RBC NONE /HPF Urine WBC 5-10 H /HPF Urine Squamous Epithelial Cells 5-10 /HPF Urine Crystals PRESENT H /LPF Urine Amorphous Sediment FEW MADHAV URATES H /LPF Urine Bacteria FEW H /HPF Urine Casts NONE /LPF Urine Mucus SMALL H /LPF Urine Culture Indicated YES White Blood Count 5.5 4.3-11.0 10^3/uL Red Blood Count 2.34 L 3.80-5.11 10^6/uL Hemoglobin 7.2 L 11.5-16.0 g/dL Hematocrit 24 L 35-52 % Mean Corpuscular Volume 104 H 80-99 fL Mean Corpuscular Hemoglobin 31 25-34 pg Mean Corpuscular Hemoglobin Concent 30 L 32-36 g/dL Red Cell Distribution Width 17.2 H 10.0-14.5 % Platelet Count 185 130-400 10^3/uL Mean Platelet Volume 11.4 9.0-12.2 fL Immature Granulocyte % (Auto) 0 % Neutrophils (%) (Auto) 71 42-75 % Lymphocytes (%) (Auto) 22 12-44 % Monocytes (%) (Auto) 6 0-12 % Eosinophils (%) (Auto) 0 0-10 % Basophils (%) (Auto) 1 0-10 % Neutrophils # (Auto) 3.9 1.8-7.8 10^3/uL Lymphocytes # (Auto) 1.2 1.0-4.0 10^3/uL Monocytes # (Auto) 0.3 0.0-1.0 10^3/uL Eosinophils # (Auto) 0.0 0.0-0.3 10^3/uL Basophils # (Auto) 0.0 0.0-0.1 10^3/uL Immature Granulocyte # (Auto) 0.0 0.0-0.1 10^3/uL Prothrombin Time 15.6 H 12.2-14.7 SEC INR Comment 1.2 0.8-1.4 Activated Partial Thromboplast Time 28 24-35 SEC Sodium Level 141 135-145 MMOL/L Potassium Level 3.8 3.6-5.0 MMOL/L Chloride Level 109 H 98-107 MMOL/L Carbon Dioxide Level 22 21-32 MMOL/L Anion Gap 10 5-14 MMOL/L Blood Urea Nitrogen 18 7-18 MG/DL Creatinine 1.09 0.60-1.30 MG/DL Estimat Glomerular Filtration Rate 55 BUN/Creatinine Ratio 17 Glucose Level 139 H 70-105 MG/DL Calcium Level 8.6 8.5-10.1 MG/DL Corrected Calcium 8.8 8.5-10.1 MG/DL Magnesium Level 2.3 1.6-2.4 MG/DL Total Bilirubin 0.4 0.1-1.0 MG/DL Aspartate Amino Transf (AST/SGOT) 32 5-34 U/L Alanine Aminotransferase (ALT/SGPT) 41 0-55 U/L Alkaline Phosphatase 69 40-136 U/L Troponin I < 0.028 <0.028 NG/ML B-Type Natriuretic Peptide 122.6 H <100.0 PG/ML Total Protein 6.0 L 6.4-8.2 GM/DL Albumin 3.8 3.2-4.5 GM/DL Lipase 23 8-78 U/L Influenza Type A (RT-PCR) Not Detected Not Detecte Influenza Type B (RT-PCR) Not Detected Not Detecte SARS-CoV-2 RNA (RT-PCR) Not Detected Not Detecte My Orders Orders - ENRICO STONER APRN Cbc And Automated Diff (03/08/23 11:52) Magnesium (03/08/23 11:52) Chest 1 View, Ap/Pa Only (03/08/23 11:52) Comprehensive Metabolic Panel (03/08/23 11:52) Protime With Inr (03/08/23 11:52) Partial Thromboplastin Time (03/08/23 11:52) Monitor-Rhythm Ecg Trace Only (03/08/23 11:52) Ed Iv/Invasive Line Start (03/08/23 11:52) Lipase (03/08/23 11:52) Bnp Neema (03/08/23 11:52) Troponin I Neema (03/08/23 11:52) Ua Culture If Indicated (03/08/23 11:52) Covid 19 Inhouse Test (03/08/23 11:54) Influenza A And B By Pcr (03/08/23 11:54) Fecal Occult Bedside (03/08/23 12:00) Urine Culture (03/08/23 11:00) Pantoprazole Injection (Pantoprazole Inj (03/08/23 13:00) Orthostatic Vital Signs (Adult (03/08/23 13:09) Red Cells Leukocytes Reduced (03/08/23 13:40) Type And Screen (03/08/23 13:20) Ed Admission (Communication) (03/08/23 13:42) Medications Given in ED Current Medications Medications Dose Ordered Sig/Angelica Route Start Time Stop Time Status Last Admin Dose Admin Pantoprazole 40 mg ONCE ONCE IV 03/08/23 13:00 03/08/23 13:01 DC 03/08/23 13:24 40 MG Vital Signs/I&O 03/08/23 03/08/23 11:01 13:21 Temp 36.0 Pulse 71 62 72 82 Resp 20 B/P (MAP) 150/60 (90) 154/67 (96) 131/59 (83) 144/68 (93) Pulse Ox 100 Capillary Refill : Less Than 3 Seconds Blood Pressure Mean: 90 Progress Note : Progress Note Patient seen and evaluated, resting comfortably in bed, appears fatigued, no acute distress. Based on exam and symptoms, work-up initiated including CBC, CMP, coags, troponin, BNP, lipase, magnesium, chest x-ray, EKG, fecal occult, COVID and flu swab, UA. 1337 Labs and chest x-ray reviewed. CBC shows decreased RBC 2.34, decreased hemoglobin 7.2, decreased hematocrit 24, elevated MCV 104. Hemoglobin dropped by 3.7 in 1 week. CMP shows slightly elevated chloride 109. Magnesium normal. Troponin negative. Lipase normal. Coags show slightly elevated PT 15.6. Urinalysis shows 1+ leukocytes, 5-10 WBCs, few bacteria. COVID and flu negative. Patient reports that she was recently on an antibiotic for UTI. She states she is not really having burning with urination, denies urinary urgency. States that she has been urinating more frequently because she has been drinking more water. I called and spoke with Dr. Zamora, surgery, he recommends holding her Xarelto. He states that she can have a regular diet and that he will likely do the EGD at some point during her admission. I spoke with Dr. Richardson, hospitalist, she agrees to admit patient. Will go ahead and order 1 unit of packed red blood cells due to hemoglobin less than 8 and cardiac risk factors occluding atrial fibrillation, hypertension, and coronary artery disease. Plan of care discussed with patient. Patient agrees to plan of care. Departure Communication (Admissions) Time/Spoke to Admitting Phy: 13:35 Dr. Zamora, surgery, see progress note. Time/Spoke to Consulting Phy: 13:37 Dr. Ha, hospitalist, see progress note. Impression Primary Impression: Anemia Additional Impression: GI bleed Disposition: ADMITTED INPATIENT Condition: Stable Admissions Decision to Admit Reason: Admit from ER (General) Decision to Admit/Date: Mar 08, 2023 Time/Decision to Admit Time: 13:37 Departure-Patient Inst. Referrals: MURRAY LOZADA (PCP/Family) Primary Care Physician ENRICO STONER APRN Mar 08, 2023 12:00
[2023-03-08 12:04] LABS: ALBUMIN 3.8 GM/DL (3.2-4.5)
[2023-03-08 12:05] LABS: CHLORIDE 109 MMOL/L (98-107); INR 1.2 (0.8-1.4); POTASSIUM 3.8 MMOL/L (3.6-5.0); PROTHROMBIN TIME PATIENT 15.6 SEC (12.2-14.7); SODIUM 141 MMOL/L (135-145)
[2023-03-08 12:06] LABS: CALCIUM 8.6 MG/DL (8.5-10.1)
[2023-03-08 12:07] LABS: GLUCOSE 139 MG/DL (70-105)
[2023-03-08 12:08] LABS: CARBON DIOXIDE 22 MMOL/L (21-32)
[2023-03-08 12:08] LABS: AMORPHOUS SEDIMENT,UR FEW AMOR URATES /LPF; BACTERIA,URINE FEW /HPF; BILIRUBIN,URINE NEGATIVE (NEGATIVE); CLARITY,URINE CLEAR; COLOR,URINE YELLOW; GLUCOSE, URINE (UA) NEGATIVE (NEGATIVE); KETONES,URINE NEGATIVE (NEGATIVE); LEUKOCYTE ESTERASE ,URINE 1+ (NEGATIVE); NITRITE,URINE NEGATIVE (NEGATIVE); PH,URINE 6.5 (5-9); PROTEIN,URINE NEGATIVE (NEGATIVE)
[2023-03-08 12:09] LABS: BILIRUBIN,TOTAL 0.4 MG/DL (0.1-1.0)
[2023-03-08 12:11] LABS: ALKALINE PHOSPHATASE 69 U/L (40-136); CREATININE SERUM 1.09 MG/DL (0.60-1.30); GFR ESTIMATED 55
[2023-03-08 12:12] LABS: BUN/CREATININE RATIO 17
[2023-03-08 12:13] LABS: MAGNESIUM 2.3 MG/DL (1.6-2.4)
[2023-03-08 12:14] LABS: ALANINE AMINOTRANSFERASE 41 U/L (0-55); LIPASE 23 U/L (8-78)
--- NOTE | 2023-03-08 12:14 | Diagnostic Imaging Report ---
INDICATION: Chest pain. COMPARISON: 08/10/2022. FINDINGS: Single frontal view of the chest demonstrates normal heart size and pulmonary vascularity. The lungs are well aerated and clear. No large pleural effusion or pneumothorax is seen. The visualized osseous structures show no acute abnormalities. IMPRESSION: No acute cardiopulmonary process. Dictated by: Dictated on workstation # [id number]
[2023-03-08] MEDS ORDERED: PANTOPRAZOLE INJECTION 40 MG VIAL IV ONE (13:00)
--- NOTE | 2023-03-08 15:15 | History & Physical-Hospitalist ---
LILI BONILLA 03/08/23 1515: History of Present Illness HPI/Chief Complaint 67F w/ a PMH of A-fib, partial nephrectomy in 2013, large sessile polyps seen on colonoscopy, reflux esophagitis grade II on EGD, and a UTI a few weeks ago presents with extreme weakness, fatigue, and progressive anemia. She states she has been feeling weak and fatigued for a month or so but it has been getting really bad the last 3 days. She states her Hgb was 11.7 January 26 and 10.2 on March 01. It is 7.2 today. Her previous Hgb recordings were discovered due to being seen for a run of A-fib and for getting checked out due to the same sx she is here for today. She says her BP is normally high, but lately she has been fighting with it being low, and when she stands up, her heart races. She also complains of being SOB, having nausea, and a pressure-like sensation in the middle of her chest. She states she has had black stools off and on since starting Xarelto around 2 years ago for her A-fib, but they have been consistently black the last week. She also complains of chalk-like urine, dysuria, and an increased frequency in urination. A snippet of an operative report from Dr. Zamora in July of 2021 describing her last EGD and colonoscopy findings is pasted below: INDICATIONS: The patient is a 65-year-old female who we had seen May 2020 where she underwent an EGD and colonoscopy. She has a history of large sessile polyp identified of the sigmoid colon, which was not amenable to endoscopic resection. She underwent a formal resection in 2014. She is also status post right partial nephrectomy in 2013. We had done the EGD and colonoscopy on her and she was found to have a reflux esophagitis grade II, small hiatal hernia 2 cm in size, moderate gastritis as well as chronic stage II external and internal hemorrhoids and no polyps identified. She states that she has had pain and swelling in the periumbilical region and was found to have reducible; however, symptomatic ventral abdominal incisional hernia. She also reported intermittent episodes of bleeding as well as irritation and itching in the anal region. Source: patient Date Seen 03/08/23 Attending Physician Thad Prado PCP Admitting Physician: Elmo Ricahrdson MD Attending Physician: Elmo Richardson MD Referring Physician Date of Admission Mar 08, 2023 at 14:34 Home Medications & Allergies Home Medications Reviewed patient Home Medication Reconciliation performed by pharmacy medication reconciliations photovoltaic testing technician and/or nursing. Patients Allergies have been reviewed. Allergies Allergies Coded Allergies clonidine (Verified Allergy, Severe, Angioedema, 02/07/21) diltiazem (Verified Allergy, Intermediate, 02/07/21) Leg rash Calcium Channel Blocking Agent Dilt (Unverified Allergy, Unknown, Hives, 07/03/21) amlodipine (Verified Allergy, Unknown, 02/07/21) Redness on legs albuterol (Verified Adverse Reaction, Intermediate, 02/07/21) elevated hr, palpitations Uncoded Allergies STEROIDS ( Adverse Reaction, Unknown, INCREASE BP AND PULSE, 02/07/21) Past Nozxeyz-Awiawa-Ekfnco Hx Patient Social History Tobacco Use?: No Tobacco type used: Cigarettes (35 year .5 ppd hx, quit 2009) Substance use?: No Alcohol Use?: Yes Alcohol type: Wine Alcohol Frequency: Couple times a week Immunizations Up To Date First/Initial COVID19 Vaccinat: JUN 2020 Second COVID19 Vaccination Brent: JUL 2020 Tetanus Booster (TDap): Less Than 5 Years Seasonal Allergies Seasonal Allergies: Yes Current Status Primary Language: Belgian Preferred Spoken Language: Belgian Implanted or Applied Medical D: Orthopedic hardware Past Medical History Surgeries: Abdominal, Appendectomy, Hysterectomy, Nephrectomy, Oophorectomy, Orthopedic, Tonsillectomy Currently Using CPAP: No Currently Using BIPAP: No Angina, Atrial Fibrillation, Hypertension Spinal Cord Injury, Traumatic Brain Injury 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 Sexually Transmitted Disease: No Polycystic Kidney Disease Gastroesophageal Reflux, Obstructive Bowel Tinnitis Kidney Did You Recieve Any Treatments: Yes What Type of Treatment Did You: Surgical Intervention Anxiety Blood Disorders: No Adverse Reaction/Blood Tranf: No Family Medical History Heart Disease, Stroke, Vascular Disease, Other Conditions/Hx Review of Systems Constitutional: No chills, No fever; weakness, weight gain (50 lbs in last 3 years) EENTM: blurred vision; No double vision Respiratory: No cough; dyspnea on exertion, short of breath; No stridor, No wheezing Gastrointestinal: abdominal pain; No constipation, No diarrhea, No hematemesis; melena, nausea; No vomiting Genitourinary: dysuria, frequency (increased); No hematuria; other (says urine looks chalky and feels rough coming out) Musculoskeletal: back pain, joint pain Skin: change in color (pale); No lesions; rash (said she had a rash in her mid chest yesterday) Psychiatric/Neurological: Anxiety; Denies Depressed; Headache (rates it 8/10 coming up from occipital area b/l around to the front of her head band-like) Physical Exam Physical Exam Vital Signs Vital Signs - First Documented 03/08/23 03/08/23 11:01 15:06 Temp 36.0 Pulse 71 Resp 20 B/P (MAP) 150/60 (90) Pulse Ox 100 O2 Delivery Room Air Capillary Refill : Less Than 3 Seconds Height, Weight, BMI Height: '" Weight: lbs. oz. kg; 33.00 BMI Method: General Appearance: No Apparent Distress, WD/WN, Anxious, Obese HEENT: PERRL/EOMI; No Scleral Icterus (L), No Scleral Icterus (R) Neck: Normal Inspection, Non Tender; No JVD Respiratory: Lungs Clear, Normal Breath Sounds, No Accessory Muscle Use, No Respiratory Distress Cardiovascular: No Edema, No Gallop, No JVD, No Murmur, Tachycardia Gastrointestinal: Soft; No Distended, No Guarding, No Rebound; Tenderness (says she is tender diffusely but does not wince upon light or deep palpation) Extremity: Normal Inspection, Non Tender, Pedal Edema (mild) Neurologic/Psychiatric: Alert, Oriented x3 Skin: Warm/Dry, Pallor Results Results/Procedures Labs Laboratory Tests 03/08/23 11:15 Patient resulted labs reviewed. Assessment/Plan Assessment and Plan Anemia Consult Dr. Zamora (last did EGD / colo in 2020 on pt) Transfuse 1 unit PRBC UTI (non-septic) Rocephin 1000mg A-fib Hold Xarelto Hold Aspirin Continue Amiodarone 200mg HTN Continue Atenolol 25mg Continue Doxazosin 8mg GERD Continue Pantoprazole 20mg GI cocktail DVT ppx Hold Xarelto Weakness PT / OT consult Normal diet Clinical Quality Measures AMI/AHF: ASA po Prior to arrival: No ELMO RICHARDSON MD 03/08/23 2004: History of Present Illness Time Seen by a Provider: 16:00 Assessment/Plan Admission Diagnosis Anemia Admission Status: Inpatient Order (span 2 midnights) Reason for Inpatient Admission: see below Assessment and Plan Patient presented with progressive weakness. She has been seeing her PCP recent ly and he hgb has been trending down. She is on Xarelto and ASA and has been having dark stools lately. She was found to have a Hgb of 7.2 from 10.9 last week. She is getting transfused one unit of pRBCs currently and surgery has been consulted.We will hold her anticoagulation and anticipate at EGD this hospital stay pending Dr Zamora's assessment. BP was very high in the room but improved upon repeat check. Will continue home meds as able. Reviewed allergies with patient and while she states she doesn't have a clinidine allergy anymore she has not actually filled it recently. She also takes a enalapril at home and states lisinopril doesn't work on her so does not want to take that. IV enalapr ilat ordered to replace it prn. She also requests a GI cocktail for some abd pain she is having. Incidentally she was found to have UTI and will be treated with Rocephin. Supervisory-Addendum Brief Verification & Attestation Participated in pt care: history, MDM, physical Personally performed: exam, history, MDM, supervision of care Care discussed with: Medical Student Procedures: n/a Results interpretation: Verified all documentation Verification and Attestation of Medical Student E/M Service A medical student performed and documented this service in my presence. I reviewed and verified all information documented by the medical student and made modifications to such information, when appropriate. I personally performed the physical exam and medical decision making. Elmo Richardson, Mar 08, 2023,19:58 LILI BONILLA Mar 08, 2023 15:15 ELMO RICHARDSON MD Mar 08, 2023 20:04
[2023-03-08] MEDS: NS IV 500 ML 500 ML IV SCH (15:50)
[2023-03-08] MEDS ORDERED: diazePAM 2 MG TABLET PO PRN (16:15)
[2023-03-08] MEDS ORDERED: cloNIDine 0.1 MG TABLET PO ONE (16:15)
[2023-03-08] MEDS ORDERED: ENALAPRILAT INJ 2.5 MG/2 ML VIAL IV PRN (16:15)
[2023-03-08] MEDS: NS IV 1000 ML 1,000 ML IV SCH ×2 (16:20→21:20)
[2023-03-08] MEDS ORDERED: LIDOCAINE 2% VISCOUS 15 ML UDC PO NR (16:30)
[2023-03-08] MEDS: ANTACID SUSPENSION 30 ML UDC PO PRN (16:49)
[2023-03-08] MEDS: cefTRIAXone IV/IM 1,000 MG in NS (IVPB) 50 ML 50 ML IV SCH (18:28)
--- NOTE | 2023-03-08 18:28 | CONSULTATION REPORT ---
DATE OF SERVICE: 03/08/2023 ATTENDING CAMP COORDINATOR: DAMEON Tavarez ADMITTING PHYSICIAN: Phylicia Richardson M.D. HISTORY OF PRESENT ILLNESS: The patient is a 67-year-old female, known to us. We had seen her in the office today for an EGD that was scheduled for this Wednesday. The patient states that she felt weak and then presented to the Emergency Department where she was found to be slightly anemic with a hemoglobin of 7.4. Upon looking at previous labs showed, her hemoglobin on 01/26/2023 was 11.7. The patient does have a history of atrial fibrillation and is on anticoagulation with aspirin and Xarelto. The patient also does have symptoms of gastroesophageal reflux disease. She reports that she has had increased fatigue and weakness over the past several weeks. Upon further questioning, she reports that she has noticed stools that were very dark in color and tarry in consistency. She underwent an EGD and colonoscopy in 05/2020 where she was found to have reflux esophagitis, [place] grade B, small hiatal hernia 2 cm in size, as well as a moderate gastritis. Colonoscopy showed mild chronic stage II external and internal hemorrhoids and a normal colorectal anastomosis and no recurrent polyps. The patient will be admitted and resuscitated appropriately. We will also proceed with an EGD on this admission. She has also had intermittent RUQ pain with associated nausea and vomiting. PAST MEDICAL HISTORY: Hypertension, atrial fibrillation, gastroesophageal reflux disease, history of right renal cancer, history of myocardial infarction, history of ventricular tachycardia. PAST SURGICAL HISTORY: Left biceps tendon repair in 2016, sigmoid colon resection in 02/2015, right partial nephrectomy in 2013, complete hysterectomy in 1981, cystocele and rectocele repair in 1995, ventral abdominal incisional hernia repair with mesh, and an anal exam under anesthesia. ALLERGIES: STEROIDS, COREG, ALBUTEROL, AMLODIPINE, CODEINE, CLONIDINE. MEDICATIONS: Amiodarone 200 mg daily, aspirin 81 mg daily, atenolol 25 mg daily, clonidine 0.1 mg daily, clorazepate 7.5 mg b.i.d. p.r.n., doxazosin 4 mg b.i.d., enalapril 20 mg b.i.d., isosorbide mononitrate 30 mg daily, Protonix 20 mg daily, Xarelto 10 mg daily, zolpidem 10 mg each day at bedtime. SOCIAL HISTORY: Previous history of smoke 35 pack years, quit in 2009. She did drink 2 glasses of wine 2 times a week. FAMILY HISTORY: Noncontributory. VITAL SIGNS: Temperature 36.4, blood pressure 155/69, pulse 65, respirations 18, pulse ox 100% on room air. REVIEW OF SYSTEMS: Well-nourished female, currently in no acute distress. She is not experiencing shortness of breath or difficulty breathing. No chest pain, palpitations, diaphoresis. No nausea, vomiting with some epigastric crampy pain on an intermittent basis. No hematemesis, no coffee-ground emesis. Darker stools in the past few weeks. No fever, chills, no recent inadvertent weight loss. All other review of systems negative. PHYSICAL EXAMINATION: CHEST: Few scattered wheezes and rhonchi bilaterally. HEART: Regular. No murmurs. EXTREMITIES: No lower extremity edema. Negative Homans sign. HEENT: No scleral icterus or cervical lymphadenopathy. ABDOMEN: Soft, nondistended. There is mild discomfort in the epigastric region upon deep palpation. No hernias. SKIN: Warm, dry. LABORATORY DATA: WBC 5.5, hemoglobin 7.2, hematocrit 24, platelets 185. BUN 18, creatinine 1.09. Urinalysis, positive for leukocyte esterase and few bacteria. ASSESSMENT AND PLAN: A 67-year-old female with anemia, most likely secondary to upper gastrointestinal bleeding. She will be admitted, resuscitated and treated appropriately with PPI acid reducers. We will also proceed with scheduling her for an EGD on this admission. WIll also proceed with U/S gallbladder and if negative then proceed with HIDA scan with EF. Job ID: [id number] DocumentID: [id number] Dictated Date: 03/08/2023 17:42:20 Restuarant Crew Worker Date: 03/08/2023 18:26:00 Dictated By: TRESSA SCHWARZ MD [facility]
[2023-03-08] MEDS: PANTOPRAZOLE INJECTION 40 MG VIAL IV SCH (21:20)
[2023-03-08] MEDS: AMIODARONE 200 MG TABLET PO SCH (21:20)
[2023-03-08] MEDS: diazePAM 5 MG TABLET PO PRN (21:21)
[2023-03-08] MEDS: MELATONIN 3 MG TABLET PO PRN (21:32)
[2023-03-09] MEDS ORDERED: diazePAM 2 MG TABLET PO PRN (00:15)
[2023-03-09 03:10] VITALS: BP 134/60
[2023-03-09] MEDS: NS IV 500 ML 500 ML IV SCH ×2 (04:50→22:57)
[2023-03-09] MEDS: NS IV 1000 ML 1,000 ML IV SCH ×3 (05:04→15:09)
[2023-03-09 06:12] LABS: HEMATOCRIT 25 % (35-52); MEAN CORPUSCULAR HEMOGLOBIN 31 pg (25-34); MEAN CORPUSCULAR HGB CONC 32 g/dL (32-36); MEAN CORPUSCULAR VOLUME 98 fL (80-99); MEAN PLATELET VOLUME 11.3 fL (9.0-12.2); PLATELET COUNT 177 10^3/uL (130-400); WHITE BLOOD COUNT 4.7 10^3/uL (4.3-11.0)
[2023-03-09 06:33] LABS: CALCIUM 8.1 MG/DL (8.5-10.1); CREATININE SERUM 0.97 MG/DL (0.60-1.30); POTASSIUM 3.7 MMOL/L (3.6-5.0)
[2023-03-09 07:47] VITALS: BP 163/75
--- NOTE | 2023-03-09 08:03 | Diagnostic Imaging Report ---
PROCEDURE: US Abdomen, limited. TECHNIQUE: Multiple realtime grayscale images were obtained over the abdomen in various projections. INDICATION: Nausea and emesis with right upper quadrant abdominal pain FINDINGS: Grayscale imaging of the gallbladder reveals no intraluminal filling defect. There is no gallbladder wall thickening or pericholecystic fluid. No intra or extrahepatic biliary ductal dilatation is identified. Liver measures 16.4 cm without evidence of focal mass. No pancreatic, right renal, abdominal aortic or inferior vena caval abnormality is documented. No ascites was noted. IMPRESSION: Unremarkable right upper quadrant abdominal ultrasound. Dictated by: Dictated on workstation # [id number]
[2023-03-09] MEDS: PANTOPRAZOLE INJECTION 40 MG VIAL IV SCH ×2 (09:05→19:44)
[2023-03-09] MEDS: ATENOLOL 25 MG TABLET PO SCH (10:03)
[2023-03-09] MEDS: AMIODARONE 200 MG TABLET PO SCH ×2 (10:03→19:44)
[2023-03-09] MEDS: ONDANSETRON INJECTION 4 MG/2 ML (SDV) IV PRN (10:07)
[2023-03-09 11:31] VITALS: BP 149/72
--- NOTE | 2023-03-09 11:37 | Progress Note - Hospitalist ---
Subjective HPI/CC On Admission Date Seen by Provider: Mar 09, 2023 67F w/ a PMH of A-fib, partial nephrectomy in 2013, large sessile polyps seen on colonoscopy, reflux esophagitis grade II on EGD, and a UTI a few weeks ago presents with extreme weakness, fatigue, and progressive anemia. She states she has been feeling weak and fatigued for a month or so but it has been getting really bad the last 3 days. She states her Hgb was 11.7 January 26 and 10.2 on March 01. It is 7.2 today. Her previous Hgb recordings were discovered due to being seen for a run of A-fib and for getting checked out due to the same sx she is here for today. She says her BP is normally high, but lately she has been fighting with it being low, and when she stands up, her heart races. She also complains of being SOB, having nausea, and a pressure-like sensation in the middle of her chest. She states she has had black stools off and on since starting Xarelto around 2 years ago for her A-fib, but they have been consistently black the last week. She also complains of chalk-like urine, dysuria, and an increased frequency in urination. A snippet of an operative repo rt from Dr. Zamora in July of 2021 describing her last EGD and colonoscopy findings is pasted below: INDICATIONS: The patient is a 65-year-old female who we had seen May 2020 where she underwent an EGD and colonoscopy. She has a history of large sessile polyp identified of the sigmoid colon, which was not amenable to endoscopic resection. She underwent a formal resection in 2014. She is also status post right partial nephrectomy in 2013. We had done the EGD and colonoscopy on her and she was found to have a reflux esophagitis grade II, small hiatal hernia 2 cm in size, moderate gastritis as well as chronic stage II external and internal hemorrhoids and no polyps identified. She states that she has had pain and swelling in the periumbilical region and was found to have reducible; however, symptomatic ventral abdominal incisional hernia. She also reported intermittent episodes of bleeding as well as irritation and itching in the anal region. Subjective/Events-last exam Pt reports feeling a little better but about the same as yesterday. Still having some abd pain. Feels nauseated and thinks she may vomit. Also having a lot of gas. She is concerned about her BP as well. Reviewed her BPs with her overnight (130-150s) and how with pain and hospitalization they can run a little high. She would like to bring in her home enalapril instead of taking lisinopril that we have here. She repors her will bring her home meds in. Objective Exam Vital Signs Vital Signs Date Time Temp Pulse Resp B/P (MAP) Pulse Ox O2 Delivery O2 Flow Rate FiO2 03/09/23 11:31 36.4 62 16 149/72 (97) 97 Room Air Capillary Refill : Less Than 3 Seconds General Appearance: No Apparent Distress, Anxious Respiratory: Lungs Clear, No Respiratory Distress Cardiovascular: Regular Rate, Rhythm, No Murmur Gastrointestinal: Normal Bowel Sounds, Non Tender, Soft Neurologic/Psychiatric: Alert, Oriented x3 Results/Procedures Lab Laboratory Tests 03/09/23 05:10 Patient resulted labs reviewed. Assessment/Plan Assessment and Plan Assess & Plan/Chief Complaint Anemia GI Bleed Dr Zamora consulted, appreciate recs NPO HIDA scan ordered EGD maybe tomorrow per RN report Hgb up after 1 unit pRBCs to 8.0 DC IVF at pt request due to edema in fingers PPI HTN Afib BP relatively well controlled for hospitalization Resume home meds when brings them in and able to take PO Hold home anticoagulation UTI Contineu Rocephin Clinical Quality Measures AMI/AHF: ASA po Prior to arrival: ELMO Ho MD Mar 09, 2023 11:37
[2023-03-09] MEDS ORDERED: fentaNYL INJECTION 100 MCG/2 ML VIAL IVP PRN (11:45)
--- NOTE | 2023-03-09 15:00 | Physical Therapy Progress Note ---
Therapy Progress Note Attempted to see patient for PT evaluation. Nurse reports patient out of the room for a procedure. Will attempt evaluation again tomorrow. CARMENCITA HUSSEIN PT Mar 09, 2023 15:00
--- NOTE | 2023-03-09 15:20 | Diagnostic Imaging Report ---
INDICATION: Gallstones, anemia, and GI bleed. TECHNIQUE: Patient was administered 5.2 mCi technetium-99m Choletec intravenously, and imaging over the abdomen was performed. At 45 minutes, patient ingested 8 ounces of Ensure, and gallbladder ejection fraction was calculated. FINDINGS: There is homogeneous uptake of activity by the liver with prompt excretion of activity into the gallbladder and common duct. Normal passage of activity into the small bowel is noted. Gallbladder ejection fraction is normal at 50%. IMPRESSION: Normal HIDA scan and gallbladder ejection fraction. Dictated by: Dictated on workstation # [id number]
[2023-03-09 15:53] VITALS: BP 137/62
[2023-03-09] MEDS ORDERED: MAGN250T31 PO (17:15)
[2023-03-09] MEDS ORDERED: PANT20TA18 PO (17:15)
[2023-03-09] MEDS ORDERED: NITR0.4T42 PO (17:15)
[2023-03-09] MEDS ORDERED: VIT1CAPS44 PO (17:15)
[2023-03-09] MEDS ORDERED: FERR29CA PO (17:15)
[2023-03-09] MEDS ORDERED: DOXA8TAB73 PO ×2 (17:15)
[2023-03-09] MEDS ORDERED: FURO20TA4 PO (17:15)
--- NOTE | 2023-03-09 17:18 | Progress Note-Pre Operative ---
Pre-Operative Progress Note Date of Available H&P: Mar 09, 2023 Date H&P Reviewed: Mar 09, 2023 Time H&P Reviewed: 14:00 History & Physical: No changes noted Pre-Operative Diagnosis: anemia, epigastric pain, dark tarry stools TRESSA SCHWARZ MD Mar 09, 2023 17:18
[2023-03-09 19:38] VITALS: BP 136/62
[2023-03-09] MEDS: cefTRIAXone IV/IM 1,000 MG in NS (IVPB) 50 ML 50 ML IV SCH (19:44)
[2023-03-09] MEDS: diazePAM 5 MG TABLET PO PRN (19:44)
[2023-03-09] MEDS: MELATONIN 3 MG TABLET PO PRN (19:58)
[2023-03-09] MEDS ORDERED: PATIENT MAY USE OWN MEDS, ALL MC SCH (20:30)
[2023-03-09 23:56] VITALS: BP 130/55
[2023-03-10] VITALS (7 sets, daily range): BP systolic 117–160; BP diastolic 58–81
[2023-03-10] MEDS: ATENOLOL 25 MG TABLET PO SCH ×2 (02:37→17:02)
[2023-03-10 05:06] LABS: HEMATOCRIT 28 % (35-52); HEMOGLOBIN 8.7 g/dL (11.5-16.0); MEAN CORPUSCULAR HEMOGLOBIN 31 pg (25-34); MEAN CORPUSCULAR HGB CONC 31 g/dL (32-36); MEAN CORPUSCULAR VOLUME 97 fL (80-99); MEAN PLATELET VOLUME 10.8 fL (9.0-12.2); PLATELET COUNT 196 10^3/uL (130-400); WHITE BLOOD COUNT 4.7 10^3/uL (4.3-11.0)
[2023-03-10 05:15] LABS: CALCIUM 8.2 MG/DL (8.5-10.1); CREATININE SERUM 0.94 MG/DL (0.60-1.30); POTASSIUM 3.6 MMOL/L (3.6-5.0)
[2023-03-10] MEDS: NS IV 1000 ML 1,000 ML IV SCH (06:38)
[2023-03-10] MEDS: PANTOPRAZOLE INJECTION 40 MG VIAL IV SCH (08:22)
[2023-03-10] MEDS ORDERED: LACTATED RINGERS 1,000 ML 1,000 ML IV STA (09:49)
[2023-03-10] MEDS ORDERED: LACTATED RINGERS 1,000 ML 1,000 ML IV ONE (09:58)
[2023-03-10] MEDS ORDERED: HURRICAINE EXT TUBE (BENZOCAINE) ONE (09:58)
[2023-03-10] MEDS ORDERED: LIDOCAINE JELLY 2% 6 ML SYRINGE MM PRN (10:00)
[2023-03-10] MEDS ORDERED: HURRICAINE EXT TUBE (BENZOCAINE) XX PRN (10:00)
[2023-03-10] MEDS ORDERED: LIDOCAINE JELLY 2% 6 ML SYRINGE ONE (10:12)
[2023-03-10] MEDS ORDERED: proPOfol INJECTION 200 MG/20 ML VIAL IV ONE (10:13)
--- NOTE | 2023-03-10 10:55 | Progress Note-Post Operative ---
Post-Operative Progess Note Surgeon (s)/Want Ad Clerk (s) Surgeon TRESSA SCHWARZ MD Want Ad Clerk: none Pre-Operative Diagnosis anemia, epigastric pain, dark tarry stools Post-Operative Diagnosis reflux esophagitis(B-C), small GE polyp(2mm), small-mod HH(2.5cm), moderate gastritis. Procedure & Operative Findings Date of Procedure 03/10/23 Procedure Performed/Findings EGD with bx Anesthesia Type mac Estimated Blood Loss Estimated blood loss (mL): minimal Specimens/Packing Specimens Removed GE polyp, Ge jxn, antrum TRESSA SCHWARZ MD Mar 10, 2023 10:55
[2023-03-10] MEDS: AMIODARONE 200 MG TABLET PO SCH ×2 (11:10→19:42)
--- NOTE | 2023-03-10 11:40 | Progress Note - Hospitalist ---
Subjective HPI/CC On Admission Date Seen by Provider: Mar 10, 2023 67F w/ a PMH of A-fib, partial nephrectomy in 2013, large sessile polyps seen on colonoscopy, reflux esophagitis grade II on EGD, and a UTI a few weeks ago presents with extreme weakness, fatigue, and progressive anemia. She states she has been feeling weak and fatigued for a month or so but it has been getting really bad the last 3 days. She states her Hgb was 11.7 January 26 and 10.2 on March 01. It is 7.2 today. Her previous Hgb recordings were discovered due to being seen for a run of A-fib and for getting checked out due to the same sx she is here for today. She says her BP is normally high, but lately she has been fighting with it being low, and when she stands up, her heart races. She also complains of being SOB, having nausea, and a pressure-like sensation in the middle of her chest. She states she has had black stools off and on since starting Xarelto around 2 years ago for her A-fib, but they have been consistently black the last week. She also complains of chalk-like urine, dysuria, and an increased frequency in urination. A snippet of an operative report from Dr. Zamora in July of 2021 describing her last EGD and colonoscopy findings is pasted below: INDICATIONS: The patient is a 65-year-old female who we had seen May 2020 where she underwent an EGD and colonoscopy. She has a history of large sessile polyp identified of the sigmoid colon, which was not amenable to endoscopic resection. She underwent a formal resection in 2014. She is also status post right partial nephrectomy in 2013. We had done the EGD and colonoscopy on her and she was found to have a reflux esophagitis grade II, small hiatal hernia 2 cm in size, moderate gastritis as well as chronic stage II external and internal hemorrhoids and no polyps identified. She states that she has had pain and swelling in the periumbilical region and was found to have reducible; however, symptomatic ventral abdominal incisional hernia. She also reported intermittent episodes of bleeding as well as irritation and itching in the anal region. Subjective/Events-last exam Pt reports still feeling abd pain. Plan for scope today. HR up overnight but responded to oral atenolol. She is concerned about many things. She would like to take her atenolol and valium at dinner time (though she switches what she is saying between atenolol and enalapril. She would like to take her evening medicines not at bedtime but shortly after dinner. She is also wondering about getting her iron checked. Informed her that after a blood transfusion iron studies are normally skewed but she would likely benefit from IV iron and will do it tomorrow when abx complete for UTI as to not aggravate UTI. Objective Exam Vital Signs Vital Signs Date Time Temp Pulse Resp B/P (MAP) Pulse Ox O2 Delivery O2 Flow Rate FiO2 03/10/23 10:45 36.61547 59 16 100 Room Air 03/10/23 07:54 148/81 (103) Capillary Refill : Less Than 3 Seconds General Appearance: No Apparent Distress, Anxious Respiratory: Lungs Clear, No Respiratory Distress Cardiovascular: Regular Rate, Rhythm, No Murmur Gastrointestinal: Normal Bowel Sounds, Soft Neurologic/Psychiatric: Alert, Oriented x3 Results/Procedures Lab Laboratory Tests 03/10/23 04:35 Patient resulted labs reviewed. Assessment/Plan Assessment and Plan Assess & Plan/Chief Complaint Anemia GI Bleed Dr Zamora consulted, appreciate recs NPO for EGD HIDA scan normal Hgb 8.7 Likely Infed tomorrow PPI HTN Afib BP relatively well controlled for hospitalization A fib overnight but now improved Resume home meds per her schedule at home Hold home anticoagulation due to anemia UTI Continue Rocephin- compete course today Clinical Quality Measures AMI/AHF: ASA po Prior to arrival: ELMO Ho MD Mar 10, 2023 11:40
--- NOTE | 2023-03-10 11:48 | Physical Therapy Evaluation ---
PT Evaluation-General Medical Diagnosis Admission Date Mar 08, 2023 at 14:34 Medical Diagnosis: Extreme weakness, fatigue, progressive anemia Onset Date: Mar 07, 2023 Therapy Diagnosis Therapy Diagnosis: Gait deficit, strength deficit Precautions Precautions/Isolations: Fall Prevention, Standard Precautions Weight Bear Status Right Lower Extremity: Right Full Weight Bearing Left Lower Extremity: Left Full Weight Bearing Referral Physician: Dr. Richardson Reason for Referral: Evaluation/Treatment Medical History Reviewed History: Yes Social History Home: Single Level Current Living Status: Spouse Entry Into Home: Level Entry Prior Prior Level of Function SCALE: Activities may be completed with or without assistive devices. 8-Goykabxvwa-hbiabnt completes the activity by him/herself with no assistance from a helper. 5-Set-up or Clean-up Assistance-helper sets up or cleans up; patient completes activity. [place] assists only prior to or following the activity. 4-Supervision or Touching Assistance-helper provides verbal cues and/or touching/steadying and/or contact guard assistance as patient completes activity. Assistance may be provided throughout the activity or intermittently. 3-Partial/Moderate Assistance-helper does LESS THAN HALF the effort. [place] lifts, holds or supports trunk or limbs, but provides less than half the effort. 2-Substantial/Maximal Assistance-helper does MORE THAN HALF the effort. [place] lifts or holds trunk or limbs and provides more than half the effort. 6-Jwgzlxtzb-qpgppf does ALL the effort. Patient does none of the effort to complete the activity. Or, the assistance of 2 or more helpers is required for the patient to complete the activity. If activity was not attempted, code reason: 7-Patient Refused. 9-Not Applicable-not attempted and the patient did not perform the activity before the current illness, exacerbation or injury. 10-Not Attempted due to Environmental Limitations-(lack of equipment, weather restraints, etc.). 88-Not Attempted due to Medical Conditions or Safety Concerns. Bed Mobility: 6 Transfers (B,C,W/C): 6 Gait: 6 Indoor Mobility (Ambulation): Independent Stairs: Not Applicalbe Prior Devices Use: None PT Evaluation-Current Subjective Patient lying supine in bed upon PT arrival, agreeable to treatment. Patient rates pain at 7/10 currently in throat and stomach. Objective Patient Orientation: Person, Place, Time, Situation ROM/Strength ROM Lower Extremities WFLs BLEs all planes Strength Lower Extremities 3+/5 BLEs all planes Sensory Vision: Functional Hearing: Hearing Aid/Aides Sensation Right Lower Extremit: Intact Sensation Left Lower Extremity: Intact Transfers Roll Left to Right (QC): 4 Sit to Lying (QC): 4 Lying to Sitting/Side of Bed(Q: 4 Sit to Stand (QC): 4 Gait Does the Patient Walk?: No and Walking Goal IS indicated Balance Sitting Static: Good Sitting Dynamic: Good Standing Static: Fair Standing Dynamic: Fair Assessment/Needs Patient fatigues quickly with activity. Patient performs all bed mobility and transfers with SBA. Patient reports she hasn't been walking much at home and feels like her legs are very weak. Patient just returned from procedure a few minutes prior to PT evaluation. Patient in bed post treatment with all needs met, nursing notified, call light in reach. Rehab Potential: Fair PT Correction Goals Surgical Manager Goals PT Surgical Manager Goals Time Frame: Apr 08, 2023 Roll Left & Right (QC): 6 Sit to Lying (QC): 6 Lying-Sitting on Side/Bed(QC): 6 Sit to Stand (QC): 6 Chair/Ajc-mn-Aerno Xfer(QC): 6 Toilet Transfer (QC): 6 Does the Patient Walk: Yes Walk 10 feet (QC): 4 Walk 50ft with 2 Turns (QC): 4 Walk 150 ft (QC): 4 PT Plan Problem List Problem List: Activity Tolerance, Functional Strength, Safety, Balance, Gait, Transfer, Bed Mobility, ROM Treatment/Plan Treatment Plan: Continue Plan of Care Treatment Plan: Bed Mobility, Education, Functional Activity Audie, Functional Strength, Group Therapy, Gait, Safety, Therapeutic Exercise, Transfers Treatment Duration: Apr 08, 2023 Frequency: 6 times per week Estimated Hrs Per Day: .25 hour per day Patient and/or Family Agrees t: Yes Safety Risks/Education Patient Education: Transfer Techniques Teaching Recipient: Patient Teaching Methods: Demonstration, Discussion Response to Teaching: Verbalize Understanding, Return Demonstration Time Time In: 1100 Time Out: 1120 DATE: Mar 10, 2023 Total Billed Treatment Time: 20 Total Billed Treatment Visit, CARMENCITA HAILE PT Mar 10, 2023 11:48
--- NOTE | 2023-03-10 12:49 | Anesthesia-General Post-Op ---
MAC Patient Condition Mental Status/LOC: Same as Preop Cardiovascular: Satisfactory Nausea/Vomiting: Absent Respiratory: Satisfactory Pain: Controlled Complications: Absent Post Op Complications Complications None Follow Up Care/Instructions Patient Instructions None needed. Anesthesiology Discharge Order Discharge Order Patient is doing well, no complaints, stable vital signs, no apparent adverse anesthesia problems. No complications reported per nursing. LUIS LYNNE CRNA Mar 10, 2023 12:49
[2023-03-10] MEDS: diazePAM 5 MG TABLET PO PRN (17:02)
--- NOTE | 2023-03-10 18:03 | Progress Note ---
Subjective Date Seen by a Provider: Mar 10, 2023 Time Seen by a Provider: 18:00 Subjective/Events-last exam doing ok. still states has continued upper abd distention with nausea after taking PO. felt significant sx after administration of the kinevac analogue(ensure) during the HIDA scan yesterday consistent with a sx biliary dyskinesia. Objective Exam Vital Signs Date Time Temp Pulse Resp B/P (MAP) Pulse Ox O2 Delivery O2 Flow Rate FiO2 03/10/23 15:39 36.4 68 18 128/71 (90) 97 Room Air 03/10/23 13:00 69 03/10/23 12:18 36.2 56 17 160/77 (104) 98 Room Air 03/10/23 10:45 36.75648 59 16 100 Room Air 03/10/23 08:42 65 03/10/23 08:00 Room Air 03/10/23 07:54 36.5 69 16 148/81 (103) 98 Room Air 03/10/23 03:26 79 03/10/23 03:02 36.5 120 16 117/70 (86) 96 Room Air 03/10/23 02:07 174 03/10/23 01:00 67 03/09/23 23:56 36.6 63 16 130/55 (80) 97 Room Air 03/09/23 19:50 Room Air 03/09/23 19:38 36.6 72 16 136/62 (86) 97 Room Air 03/09/23 19:00 87 I & O 03/10/23 07:00 Intake Total 2822 ml Output Total 1450 ml Balance 1372 ml Capillary Refill : Less Than 3 Seconds General Appearance: No Apparent Distress HEENT: PERRL/EOMI Neck: Full Range of Motion Respiratory: Chest Non Tender, Lungs Clear Cardiovascular: Regular Rate, Rhythm Gastrointestinal: normal bowel sounds, soft, tenderness Extremity: Normal Capillary Refill Neurologic/Psychiatric: Alert, Oriented x3 Skin: Normal Color Lymphatic: No Adenopathy Results Lab Laboratory Tests 03/10/23 04:35: White Blood Count 4.7, Red Blood Count 2.85L, Hemoglobin 8.7L, Hematocrit 28L, Mean Corpuscular Volume 97, Mean Corpuscular Hemoglobin 31, Mean Corpuscular Hemoglobin Concent 31L, Red Cell Distribution Width 15.2H, Platelet Count 196, Mean Platelet Volume 10.8, Sodium Level 143, Potassium Level 3.6, Chloride Level 112H, Carbon Dioxide Level 24, Anion Gap 7, Blood Urea Nitrogen 8, Creatinine 0.94, Estimat Glomerular Filtration Rate 66, BUN/Creatinine Ratio 9, Glucose Level 113H, Calcium Level 8.2L Microbiology 03/08/23 Urine Culture - Final, Complete >=3 Gram Positive Isolates Assessment/Plan Assessment/Plan Assess & Plan/Chief Complaint GERD/PUD s/p EGD with bx today. also has sx biliary dyskinesia. will need PPI 40mg dosing BID at home. will plan for laparoscopic cholecystectomy tomorrow(03/11). currently being for IRU as well. Clinical Quality Measures AMI/AHF: ASA po Prior to arrival: TRESSA Martini MD Mar 10, 2023 18:03
--- NOTE | 2023-03-10 18:04 | Progress Note-Pre Operative ---
Pre-Operative Progress Note Date of Available H&P: Mar 10, 2023 Date H&P Reviewed: Mar 10, 2023 Time H&P Reviewed: 18:00 History & Physical: No changes noted Pre-Operative Diagnosis: symptomatic biliary dyskinesia TRESSA SCHWARZ MD Mar 10, 2023 18:04
[2023-03-10] MEDS: cefTRIAXone IV/IM 1,000 MG in NS (IVPB) 50 ML 50 ML IV SCH (19:40)
[2023-03-10] MEDS: PANTOPRAZOLE 40 MG TABLET PO SCH (19:41)
[2023-03-10] MEDS: MELATONIN 3 MG TABLET PO PRN (21:05)
[2023-03-11] VITALS (7 sets, daily range): BP systolic 132–181; BP diastolic 57–82
[2023-03-11 05:54] LABS: HEMATOCRIT 26 % (35-52); HEMOGLOBIN 8.1 g/dL (11.5-16.0); MEAN CORPUSCULAR HEMOGLOBIN 30 pg (25-34); MEAN CORPUSCULAR HGB CONC 31 g/dL (32-36); MEAN CORPUSCULAR VOLUME 97 fL (80-99); MEAN PLATELET VOLUME 11.2 fL (9.0-12.2); PLATELET COUNT 172 10^3/uL (130-400); WHITE BLOOD COUNT 3.8 10^3/uL (4.3-11.0)
[2023-03-11 06:10] LABS: CALCIUM 8.3 MG/DL (8.5-10.1); CREATININE SERUM 0.96 MG/DL (0.60-1.30); POTASSIUM 3.7 MMOL/L (3.6-5.0)
[2023-03-11] MEDS ORDERED: LACTATED RINGERS 1,000 ML 1,000 ML IV PRN (07:45)
[2023-03-11] MEDS: PANTOPRAZOLE 40 MG TABLET PO SCH ×2 (08:54→18:49)
[2023-03-11] MEDS: AMIODARONE 200 MG TABLET PO SCH ×2 (08:54→18:49)
--- NOTE | 2023-03-11 11:58 | Progress Note - Hospitalist ---
Subjective HPI/CC On Admission Date Seen by Provider: Mar 11, 2023 67F w/ a PMH of A-fib, partial nephrectomy in 2013, large sessile polyps seen on colonoscopy, reflux esophagitis grade II on EGD, and a UTI a few weeks ago presents with extreme weakness, fatigue, and progressive anemia. She states she has been feeling weak and fatigued for a month or so but it has been getting really bad the last 3 days. She states her Hgb was 11.7 January 26 and 10.2 on March 01. It is 7.2 today. Her previous Hgb recordings were discovered due to being seen for a run of A-fib and for getting checked out due to the same sx she is here for today. She says her BP is normally high, but lately she has been fighting with it being low, and when she stands up, her heart races. She also complains of being SOB, having nausea, and a pressure-like sensation in the middle of her chest. She states she has had black stools off and on since starting Xarelto around 2 years ago for her A-fib, but they have been consistently black the last week. She also complains of chalk-like urine, dysuria, and an increased frequency in urination. A snippet of an operative report from Dr. Zamora in July of 2021 describing her last EGD and colonoscopy findings is pasted below: INDICATIONS: The patient is a 65-year-old female who we had seen May 2020 where she underwent an EGD and colonoscopy. She has a history of large sessile polyp identified of the sigmoid colon, which was not amenable to endoscopic resection. She underwent a formal resection in 2014. She is also status post right partial nephrectomy in 2013. We had done the EGD and colonoscopy on her and she was found to have a reflux esophagitis grade II, small hiatal hernia 2 cm in size, moderate gastritis as well as chronic stage II external and internal hemorrhoids and no polyps identified. She states that she has had pain and swelling in the periumbilical region and was found to have reducible; however, symptomatic ventral abdominal incisional hernia. She also reported intermittent episodes of bleeding as well as irritation and itching in the anal region. Subjective/Events-last exam Pt reports feeling anxious about surgery. No specific complaints other that that today. Planning for lap cynthia today. Objective Exam Vital Signs Vital Signs Date Time Temp Pulse Resp B/P (MAP) Pulse Ox O2 Delivery O2 Flow Rate FiO2 03/11/23 08:59 Room Air 03/11/23 07:53 36.3 57 18 140/57 (84) 97 Capillary Refill : Less Than 3 Seconds General Appearance: No Apparent Distress, Anxious Respiratory: Lungs Clear, No Respiratory Distress Cardiovascular: Regular Rate, Rhythm, No Murmur Neurologic/Psychiatric: Alert, Oriented x3 Results/Procedures Lab Laboratory Tests 03/11/23 05:48 Patient resulted labs reviewed. Assessment/Plan Assessment and Plan Assess & Plan/Chief Complaint Anemia GI Bleed Dr Zamora consulted, appreciate recs EGD with gastritis, esophagitis, sm-mod hiatal hernia Planning for lap cynthia today per Dr Zamora recs Hgb 8.1 Likely Infed after surgery PPI HTN Afib BP relatively well controlled overnight Continue home meds per her schedule at home when able to PO Hold home anticoagulation due to anemia UTI Continue Rocephin- competed course Clinical Quality Measures AMI/AHF: ASA po Prior to arrival: ELMO Ho MD Mar 11, 2023 11:58
--- NOTE | 2023-03-11 14:16 | Physical Therapy Daily Note ---
PT Daily Note-Current Subjective Patient lying supine in bed upon PT arrival, agreeable to treatment. Patient rates pain at 6-7/10 in abdomen. Pain Section J - Health Conditions 1. Rarely or not at all 2. Occasionally 3. Frequently 4. Almost constantly 8. Unable to answer Pain Effect on Sleep: 2 Pain Interference with Therapy: 2 Pain Interference w/Day-to-Day: 2 Transfers SCALE: Activities may be completed with or without assistive devices. 8-Gxisnaxtja-ofdeoia completes the activity by him/herself with no assistance from a helper. 5-Set-up or Clean-up Assistance-helper sets up or cleans up; patient completes activity. [place] assists only prior to or following the activity. 4-Supervision or Touching Assistance-helper provides verbal cues and/or touching/steadying and/or contact guard assistance as patient completes activity. Assistance may be provided throughout the activity or intermittently. 3-Partial/Moderate Assistance-helper does LESS THAN HALF the effort. [place] lifts, holds or supports trunk or limbs, but provides less than half the effort. 2-Substantial/Maximal Assistance-helper does MORE THAN HALF the effort. [place] lifts or holds trunk or limbs and provides more than half the effort. 1-Hyqgxkrtt-cepxcp does ALL the effort. Patient does none of the effort to complete the activity. Or, the assistance of 2 or more helpers is required for the patient to complete the activity. If activity was not attempted, code reason: 7-Patient Refused. 9-Not Applicable-not attempted and the patient did not perform the activity before the current illness, exacerbation or injury. 10-Not Attempted due to Environmental Limitations-(lack of equipment, weather restraints, etc.). 88-Not Attempted due to Medical Conditions or Safety Concerns. Roll Left & Right (QC): 4 Sit to Lying (QC): 4 Lying to Sitting/Side of Bed(Q: 4 Sit to Stand (QC): 4 Weight Bearing Right Lower Extremity: Right Full Weight Bearing Left Lower Extremity: Left Full Weight Bearing Gait Training Does the Patient Walk?: Yes Distance: 120' Walk 10 feet (QC): 4 Walk 50 ft with 2 Turns(QC): 4 Gait Assistive Device: FWW Assessment Current Status: Fair Progress Patient performs all bed mobility and transfers with SBA. Patient ambulates 120' with FWW, with SBA and verbal cues for safety, posture and conservation of energy. Patient reports "They are supposed to come get me for surgery" so patient requested to return to bed. Patient lying supine in bed post treatment with all needs met, nursing notified, call light in reach. PT Molding Cutter Goals Intermediate Goals PT Molding Cutter Goals Time Frame: Apr 08, 2023 Roll Left & Right (QC): 6 Sit to Lying (QC): 6 Lying-Sitting on Side/Bed(QC): 6 Sit to Stand (QC): 6 Chair/Ehw-wf-Ezjno Xfer(QC): 6 Toilet Transfer (QC): 6 Does the Patient Walk: Yes Walk 10 feet (QC): 4 Walk 50ft with 2 Turns (QC): 4 Walk 150 ft (QC): 4 PT Plan Treatment/Plan Treatment Plan: Continue Plan of Care Treatment Plan: Bed Mobility, Education, Functional Activity Audie, Functional Strength, Group Therapy, Gait, Safety, Therapeutic Exercise, Transfers Treatment Duration: Apr 08, 2023 Frequency: 6 times per week Estimated Hrs Per Day: .25 hour per day Patient and/or Family Agrees t: Yes Safety Risks/Education Patient Education: Gait Training, Transfer Techniques Time Time In: 1335 Time Out: 1345 DATE: Mar 11, 2023 Total Billed Treatment Time: 10 Total Billed Treatment Visit, GT CARMENCITA HUSSEIN PT Mar 11, 2023 14:16
--- NOTE | 2023-03-11 14:55 | Discharge Inst-Surgical ---
D/C Lap Instructions-KARISHMA New, Converted, or Re-Newed RX: RX on Chart Follow Up Appt in 2 weeks Activity as tolerated No driving for 24 hours No driving while on pain medications Incentive Spirometry use every 2 hours while awake Regular Diet Symptoms to Report: Fever over 101 degree F, Nausea/Vomiting Infection Signs and Symptoms to report: Increased redness, Foul odor of wound, Increased drainage Bathing instructions: May shower Operative Area Clean/Dry; Keep incision clean/dry If any problems/questions: Contact your physician or go to Emergency Room TRESSA SCHWARZ MD Mar 11, 2023 14:55
[2023-03-11] MEDS ORDERED: PANT40TA2 PO (14:57)
[2023-03-11] MEDS ORDERED: SUCR1TAB36 PO (14:57)
[2023-03-11] MEDS ORDERED: HYDR-3817 PO (14:57)
[2023-03-11] MEDS ORDERED: LIDOCAINE 2% w/EPI 1:100,000 20 ML VIAL ONE ×2 (17:18→17:19)
[2023-03-11] MEDS: ATENOLOL 25 MG TABLET PO SCH (17:29)
--- NOTE | 2023-03-11 18:54 | Progress Note-Pre Operative ---
Pre-Operative Progress Note Date of Available H&P: Mar 11, 2023 Date H&P Reviewed: Mar 11, 2023 Time H&P Reviewed: 19:00 History & Physical: No changes noted Pre-Operative Diagnosis: sx biliary dyskinesia TRESSA SCHWARZ MD Mar 11, 2023 18:54
[2023-03-11] MEDS: ANTACID SUSPENSION 30 ML UDC PO PRN (19:58)
[2023-03-11] MEDS: MELATONIN 3 MG TABLET PO PRN (21:11)
[2023-03-11] MEDS: diazePAM 5 MG TABLET PO PRN (21:11)
[2023-03-12] VITALS (12 sets, daily range): BP systolic 119–150; BP diastolic 52–73
[2023-03-12 06:30] LABS: HEMATOCRIT 27 % (35-52); HEMOGLOBIN 8.3 g/dL (11.5-16.0); MEAN CORPUSCULAR HEMOGLOBIN 30 pg (25-34); MEAN CORPUSCULAR HGB CONC 31 g/dL (32-36); MEAN CORPUSCULAR VOLUME 95 fL (80-99); MEAN PLATELET VOLUME 11.1 fL (9.0-12.2); PLATELET COUNT 206 10^3/uL (130-400); WHITE BLOOD COUNT 3.8 10^3/uL (4.3-11.0)
[2023-03-12 06:52] LABS: POTASSIUM 3.5 MMOL/L (3.6-5.0)
[2023-03-12 06:53] LABS: CALCIUM 8.3 MG/DL (8.5-10.1)
[2023-03-12 06:58] LABS: CREATININE SERUM 1.05 MG/DL (0.60-1.30)
[2023-03-12] MEDS ORDERED: ceFAZolin INJECTION 2,000 MG in NS (IVPB) 50 ML 50 ML IV ONE (09:00)
[2023-03-12] MEDS ORDERED: LIDOCAINE PF 2% 5 ML VIAL ONE (09:05)
[2023-03-12] MEDS ORDERED: fentaNYL INJECTION 100 MCG/2 ML VIAL ONE ×2 (09:05→12:01)
[2023-03-12] MEDS ORDERED: ROCURONIUM 50 MG/5 ML VIAL IV ONE (09:05)
[2023-03-12] MEDS ORDERED: dexAMETHasone INJ 10 MG/ML 1 ML VIAL ONE (09:05)
[2023-03-12] MEDS ORDERED: GLYCOPYRROLATE INJ 0.2 MG/ML 2 ML VIAL ONE (09:05)
[2023-03-12] MEDS ORDERED: ONDANSETRON INJECTION 4 MG/2 ML (SDV) ONE ×3 (09:05→12:12)
[2023-03-12] MEDS ORDERED: proPOfol INJECTION 200 MG/20 ML VIAL IV ONE (09:05)
[2023-03-12] MEDS ORDERED: NEOSTIGMINE 1 MG/1ML 10 ML VIAL ONE (09:06)
--- NOTE | 2023-03-12 09:25 | Physical Therapy Daily Note ---
PT Daily Note-Current Subjective Pt found supine in bed upon entry. Agreed to PT. Reports BLE from hips down to feet. Describes pain as muscle tightness. Does not rate pain. She reports dizziness during ambulation. Pain Section J - Health Conditions 1. Rarely or not at all 2. Occasionally 3. Frequently 4. Almost constantly 8. Unable to answer Pain Effect on Sleep: 2 Pain Interference with Therapy: 2 Pain Interference w/Day-to-Day: 2 Mental Status Patient Orientation: Person, Place Transfers SCALE: Activities may be completed with or without assistive devices. 7-Nenneqbyov-ikifbtt completes the activity by him/herself with no assistance from a helper. 5-Set-up or Clean-up Assistance-helper sets up or cleans up; patient completes activity. [place] assists only prior to or following the activity. 4-Supervision or Touching Assistance-helper provides verbal cues and/or touching/steadying and/or contact guard assistance as patient completes activity. Assistance may be provided throughout the activity or intermittently. 3-Partial/Moderate Assistance-helper does LESS THAN HALF the effort. [place] lifts, holds or supports trunk or limbs, but provides less than half the effort. 2-Substantial/Maximal Assistance-helper does MORE THAN HALF the effort. [place] lifts or holds trunk or limbs and provides more than half the effort. 5-Mnmigrbyu-mfjbpz does ALL the effort. Patient does none of the effort to complete the activity. Or, the assistance of 2 or more helpers is required for the patient to complete the activity. If activity was not attempted, code reason: 7-Patient Refused. 9-Not Applicable-not attempted and the patient did not perform the activity before the current illness, exacerbation or injury. 10-Not Attempted due to Environmental Limitations-(lack of equipment, weather restraints, etc.). 88-Not Attempted due to Medical Conditions or Safety Concerns. Sit to Lying (QC): 6 Lying to Sitting/Side of Bed(Q: 6 Sit to Stand (QC): 6 Chair/Dkz-ai-Djtko Xfer(QC): 6 Weight Bearing Right Lower Extremity: Right Full Weight Bearing Left Lower Extremity: Left Full Weight Bearing Gait Training Does the Patient Walk?: Yes Distance: 30 Walk 10 feet (QC): 4 Gait Persons Needed: 1 Gait Assistive Device: FWW Assessment Current Status: Fair Progress Pt performs sitting to lying and lying to sitting transfer independently /c use of bed railing. Sit to stand and bed to chair transfer completed independently /c use of edge of bed and B armrests for push off. She ambulated 30 feet /c use of FWW before reporting dizziness and lightheadedness and requested to return to bed. CGA required during ambulation due to reported dizziness and unsteadiness displayed turning turns. Displays slow gait pattern /c short stride lengths. Pt reports BLE tightness while performing seated therapeutic exercises. Pt left guo pine in bed post-treatment /c call light in place and all needs met. Continue to progress pt per POC. PT Senior Living Goals Senior Living Goals PT Materials Planner/Production Planner Goals Time Frame: Apr 08, 2023 Roll Left & Right (QC): 6 Sit to Lying (QC): 6 Lying-Sitting on Side/Bed(QC): 6 Sit to Stand (QC): 6 Chair/Juo-qv-Hfqio Xfer(QC): 6 Toilet Transfer (QC): 6 Does the Patient Walk: Yes Walk 10 feet (QC): 4 Walk 50ft with 2 Turns (QC): 4 Walk 150 ft (QC): 4 PT Plan Treatment/Plan Treatment Plan: Continue Plan of Care Treatment Plan: Bed Mobility, Education, Functional Activity Audie, Functional Strength, Group Therapy, Gait, Safety, Therapeutic Exercise, Transfers Treatment Duration: Apr 08, 2023 Frequency: 6 times per week Estimated Hrs Per Day: .25 hour per day Patient and/or Family Agrees t: Yes Time Time In: 843 Time Out: 917 DATE: Mar 12, 2023 Total Billed Treatment Time: 34 Total Billed Treatment 1 visit GT x 1 EX x [address] CAR INSPECTOR Mar 12, 2023 09:24
[2023-03-12] MEDS ORDERED: ceFAZolin INJECTION 2,000 MG ONE (10:12)
[2023-03-12] MEDS: PANTOPRAZOLE 40 MG TABLET PO SCH ×2 (10:19→20:32)
[2023-03-12] MEDS: AMIODARONE 200 MG TABLET PO SCH ×2 (10:19→20:32)
[2023-03-12] MEDS ORDERED: KETOROLAC INJ 30 MG/ML VIAL ONE (11:16)
[2023-03-12] MEDS ORDERED: SEVOFLURANE (ULTANE) 15 ML INHAL SOLN ONE (11:16)
[2023-03-12] MEDS ORDERED: LACTATED RINGERS 1,000 ML 1,000 ML IV ONE (11:30)
--- NOTE | 2023-03-12 11:39 | Progress Note-Post Operative ---
Post-Operative Progess Note Surgeon (s)/Auto Hauler (s) Surgeon TRESSA SCHWARZ MD Auto Hauler: thania smith SNOW BLOWER Pre-Operative Diagnosis sx biliary dyskinesia Post-Operative Diagnosis same Procedure & Operative Findings Date of Procedure 03/12/23 Procedure Performed/Findings laparoscopic cholecystectomy Anesthesia Type get Estimated Blood Loss Estimated blood loss (mL): minimal Specimens/Packing Specimens Removed gallbladder TRESSA SCHWARZ MD Mar 12, 2023 11:39
[2023-03-12] MEDS ORDERED: morphine INJ 10 MG/ML 1ML (SYR OR VIAL) ONE (11:43)
[2023-03-12] MEDS ORDERED: fentaNYL INJECTION 100 MCG/2 ML VIAL IVP PRN (11:45)
[2023-03-12] MEDS: ONDANSETRON INJECTION 4 MG/2 ML (SDV) IVP PRN ×2 (11:53→12:14)
[2023-03-12] MEDS: ONDANSETRON INJECTION 4 MG/2 ML (SDV) IV PRN ×2 (11:53→13:24)
--- NOTE | 2023-03-12 11:55 | Progress Note ---
Standard Progress Note Progress Notes/Assess & Plan Date Seen by a Provider: Mar 12, 2023 Time Seen by a Provider: 11:00 Progress/Assessment & Plan patient s/p laparoscopic cholecystectomy on wednesday(03/12). also s/p EGD and colonoscopy where reflux esophagitis and gastritis noted but no active bleeding. patient may resume diet as tolerated. patient may also resume any form of anticoagulation starting wednesday(03/13). TRESSA SCHWARZ MD Mar 12, 2023 11:55
--- NOTE | 2023-03-12 11:57 | Anesthesia-General Post-Op ---
General Patient Condition Mental Status/LOC: Same as Preop Cardiovascular: Satisfactory Nausea/Vomiting: Absent Respiratory: Satisfactory Pain: Controlled Complications: Absent Post Op Complications Complications None Follow Up Care/Instructions Patient Instructions None needed. Anesthesia/Patient Condition Patient Condition Patient is doing well, no complaints, stable vital signs, no apparent adverse anesthesia problems. No complications reported per nursing. LUIS LYNNE CRNA Mar 12, 2023 11:57
[2023-03-12] MEDS ORDERED: PROMETHAZINE INJ 25 MG/ML VIAL IVP ONE (12:00)
[2023-03-12] MEDS ORDERED: fentaNYL INJECTION 100 MCG/2 ML VIAL IVP ONE (12:00)
--- NOTE | 2023-03-12 12:23 | OPERATIVE REPORT ---
DATE OF SERVICE: 03/12/2023 ATTENDING COAL LOADER: DAMEON Tavarez PREOPERATIVE DIAGNOSIS: Symptomatic biliary dyskinesia. POSTOPERATIVE DIAGNOSIS: Symptomatic biliary dyskinesia. PROCEDURE: Laparoscopic cholecystectomy. SURGEON: Tressa Schwarz M.D. PRESALES CONSULTANT: José Hansen APRN ANESTHESIA: General endotracheal. ESTIMATED BLOOD LOSS: Minimal. FINDINGS: A distended gallbladder, no gallbladder wall thickening. DISPOSITION: The patient tolerated the procedure well. INDICATIONS: The patient is a 67-year-old female known to us. We had seen her recently in the office for what she described as epigastric discomfort and weakness as well as dark tarry stools. We had scheduled her for an outpatient EGD, however, states that she fell worse in terms of weakness and presented to the emergency department. She was found to be slightly anemic with a hemoglobin of 7.4. Upon looking at previous labs, it had shown that her hemoglobin on 01/26/2023 was 11.7. The patient does have a history of atrial fibrillation and is on anticoagulation with aspirin and Xarelto. The patient also does have a history of gastroesophageal reflux disease. She states that her fatigue and weakness and has been going on for the past several weeks and has worsened. We had done an EGD and colonoscopy on her in 05/2020 where she was found to have reflux esophagitis, [place] grade B, small hiatal hernia 2 cm in size as well as a moderate gastritis. Colonoscopy showed a normal anastomosis and no recurrent polyps as well as no bleeding. The patient underwent an EGD and colonoscopy where there was no active bleeding identified, only gastritis and reflux esophagitis. We feel that this was the most likely cause of her bleeding being on anticoagulation. During this admission, she had reported significant episodes of nausea and pain in the epigastric region as well as a right upper abdominal quadrant. She had been on a PPI acid cutter inspector on a b.i.d. basis and states that her reflux type of symptoms had improved, however, this issue with nausea and vomiting had been a developing issue for the past several weeks as well. She underwent the gallbladder ultrasound, which did not show any gallstones and this was followed by a HIDA scan, which showed a normal ejection fraction of 50%. However, after the administration of the Kinevac analogue, she did have severe reproduction of symptoms with right upper abdominal quadrant pain with radiation towards the back, abdominal distention as well as significant nausea. This was consistent with symptomatic biliary dyskinesia. DESCRIPTION OF PROCEDURE: The patient was brought to the operating room, laid supine on the table. After adequate IV pain and sedative medications and general endotracheal intubation, the abdomen was prepped and draped in standard surgical fashion. Marcaine 0.5% with epinephrine was used to anesthetize the overlying skin in the left upper abdominal quadrant and a transverse skin incision made using a #15 blade. An 0 silk suture was applied to the medial aspect of the incision for retraction and a Veress needle inserted with low opening pressure of 0 mmHg and the abdomen was then insufflated to 15 mmHg pressure. The Veress needle removed and a 5-mm trocar placed followed by a 5-mm 45-degree angle laparoscope to visualize the peritoneal cavity. A 4-quadrant abdominal exploration was performed. There were some omental adhesions towards the anterior abdominal wall, not including any small bowel. There was a distended gallbladder, no gallbladder wall thickening. Under direct visualization, we then proceeded to place a supraumbilical 10-mm port after the skin and peritoneal lining were anesthetized using 0.5% Marcaine with epinephrine and a transverse skin incision made using a #15 blade. In a similar manner, a right upper abdominal quadrant 5-mm port was placed. The patient was then placed in reverse Trendelenburg position as well as plane right side up, left side down. The fundus of the gallbladder was then retracted anteriorly and superiorly. The hepatoduodenal ligament was then dissected using blunt dissection as well as electrocautery on the hook instrument as well as the [place] dissector. The entire critical view of safety was identified including the triangle of [place] well as the cystic duct and artery as the only 2 structures going into the gallbladder as well as the cystic plate behind the proximal gallbladder. A timeout was then taken and the cystic duct and artery were then clipped proximally and distally and cut with EndoShears. The gallbladder was removed through the 10-mm port site using an EndoCatch bag. The 10-mm port site fascia and peritoneum were then closed under direct visualization using a Johan-Sindy device and 0 Vicryl suture. The abdomen was then desufflated and remaining ports were removed. All skin incisions were closed using 4-0 Monocryl running subcuticular sutures. Wounds were then cleaned and covered with Dermabond. The patient tolerated the procedure well. We will start IV and oral pain medication as well as a clear liquid diet. At this time, due to her weakness, she is being currently evaluated for inpatient rehabilitation and we will await the decision on that. Also, from our standpoint, if she needs to restart anticoagulation starting tomorrow, 03/13/2023, it would be okay. Job ID: [id number] DocumentID: [id number] Dictated Date: 03/12/2023 11:50:26 Film Historian Date: 03/12/2023 12:21:00 Dictated By: TRESSA SCHWARZ MD
--- NOTE | 2023-03-12 12:39 | Progress Note - Hospitalist ---
Subjective HPI/CC On Admission Date Seen by Provider: Mar 12, 2023 67F w/ a PMH of A-fib, partial nephrectomy in 2013, large sessile polyps seen on colonoscopy, reflux esophagitis grade II on EGD, and a UTI a few weeks ago presents with extreme weakness, fatigue, and progressive anemia. She states she has been feeling weak and fatigued for a month or so but it has been getting really bad the last 3 days. She states her Hgb was 11.7 January 26 and 10.2 on March 01. It is 7.2 today. Her previous Hgb recordings were discovered due to being seen for a run of A-fib and for getting checked out due to the same sx she is here for today. She says her BP is normally high, but lately she has been fighting with it being low, and when she stands up, her heart races. She also complains of being SOB, having nausea, and a pressure-like sensation in the middle of her chest. She states she has had black stools off and on since starting Xarelto around 2 years ago for her A-fib, but they have been consistently black the last week. She also complains of chalk-like urine, dysuria, and an increased frequency in urination. A snippet of an operative report from Dr. Zamora in July of 2021 describing her last EGD and colonoscopy findings is pasted below: INDICATIONS: The patient is a 65-year-old female who we had seen May 2020 where she underwent an EGD and colonoscopy. She has a history of large sessile polyp identified of the sigmoid colon, which was not amenable to endoscopic resection. She underwent a formal resection in 2014. She is also status post right partial nephrectomy in 2013. We had done the EGD and colonoscopy on her and she was found to have a reflux esophagitis grade II, small hiatal hernia 2 cm in size, moderate gastritis as well as chronic stage II external and internal hemorrhoids and no polyps identified. She states that she has had pain and swelling in the periumbilical region and was found to have reducible; however, symptomatic ventral abdominal incisional hernia. She also reported intermittent episodes of bleeding as well as irritation and itching in the anal region. Subjective/Events-last exam Pt reports doing ok today. Ready for surgery. Was supposed to go last night but had an emergency surgery case pop up and she was bumped to today. No new complaints. Objective Exam Vital Signs Vital Signs Date Time Temp Pulse Resp B/P (MAP) Pulse Ox O2 Delivery O2 Flow Rate FiO2 03/12/23 12:00 20 129/60 (83) 98 OxyMask 2.00 03/12/23 11:22 36.5 03/12/23 08:04 56 Capillary Refill : Less Than 3 SecondsLess Than 3 Seconds General Appearance: No Apparent Distress, Chronically ill Respiratory: Lungs Clear Cardiovascular: Regular Rate, Rhythm, No Murmur Gastrointestinal: Normal Bowel Sounds, Soft Neurologic/Psychiatric: Alert, Oriented x3 Results/Procedures Lab Laboratory Tests 03/12/23 05:55 Patient resulted labs reviewed. Assessment/Plan Assessment and Plan Assess & Plan/Chief Complaint Anemia GI Bleed Dr Zamora consulted, appreciate recs EGD with gastritis, esophagitis, sm-mod hiatal hernia Planning for lap cynthia today Hgb 8.3 today Likely Infed after surgery- start tomorrow PPI Resume home anticoagulation tomorrow HTN Afib BP relatively well controlled overnight Continue home meds per her schedule at home when able to PO UTI [facility] Clinical Quality Measures AMI/AHF: ASA po Prior to arrival: ELMO Ho MD Mar 12, 2023 12:39
--- NOTE | 2023-03-12 16:01 | Occupational Therapy Eval ---
OT Evaluation-General/PLF Medical Diagnosis Admission Date Mar 08, 2023 at 14:34 Medical Diagnosis: Extreme weakness, fatigue, progressive anemia Onset Date: Mar 07, 2023 Therapy Diagnosis Therapy Diagnosis: s/p gallbladder surgery Precautions Precautions/Isolations: Fall Prevention, Standard Precautions Weight Bear Status Weight Bearing Restriction: Full Weight Bearing Referral Physician: Dr. Richardson Referral Reason: Evaluation/Treatment Medical History Reviewed History: Yes Social History Home: Single Level Current Living Status: Spouse Entry Into Home: Level Entry ADL-Prior Level of Function SCALE: Activities may be completed with or without assistive devices. 8-Kykqkswqxc-ohciely completes the activity by him/herself with no assistance from a helper. 5-Set-up or Clean-up Assistance-helper sets up or cleans up; patient completes activity. [place] assists only prior to or following the activity. 4-Supervision or Touching Assistance-helper provides verbal cues and/or touching/steadying and/or contact guard assistance as patient completes activity. Assistance may be provided throughout the activity or intermittently. 3-Partial/Moderate Assistance-helper does LESS THAN HALF the effort. [place] lifts, holds or supports trunk or limbs, but provides less than half the effort. 2-Substantial/Maximal Assistance-helper does MORE THAN HALF the effort. [place] lifts or holds trunk or limbs and provides more than half the effort. 4-Xfnbhhtsx-eyvmyn does ALL the effort. Patient does none of the effort to com plete the activity. Or, the assistance of 2 or more helpers is required for the patient to complete the activity. If activity was not attempted, code reason: 7-Patient Refused. 9-Not Applicable-not attempted and the patient did not perform the activity before the current illness, exacerbation or injury. 10-Not Attempted due to Environmental Limitations-(lack of equipment, weather restraints, etc.). 88-Not Attempted due to Medical Conditions or Safety Concerns. Self Care: Independent Functional Cognition: Independent Drive Self: Yes OT Current Status Subjective Agreeable to therapy Pain Numeric Pain Scale: 6 Location Body Site: Abdomen Comment: request ice pack, RN notified Mental Status/Objective Patient Orientation: Person, Place, Time, Situation Attachments: IV, Oxygen Current Glasses/Contacts: Yes Hand Dominance: Right Upper Extremity ROM BUE ROM WFLs Upper Extremity Coordination INTACT Upper Extremity Sensation WFLs Upper Extremity Strength -4/5 observed w/ functional mobility, c/o pain to abdomen ADL-Treatment Eating (QC): 7 Oral Hygiene (QC): 7 Shower/Bathe Self (QC): 7 Upper Body Dressing (QC): 4 Lower Body Dressing (QC): 4 On/Off Footwear (QC): 4 Toileting Hygiene (QC): 4 ICE CHIPS Education OT Patient Education: Correct positioning, Modified ADL techniques, Progress toward Goal/Update tx plan, Purpose of tx/functional activities, Reviewed precautions, Rehab process, Safety issues, Transfer techniques, Use of adapted equipment, W/C management Teaching Recipient: Patient Teaching Methods: Demonstration, Discussion Response to Teaching: Return Demonstration, Reinforcement Needed OT Manifest/Order Organizer Print Orders Goals Manifest/Order Organizer Print Orders Goals Eating (QC): 6 Oral Hygiene (QC): 6 Toileting Hygiene (QC): 6 Shower/Bathe Self (QC): 6 Upper Body Dressing (QC): 6 Lower Body Dressing (QC): 6 On/Off Footwear (QC): 6 1=Demonstrate adherence to instructed precautions during ADL tasks. 2=Patient will verbalize/demonstrate understanding of assistive devices/modifications for ADL. 3=Patient will improve strength/tolerance for activity to enable patient to perform ADL's. OT Education/Plan Problem List/Assessment Assessment: Decreased Activ Tolerance, Decreased UE Strength, Impaired Funct Balance, Impaired Self-Care Skills Discharge Recommendations Plan/Recommendations: Continue POC Treatment Plan/Plan of Care Treatment,Training & Education: Yes Patient would benefit from OT for education, treatment and training to promote independence in ADL's, mobility, safety and/or upper extremity function for ADL's. Plan of Care: ADL Retraining, Functional Mobility, Group Exercise/Act as Ind, UE Funct Exercise/Act Treatment Duration: Mar 17, 2023 Frequency: 3 times per week (3-5 times per week) Rehab Potential: Fair Time Start Time: 15:40 Stop Time: 16:00 DATE: Mar 12, 2023 Total Time Billed (hr/min): 20 Billed Treatment Time EVM 20 MAILE QUINN OT Mar 12, 2023 16:01
[2023-03-12] MEDS: ATENOLOL 25 MG TABLET PO SCH (17:13)
[2023-03-12] MEDS: MELATONIN 3 MG TABLET PO PRN (20:32)
[2023-03-12] MEDS: diazePAM 5 MG TABLET PO PRN (20:32)
[2023-03-12] MEDS: HYDROcodone/ACETAMINOPHEN 7.5 MG/325 MG TABLET PO PRN (20:33)
[2023-03-13] VITALS (10 sets, daily range): BP systolic 96–138; BP diastolic 39–73
[2023-03-13 06:57] LABS: HEMATOCRIT 28 % (35-52); HEMOGLOBIN 8.6 g/dL (11.5-16.0); MEAN CORPUSCULAR HEMOGLOBIN 30 pg (25-34); MEAN CORPUSCULAR HGB CONC 31 g/dL (32-36); MEAN CORPUSCULAR VOLUME 97 fL (80-99); MEAN PLATELET VOLUME 11.1 fL (9.0-12.2); PLATELET COUNT 216 10^3/uL (130-400); WHITE BLOOD COUNT 7.8 10^3/uL (4.3-11.0)
[2023-03-13 07:04] LABS: POTASSIUM 3.3 MMOL/L (3.6-5.0)
[2023-03-13 07:05] LABS: CALCIUM 8.3 MG/DL (8.5-10.1)
[2023-03-13 07:09] LABS: CREATININE SERUM 1.17 MG/DL (0.60-1.30)
[2023-03-13] MEDS: AMIODARONE 200 MG TABLET PO SCH ×2 (09:08→22:34)
[2023-03-13] MEDS: PANTOPRAZOLE 40 MG TABLET PO SCH ×2 (09:09→22:33)
[2023-03-13] MEDS: HYDROcodone/ACETAMINOPHEN 7.5 MG/325 MG TABLET PO PRN (09:18)
--- NOTE | 2023-03-13 11:30 | Physical Therapy Daily Note ---
PT Daily Note-Current Subjective States that she doesn't feel too well secondary to having surgery yesterday. Pain Section J - Health Conditions 1. Rarely or not at all 2. Occasionally 3. Frequently 4. Almost constantly 8. Unable to answer Pain Effect on Sleep: 2 Pain Interference with Therapy: 2 Pain Interference w/Day-to-Day: 2 Transfers SCALE: Activities may be completed with or without assistive devices. 0-Hxcdcefkmn-kjhctph completes the activity by him/herself with no assistance from a helper. 5-Set-up or Clean-up Assistance-helper sets up or cleans up; patient completes activity. [place] assists only prior to or following the activity. 4-Supervision or Touching Assistance-helper provides verbal cues and/or touching/steadying and/or contact guard assistance as patient completes activity. Assistance may be provided throughout the activity or intermittently. 3-Partial/Moderate Assistance-helper does LESS THAN HALF the effort. [place] lifts, holds or supports trunk or limbs, but provides less than half the effort. 2-Substantial/Maximal Assistance-helper does MORE THAN HALF the effort. [place] lifts or holds trunk or limbs and provides more than half the effort. 7-Odqgfelkx-qhypcy does ALL the effort. Patient does none of the effort to complete the activity. Or, the assistance of 2 or more helpers is required for the patient to complete the activity. If activity was not attempted, code reason: 7-Patient Refused. 9-Not Applicable-not attempted and the patient did not perform the activity before the current illness, exacerbation or injury. 10-Not Attempted due to Environmental Limitations-(lack of equipment, weather restraints, etc.). 88-Not Attempted due to Medical Conditions or Safety Concerns. Roll Left & Right (QC): 5 Lying to Sitting/Side of Bed(Q: 5 Sit to Stand (QC): 5 Chair/Brt-ik-Dshvg Xfer(QC): 5 Weight Bearing Right Lower Extremity: Right Full Weight Bearing Left Lower Extremity: Left Full Weight Bearing Gait Training Does the Patient Walk?: Yes Distance: 30 Walk 10 feet (QC): 5 Walk 50 ft with 2 Turns(QC): 88 Walk 150 ft (QC): 88 Gait Persons Needed: 1 Gait Assistive Device: FWW Assessment Current Status: Excellent Progress The patient did well with gait today. 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 Care Home Goals 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 Time Frame: Apr 08, 2023 Roll Left & Right (QC): 6 Sit to Lying (QC): 6 Lying-Sitting on Side/Bed(QC): 6 Sit to Stand (QC): 6 Chair/[place] Xfer(QC): 6 Toilet Transfer (QC): 6 Does the Patient Walk: Yes Walk 10 feet (QC): 4 Walk 50ft with 2 Turns (QC): 4 Walk 150 ft (QC): 4 PT Plan Treatment/Plan Treatment Plan: Continue Plan of Care Treatment Plan: Bed Mobility, Education, Functional Activity Audie, Functional Strength, Group Therapy, Gait, Safety, Therapeutic Exercise, Transfers Treatment Duration: Apr 08, 2023 Frequency: 6 times per week Estimated Hrs Per Day: .25 hour per day Patient and/or Family Agrees t: Yes Time Time In: 1110 Time Out: 1125 DATE: Mar 13, 2023 Total Billed Treatment Time: 15 Total Billed Treatment 1, GT x 15 MADY CRONIN PT Mar 13, 2023 11:30
--- NOTE | 2023-03-13 13:13 | Progress Note - Hospitalist ---
Subjective HPI/CC On Admission Date Seen by Provider: Mar 13, 2023 67F w/ a PMH of A-fib, partial nephrectomy in 2013, large sessile polyps seen on colonoscopy, reflux esophagitis grade II on EGD, and a UTI a few weeks ago presents with extreme weakness, fatigue, and progressive anemia. She states she has been feeling weak and fatigued for a month or so but it has been getting really bad the last 3 days. She states her Hgb was 11.7 January 26 and 10.2 on March 01. It is 7.2 today. Her previous Hgb recordings were discovered due to being seen for a run of A-fib and for getting checked out due to the same sx she is here for today. She says her BP is normally high, but lately she has been fighting with it being low, and when she stands up, her heart races. She also complains of being SOB, having nausea, and a pressure-like sensation in the middle of her chest. She states she has had black stools off and on since starting Xarelto around 2 years ago for her A-fib, but they have been consistently black the last week. She also complains of chalk-like urine, dysuria, and an increased frequency in urination. A snippet of an operative report from Dr. Zamora in July of 2021 describing her last EGD and colonoscopy findings is pasted below: INDICATIONS: The patient is a 65-year-old female who we had seen May 2020 where she underwent an EGD and colonoscopy. She has a history of large sessile polyp identified of the sigmoid colon, which was not amenable to endoscopic resection. She underwent a formal resection in 2014. She is also status post right partial nephrectomy in 2013. We had done the EGD and colonoscopy on her and she was found to have a reflux esophagitis grade II, small hiatal hernia 2 cm in size, moderate gastritis as well as chronic stage II external and internal hemorrhoids and no polyps identified. She states that she has had pain and swelling in the periumbilical region and was found to have reducible; however, symptomatic ventral abdominal incisional hernia. She also reported intermittent episodes of bleeding as well as irritation and itching in the anal region. Subjective/Events-last exam Pt reports having pain from surgery but overall thinks her stomach feel better. No other complaints. Objective Exam Vital Signs Vital Signs Date Time Temp Pulse Resp B/P (MAP) Pulse Ox O2 Delivery O2 Flow Rate FiO2 03/13/23 12:36 79 03/13/23 11:49 37.1 18 120/68 (85) 95 Room Air 03/13/23 08:00 2.00 Capillary Refill : Less Than 3 SecondsLess Than 3 Seconds General Appearance: No Apparent Distress, WD/WN Respiratory: Lungs Clear, No Respiratory Distress Cardiovascular: Regular Rate, Rhythm Gastrointestinal: Normal Bowel Sounds, Soft, Tenderness (appropriate), Other (surgical wounds clean and dry, no oozing) Neurologic/Psychiatric: Alert, Oriented x3 Results/Procedures Lab Laboratory Tests 03/13/23 06:35 Patient resulted labs reviewed. Assessment/Plan Assessment and Plan Assess & Plan/Chief Complaint Anemia GI Bleed Biliary dyskinesia Dr Zamora consulted, appreciate recs EGD with gastritis, esophagitis, sm-mod hiatal hernia s/p cynthia POD #1 Hgb 8.6 today PPI Start Eliquis tonight IV iron HTN Afib BP relatively well controlled overnight Continue home meds per her schedule at home UTI Completed [facility] Clinical Quality Measures AMI/AHF: ASA po Prior to arrival: ELMO Ho MD Mar 13, 2023 13:13
[2023-03-13] MEDS ORDERED: RT-ALBUTEROL SULF 2.5 MG/3 ML PRE-MIX VIAL IH PRN (13:15)
[2023-03-13] MEDS ORDERED: EPINEPHrine INJECTION 1 MG/ML AMP IM PRN (13:15)
[2023-03-13] MEDS ORDERED: diphenhydrAMINE INJ 50 MG/ML VIAL IV PRN (13:15)
[2023-03-13] MEDS ORDERED: HYDROCORTISONE INJECTION 100 MG/2 ML VIAL IV PRN (13:15)
[2023-03-13] MEDS ORDERED: IRON DEXTRAN INJECTION 25 MG in NS (IVPB) 250 ML 5.75 ML IV ONE (13:30)
[2023-03-13] MEDS ORDERED: IRON DEXTRAN INJECTION 1,000 MG in NS (IVPB) 250 ML 250 ML IV ONE (13:45)
[2023-03-13] MEDS: NS IV 500 ML 500 ML IV SCH (14:12)
[2023-03-13] MEDS: ATENOLOL 25 MG TABLET PO SCH (16:07)
[2023-03-13] MEDS: ACETAMINOPHEN 325 MG TABLET PO PRN (16:08)
[2023-03-13] MEDS: APIXABAN 5 MG TABLET PO SCH (22:33)
[2023-03-13] MEDS: MELATONIN 3 MG TABLET PO PRN (22:40)
[2023-03-14 03:34] VITALS: BP 125/55
[2023-03-14] MEDS: NS IV 500 ML 500 ML IV SCH ×2 (05:56→22:38)
[2023-03-14 06:04] LABS: HEMATOCRIT 27 % (35-52); HEMOGLOBIN 8.2 g/dL (11.5-16.0); MEAN CORPUSCULAR HEMOGLOBIN 30 pg (25-34); MEAN CORPUSCULAR HGB CONC 31 g/dL (32-36); MEAN CORPUSCULAR VOLUME 97 fL (80-99); MEAN PLATELET VOLUME 11.1 fL (9.0-12.2); PLATELET COUNT 227 10^3/uL (130-400); WHITE BLOOD COUNT 8.8 10^3/uL (4.3-11.0)
[2023-03-14 06:11] LABS: POTASSIUM 3.2 MMOL/L (3.6-5.0)
[2023-03-14 06:12] LABS: CALCIUM 8.4 MG/DL (8.5-10.1)
[2023-03-14 06:17] LABS: CREATININE SERUM 1.13 MG/DL (0.60-1.30)
[2023-03-14 07:16] VITALS: BP 126/72
[2023-03-14] MEDS: APIXABAN 5 MG TABLET PO SCH ×2 (08:00→20:15)
[2023-03-14] MEDS: AMIODARONE 200 MG TABLET PO SCH ×2 (08:00→20:16)
[2023-03-14] MEDS: PANTOPRAZOLE 40 MG TABLET PO SCH ×2 (08:00→20:15)
--- NOTE | 2023-03-14 08:31 | Progress Note - Hospitalist ---
Subjective HPI/CC On Admission Date Seen by Provider: Mar 14, 2023 67F w/ a PMH of A-fib, partial nephrectomy in 2013, large sessile polyps seen on colonoscopy, reflux esophagitis grade II on EGD, and a UTI a few weeks ago presents with extreme weakness, fatigue, and progressive anemia. She states she has been feeling weak and fatigued for a month or so but it has been getting really bad the last 3 days. She states her Hgb was 11.7 January 26 and 10.2 on March 01. It is 7.2 today. Her previous Hgb recordings were discovered due to being seen for a run of A-fib and for getting checked out due to the same sx she is here for today. She says her BP is normally high, but lately she has been fighting with it being low, and when she stands up, her heart races. She also complains of being SOB, having nausea, and a pressure-like sensation in the middle of her chest. She states she has had black stools off and on since starting Xarelto around 2 years ago for her A-fib, but they have been consistently black the last week. She also complains of chalk-like urine, dysuria, and an increased frequency in urination. A snippet of an operative report from Dr. Zamora in July of 2021 describing her last EGD and colonoscopy findings is pasted below: INDICATIONS: The patient is a 65-year-old female who we had seen May 2020 where she underwent an EGD and colonoscopy. She has a history of large sessile polyp identified of the sigmoid colon, which was not amenable to endoscopic resection. She underwent a formal resection in 2014. She is also status post right partial nephrectomy in 2013. We had done the EGD and colonoscopy on her and she was found to have a reflux esophagitis grade II, small hiatal hernia 2 cm in size, moderate gastritis as well as chronic stage II external and internal hemorrhoids and no polyps identified. She states that she has had pain and swelling in the periumbilical region and was found to have reducible; however, symptomatic ventral abdominal incisional hernia. She also reported intermittent episodes of bleeding as well as irritation and itching in the anal region. Subjective/Events-last exam Pt reports doing ok today. Had some abd pain but then had a large amount of flatus. Given the time change worried about getting her meds at 8am instead of 9am so that she gets them when her body is used to it. Also thinks she may need to have a BM so wants to go to the bathroom soon. Spoke with RN regarding Infed yesterday. Patient has tolerated it in the past nad would like to try and complete the dose as she thinks it was jsut because she had an ice pack on. Objective Exam Vital Signs Vital Signs Date Time Temp Pulse Resp B/P (MAP) Pulse Ox O2 Delivery O2 Flow Rate FiO2 03/14/23 07:16 36.8 65 18 126/72 (90) 93 Room Air 03/14/23 03:34 1.50 Capillary Refill : Less Than 3 SecondsLess Than 3 Seconds General Appearance: No Apparent Distress, WD/WN Respiratory: Lungs Clear, No Respiratory Distress Cardiovascular: Regular Rate, Rhythm, No Murmur Neurologic/Psychiatric: Alert, Oriented x3 Results/Procedures Lab Laboratory Tests 03/14/23 05:35 Patient resulted labs reviewed. Assessment/Plan Assessment and Plan Assess & Plan/Chief Complaint Anemia GI Bleed Biliary dyskinesia Dr Zamora consulted, appreciate recs EGD with gastritis, esophagitis, sm-mod hiatal hernia s/p cynthia POD #1 Hgb 8.2 today PPI Start Eliquis tonight IV iron attempted yesterday and got feverish- has tolerated it in the past without issue- will try again at her request Advance diet today HTN Afib BP well controlled- even a little low last night- continue home antihypertensives as able Continue home meds per her schedule at home UTI Completed [facility] Clinical Quality Measures AMI/AHF: ASA po Prior to arrival: ELMO Ho MD Mar 14, 2023 08:31
[2023-03-14] MEDS: ACETAMINOPHEN 325 MG TABLET PO PRN (09:34)
[2023-03-14 11:00] VITALS: BP 131/78
[2023-03-14 11:41] VITALS: BP 136/71
[2023-03-14 16:28] VITALS: BP 134/71
[2023-03-14] MEDS: ATENOLOL 25 MG TABLET PO SCH ×2 (17:52→22:35)
[2023-03-14] MEDS: diazePAM 5 MG TABLET PO PRN (18:13)
[2023-03-14 19:28] VITALS: BP 135/72
[2023-03-14] MEDS: MELATONIN 3 MG TABLET PO PRN (20:15)
[2023-03-15] VITALS (9 sets, daily range): BP systolic 126–163; BP diastolic 63–75
[2023-03-15 05:41] LABS: HEMATOCRIT 25 % (35-52); HEMOGLOBIN 7.7 g/dL (11.5-16.0); MEAN CORPUSCULAR HEMOGLOBIN 30 pg (25-34); MEAN CORPUSCULAR HGB CONC 31 g/dL (32-36); MEAN CORPUSCULAR VOLUME 95 fL (80-99); PLATELET COUNT 221 10^3/uL (130-400); WHITE BLOOD COUNT 6.4 10^3/uL (4.3-11.0)
[2023-03-15 06:10] LABS: POTASSIUM 3.4 MMOL/L (3.6-5.0)
[2023-03-15 06:11] LABS: CALCIUM 8.2 MG/DL (8.5-10.1)
[2023-03-15 06:15] LABS: CREATININE SERUM 0.93 MG/DL (0.60-1.30)
[2023-03-15] MEDS: PANTOPRAZOLE 40 MG TABLET PO SCH ×2 (09:25→20:04)
[2023-03-15] MEDS: AMIODARONE 200 MG TABLET PO SCH ×2 (09:26→20:04)
[2023-03-15] MEDS: APIXABAN 5 MG TABLET PO SCH ×2 (09:26→20:04)
[2023-03-15] MEDS: NS IV 500 ML 500 ML IV SCH ×2 (09:27→21:21)
--- NOTE | 2023-03-15 11:33 | Physical Therapy Daily Note ---
PT Daily Note-Current Subjective Pt found lying in bed upon entry. Agreed to PT. Reports that she is having a little bit of abdominal and rear pain but does not rate. States that she is frustrated due to not receiving iron medication. Pain Section J - Health Conditions 1. Rarely or not at all 2. Occasionally 3. Frequently 4. Almost constantly 8. Unable to answer Pain Effect on Sleep: 2 Pain Interference with Therapy: 2 Pain Interference w/Day-to-Day: 2 Mental Status Patient Orientation: Person Transfers SCALE: Activities may be completed with or without assistive devices. 0-Wvjtgrrhgn-iuflqkb completes the activity by him/herself with no assistance from a helper. 5-Set-up or Clean-up Assistance-helper sets up or cleans up; patient completes activity. [place] assists only prior to or following the activity. 4-Supervision or Touching Assistance-helper provides verbal cues and/or touching/steadying and/or contact guard assistance as patient completes activity. Assistance may be provided throughout the activity or intermittently. 3-Partial/Moderate Assistance-helper does LESS THAN HALF the effort. [place] lifts, holds or supports trunk or limbs, but provides less than half the effort. 2-Substantial/Maximal Assistance-helper does MORE THAN HALF the effort. [place] lifts or holds trunk or limbs and provides more than half the effort. 2-Mhomqtocs-jjpflv does ALL the effort. Patient does none of the effort to complete the activity. Or, the assistance of 2 or more helpers is required for the patient to complete the activity. If activity was not attempted, code reason: 7-Patient Refused. 9-Not Applicable-not attempted and the patient did not perform the activity before the current illness, exacerbation or injury. 10-Not Attempted due to Environmental Limitations-(lack of equipment, weather restraints, etc.). 88-Not Attempted due to Medical Conditions or Safety Concerns. Sit to Lying (QC): 6 Lying to Sitting/Side of Bed(Q: 6 Sit to Stand (QC): 6 Toilet Transfer (QC): 6 Weight Bearing Right Lower Extremity: Right Full Weight Bearing Left Lower Extremity: Left Full Weight Bearing Gait Training Does the Patient Walk?: Yes Distance: 20, 10, 10 Walk 10 feet (QC): 4 Gait Persons Needed: 1 Gait Assistive Device: FWW Assessment Current Status: Fair Progress Pt performs all bed mobility, sit to stand, and toilet transfers independently. Pt ambulated /c use of a FWW 20 feet. Cascade through ambulation pt requests to r eturn to room due to dizziness and a "head prince." Required CGA during gait training due to balance deficits. Pt left supine in bed post-treatment /c call light in place and all needs met. Continue to progress pt per POC. PT Long-Term Goals Long-Term Goals PT Long-Term Goals Time Frame: Apr 08, 2023 Roll Left & Right (QC): 6 Sit to Lying (QC): 6 Lying-Sitting on Side/Bed(QC): 6 Sit to Stand (QC): 6 Chair/Xad-tg-Rtrsy Xfer(QC): 6 Toilet Transfer (QC): 6 Does the Patient Walk: Yes Walk 10 feet (QC): 4 Walk 50ft with 2 Turns (QC): 4 Walk 150 ft (QC): 4 PT Plan Treatment/Plan Treatment Plan: Continue Plan of Care Treatment Plan: Bed Mobility, Education, Functional Activity Audie, Functional Strength, Group Therapy, Gait, Safety, Therapeutic Exercise, Transfers Treatment Duration: Apr 08, 2023 Frequency: 6 times per week Estimated Hrs Per Day: .25 hour per day Patient and/or Family Agrees t: Yes Time Time In: 931 Time Out: 947 DATE: Mar 15, 2023 Total Billed Treatment Time: 16 Total Billed Treatment 1 visit GT x 1 MATT BARAKAT HVAC RESIDENTIAL SERVICE TECHNICIAN Mar 15, 2023 11:33
[2023-03-15] MEDS: IRON SUCROSE 200 MG/10 ML VIAL IV SCH (12:40)
--- NOTE | 2023-03-15 12:42 | Occupational Ther Daily Note ---
OT Current Status-Daily Note Subjective Resting in bed reports been up several times to bathroom and has foam like substance in her bowel. Pain Numeric Pain Scale: 4 Location Body Site: Abdomen Mental Status/Objective Patient Orientation: Person, Place, Time, Situation ADL-Treatment Up to bathroom w/ OT using FWW, required multiple verbal cues for correct use of FWW Therapy Code Descriptions/Definitions Functional [place] Measure: 0=Not Assessed/NA 4=Minimal Assistance 1=Total Assistance 5=Supervision or Setup 2=Maximal Assistance 6=Modified [place] 3=Moderate Assistance 7=Complete IndependenceSCALE: Activities may be completed with or without assistive devices. 4-Txpiuxhsvt-kztrfay completes the activity by him/herself with no assistance from a helper. 5-Set-up or Clean-up Assistance-helper sets up or cleans up; patient completes activity. [place] assists only prior to or following the activity. 4-Supervision or Touching Assistance-helper provides verbal cues and/or touching/steadying and/or contact guard assistance as patient completes activity. Assistance may be provided throughout the activity or intermittently. 3-Partial/Moderate Assistance-helper does LESS THAN HALF the effort. [place] lifts, holds or supports trunk or limbs, but provides less than half the effort. 2-Substantial/Maximal Assistance-helper does MORE THAN HALF the effort. [place] lifts or holds trunk or limbs and provides more than half the effort. 8-Uhpgykdwz-eafaoz does ALL the effort. Patient does none of the effort to complete the activity. Or, the assistance of 2 or more helpers is required for the patient to complete the activity. If activity was not attempted, code reason: 7-Patient Refused. 9-Not Applicable-not attempted and the patient did not perform the activity before the current illness, exacerbation or injury. 10-Not Attempted due to Environmental Limitations-(lack of equipment, weather restraints, etc.). 88-Not Attempted due to Medical Conditions or Safety Concerns. Eating (QC): 5 Oral Hygiene (QC): 5 (standing at sink w/ FWW sideways, OT corrected and patient placed sideways again, education provided) Shower/Bathe Self (QC): 7 (declined) Upper Body Dressing (QC): 4 Lower Body Dressing (QC): 4 On/Off Footwear: 5 Toileting Hygiene (QC): 5 Toilet Transfer (QC): 4 Education OT Patient Education: Correct positioning, Modified ADL techniques, Progress toward Goal/Update tx plan, Purpose of tx/functional activities, Reviewed precautions, Rehab process, Safety issues, Transfer techniques, Use of adapted equipment Teaching Recipient: Patient Teaching Methods: Demonstration, Discussion Response to Teaching: Verbalize Understanding, Reinforcement Needed OT Entry Level Programmer Goals Entry Level Programmer Goals Eating (QC): 6 Oral Hygiene (QC): 6 Toileting Hygiene (QC): 6 Shower/Bathe Self (QC): 6 Upper Body Dressing (QC): 6 Lower Body Dressing (QC): 6 On/Off Footwear (QC): 6 1=Demonstrate adherence to instructed precautions during ADL tasks. 2=Patient will verbalize/demonstrate understanding of assistive devices/modifications for ADL. 3=Patient will improve strength/tolerance for activity to enable patient to perform ADL's. OT Education/Plan Problem List/Assessment Assessment: Decreased Activ Tolerance, Decreased Safety Aware, Impaired Self- Care Skills Discharge Recommendations Plan/Recommendations: Continue POC Treatment Plan/Plan of Care Treatment,Training & Education: Yes Patient would benefit from OT for education, treatment and training to promote independence in ADL's, mobility, safety and/or upper extremity function for ADL's. Plan of Care: ADL Retraining, Functional Mobility, Group Exercise/Act as Ind, UE Funct Exercise/Act Treatment Duration: Mar 17, 2023 Frequency: 3 times per week (3-5 times per week) Estimated Hrs Per Day: .25 hour per day Rehab Potential: Fair Remains in recliner feet elevated tray next to patient call light in reach Time Start Time: 10:10 Stop Time: 10:23 DATE: Mar 15, 2023 Total Time Billed (hr/min): 23 Billed Treatment Time ADL 13 min MAILE QUINN OT Mar 15, 2023 12:42
--- NOTE | 2023-03-15 16:13 | Progress Note - Hospitalist ---
Subjective HPI/CC On Admission Date Seen by Provider: Mar 15, 2023 Time Seen by Provider: 11:00 67F w/ a PMH of A-fib, partial nephrectomy in 2013, large sessile polyps seen on colonoscopy, reflux esophagitis grade II on EGD, and a UTI a few weeks ago presents with extreme weakness, fatigue, and progressive anemia. She states she has been feeling weak and fatigued for a month or so but it has been getting really bad the last 3 days. She states her Hgb was 11.7 January 26 and 10.2 on March 01. It is 7.2 today. Her previous Hgb recordings were discovered due to being seen for a run of A-fib and for getting checked out due to the same sx she is here for today. She says her BP is normally high, but lately she has been fighting with it being low, and when she stands up, her heart races. She also complains of being SOB, having nausea, and a pressure-like sensation in the middle of her chest. She states she has had black stools off and on since starting Xarelto around 2 years ago for her A-fib, but they have been cons istently black the last week. She also complains of chalk-like urine, dysuria, and an increased frequency in urination. A snippet of an operative report from Dr. Zamora in July of 2021 describing her last EGD and colonoscopy findings is pasted below: INDICATIONS: The patient is a 65-year-old female who we had seen May 2020 where she underwent an EGD and colonoscopy. She has a history of large sessile polyp identified of the sigmoid colon, which was not amenable to endoscopic resection. She underwent a formal resection in 2014. She is also status post right partial nephrectomy in 2013. We had done the EGD and colonoscopy on her and she was found to have a reflux esophagitis grade II, small hiatal hernia 2 cm in size, moderate gastritis as well as chronic stage II external and internal hemorrhoids and no polyps identified. She states that she has had pain and swelling in the periumbilical region and was found to have reducible; however, symptomatic ventral abdominal incisional hernia. She also reported intermittent episodes of bleeding as well as irritation and itching in the anal region. Subjective/Events-last exam She is concerned about her stool being yellow and foamy. She also says she needs IV iron. She appears anxious. Objective Exam Vital Signs Vital Signs Date Time Temp Pulse Resp B/P (MAP) Pulse Ox O2 Delivery O2 Flow Rate FiO2 03/15/23 12:45 73 03/15/23 11:08 36.4 18 148/71 (96) 96 Room Air 03/15/23 08:00 1.50 Capillary Refill : Less Than 3 SecondsLess Than 3 Seconds General Appearance: No Apparent Distress, Anxious, Obese Respiratory: Lungs Clear, No Respiratory Distress Cardiovascular: Regular Rate, Rhythm, No Murmur Gastrointestinal: Normal Bowel Sounds, Soft Extremity: Normal Inspection, No Pedal Edema Neurologic/Psychiatric: Alert, Normal Mood/Affect Skin: Normal Color, Warm/Dry Results/Procedures Lab Laboratory Tests 03/15/23 05:14 Patient resulted labs reviewed. Assessment/Plan Assessment and Plan Assess & Plan/Chief Complaint Anemia GI Bleed Biliary dyskinesia s/p laparoscopic cholecystectomy Dr Zamora, surgery following EGD with gastritis, esophagitis, sm-mod hiatal hernia s/p cynthia POD #2 Hgb 7.7, relatively stable PPI Eliquis resumed IV Venofer ordered Anxiety Continue diazepam as needed Debility PT/OT IRU referral HTN Afib Continue home antihypertensives as able UTI s/p Rocephin Diagnosis/Problems Diagnosis/Problems (1) Anemia Status: Acute (2) S/P laparoscopic cholecystectomy Status: Acute (3) Biliary dyskinesia Status: Acute (4) GI bleed Status: Acute (5) History of atrial fibrillation Status: Acute (6) Anxiety about health Status: Acute (7) Obesity Status: Chronic Clinical Quality Measures AMI/AHF: ASA po Prior to arrival: KATIE Sommer MD Mar 15, 2023 16:13
[2023-03-15] MEDS ORDERED: POTASSIUM CHLORIDE 20 MEQ TABLET PO NR (16:30)
[2023-03-15] MEDS: ATENOLOL 25 MG TABLET PO SCH (16:46)
[2023-03-15] MEDS: diazePAM 5 MG TABLET PO PRN (20:04)
[2023-03-15] MEDS: MELATONIN 3 MG TABLET PO PRN (22:51)
[2023-03-16 03:25] VITALS: BP 160/83
[2023-03-16 06:16] LABS: HEMOGLOBIN 9.5 g/dL (11.5-16.0)
[2023-03-16 06:25] LABS: POTASSIUM 3.8 MMOL/L (3.6-5.0)
[2023-03-16 06:26] LABS: CALCIUM 8.6 MG/DL (8.5-10.1)
[2023-03-16 06:31] LABS: CREATININE SERUM 0.86 MG/DL (0.60-1.30)
[2023-03-16 07:47] VITALS: BP 184/80
[2023-03-16] MEDS: AMIODARONE 200 MG TABLET PO SCH ×2 (08:11→20:34)
[2023-03-16] MEDS: PANTOPRAZOLE 40 MG TABLET PO SCH ×2 (08:11→20:34)
[2023-03-16] MEDS: APIXABAN 5 MG TABLET PO SCH ×2 (08:11→20:34)
[2023-03-16] MEDS ORDERED: ENALAPRIL 10 MG TABLET PO SCH (09:00)
--- NOTE | 2023-03-16 09:28 | Physical Therapy Daily Note ---
PT Daily Note-Current Subjective Pt found lying in bed upon entry. Agreed to PT. Reports that she just received blood pressure medication and does not know how well she will tolerated PT treatment. States that she is having some abdominal soreness. Does not rate pain. Pain Section J - Health Conditions 1. Rarely or not at all 2. Occasionally 3. Frequently 4. Almost constantly 8. Unable to answer Pain Effect on Sleep: 2 Pain Interference with Therapy: 2 Pain Interference w/Day-to-Day: 2 Mental Status Patient Orientation: Person, Place Transfers SCALE: Activities may be completed with or without assistive devices. 4-Iryhgogmrd-iylxiyz completes the activity by him/herself with no assistance from a helper. 5-Set-up or Clean-up Assistance-helper sets up or cleans up; patient completes activity. [place] assists only prior to or following the activity. 4-Supervision or Touching Assistance-helper provides verbal cues and/or touching/steadying and/or contact guard assistance as patient completes activity. Assistance may be provided throughout the activity or intermittently. 3-Partial/Moderate Assistance-helper does LESS THAN HALF the effort. [place] lifts, holds or supports trunk or limbs, but provides less than half the effort. 2-Substantial/Maximal Assistance-helper does MORE THAN HALF the effort. [place] lifts or holds trunk or limbs and provides more than half the effort. 7-Sqfjtqwlr-oxpnod does ALL the effort. Patient does none of the effort to complete the activity. Or, the assistance of 2 or more helpers is required for the patient to complete the activity. If activity was not attempted, code reason: 7-Patient Refused. 9-Not Applicable-not attempted and the patient did not perform the activity before the current illness, exacerbation or injury. 10-Not Attempted due to Environmental Limitations-(lack of equipment, weather restraints, etc.). 88-Not Attempted due to Medical Conditions or Safety Concerns. Sit to Lying (QC): 6 Lying to Sitting/Side of Bed(Q: 6 Sit to Stand (QC): 6 Weight Bearing Right Lower Extremity: Right Full Weight Bearing Left Lower Extremity: Left Full Weight Bearing Gait Training Does the Patient Walk?: Yes Distance: 100 Walk 10 feet (QC): 4 Walk 50 ft with 2 Turns(QC): 4 Walk 150 ft (QC): 4 Gait Persons Needed: 1 Gait Assistive Device: FWW Assessment Current Status: Good Progress Pt performs sitting to lying and lying to sitting transfers independently /c use of bed railing. Performs sit to stand transfer from edge of bed /c UE push off. She ambulated 100 feet /c use of a FWW. She required CGA due to balance deficits and reports of lightheadedness. She demonstrates a slow gait pattern /c good step lengths. Required one short standing rest break to complete. Pt left supine in bed post-treatment /c call light in place and all needs met. Continue to progress pt per POC. PT Assisted Goals Associate Product Manager Goals PT Associate Product Manager Goals Time Frame: Apr 08, 2023 Roll Left & Right (QC): 6 Sit to Lying (QC): 6 Lying-Sitting on Side/Bed(QC): 6 Sit to Stand (QC): 6 Chair/Lnj-ts-Kscfe Xfer(QC): 6 Toilet Transfer (QC): 6 Does the Patient Walk: Yes Walk 10 feet (QC): 4 Walk 50ft with 2 Turns (QC): 4 Walk 150 ft (QC): 4 PT Plan Treatment/Plan Treatment Plan: Continue Plan of Care Treatment Plan: Bed Mobility, Education, Functional Activity Audie, Functional Strength, Group Therapy, Gait, Safety, Therapeutic Exercise, Transfers Treatment Duration: Apr 08, 2023 Frequency: 6 times per week Estimated Hrs Per Day: .25 hour per day Patient and/or Family Agrees t: Yes Time Time In: 850 Time Out: 906 DATE: Mar 16, 2023 Total Billed Treatment Time: 16 Total Billed Treatment 1 visit GT x 1 MATT BARAKAT CONTINUOUS IMPROVEMENT DIRECTOR Mar 16, 2023 09:28
[2023-03-16 11:15] VITALS: BP 188/82
--- NOTE | 2023-03-16 11:28 | Occupational Ther Daily Note ---
OT Current Status-Daily Note Subjective Agreeable to OT Mental Status/Objective Patient Orientation: Person, Place, Time, Situation ADL-Treatment standing sponge bathing, Patient reports she feels like she is standing in a row boat on the water. Therapy Code Descriptions/Definitions Functional [place] Measure: 0=Not Assessed/NA 4=Minimal Assistance 1=Total Assistance 5=Supervision or Setup 2=Maximal Assistance 6=Modified [place] 3=Moderate Assistance 7=Complete IndependenceSCALE: Activities may be completed with or without assistive devices. 9-Gzskqpuwxp-cgjcaqa completes the activity by him/herself with no assistance from a helper. 5-Set-up or Clean-up Assistance-helper sets up or cleans up; patient completes activity. [place] assists only prior to or following the activity. 4-Supervision or Touching Assistance-helper provides verbal cues and/or touching/steadying and/or contact guard assistance as patient completes activity. Assistance may be provided throughout the activity or intermittently. 3-Partial/Moderate Assistance-helper does LESS THAN HALF the effort. [place] lifts, holds or supports trunk or limbs, but provides less than half the effort. 2-Substantial/Maximal Assistance-helper does MORE THAN HALF the effort. [place] lifts or holds trunk or limbs and provides more than half the effort. 2-Uxiozicom-jvqlth does ALL the effort. Patient does none of the effort to complete the activity. Or, the assistance of 2 or more helpers is required for the patient to complete the activity. If activity was not attempted, code reason: 7-Patient Refused. 9-Not Applicable-not attempted and the patient did not perform the activity before the current illness, exacerbation or injury. 10-Not Attempted due to Environmental Limitations-(lack of equipment, weather restraints, etc.). 88-Not Attempted due to Medical Conditions or Safety Concerns. Eating (QC): 6 Oral Hygiene (QC): 5 Bathing Location: Abdomen, Buttocks, Perineal Area Shower/Bathe Self (QC): 5 Upper Body Dressing (QC): 5 Lower Body Dressing (QC): 5 On/Off Footwear: 5 Toileting Hygiene (QC): 5 Toilet Transfer (QC): 5 Education OT Patient Education: Correct positioning, Modified ADL techniques, Progress toward Goal/Update tx plan, Purpose of tx/functional activities, Reviewed precautions, Rehab process, Safety issues, Transfer techniques Teaching Recipient: Patient Teaching Methods: Demonstration, Discussion Response to Teaching: Reinforcement Needed OT Tube Knitter Goals Tube Knitter Goals Eating (QC): 6 Oral Hygiene (QC): 6 Toileting Hygiene (QC): 6 Shower/Bathe Self (QC): 6 Upper Body Dressing (QC): 6 Lower Body Dressing (QC): 6 On/Off Footwear (QC): 6 1=Demonstrate adherence to instructed precautions during ADL tasks. 2=Patient will verbalize/demonstrate understanding of assistive devices/modifications for ADL. 3=Patient will improve strength/tolerance for activity to enable patient to perform ADL's. OT Education/Plan Problem List/Assessment Assessment: Decreased Activ Tolerance, Impaired Self-Care Skills Discharge Recommendations Plan/Recommendations: Continue POC Treatment Plan/Plan of Care Patient would benefit from OT for education, treatment and training to promote independence in ADL's, mobility, safety and/or upper extremity function for ADL's. Plan of Care: ADL Retraining, Functional Mobility, Group Exercise/Act as Ind, UE Funct Exercise/Act Treatment Duration: Mar 17, 2023 Frequency: 3 times per week (3-5 times per week) Estimated Hrs Per Day: .25 hour per day Rehab Potential: Fair Up in recliner, [employer] student assisting w/ hair cap Time Start Time: 10:00 Stop Time: 10:35 DATE: Mar 16, 2023 Total Time Billed (hr/min): 35 Billed Treatment Time ADL 35 min MAILE QUINN OT Mar 16, 2023 11:28
--- NOTE | 2023-03-16 11:43 | Progress Note - Hospitalist ---
Subjective HPI/CC On Admission Date Seen by Provider: Mar 16, 2023 Time Seen by Provider: 10:15 67F w/ a PMH of A-fib, partial nephrectomy in 2013, large sessile polyps seen on colonoscopy, reflux esophagitis grade II on EGD, and a UTI a few weeks ago presents with extreme weakness, fatigue, and progressive anemia. She states she has been feeling weak and fatigued for a month or so but it has been getting really bad the last 3 days. She states her Hgb was 11.7 January 26 and 10.2 on March 01. It is 7.2 today. Her previous Hgb recordings were discovered due to being seen for a run of A-fib and for getting checked out due to the same sx she is here for today. She says her BP is normally high, but lately she has been fighting with it being low, and when she stands up, her heart races. She also complains of being SOB, having nausea, and a pressure-like sensation in the middle of her chest. She states she has had black stools off and on since starting Xarelto around 2 years ago for her A-fib, but they have been cons istently black the last week. She also complains of chalk-like urine, dysuria, and an increased frequency in urination. A snippet of an operative report from Dr. Zamora in July of 2021 describing her last EGD and colonoscopy findings is pasted below: INDICATIONS: The patient is a 65-year-old female who we had seen May 2020 where she underwent an EGD and colonoscopy. She has a history of large sessile polyp identified of the sigmoid colon, which was not amenable to endoscopic resection. She underwent a formal resection in 2014. She is also status post right partial nephrectomy in 2013. We had done the EGD and colonoscopy on her and she was found to have a reflux esophagitis grade II, small hiatal hernia 2 cm in size, moderate gastritis as well as chronic stage II external and internal hemorrhoids and no polyps identified. She states that she has had pain and swelling in the periumbilical region and was found to have reducible; however, symptomatic ventral abdominal incisional hernia. She also reported intermittent episodes of bleeding as well as irritation and itching in the anal region. Subjective/Events-last exam She is feeling a bit better today. She is still feeling weak. Objective Exam Vital Signs Vital Signs Date Time Temp Pulse Resp B/P (MAP) Pulse Ox O2 Delivery O2 Flow Rate FiO2 03/16/23 08:30 Room Air 03/16/23 07:47 36.6 60 16 184/80 (114) 94 03/15/23 08:00 1.50 Capillary Refill : Less Than 3 SecondsLess Than 3 Seconds General Appearance: No Apparent Distress, Obese Respiratory: Lungs Clear, No Respiratory Distress Cardiovascular: Regular Rate, Rhythm, No Murmur Gastrointestinal: Normal Bowel Sounds, Soft Extremity: Normal Inspection, Pedal Edema Neurologic/Psychiatric: Alert, Normal Mood/Affect Results/Procedures Lab Laboratory Tests 03/16/23 05:53 Patient resulted labs reviewed. Assessment/Plan Assessment and Plan Assess & Plan/Chief Complaint Anemia GI Bleed Biliary dyskinesia s/p laparoscopic cholecystectomy Dr Zamora, surgery following EGD with gastritis, esophagitis, sm-mod hiatal hernia s/p cynthia POD #2 Hgb 9.5, improved s/p 2 units PRBC PPI Eliquis resumed IV Venofer Anxiety Continue diazepam as needed Debility PT/OT IRU referral pending HTN Afib Continue home antihypertensives as able UTI s/p Rocephin Diagnosis/Problems Diagnosis/Problems (1) Anemia Status: Acute (2) S/P laparoscopic cholecystectomy Status: Acute (3) Biliary dyskinesia Status: Acute (4) GI bleed Status: Acute (5) History of atrial fibrillation Status: Acute (6) Anxiety about health Status: Acute (7) Obesity Status: Chronic Clinical Quality Measures AMI/AHF: ASA po Prior to arrival: KATIE Sommer MD Mar 16, 2023 11:43
[2023-03-16] MEDS: diazePAM 5 MG TABLET PO PRN (11:59)
[2023-03-16] MEDS ORDERED: FUROSEMIDE 20 MG TABLET PO NR (12:00)
[2023-03-16] MEDS ORDERED: ENALAPRIL 10 MG TABLET PO NR (12:15)
[2023-03-16] MEDS ORDERED: hydrALAZINE INJECTION 20 MG/ML VIAL IV PRN (13:45)
[2023-03-16 16:31] VITALS: BP 162/76
[2023-03-16] MEDS: ATENOLOL 25 MG TABLET PO SCH (18:21)
[2023-03-16 20:17] VITALS: BP 161/71
[2023-03-16] MEDS: DOCUSATE SODIUM 100 MG CAPSULE PO SCH (20:33)
[2023-03-16] MEDS: SENNOSIDES 8.6 MG TABLET PO SCH (20:33)
[2023-03-16] MEDS: ENALAPRIL 10 MG TABLET PO SCH (20:33)
[2023-03-16] MEDS: MELATONIN 3 MG TABLET PO PRN (20:50)
[2023-03-16 23:28] VITALS: BP 125/58
[2023-03-17] MEDS: NS IV 500 ML 500 ML IV SCH (00:38)
[2023-03-17 03:24] VITALS: BP 159/68
[2023-03-17 06:00] LABS: POTASSIUM 3.5 MMOL/L (3.6-5.0)
[2023-03-17 06:02] LABS: CALCIUM 8.7 MG/DL (8.5-10.1)
[2023-03-17 06:06] LABS: CREATININE SERUM 0.88 MG/DL (0.60-1.30)
[2023-03-17 07:30] VITALS: BP 169/70
[2023-03-17] MEDS: IRON SUCROSE 200 MG/10 ML VIAL IV SCH (08:10)
[2023-03-17] MEDS: APIXABAN 5 MG TABLET PO SCH (08:10)
[2023-03-17] MEDS: SENNOSIDES 8.6 MG TABLET PO SCH (08:12)
[2023-03-17] MEDS: PANTOPRAZOLE 40 MG TABLET PO SCH (08:12)
[2023-03-17] MEDS: DOCUSATE SODIUM 100 MG CAPSULE PO SCH (08:12)
[2023-03-17] MEDS: AMIODARONE 200 MG TABLET PO SCH (08:13)
[2023-03-17] MEDS: ENALAPRIL 10 MG TABLET PO SCH (08:14)
--- NOTE | 2023-03-17 10:11 | Physical Therapy Daily Note ---
PT Daily Note-Current Subjective Pt found seated on edge of bed upon entry. Agreed to PT. Reports that she is feeling a little better today. No reports of pain. States that she has been sitting up since 7am and was just getting ready to lay back down. Pain Section J - Health Conditions 1. Rarely or not at all 2. Occasionally 3. Frequently 4. Almost constantly 8. Unable to answer Pain Effect on Sleep: 2 Pain Interference with Therapy: 2 Pain Interference w/Day-to-Day: 2 Mental Status Patient Orientation: Person, Place Transfers SCALE: Activities may be completed with or without assistive devices. 3-Bvkqhjvgot-zcqubun completes the activity by him/herself with no assistance from a helper. 5-Set-up or Clean-up Assistance-helper sets up or cleans up; patient completes activity. [place] assists only prior to or following the activity. 4-Supervision or Touching Assistance-helper provides verbal cues and/or touching/steadying and/or contact guard assistance as patient completes activity. Assistance may be provided throughout the activity or intermittently. 3-Partial/Moderate Assistance-helper does LESS THAN HALF the effort. [place] lifts, holds or supports trunk or limbs, but provides less than half the effort. 2-Substantial/Maximal Assistance-helper does MORE THAN HALF the effort. [place] lifts or holds trunk or limbs and provides more than half the effort. 2-Hsbhsketm-rfqlsc does ALL the effort. Patient does none of the effort to complete the activity. Or, the assistance of 2 or more helpers is required for the patient to complete the activity. If activity was not attempted, code reason: 7-Patient Refused. 9-Not Applicable-not attempted and the patient did not perform the activity before the current illness, exacerbation or injury. 10-Not Attempted due to Environmental Limitations-(lack of equipment, weather restraints, etc.). 88-Not Attempted due to Medical Conditions or Safety Concerns. Sit to Lying (QC): 6 Sit to Stand (QC): 6 Weight Bearing Right Lower Extremity: Right Full Weight Bearing Left Lower Extremity: Left Full Weight Bearing Gait Training Does the Patient Walk?: Yes Distance: 150 Walk 10 feet (QC): 4 Walk 50 ft with 2 Turns(QC): 4 Walk 150 ft (QC): 4 Gait Persons Needed: 1 Gait Assistive Device: FWW Assessment Current Status: Good Progress Pt performs sit to stand transfer from edge of bed /c use of UEs for push off. She ambulated 150 feet /c use of a FWW before returning to room. States that the hallway feels "wavy" and it feels like she is walking on a small boat. Pt occasionally deviates to either side while ambulating and required CGA for safety due to balance deficits. Pt returned to room and performed a sitting to lying transfer independently. Call light in place and all needs met post- treatment. Continue to progress pt per POC. PT Independent Freight Agent Goals Independent Freight Agent Goals PT Independent Freight Agent Goals Time Frame: Apr 08, 2023 Roll Left & Right (QC): 6 Sit to Lying (QC): 6 Lying-Sitting on Side/Bed(QC): 6 Sit to Stand (QC): 6 Chair/Afb-zh-Ddlqb Xfer(QC): 6 Toilet Transfer (QC): 6 Does the Patient Walk: Yes Walk 10 feet (QC): 4 Walk 50ft with 2 Turns (QC): 4 Walk 150 ft (QC): 4 PT Plan Treatment/Plan Treatment Plan: Continue Plan of Care Treatment Plan: Bed Mobility, Education, Functional Activity Audie, Functional Strength, Group Therapy, Gait, Safety, Therapeutic Exercise, Transfers Treatment Duration: Apr 08, 2023 Frequency: 6 times per week Estimated Hrs Per Day: .25 hour per day Patient and/or Family Agrees t: Yes Time Time In: 0948 Time Out: 1002 DATE: Mar 17, 2023 Total Billed Treatment Time: 14 Total Billed Treatment 1 visit GT x 1 MATT BARAKAT CLINICAL TRAINER Mar 17, 2023 10:11
[2023-03-17 11:31] VITALS: BP 166/74
--- NOTE | 2023-03-17 13:18 | D/C HH Face to Face Order ---
D/C Face to Face Orders Instructions for Patient Via [facility], Patient Instructions/FollowUp: see instructions Physician to follow Patient: Johan Discharge Diet for Home: Low Fat/Low Cholesterol Patient Data-Allergies,Ht & Wt Patient Allergies: Coded Allergies: clonidine (Verified Allergy, Severe, Angioedema, 02/07/21) diltiazem (Verified Allergy, Intermediate, 02/07/21) Leg rash Calcium Channel Blocking Agent Dilt (Unverified Allergy, Unknown, Hives, 07/03/21) amlodipine (Verified Allergy, Unknown, 02/07/21) Redness on legs albuterol (Verified Adverse Reaction, Intermediate, 02/07/21) elevated hr, palpitations Uncoded Allergies: STEROIDS (Adverse Reaction, Unknown, INCREASE BP AND PULSE, 02/07/21) Home Health Need/Face to Face Date of Face to Face: Mar 17, 2023 Clinical Findings: Generalized weakness and fatigue, Instability, Muscle weakness I have seen Pt [id number]: Yes Discharged To: Home Diagnosis/Conditions: GI bleed AFib GERD Biliary dyskinesia s/p lap cynthia Obesity Problems/Diagnosis/Condition: (1) GI bleed (2) Atrial fibrillation (3) GERD (gastroesophageal reflux disease) (4) Essential (primary) hypertension (5) Biliary dyskinesia (6) S/P laparoscopic cholecystectomy (7) Obesity Patient is Homebound due to: Nannette fall risk due to instabilty, Muscle weakness Homebound Status Due to the above stated illness, injury or surgical procedure (medical condition or diagnosis) and associated clinical findings, the patient is homebound because of his/her inability to leave home except with aid of a supportive device and/or person AND leaving the home requires a considerable and taxing effort or is medically contraindicated. Pt req the following assistanc: Aid of another person Home Health Nursing Orders Home Health Services Order: Nursing Services, Business Services Vice President-Evaluate & Treat, Physical Therapy-Evaluate & Treat Home Health Infusion Therapy Line Start Date: Mar 08, 2023 Therapy Orders Therapy Orders: OT (must have SN or PT order), Physical Therapy Therapy Specific Orders: Eval assistive deivces, Teach enviro modifications/safety, Gait training, Increase strength/endurance Certify Stmt I certify that this patient is under my care and that I, a nurse practitioner or a physician; a judicial administrative assistant working with me, had a face to face encounter that - meets the physician face to face encounter requirements with this patient as dated. KATIE GRIFFIN MD Mar 17, 2023 13:18
[2023-03-17 14:13] VITALS: BP 166/74
[2023-03-17] MEDS ORDERED: SUCR1TAB36 PO (18:08)
--- NOTE | 2023-03-17 18:17 | Discharge Summary ---
Discharge Summary Hospital Course Problems/Dx: (1) GI bleed Status: Acute (2) Anemia Status: Acute Qualifiers: (3) S/P laparoscopic cholecystectomy Status: Acute (4) Biliary dyskinesia Status: Acute (5) History of atrial fibrillation Status: Acute (6) Anxiety about health Status: Acute (7) Obesity Status: Chronic Hospital Course Date of Admission: Mar 08, 2023 at 14:34 Admission Diagnosis : Acute blood loss anemia due to upper GI bleeding Family Physician/Provider: Thad Prado Date of Discharge: 03/17/23 Discharge Diagnosis: Acute blood loss anemia due to upper GI bleeding, biliary dyskinesia s/p lap cholecystectomy Hospital Course: Chhaya Jovel is a 67 year old female with afib on anticoagulation who presented with weakness and was admitted with acute blood loss anemia due to upper GI bleeding. Surgery was consulted and she underwent endoscopy which revealed esophagitis, hiatal hernia, a small polyp, and gastritis. She was started on Protonix and Carafate. She also had biliary dyskinesia and underwent laparoscopic cholecystectomy. She did well post-operatively. Her blood thinners were resumed. She did require 2 units PRBC during her stay. She was also given IV iron. Her hemoglobin was trending up and was at 10 on the day of discharge. Her course was complicated by debility which improved with therapy. She was set up with home health care. She should follow up with her PCP and Surgery as scheduled. She was discharged home in improved, stable condition. Labs and Pending Lab Test: Laboratory Tests 03/17/23 05:36: Hemoglobin 10.0L, Hematocrit 31L, Sodium Level 141, Potassium Level 3.5L, Chloride Level 105, Carbon Dioxide Level 27, Anion Gap 9, Blood Urea Nitrogen 7, Creatinine 0.88, Estimat Glomerular Filtration Rate 71, BUN/Creatinine Ratio 8, Glucose Level 99, Calcium Level 8.7 Microbiology 03/10/23 MRSA Screen - Final, Complete MRSA not isolated 03/08/23 Urine Culture - Final, Complete >=3 Gram Positive Isolates Home Meds Active Carafate (Sucralfate) 1 Gram Tablet 1 Gm PO QID 30 Days Hydrocodone-Acetamin 7.5-325 (Hydrocodone/Acetaminophen) 7.5 Mg-325 Mg Tablet 1 Each PO Q4H PRN Protonix (Pantoprazole Sodium) 40 Mg Tablet.dr 40 Mg PO DAILY Reported Magnesium 250 Mg Tablet 250 Mg PO HS Iron Glycinate (Ferrous Bis-Glycinate Chelate) 29 Mg Iron Capsule 29 Mg PO 1800 Pantoprazole Sodium 20 Mg Tablet.dr 40 Mg PO HS TAKES 2 (20MG) TABS Nitroglycerin 0.4 Mg Tab.subl 0.4 Mg PO UD PRN Doxazosin Mesylate 8 Mg Tablet 4 Mg PO DAILY PRN Doxazosin Mesylate 8 Mg Tablet 8 Mg PO 1800 Doxazosin Mesylate 8 Mg Tablet 4 Mg PO DAILY TAKES OF A 8MG TAB Furosemide 20 Mg Tablet 20 Mg PO 1300 PRN Preservision Areds 2 Softgel (Vit C/E/Zn/Coppr/Lutein/Zeaxan) 250MG-90MG Capsule 1 Each PO DAILY Mylanta Maximum Strength Liq (Mag Hydrox/Aluminum Hyd/Simeth) 400 Mg-400 Mg-40 Mg/5 Ml Oral.susp 5 Ml PO DAILY PRN Clonidine HCl 0.1 Mg Tablet 0.1 Mg PO HS PRN Vitamin D3 (Cholecalciferol (Vitamin D3)) 50 Mcg Tablet 50 Mcg PO HS Enalapril Maleate 20 Mg Tablet 20 Mg PO BID Amiodarone HCl 200 Mg Tablet 100 Mg PO BID TAKES OF A 200MG TAB Xarelto (Rivaroxaban) 10 Mg Tablet 10 Mg PO 1800 Atenolol 25 Mg Tablet 25 Mg PO 1700 Multivitamin 1 Each Tablet 1 Each PO DAILY [id number]-[id number] Tablet (Calcium/Magnesium/Zinc) 1 Each Tablet 1 Each PO DAILY Ambien (Zolpidem Tartrate) 10 Mg Tablet 10 Mg PO HS Aspirin 81 Mg Tab.chew 81 Mg PO HS Assessment/Pt Instructions see instructions Discharge Planning: >30 minutes discharge planning Discharge Instructions Discharge Diet: Low Fat/Low Cholesterol Activity as Tolerated: Yes Consultations Surgery Discharge Physical Examination Vital Signs Vital Signs Date Time Temp Pulse Resp B/P (MAP) Pulse Ox O2 Delivery O2 Flow Rate FiO2 03/17/23 14:13 36.5 60 16 166/74 95 Room Air 0.00 Allergies: Coded Allergies: clonidine (Verified Allergy, Severe, Angioedema, 02/07/21) diltiazem (Verified Allergy, Intermediate, 02/07/21) Leg rash Calcium Channel Blocking Agent Dilt (Unverified Allergy, Unknown, Hives, 07/03/21) amlodipine (Verified Allergy, Unknown, 02/07/21) Redness on legs albuterol (Verified Adverse Reaction, Intermediate, 02/07/21) elevated hr, palpitations Uncoded Allergies: STEROIDS (Adverse Reaction, Unknown, INCREASE BP AND PULSE, 02/07/21) Discharge Summary Date of Admission Mar 08, 2023 at 14:34 Date of Discharge Mar 17, 2023 at 13:55 Discharge Date: Mar 17, 2023 Discharge Time: 13:55 Admission Diagnosis Anemia Consults/Procedures Consulations Surgery Procedures EGD, lap cynthia Discharge Diagnosis Anemia GI Bleed Biliary dyskinesia s/p laparoscopic cholecystectomy Anxiety Debility HTN Afib UTI (1) GI bleed Status: Acute (2) Anemia Status: Acute Qualifiers: (3) S/P laparoscopic cholecystectomy Status: Acute (4) Biliary dyskinesia Status: Acute (5) History of atrial fibrillation Status: Acute (6) Anxiety about health Status: Acute (7) Obesity Status: Chronic Clinical Quality Measures AMI/AHF: ASA po Prior to arrival: KATIE Sommer MD Mar 17, 2023 18:15
== END 2023-03-17 13:55 | disposition home health service (06) | DRG 356 ==
LOC: EDUNIT# 10:43 → ER 10:45 → 4TH 14:34
PROVIDERS: ADMIT Family Medicine; ATTEND Internal Medicine
PROC: 0DB48ZX Excision of Esophagogastric Junction, Via Natural or Artificial Opening Endoscopic, Diagnostic (ICD-10-PCS; 2023-03-10)
PROC: 0DB68ZX Excision of Stomach, Via Natural or Artificial Opening Endoscopic, Diagnostic (ICD-10-PCS; 2023-03-10)
PROC: 0FT44ZZ Resection of Gallbladder, Percutaneous Endoscopic Approach (ICD-10-PCS; principal; 2023-03-12 10:08)
DX: K21.01 Gastro-esophageal reflux disease with esophagitis, with bleeding (principal); K29.71 Gastritis, unspecified, with bleeding; D62 Acute posthemorrhagic anemia; N39.0 Urinary tract infection, site not specified; K82.8 Other specified diseases of gallbladder; I48.91 Unspecified atrial fibrillation; Z79.01 Long term (current) use of anticoagulants; K44.9 Diaphragmatic hernia without obstruction or gangrene; F41.9 Anxiety disorder, unspecified; R53.81 Other malaise; I10 Essential (primary) hypertension; E66.9 Obesity, unspecified; I25.2 Old myocardial infarction; Z85.53 Personal history of malignant neoplasm of renal pelvis; K22.82 Esophagogastric junction polyp; Z11.52 Encounter for screening for COVID-19
CPT/HCPCS: 36415; 71045; 76705; 78227; 80048; 80053; 81000; 82274; 83690; 83735; 83880; 84484; 85014; 85018; 85025; 85027; 85610; 85730; 86850; 86900; 86901; 86920; 87081; 87088; 87636; 88305; 93005; 93041; 96374

== ENCOUNTER 2023-03-22 10:14 | Outpatient (RCR) | payer MEDICARE, OTHER ==
--- NOTE | 2023-03-10 19:29 | OPERATIVE REPORT ---
DATE OF SERVICE: 03/10/2023 ATTENDING PRIMARY SUBWAY CAR REPAIRER: Thad XIAO PREOPERATIVE DIAGNOSES: Anemia, dark tarry stools, nausea and vomiting. POSTOPERATIVE DIAGNOSES: Reflux esophagitis, Sutton between grade B and C, small GE junction polyp 2 mm in size, hlspx-dm-kzkufvtt size hiatal hernia approximately 2.5 cm in size, moderate gastritis, no distal obstructions. PROCEDURE: EGD with biopsy. SURGEON: Tressa Schwarz M.D. ANESTHESIA: Monitored anesthesia care. ESTIMATED BLOOD LOSS: Minimal. FINDINGS: Reflux esophagitis, Sutton between grade B and C, small GE junction polyp 2 mm in size, nyqdn-al-evjqhpoh size hiatal hernia approximately 2.5 cm in size, moderate gastritis, no distal obstructions. DISPOSITION: The patient tolerated the procedure well. INDICATIONS: The patient is a 67-year-old female who has had longstanding issues with gastroesophageal reflux disease and is currently on medication for this. She reports that in recent weeks, she has developed dark tarry stools and also states that she has developed significant nausea and vomiting usually after eating meals. She also was found to be anemic with a hemoglobin within the 7 range and before this, this was normally in the 10 range. DESCRIPTION OF PROCEDURE: The patient was brought to the endoscopy suite and laid in the left lateral decubitus position. After adequate IV pain and sedative medications and monitored anesthesia care, the mouthpiece was applied. The endoscope was placed in the mouth, visualizing the pharynx and hypopharyngeal region. Vocal cords, epiglottis and vallecula identified and appeared to be normal. Endoscope was then gently intubated in the esophageal opening and esophagus insufflated. The endoscope was then advanced through the first, second, third portions of esophagus at the level of the GE junction, reflux esophagitis between Sutton grade B and C identified. There was also a polyp just below the gastroesophageal junction approximately 2 mm in size. This was biopsied with forceps with visualization of good hemostasis. The GE junction was also biopsied, again with good hemostasis. The endoscope was then advanced into the stomach and endoscope retroflexed, visualizing a pwypx-cg-egsxnoij size hiatal hernia approximately 2.5 cm in size. There was a moderate severity gastritis. No formal ulcerations, polyps or any neoplasms as well as no active bleeding sources. A biopsy was taken of the antrum to rule out H. pylori with visualization of good hemostasis. The endoscope was then advanced through the pylorus and the first and second portion of the duodenum, which appeared normal with no distal obstructions or any ulcerations, nor any active bleeding. The endoscope was then slowly withdrawn while taking a second look and suctioning of residual air with no additional findings. The patient tolerated the procedure well. We will await the biopsy results; however, recommend the necessary lifestyle and dietary accommodation including small and more frequent meals, avoidance of eating at night as well as head elevation while lying supine. She also needs to avoid caffeinated beverages, spicy, greasy and acidic foods. We will also review her medications, and if she is not on a PPI acid record press tender that is prescription strength on a daily basis, we will start her on one. Job ID: [id number] DocumentID: [id number] Dictated Date: 03/10/2023 10:50:58 Clamp Forklift Operator Date: 03/10/2023 19:27:00 Dictated By: TRESSA SCHWARZ MD
[~2023-03-22 10:14] MED LIST changes: +DOXA8TAB73 PO; +FERR29CA PO; +FURO20TA4 PO; +MAGN250T31 PO; +NITR0.4T42 PO; +PANT20TA18 PO; +PANT40TA2 PO; +VIT1CAPS44 PO
[2023-03-22 11:17] LABS: BASOPHILS # (AUTO) 0.1 10^3/uL (0.0-0.1); BASOPHILS % (AUTO) 1 % (0-10); EOSINOPHILS # (AUTO) 0.2 10^3/uL (0.0-0.3); EOSINOPHILS % (AUTO) 5 % (0-10); HEMATOCRIT 39 % (35-52); HEMOGLOBIN 12.1 g/dL (11.5-16.0); LYMPHOCYTES # (AUTO) 0.9 10^3/uL (1.0-4.0); LYMPHOCYTES % (AUTO) 18 % (12-44); MEAN CORPUSCULAR HEMOGLOBIN 30 pg (25-34); MEAN CORPUSCULAR HGB CONC 31 g/dL (32-36); MEAN CORPUSCULAR VOLUME 96 fL (80-99); MEAN PLATELET VOLUME 10.5 fL (9.0-12.2); MONOCYTES # (AUTO) 0.4 10^3/uL (0.0-1.0); MONOCYTES % (AUTO) 8 % (0-12); NEUTROPHILS # (AUTO) 3.5 10^3/uL (1.8-7.8); NEUTROPHILS % (AUTO) 68 % (42-75); PLATELET COUNT 277 10^3/uL (130-400); WHITE BLOOD COUNT 5.2 10^3/uL (4.3-11.0)
[2023-03-22 11:35] LABS: BILIRUBIN,TOTAL 0.3 MG/DL (0.1-1.0); CALCIUM 9.2 MG/DL (8.5-10.1); CREATININE SERUM 1.03 MG/DL (0.60-1.30); POTASSIUM 3.9 MMOL/L (3.6-5.0); TOTAL PROTEIN 6.6 GM/DL (6.4-8.2)
== END 2023-04-08 | disposition home or self-care (01) ==
LOC: ONC 10:14
PROVIDERS: ATTEND Internal Medicine Hematology & Oncology
DX: C64.1 Malignant neoplasm of right kidney, except renal pelvis (principal); D50.9 Iron deficiency anemia, unspecified; K92.2 Gastrointestinal hemorrhage, unspecified; I10 Essential (primary) hypertension; F41.1 Generalized anxiety disorder
CPT/HCPCS: 80053; 82728; 83540; 83550; 85025

== ENCOUNTER → 2023-03-29 | Outpatient (CLI) | payer MEDICARE, OTHER ==
[2023-03-29 13:33] LABS: BASOPHILS # (AUTO) 0.1 10^3/uL (0.0-0.1); BASOPHILS % (AUTO) 1 % (0-10); EOSINOPHILS # (AUTO) 0.1 10^3/uL (0.0-0.3); EOSINOPHILS % (AUTO) 1 % (0-10); HEMATOCRIT 41 % (35-52); HEMOGLOBIN 12.6 g/dL (11.5-16.0); LYMPHOCYTES # (AUTO) 1.6 10^3/uL (1.0-4.0); LYMPHOCYTES % (AUTO) 19 % (12-44); MEAN CORPUSCULAR HEMOGLOBIN 30 pg (25-34); MEAN CORPUSCULAR HGB CONC 31 g/dL (32-36); MEAN CORPUSCULAR VOLUME 96 fL (80-99); MEAN PLATELET VOLUME 10.8 fL (9.0-12.2); MONOCYTES # (AUTO) 0.4 10^3/uL (0.0-1.0); MONOCYTES % (AUTO) 5 % (0-12); NEUTROPHILS # (AUTO) 6.5 10^3/uL (1.8-7.8); NEUTROPHILS % (AUTO) 74 % (42-75); PLATELET COUNT 300 10^3/uL (130-400); WHITE BLOOD COUNT 8.8 10^3/uL (4.3-11.0)
[2023-03-29 13:52] LABS: ALBUMIN 4.1 GM/DL (3.2-4.5); BILIRUBIN,TOTAL 0.3 MG/DL (0.1-1.0); CALCIUM 9.7 MG/DL (8.5-10.1); CREATININE SERUM 1.26 MG/DL (0.60-1.30); POTASSIUM 3.9 MMOL/L (3.6-5.0); TOTAL PROTEIN 6.6 GM/DL (6.4-8.2)
== END ==
LOC: LAB 13:17
PROVIDERS: ATTEND Surgery
DX: D64.9 Anemia, unspecified (principal)
CPT/HCPCS: 36415; 80053; 85025

== ENCOUNTER → 2023-04-02 | Outpatient (CLI) | payer MEDICARE, OTHER ==
[~2023-04-02] MED LIST changes: +CATHETER FLUSH 10 ML SYR IV PRN; +HOLD METFORMIN - RECEIVED CONTRAST 20 ML VIAL IV SCH; +IOHEXOL 350 MG/ML 100 ML (OMNIPAQUE 350) VIAL IV ONE; +NS 100 ML (IVPB) BAG IV ONE
--- NOTE | 2023-04-02 09:32 | Diagnostic Imaging Report ---
PROCEDURE: CT chest with contrast, CT abdomen and pelvis with and without contrast. TECHNIQUE: Pre and post intravenous contrast axial imaging of the abdomen and pelvis and post contrast axial imaging of the chest were performed. Auto Exposure Controls were utilized during the CT exam to meet ALARA standards for radiation dose reduction. INDICATION: Primary malignant neoplasm of the renal pelvis, follow-up. CT CHEST: No axillary lymphadenopathy is detected. No definite mediastinal or hilar lymphadenopathy is detected. No pericardial or pleural fluid is identified. No pulmonary infiltrates, nodules or masses are detected. CT abdomen and pelvis: No discrete liver mass is identified apart from a probable cyst in the right lobe. Gallbladder appears to be surgically absent. There is no biliary ductal dilatation. The pancreas and spleen are unremarkable. There is no adrenal mass identified. Postop changes of partial nephrectomy on the right are noted. No definite residual or recurrent mass is detected. Left kidney is unremarkable. Aorta is calcified but nonaneurysmal. No central retroperitoneal or mesenteric lymphadenopathy is detected. The small and large bowel loops are normal in caliber. Postoperative changes at the rectosigmoid junction are noted. No iliac or inguinal lymphadenopathy is detected. Bladder is decompressed. Uterus is surgically absent. There is no ascites. IMPRESSION: Postop changes of partial right nephrectomy. There is no evidence of thoracic, abdominal or pelvic lymphadenopathy or metastatic disease. Dictated by: Dictated on workstation # [id number]
== END ==
LOC: RAD 08:24 → MERGE 08:45
PROVIDERS: ATTEND Internal Medicine Hematology & Oncology
DX: C65.9 Malignant neoplasm of unspecified renal pelvis (principal); Z90.5 Acquired absence of kidney
CPT/HCPCS: 71260; 74178